=== PATIENT | male | born 1935 | race Caucasian/White ===

== ENCOUNTER 2016-10-14 12:08 | Emergency (ER) | payer MEDICARE ==
[~2016-10-14] VITALS: Ht 188 cm; Wt 97.5 kg
[~2016-10-14 12:08] MED LIST: ACET-2307 PO; AMLO10TA2 PO; AMLO10TA4 PO; ASPI-983 PO; CITA10TA12 PO; CITA20TA7 PO; CYCL5TAB PO; DIAZ5TAB PO; DIAZ5TAB3 PO; DICL100G18 TOP; DOCU-143 PO; FEN12TD TD; FENT1PAT57 TD; FENT1PAT8 TP; FINA5TAB6 PO; FOLI1TAB6 PO; FURO20TA4 PO; GABA-488 PO; HYDR2TAB6 PO; LORA10TA7 PO; METO-270 PO; MOVE FREE ULTR1 EAC1 PO; OXYB5TAB PO; OXYB5TAB9 PO; OXYC-202 PO; POLY17PO6 PO; RIVA20TA PO; SENN-20 PO; TAMS0.4C2 PO; TAMS0.4C98 PO; TELM40T PO; TRAM50TA2 PO; UBID1CAP53 PO
--- NOTE | 2016-10-14 13:08 | ED General ---
General Chief Complaint: Dizziness/Syncope Stated Complaint: DIZZY N/V Source of Information: Patient, Family Exam Limitations: No Limitations History of Present Illness Time Seen by Provider: 13:03 Initial Comments The patient is an 81-year-old white male known to me for nearly 40 years. He reports that he was at [employer] this morning helping out. A lady came in and brought 5 gallons of motor oil. He carried this to her vehicle then began to feel ill. This primarily was a faint sensation and lightheadedness accompanied by intense diaphoresis. His states that he was not supposed to carry any weights as he has had 2 previous back surgeries. It also was stated that his blood pressure tends to drop when he is up. Further he has been told by his corking machine operator in [place] that he may need a pacemaker. His blood sugar was tested on a glucometer and found to be 49. He is not diabetic and has not taken any hypoglycemics. He is feeling better at this time. Monitor shows his blood pressure to be satisfactory however his pulse is in the 40s. His QRS duration is 119 ms. Timing/Duration: 1-3 Hours Severity: Moderate Associated Systoms: Nausea/Vomiting Allergies and Home Medications Allergies Coded Allergies: Qhsivbq-Iqn-Fcn Reductase Inhibitor (Verified Allergy, Unknown, 07/05/15) hydrocodone (Verified Allergy, Unknown, 07/05/15) Home Medications Acetaminophen 650 Mg Tablet.er, 650 MG PO BID, (Reported) Amlodipine Besylate 10 Mg Tablet, 10 MG PO DAILY, (Reported) Aspirin 81 Mg Tablet.dr, 81 MG PO HS, (Reported) Cartilage/Collagen II/Hyaluron 1 Each Tablet, 1 TAB PO BID, (Reported) Citalopram Hydrobromide 20 Mg Tablet, 20 MG PO DAILY, (Reported) LAST FILLED 05/13/15 #30 Cyclobenzaprine HCl 5 Mg Tablet, 2.5 MG PO TID, #60 Ref 2 Prescribed by: JYOTI RAPP on 07/10/1514 Diazepam 5 Mg Tablet, 5 MG PO Q4H PRN for MUSCLE SPASMS, (Reported) Diclofenac Sodium 100 Gm Gel..gram., 0 GM TOP QID, #5 Ref 2 Prescribed by: JYOTI RAPP on 07/10/15 0914 Docusate Sodium 100 Mg Capsule, 200 MG PO DAILY, (Reported) TAKES 2 (100MG) CAPSULES Fentanyl 1 Each Patch.td72, 25 MCG TP EVERY 72 HOURS, (Reported) Fentanyl 12 Mcg Patch, 12 MCG TD Q72H, #10 Prescribed by: JYOTI RAPP on 07/10/15913 Finasteride 5 Mg Tablet, 5 MG PO HS, (Reported) Furosemide 20 Mg Tablet, 20 MG PO DAILY, (Reported) LAST FILLED 05/13/15 #30 Gabapentin 300 Mg Capsule, 300 MG PO TID, (Reported) Hydromorphone HCl 2 Mg Tablet, 4 MG PO Q4H PRN for PAIN, (Reported) TAKES 2 (2 MG) TABLETS Loratadine 10 Mg Tablet, 10 MG PO DAILY, (Reported) Metoprolol Succinate 25 Mg Tab.er.24h, 25 MG PO HS, (Reported) Multivitamin/Iron/Folic Acid 1 Each Tablet, 1 TAB PO DAILY, (Reported) Oxybutynin Chloride 5 Mg Tablet, 5 MG PO HS, (Reported) Oxycodone HCl/Acetaminophen 1 Each Tablet, 1 TAB PO Q6H PRN for PAIN, (Reported) Polyethylene Glycol 3350 17 Gm Powd.pack, 17 GM PO DAILY, (Reported) Rivaroxaban 20 Mg Tablet, 20 MG PO HS, #30 Ref 4 Prescribed by: JYOTI RAPP on 07/10/15913 Sennosides/Docusate Sodium 1 Each Tablet, 1 EA PO DAILY, #60 Ref 2 Prescribed by: JYOTI RAPP on 07/10/15913 Tamsulosin HCl 0.4 Mg Cap.er.24h, 0.4 MG PO DAILY, (Reported) Telmisartan 40 Mg Tab, 20 MG PO DAILY, (Reported) TAKES 1/2 (40MG) TABLETS Ubidecarenone/Vit E Acetate 1 Each Capsule, 1 CAP PO DAILY, (Reported) Constitutional: see HPI EENTM: no symptoms reported Respiratory: no symptoms reported Cardiovascular: syncope (near) Gastrointestinal: no symptoms reported Genitourinary: no symptoms reported Musculoskeletal: muscle weakness Skin: no symptoms reported Psychiatric/Neurological: No Symptoms Reported Hematologic/Lymphatic: No Symptoms Reported Immunological/Allergic: no symptoms reported Past Pbkdqsv-Llhmct-Qrvlrj Hx Patient Social History Former Smoker/When Quit: Mar 30, 1989 Immunizations Up To Date Date of Pneumonia Vaccine: Mar 08, 2012 Date of Influenza Vaccine: Apr 08, 2015 Seasonal Allergies Seasonal Allergies: No Surgeries HX Surgeries: Yes (CERVICAL AND LUMBAR SPINE SURGERY; BILATERAL KNEE AND RIGHT HIP REPLACEMENT) Surgeries: Joint Replacement, Neurological Respiratory Hx Respiratory Disorders: Yes Respiratory Disorders: Sleep Apnea Cardiovascular Hx Cardiac Disorders: Yes (GA) Cardiac Disorders: Coronary Artery Disease, Heart Attack, High Cholesterol, Hypertension Neurological Hx Neurological Disorders: No Reproductive System Hx Reproductive Disorders: No Genitourinary Hx Genitourinary Disorders: Yes Genitourinary Disorders: Benign Prostatic Hyperpl Gastrointestinal Hx Gastrointestinal Disorders: No Musculoskeletal Hx Musculoskeletal Disorders: Yes (LEFT ARM LYMPHEDEMA) Musculoskeletal Disorders: Degenerate Disk Disease, Arthritis, Chronic Back Pain Endocrine Hx Endocrine Disorders: No HEENT HX ENT Disorders: No Hearing Impairment: Hard of Hearing Cancer Hx Cancer: Yes (LEFT ARM LYMPHEDEMA) Cancer: Melanoma Psychosocial Hx Psychiatric Problems: Yes Behavioral Health Disorders: Depression Integumentary HX Skin/Integumentary Disorder: Yes (LOWER LEGS, MELANOMA) Blood Transfusions Hx Blood Disorders: No Adverse Reaction to a Blood Tr: No Family Medical History Significant Family History: Heart Disease, Hypertension Family Medial History: Anemia Cardiovascular disease Diabetes mellitus FH: breast cancer Hypertension Physical Exam Vital Signs Capillary Refill : General Appearance: No Apparent Distress, WD/WN Eyes: Bilateral Eye Normal Inspection HEENT: Normal ENT Inspection Neck: Normal Inspection Respiratory: Chest Non Tender, Lungs Clear, Normal Breath Sounds, No Accessory Muscle Use, No Respiratory Distress Cardiovascular: Other (bradycardic) Gastrointestinal: Normal Bowel Sounds, No Organomegaly, No Pulsatile Mass, Non Tender, Soft Neurologic/Psychiatric: Alert, Oriented x3, No Motor/Sensory Deficits, Normal Mood/Affect Skin: Normal Color, Warm/Dry Lymphatic: No Adenopathy Comments There is lymphedema of the left arm which is chronic and follows a left axillary dissection as part of a treatment for a 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 The lower extremities show bilateral symmetric edema and erythema consistent with venous stasis dermatitis Progress/Results/Core Measures Results/Orders Lab Results Laboratory Tests Test 10/14/16 12:25 Range/Units Glucometer 95 70-110 MG/DL My Orders Orders - NANCY MACKENZIE MD Ekg Tracing (10/14/16 12:32) Departure Impression Impression: Primary Impression: Near syncope Additional Impression: bradycardia Disposition: 01 HOME, SELF-CARE Condition: Improved Departure-Patient Inst. Referrals: NO,LOCAL PHYSICIAN (PCP/Family) Primary Care Physician Patient Instructions: Syncope (Fainting) (DC), Orthostatic Hypotension (DC) Add. Discharge Instructions: All discharge instructions reviewed with patient and/or family. Voiced understanding. Take in 500 mL of oral fluids this afternoon. Rest NANCY MACKENZIE MD October 14, 2016 13:08
[2016-10-14 13:19] LABS: BASOPHILS % (AUTO) 1 % (0-10); EOSINOPHILS # (AUTO) 0.2 10^3/uL (0.0-0.3); EOSINOPHILS % (AUTO) 3 % (0-10); LYMPHOCYTES % (AUTO) 30 % (12-44); MEAN CORPUSCULAR HEMOGLOBIN 32 PG (25-34); MEAN CORPUSCULAR HGB CONC 34 G/DL (32-36); MEAN CORPUSCULAR VOLUME 93 FL (80-99); MEAN PLATELET VOLUME 10.3 FL (7.4-10.4); MONOCYTES # (AUTO) 0.7 X 10^3 (0.0-1.0); MONOCYTES % (AUTO) 11 % (0-12); NEUTROPHILS # (AUTO) 3.7 X 10^3 (1.8-7.8); NEUTROPHILS % (AUTO) 56 % (42-75); PLATELET COUNT 233 10^3/uL (130-400); RED BLOOD COUNT 4.52 10^6/uL (4.35-5.85); RED CELL DISTRIBUTION WIDTH 13.1 % (10.0-14.5); WHITE BLOOD COUNT 6.7 10^3/uL (4.3-11.0)
[2016-10-14 13:32] LABS: ALANINE AMINOTRANSFERASE 16 U/L (0-55); ALBUMIN 3.9 G/DL (3.2-4.5); ANION GAP 8 MMOL/L (5-14); ASPARTATE AMINO TRANSFERASE 21 U/L (5-34); BILIRUBIN,TOTAL 0.4 MG/DL (0.1-1.0); BLOOD UREA NITROGEN 20 MG/DL (7-18); BUN/CREATININE RATIO 18; CALCIUM 10.3 MG/DL (8.5-10.1); CARBON DIOXIDE 25 MMOL/L (21-32); CHLORIDE 103 MMOL/L (98-107); CREATININE SERUM 1.14 MG/DL (0.60-1.30); GFR ESTIMATED > 60; GLUCOSE 100 MG/DL (70-105); SODIUM 136 MMOL/L (135-145); TOTAL PROTEIN 6.5 G/DL (6.4-8.2)
[2016-10-14 14:08] VITALS: BP 132/80
== END 2016-10-14 14:08 | disposition home or self-care (01) ==
LOC: EDUNIT# 12:08 → ER 12:10
DX: R55 Syncope and collapse (principal); R00.1 Bradycardia, unspecified; I10 Essential (primary) hypertension; E11.9 Type 2 diabetes mellitus without complications; I25.10 Atherosclerotic heart disease of native coronary artery without angina pectoris; I97.89 Other postprocedural complications and disorders of the circulatory system, not elsewhere classified; Z79.82 Long term (current) use of aspirin; Z79.899 Other long term (current) drug therapy; Z79.4 Long term (current) use of insulin; Z85.820 Personal history of malignant melanoma of skin
CPT/HCPCS: 36415; 80053; 82962; 85025; 93005

== ENCOUNTER 2017-10-16 19:06 | Emergency (ER) | payer MEDICARE ==
[~2017-10-16] VITALS: Ht 185.4 cm; Wt 115.7 kg
[~2017-10-16 19:06] MED LIST changes: -CITA20TA7 PO; +CITA20TA9 PO; -METO-270 PO; +METO-387 PO
--- NOTE | 2017-10-16 19:24 | ED General ---
General Chief Complaint: Dizziness/Syncope Stated Complaint: DIZZY Source of Information: Patient, Spouse History of Present Illness Date Seen by Provider: October 16, 2017 Time Seen by Provider: 19:11 Initial Comments PT ARRIVES VIA POV FROM HOME C/O SEVERE DIZZINESS AND NAUSEA/VOMITING HAS CHRONIC LIGHTHEADEDNESS OFF AND ON, BUT HAS BEEN WORSE THE LAST WEEK, AND WOKE UP DIZZY/LIGHTHEADED TODAY AND HAS BEEN LIGHTHEADED ALL DAY TODAY WHILE HE WAS OUTSIDE AROUND 1700, HAD WALKED TO THE BARN AND SUDDENLY THE DIZZINESS BECAME SEVERE AND "THE WHOLE WORLD'S SPINNING" AND HE COULD NOT STAND , AND HE BECAME NAUSEATED AND VOMITED WAS SWEATY TOOK NTG SL X 1, AN HOUR AGO, "JUST IN CASE" IT MIGHT BE HIS HEART, BUT NO CHEST PAIN OR SHORTNESS OF BREATH AT ANY TIME TOOK OTC MECLIZINE 25 MG 45 MINUTES AGO, AND HE VOMITED RIGHT AFTERWARDS HAS HAD SLIGHT HEADACHE VISION WAS BLURRY EARLIER, BUT NOT RIGHT NOW. DESCRIBES NYSTAGMUS AT HOME, NOT OCCURRING NOW NO CHANGES IN HEARING ( HAS BEEN TO ENT DR. RICHARDSON, IN THE PAST FOR THIS AND WAS TOLD IT WAS NOT FROM HIS EARS) HAS HAD IT THIS BAD BEFORE BUT LAST TIME IT WAS THIS BAD WAS ABOUT A YEAR AGO. PCP: MAGGIE GORE--HAS APPOINTMENT ON Monday10/18/17 BUSINESS PRACTICES SUPERVISOR: MAGGIE DENNY UROLOGIST: MAGGIE NASH HAD BEEN AT [facility] A COUPLE OF YEARS AGO WITH INTRACTABLE BACK PAIN AND STRONG PAIN MEDICATIONS WERE MAKING HIM UNMANAGEABLE AT HOME--DR. RAPP WAS HIS DR. IN PRISON. Allergies and Home Medications Allergies Coded Allergies: [id number]-Oba Reductase Inhibitor (Verified Allergy, Unknown, 07/05/15) hydrocodone (Verified Allergy, Unknown, 07/05/15) Home Medications Acetaminophen 650 Mg Tablet.er, 650 MG PO BID, (Reported) Amlodipine Besylate 10 Mg Tablet, 10 MG PO DAILY, (Reported) Aspirin 81 Mg Tablet.dr, 81 MG PO HS, (Reported) Cartilage/Collagen II/Hyaluron 1 Each Tablet, 1 TAB PO BID, (Reported) Citalopram Hydrobromide 20 Mg Tablet, 20 MG PO DAILY, (Reported) LAST FILLED 05/13/15 #30 Docusate Sodium 100 Mg Capsule, 200 MG PO DAILY, (Reported) TAKES 2 (100MG) CAPSULES Finasteride 5 Mg Tablet, 5 MG PO HS, (Reported) Gabapentin 300 Mg Capsule, 300 MG PO TID, (Reported) Loratadine 10 Mg Tablet, 10 MG PO DAILY, (Reported) Meclizine HCl 25 Mg Tablet, 25-50 MG PO Q4H Prescribed by: KISHA BLOUNT on 10/16/172058 Multivitamin/Iron/Folic Acid 1 Each Tablet, 1 TAB PO DAILY, (Reported) Ondansetron 4 Mg Tab.rapdis, 4 MG PO Q4H Prescribed by: KISHA BLOUNT on 10/16/172058 Scopolamine 1 Each Patch.td72, 1 EACH TD Q72 HOURS Prescribed by: KISHA BLOUNT on 10/16/172058 Ubidecarenone/Vit E Acetate 1 Each Capsule, 1 CAP PO DAILY, (Reported) Patient Home Medication List Home Medication List Reviewed: Yes Review of Systems Constitutional: see HPI, diaphoresis, dizziness EENTM: blurred vision Respiratory: no symptoms reported; No short of breath Cardiovascular: no symptoms reported; No chest pain, No palpitations, No syncope Gastrointestinal: No abdominal pain; nausea, vomiting Genitourinary: no symptoms reported Musculoskeletal: no symptoms reported (EXCEPT CHRONIC LEFT ARM LYMPHEDEMA AND CHRONIC NECK AND BACK PAIN--NO DIFFERENT THAN NORMAL), back pain, neck pain Skin: no symptoms reported Psychiatric/Neurological: See HPI, Headache; Denies Numbness, Denies Paresthesia, Denies Seizure, Denies Tingling, Denies Weakness Hematologic/Lymphatic: No Symptoms Reported Immunological/Allergic: no symptoms reported Past Tkcjdcj-Wbtxay-Nwiixy Hx Patient Social History Alcohol Use: Denies Use Recreational Drug Use: No Smoking Status: Never a Smoker Recent Foreign Travel: No Contact w/Someone Who Travel: No Immunizations Up To Date Date of Pneumonia Vaccine: Mar 08, 2012 Date of Influenza Vaccine: Apr 08, 2015 Seasonal Allergies Seasonal Allergies: No Past Medical History Surgeries: Yes (CERVICAL AND LUMBAR SPINE SURGERY; BILATERAL KNEE AND RIGHT HIP REPLACEMENTS; MELANOMA REMOVED FROM BACK WITH LYMPH NODE REMOVAL LEFT AXILLA IN 1979; BILATERAL CATARACTS; CARDIAC CATH--NO INTERVENTION; CERVICAL SPINE FUSION/HARDWARE; LOW BACK SURGERY X 2; BILATERAL INGUINAL HERNIA REPAIRS) Abdominal, Cardiac, Eye Surgery, Joint Replacement, Neurological, Orthopedic, Pacemaker Respiratory: Yes Sleep Apnea Currently Using BIPAP: Yes Cardiac: Yes (GA; DVT RIGHT LEG POST-OP BACK SURGERY) Chronic Edema/Swelling (LEGS, LEFT ARM), Coronary Artery Disease, Deep Vein Thrombosis, Heart Attack, High Cholesterol, Hypertension Neurological: Yes Vertigo Reproductive Disorders: No Genitourinary: Yes Benign Prostatic Hyperpl Gastrointestinal: No Musculoskeletal: Yes (LEFT ARM LYMPHEDEMA; CHRONIC NECK AND BACK PAIN) Degenerate Disk Disease, Arthritis, Chronic Back Pain Endocrine: No HEENT: Yes Cataract Hearing Impairment: Hard of Hearing Cancer: Yes (MELANOMA ON BACK--S/P SURGERY 1979) Melanoma Did You Recieve Any Treatments: Yes What Type of Treatment Did You: Surgical Intervention Psychosocial: Yes Depression Integumentary: Yes (LOWER LEGS, MELANOMA ON BACK) Blood Disorders: No Adverse Reaction/Blood Tranf: No Family Medical History Anemia Cardiovascular disease Diabetes mellitus FH: breast cancer Hypertension Heart Disease, Hypertension Physical Exam Vital Signs Vital Signs - First Documented 10/16/17 19:10 Temp 95.3 Pulse 70 Resp 25 B/P (MAP) 177/104 (128) Pulse Ox 91 O2 Delivery Room Air Capillary Refill : General Appearance: No Apparent Distress, WD/WN HEENT: PERRL/EOMI (NO NYSTAGMUS), TMs Normal, Normal ENT Inspection, Pharynx Normal Neck: Full Range of Motion, Normal Inspection, Supple, Tender Lateral, Tender Midline, Other (NECK PAIN IS CHRONIC AND NO DIFFERENT THAN NORMAL) Respiratory: Normal Breath Sounds, No Accessory Muscle Use, No Respiratory Distress Cardiovascular: Regular Rate, Rhythm, No JVD, No Murmur, Normal Peripheral Pulses, Other (SIGNIFICANT LYMPHEDEMA OF LEFT ARM) Gastrointestinal: Normal Bowel Sounds, No Organomegaly, No Pulsatile Mass, Non Tender, Soft Back: No CVA Tenderness Extremity: Normal Capillary Refill, Normal Range of Motion, Non Tender, No Calf Tenderness, Pedal Edema (TRACE BILATERALLY WITH CHRONIC VENOUS STASIS CHANGES BILATERALLY) Neurologic/Psychiatric: Alert, Oriented x3, No Motor/Sensory Deficits, Normal Mood/Affect, family protection specialist II-XII Norm as Tested, Other ( UNABLE TO STAND OR PERFORM CEREBELLAR TESTS ON ARRIVAL) Skin: Normal Color, Warm/Dry Progress/Results/Core Measures Suspected Sepsis SIRS Temperature: Pulse: Respiratory Rate: Laboratory Tests 10/16/17 19:30: White Blood Count 10.5 Blood Pressure / Mean: Laboratory Tests 10/16/17 19:30: Creatinine 1.21, INR Comment 1.0, Platelet Count 262, Total Bilirubin 0.5 Results/Orders Lab Results Laboratory Tests Test 10/16/17 19:21 10/16/17 19:30 10/16/17 20:31 Range/Units Glucometer 143 H 70-110 MG/DL White Blood Count 10.5 4.3-11.0 10^3/uL Red Blood Count 4.98 4.35-5.85 10^6/uL Hemoglobin 16.0 13.3-17.7 G/DL Hematocrit 46 40-54 % Mean Corpuscular Volume 92 80-99 FL Mean Corpuscular Hemoglobin 32 25-34 PG Mean Corpuscular Hemoglobin Concent 35 32-36 G/DL Red Cell Distribution Width 13.5 10.0-14.5 % Platelet Count 262 130-400 10^3/uL Mean Platelet Volume 9.5 7.4-10.4 FL Neutrophils (%) (Auto) 73 42-75 % Lymphocytes (%) (Auto) 18 12-44 % Monocytes (%) (Auto) 7 0-12 % Eosinophils (%) (Auto) 1 0-10 % Basophils (%) (Auto) 0 0-10 % Neutrophils # (Auto) 7.7 1.8-7.8 X 10^3 Lymphocytes # (Auto) 1.9 1.0-4.0 X 10^3 Monocytes # (Auto) 0.8 0.0-1.0 X 10^3 Eosinophils # (Auto) 0.1 0.0-0.3 10^3/uL Basophils # (Auto) 0.0 0.0-0.1 10^3/uL Prothrombin Time 12.8 12.2-14.7 SEC INR Comment 1.0 0.8-1.4 Activated Partial Thromboplast Time 25 24-35 SEC Sodium Level 139 135-145 MMOL/L Potassium Level 4.4 3.6-5.0 MMOL/L Chloride Level 101 98-107 MMOL/L Carbon Dioxide Level 23 21-32 MMOL/L Anion Gap 15 H 5-14 MMOL/L Blood Urea Nitrogen 18 7-18 MG/DL Creatinine 1.21 0.60-1.30 MG/DL Estimat Glomerular Filtration Rate 57 BUN/Creatinine Ratio 15 Glucose Level 149 H 70-105 MG/DL Calcium Level 10.7 H 8.5-10.1 MG/DL Magnesium Level 2.4 1.8-2.4 MG/DL Total Bilirubin 0.5 0.1-1.0 MG/DL Aspartate Amino Transf (AST/SGOT) 21 5-34 U/L Alanine Aminotransferase (ALT/SGPT) 20 0-55 U/L Alkaline Phosphatase 71 40-136 U/L Troponin I < 0.30 <0.30 NG/ML Total Protein 7.9 6.4-8.2 GM/DL Albumin 4.7 H 3.2-4.5 GM/DL TSH [place] Testing 3.98 0.35-4.94 UIU/ML Urine Color YELLOW Urine Clarity CLEAR Urine pH 6.5 5-9 Urine Specific [place] 1.020 1.016-1.022 Urine Protein 1+ H NEGATIVE Urine Glucose (UA) NEGATIVE NEGATIVE Urine Ketones NEGATIVE NEGATIVE Urine Nitrite NEGATIVE NEGATIVE Urine Bilirubin NEGATIVE NEGATIVE Urine Urobilinogen NORMAL NORMAL MG/DL Urine Leukocyte Esterase NEGATIVE NEGATIVE Urine RBC (Auto) 4+ H NEGATIVE Urine RBC >100 H /HPF Urine WBC RARE /HPF Urine Crystals NONE /LPF Urine Bacteria NEGATIVE /HPF Urine Casts NONE /LPF Urine Mucus SMALL H /LPF Urine Culture Indicated NO My Orders Orders - KISHA BLOUNT DO Saline Lock/Iv-Start (10/16/17 19:16) Ekg Tracing (10/16/17 19:16) Monitor-Rhythm Ecg Trace Only (10/16/17 19:16) Ct Head Wo-R/O Stroke (10/16/17 19:16) Cbc With Automated Diff (10/16/17 19:16) Comprehensive Metabolic Panel (10/16/17 19:16) Magnesium (10/16/17 19:16) Protime With Inr (10/16/17 19:16) Partial Thromboplastin Time (10/16/17 19:16) Thyroid Analyzer (10/16/17 19:16) Troponin I (10/16/17 19:16) Ua Culture If Indicated (10/16/17 19:16) Ondansetron Injection (Zofran Injectio (10/16/17 19:30) Scopolamine Patch (Transderm-Scop Patch) (10/16/17 19:30) Meclizine Tablet (Antivert Tablet) (10/16/17 19:30) Chest 1 View, Ap/Pa Only (10/16/17 19:35) Rx-Ondansetron Po (Rx-Zofran Po) (10/16/17 20:59) Medications Given in ED Current Medications Medications Dose Ordered Sig/Vish Route Start Time Stop Time Status Last Admin Dose Admin Ondansetron HCl 8 mg ONCE ONCE IVP 10/16/17 19:30 10/16/17 19:31 DC 10/16/17 19:36 8 MG Scopolamine 1.5 mg ONCE ONCE TD 10/16/17 19:30 10/16/17 19:31 DC 10/16/17 19:36 1.5 MG Vital Signs/I&O 10/16/17 19:10 Temp 95.3 Pulse 70 Resp 25 B/P (MAP) 177/104 (128) Pulse Ox 91 O2 Delivery Room Air Capillary Refill : Progress Note : Progress Note DIZZINESS AND NAUSEA IS GONE WITH ZOFRAN AND SCOPOLAMINE. PT DECLINES MECLIZINE , STATES HE DOES NOT NEED IT. PT FREELY TURNS HEAD FROM SIDE TO SIDE AND SITTING UPRIGHT WITH OUT DIFFICULTY PT ABLE TO AMBULATE QUICKLY ON HIS OWN AT DISMISSAL PT WANTS TO GO HOME ECG Initial ECG Impression Date: October 16, 2017 Initial ECG Impression Time: 19:27 Initial ECG Rate: 65 Initial ECG Rhythm: Normal Sinus (INCOMPLETE RBBB) Diagnostic Imaging Comments CXR--MILD CARDIOMEGALY, NO ACUTE PROCESS CT HEAD--NO ACUTE PROCESS PER RADIOLOGIST REPORTS @ 2016 Reviewed: Reviewed by Me Departure Impression Primary Impression: Vertigo Additional Impression: Microscopic hematuria Disposition: HOME, SELF-CARE Condition: Improved Departure-Patient Inst. Referrals: SOO FERREIRA MD (PCP/Family) Primary Care Physician Patient Instructions: Vertigo (a Type of Dizziness) (DC) Add. Discharge Instructions: SLOW POSITION CHANGES USE YOUR WALKER AT ALL TIMES CONTINUE YOUR REGULAR MEDICATIONS PRESCRIBED FOLLOW UP WITH DR. FERREIRA ON MONDAY SCHEDULED. All discharge instructions reviewed with patient and/or family. Voiced understanding. Scripts Meclizine HCl (Meclizine HCl) 25 Mg Tablet 25-50 MG PO Q4H for Dizziness, #30 TAB Prov: KISHA BLOUNT DO 10/16/17 Ondansetron (Zofran Odt) 4 Mg Tab.rapdis 4 MG PO Q4H for Nausea/Vomiting, #10 TAB Prov: KISHA BLOUNT DO 10/16/17 Scopolamine (Transderm-Scop) 1 Each Patch.td72 1 EACH TD Q72 HOURS for Dizziness, #3 PATCH Prov: KISHA BLOUNT DO 10/16/17 KISHA BLOUNT DO October 16, 2017 19:24
[2017-10-16] MEDS ORDERED: SCOPOLAMINE 1.5 MG (TRANSDERM-SCOP) PATCH TD ONE (19:30)
[2017-10-16] MEDS ORDERED: ONDANSETRON 4 MG/2 ML (SDV) Z0FRAN IVP ONE (19:30)
[2017-10-16] MEDS ORDERED: MECLIZINE 25 MG (ANTIVERT) TAB PO ONE (19:30)
[2017-10-16 19:39] LABS: BASOPHILS % (AUTO) 0 % (0-10); EOSINOPHILS # (AUTO) 0.1 10^3/uL (0.0-0.3); EOSINOPHILS % (AUTO) 1 % (0-10); HEMATOCRIT 46 % (40-54); LYMPHOCYTES # (AUTO) 1.9 X 10^3 (1.0-4.0); LYMPHOCYTES % (AUTO) 18 % (12-44); MEAN CORPUSCULAR HEMOGLOBIN 32 PG (25-34); MEAN CORPUSCULAR HGB CONC 35 G/DL (32-36); MEAN CORPUSCULAR VOLUME 92 FL (80-99); MEAN PLATELET VOLUME 9.5 FL (7.4-10.4); MONOCYTES # (AUTO) 0.8 X 10^3 (0.0-1.0); MONOCYTES % (AUTO) 7 % (0-12); NEUTROPHILS # (AUTO) 7.7 X 10^3 (1.8-7.8); NEUTROPHILS % (AUTO) 73 % (42-75); PLATELET COUNT 262 10^3/uL (130-400); RED BLOOD COUNT 4.98 10^6/uL (4.35-5.85); RED CELL DISTRIBUTION WIDTH 13.5 % (10.0-14.5); WHITE BLOOD COUNT 10.5 10^3/uL (4.3-11.0)
[2017-10-16] MEDS ORDERED: NF-TELM20T (19:43)
[2017-10-16 19:53] LABS: PROTHROMBIN TIME PATIENT 12.8 SEC (12.2-14.7)
[2017-10-16 20:02] LABS: ALANINE AMINOTRANSFERASE 20 U/L (0-55); ALBUMIN 4.7 GM/DL (3.2-4.5); ALKALINE PHOSPHATASE 71 U/L (40-136); BILIRUBIN,TOTAL 0.5 MG/DL (0.1-1.0); BUN/CREATININE RATIO 15; CALCIUM 10.7 MG/DL (8.5-10.1); CARBON DIOXIDE 23 MMOL/L (21-32); CHLORIDE 101 MMOL/L (98-107); CREATININE SERUM 1.21 MG/DL (0.60-1.30); GFR ESTIMATED 57; GLUCOSE 149 MG/DL (70-105); MAGNESIUM 2.4 MG/DL (1.8-2.4); POTASSIUM 4.4 MMOL/L (3.6-5.0); SODIUM 139 MMOL/L (135-145); TOTAL PROTEIN 7.9 GM/DL (6.4-8.2)
--- NOTE | 2017-10-16 20:06 | Diagnostic Imaging Report ---
INDICATION: Dizziness and syncope Upright chest shows mild cardiomegaly with normal vascularity. The lungs are clear. There is no effusion or pneumothorax. There is no acute bony abnormality. IMPRESSION: Mild cardiomegaly. Dictated by: Dictated on workstation # [id number]
--- NOTE | 2017-10-16 20:10 | Diagnostic Imaging Report ---
INDICATION: Dizziness, syncope FINDINGS: The ventricles are normal in size, shape and position. There is no acute parenchymal hemorrhage, edema or mass. There is no extra-axial mass or hemorrhage. IMPRESSION: No acute abnormality is seen. Dictated by: Dictated on workstation # [id number]
[2017-10-16 20:22] LABS: TSH (THYROID ANALYZER) 3.98 UIU/ML (0.35-4.94)
[2017-10-16 20:52] LABS: BILIRUBIN,URINE NEGATIVE (NEGATIVE); CLARITY,URINE CLEAR; COLOR,URINE YELLOW; GLUCOSE, URINE (UA) NEGATIVE (NEGATIVE); KETONES,URINE NEGATIVE (NEGATIVE); LEUKOCYTE ESTERASE ,URINE NEGATIVE (NEGATIVE); NITRITE,URINE NEGATIVE (NEGATIVE); PH,URINE 6.5 (5-9); PROTEIN,URINE 1+ (NEGATIVE); UROBILINOGEN,URINE NORMAL (NORMAL)
[2017-10-16] MEDS ORDERED: SCOP1PAT11 TD (20:59)
[2017-10-16] MEDS ORDERED: ONDA4TAB8 PO (20:59)
[2017-10-16] MEDS ORDERED: MECL-106 PO (20:59)
[2017-10-16] MEDS ORDERED: RX-ONDANSETRON 4 MG ODT (ZOFRAN) PPK #4 ONE (20:59)
[2017-10-16] MEDS ORDERED: RX-ONDANSETRON 4 MG ODT (ZOFRAN) PPK #4 PO STA (20:59)
[2017-10-16 21:08] LABS: BACTERIA,URINE NEGATIVE /HPF; RBC,URINE >100 /HPF; WBC,URINE RARE /HPF
[2017-10-16 21:12] VITALS: BP 138/89
== END 2017-10-16 21:12 | disposition home or self-care (01) ==
LOC: EDUNIT# 19:06 → ER 19:07
DX: R42 Dizziness and giddiness (principal); R31.29 Other microscopic hematuria; G47.30 Sleep apnea, unspecified; I25.2 Old myocardial infarction; I25.10 Atherosclerotic heart disease of native coronary artery without angina pectoris; E78.00 Pure hypercholesterolemia, unspecified; I10 Essential (primary) hypertension; F32.9 Major depressive disorder, single episode, unspecified; Z86.718 Personal history of other venous thrombosis and embolism; Z88.5 Allergy status to narcotic agent; Z88.8 Allergy status to other drugs, medicaments and biological substances; Z79.82 Long term (current) use of aspirin; Z82.49 Family history of ischemic heart disease and other diseases of the circulatory system; Z98.1 Arthrodesis status; Z96.653 Presence of artificial knee joint, bilateral; Z96.641 Presence of right artificial hip joint; Z85.820 Personal history of malignant melanoma of skin; Z87.19 Personal history of other diseases of the digestive system; Z95.0 Presence of cardiac pacemaker
CPT/HCPCS: 36415; 70450; 71045; 80053; 81000; 82962; 83735; 84443; 84484; 85025; 85610; 85730; 93005; 93041; 96374

== ENCOUNTER → 2017-11-20 | Outpatient (CLI) | payer MEDICARE ==
[~2017-11-20] MED LIST changes: +MECL-106 PO; +NF-TELM20T; +ONDA4TAB8 PO; +SCOP1PAT11 TD
--- NOTE | 2017-11-20 11:25 | Diagnostic Imaging Report ---
INDICATION: Right foot injury 3 views of the right foot show slight cortical irregularity on the dorsal aspect of the distal talus close to the talonavicular joint. This could be a nondisplaced avulsion fracture. IMPRESSION: Questionable nondisplaced avulsion fracture of the dorsal cortex of the distal talus. Dictated by: Dictated on workstation # [id number]
== END ==
LOC: RAD 10:56
PROVIDERS: ATTEND Nurse Practitioner Family
DX: S99.921A Unspecified injury of right foot, initial encounter (principal)
CPT/HCPCS: 73630

== ENCOUNTER 2020-02-11 17:27 | Inpatient (IN) | payer MEDICARE ==
[~2020-02-11] VITALS: Ht 182.9 cm; Wt 113.1 kg
[~2020-02-11 17:27] MED LIST changes: -ACET-2307 PO; +ACET650T8 PO; -AMLO10TA2 PO; +AMLO10TA7 PO; +ASPI-1238 PO; -ASPI-983 PO; -DIAZ5TAB3 PO; +DIAZ5TAB49 PO; -MECL-106 PO; +MECL-149 PO; -METO-387 PO; +MTP25TSR PO; +OXYB-52 PO; -OXYB5TAB PO; +OXYB5TAB13 PO; -OXYB5TAB9 PO; -OXYC-202 PO; +OXYC1TAB12 PO; -RIVA20TA PO; +RIVA20TA2 PO; -TAMS0.4C98 PO; +TMSL.4C PO; -TRAM50TA2 PO; +TRM50T PO
[2020-02-11] MEDS ORDERED: NS IV 1000 ML 1,000 ML IV SCH ×2 (17:54→19:33)
--- NOTE | 2020-02-11 18:22 | ED Respiratory ---
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 ALSO HAS HAD BURNING ON URINATION RECENTLY HAS HAD MULTIPLE SICK CONTACTS THAT TESTED + FOR COVID-19--WAS AT A [place] 01[place]20 AND MULTIPLE PEOPLE AT THAT EVENT TESTED + ADDITIONALLY, THE GROOM HAS BEEN WORKING AT HIS HOUSE IN THE LAST 2 WEEKS--NO MASKS WERE WORN PT TOOK TYLENOL JUST PRIOR TO ARRIVAL, OTHERWISE HAS NOT TAKEN ANYTHING ELSE FOR SYMPTOMS PT SAW HIS PCP, DR. FERREIRA, IN [place] LAST W[place] FOR ROUTINE EXAM, BUT DID NOT TELL HIM ABOUT THESE SYMPTOMS OR HIS KNOWN EXPOSURE TO COVID-19. PCP: DR. FERREIRA [place] Allergies and Home Medications Allergies Coded Allergies: Klufcar-Wrx-Tph Reductase Inhibitor (Verified Allergy, Unknown, 07/05/15) hydrocodone (Verified Allergy, Unknown, 07/05/15) Home Medications Acetaminophen 650 Mg Tablet.er, 650 MG PO BID, (Reported) Amlodipine Besylate 10 Mg Tablet, 10 MG PO DAILY, (Reported) Aspirin 81 Mg Tablet.dr, 81 MG PO HS, (Reported) Cartilage/Collagen II/Hyaluron 1 Each Tablet, 1 TAB PO BID, (Reported) Citalopram Hydrobromide 20 Mg Tablet, 20 MG PO DAILY, (Reported) LAST FILLED 05/13/15 #30 Docusate Sodium 100 Mg Capsule, 200 MG PO DAILY, (Reported) TAKES 2 (100MG) CAPSULES Finasteride 5 Mg Tablet, 5 MG PO HS, (Reported) Gabapentin 300 Mg Capsule, 300 MG PO TID, (Reported) Loratadine 10 Mg Tablet, 10 MG PO DAILY, (Reported) Meclizine HCl 25 Mg Tablet, 25-50 MG PO Q4H Prescribed by: KISHA BLOUNT on 10/16/172058 Multivitamin/Iron/Folic Acid 1 Each Tablet, 1 TAB PO DAILY, (Reported) Ondansetron 4 Mg Tab.rapdis, 4 MG PO Q4H Prescribed by: KISHA BLOUNT on 10/16/172058 Scopolamine 1 Each Patch.td72, 1 EACH TD Q72 HOURS Prescribed by: KISHA BLOUNT on 10/16/172058 Ubidecarenone/Vit E Acetate 1 Each Capsule, 1 CAP PO DAILY, (Reported) Patient Home Medication List Home Medication List Reviewed: Yes Review of Systems Review of Systems Constitutional: see HPI, chills, diaphoresis, fever, malaise, weakness EENTM: no symptoms reported Respiratory: see HPI, cough Cardiovascular: No chest pain; edema (CHRONIC LEFT ARM LYMPHEDEMA UNCHANGED) Gastrointestinal: see HPI; No abdominal pain, No constipation, No diarrhea; loss of appetite, nausea; No vomiting Genitourinary: see HPI, dysuria Musculoskeletal: see HPI (BODY ACHES) Skin: no symptoms reported Psychiatric/Neurological: No Symptoms Reported Hematologic/Lymphatic: No Symptoms Reported Immunological/Allergic: no symptoms reported Past Ilornjj-Nlkgzc-Ouzcdy Hx Past Med/Social Hx: Reviewed and Corrections made Patient Social History Alcohol Use: Denies Use Recreational Drug Use: No Smoking Status: Never a Smoker Recent Foreign Travel: No Contact w/Someone Who Travel: No Immunizations Up To Date Date of Pneumonia Vaccine: Mar 08, 2012 Date of Influenza Vaccine: Apr 08, 2015 Seasonal Allergies Seasonal Allergies: No Past Medical History Surgeries: Yes (SEE BELOW) Abdominal, Cardiac, Eye Surgery, Joint Replacement, Neurological, Orthopedic, Pacemaker Respiratory: Yes Sleep Apnea Currently Using BIPAP: Yes Cardiac: Yes (MS; DVT RIGHT LEG POST-OP BACK SURGERY;LYMPHEDEMA LEFT ARM) Chronic Edema/Swelling, Coronary Artery Disease, Deep Vein Thrombosis, Heart A ttack, High Cholesterol, Hypertension Neurological: Yes Vertigo Reproductive Disorders: No Genitourinary: Yes Benign Prostatic Hyperpl Gastrointestinal: Yes Abdominal Hernia Musculoskeletal: Yes (LEFT ARM LYMPHEDEMA; CHRONIC NECK AND BACK PAIN) Degenerate Disk Disease, Arthritis, Chronic Back Pain Endocrine: No HEENT: Yes Cataract Hearing Impairment: Hard of Hearing Cancer: Yes (MELANOMA ON BACK--S/P SURGERY 1979) Melanoma Did You Recieve Any Treatments: Yes What Type of Treatment Did You: Surgical Intervention Psychosocial: Yes Depression Integumentary: Yes ( MELANOMA ON BACK; VENOUS STASIS DERMATITIS/BILAT LOWER LEGS) Blood Disorders: Yes (DVT POST OP) Adverse Reaction/Blood Tranf: No Family Medical History Anemia Cardiovascular disease Diabetes mellitus FH: breast cancer Hypertension Heart Disease, Hypertension SOCIAL HISTORY: -NO ALCOHOL -NO DRUGS -NO TOBACCO/NO SMOKING PAST SURGICAL HISTORY: -CERVICAL SPINE SURGERY--FUSION WITH HARDWARE -LUMBAR SPINE SURGERY X 2 -BILATERAL KNEE REPLACEMENTS -RIGHT HIP REPLACEMENT -MELANOMA REMOVED FROM BACK WIHT LYMPH NODE REMOVAL FROM LEFT AXILL IN 1979 -BILATERAL CATARACT SURGERY -CARDIAC CATH--NO INTERVENTION -BILATERAL INGUINAL HERNIA REPAIRS Physical Exam Vital Signs - First Documented 02/11/20 02/11/20 17:55 18:00 Temp 37.5 Pulse 90 Resp 20 B/P (MAP) 147/80 (102) Pulse Ox 95 O2 Delivery Nasal Cannula O2 Flow Rate 2.00 Capillary Refill : Height: 6'1.00" Weight: 255lbs. 0.0oz. 115.629823sr; 33.22 BMI Method:Stated General Appearance: WD/WN, no apparent distress HEENT: PERRL/EOMI Neck: normal inspection Respiratory: no respiratory distress, no accessory muscle use, decreased breath sounds (RIGHT BASE), rales (RIGHT BASE) Cardiovascular: regular rate, rhythm, no murmur Gastrointestinal: non tender, soft Extremities: normal range of motion, non-tender, no pedal edema, no calf tenderness, normal capillary refill, other (LYMPHEDEMA LEFT ARM) Neurologic/Psychiatric: no motor/sensory deficits, alert, normal mood/affect, oriented x 3 Skin: normal color, warm/dry; No rash; other (CHRONIC VENOUS STASIS CHANGES BILATERAL LOWER LEGS. ) Focused Exam Lactate Level 02/11/20 18:15: Lactic Acid Level 1.01 Lactic Acid Level Laboratory Tests Test 02/11/20 18:15 Lactic Acid Level 1.01 MMOL/L (0.50-2.00) Progress/Results/Core Measures Suspected Sepsis SIRS Temperature: Pulse: Respiratory Rate: Laboratory Tests 02/11/20 18:15: White Blood Count 9.8 Blood Pressure / Mean: 02/11/20 18:15: Lactic Acid Level 1.01 Laboratory Tests 02/11/20 18:15: Creatinine 1.33H, INR Comment 1.1, Platelet Count 230, Total Bilirubin 0.4 Results/Orders Lab Results Laboratory Tests Test 02/11/20 18:15 02/11/20 18:20 02/11/20 18:30 Range/Units White Blood Count 9.8 4.3-11.0 10^3/uL Red Blood Count 4.69 4.30-5.52 10^6/uL Hemoglobin 14.8 13.3-17.7 g/dL Hematocrit 44 40-54 % Mean Corpuscular Volume 94 80-99 fL Mean Corpuscular Hemoglobin 32 25-34 pg Mean Corpuscular Hemoglobin Concent 34 32-36 g/dL Red Cell Distribution Width 13.4 10.0-14.5 % Platelet Count 230 130-400 10^3/uL Mean Platelet Volume 9.8 9.0-12.2 fL Immature Granulocyte % (Auto) 1 % Neutrophils (%) (Auto) 72 42-75 % Lymphocytes (%) (Auto) 13 12-44 % Monocytes (%) (Auto) 12 0-12 % Eosinophils (%) (Auto) 1 0-10 % Basophils (%) (Auto) 0 0-10 % Neutrophils # (Auto) 7.1 1.8-7.8 10^3/uL Lymphocytes # (Auto) 1.3 1.0-4.0 10^3/uL Monocytes # (Auto) 1.2 H 0.0-1.0 10^3/uL Eosinophils # (Auto) 0.1 0.0-0.3 10^3/uL Basophils # (Auto) 0.0 0.0-0.1 10^3/uL Immature Granulocyte # (Auto) 0.1 0.0-0.1 10^3/uL Erythrocyte Sedimentation Rate 21 0-30 MM/HR Prothrombin Time 14.7 12.2-14.7 SEC INR Comment 1.1 0.8-1.4 Activated Partial Thromboplast Time 37 H 24-35 SEC D-Dimer 0.90 H 0.00-0.49 UG/ML Sodium Level 133 L 135-145 MMOL/L Potassium Level 4.4 3.6-5.0 MMOL/L Chloride Level 99 98-107 MMOL/L Carbon Dioxide Level 23 21-32 MMOL/L Anion Gap 11 5-14 MMOL/L Blood Urea Nitrogen 22 H 7-18 MG/DL Creatinine 1.33 H 0.60-1.30 MG/DL Estimat Glomerular Filtration Rate 51 BUN/Creatinine Ratio 17 Glucose Level 110 H 70-105 MG/DL Lactic Acid Level 1.01 0.50-2.00 MMOL/L Calcium Level 10.1 8.5-10.1 MG/DL Corrected Calcium 9.9 8.5-10.1 MG/DL Magnesium Level 2.0 1.6-2.4 MG/DL Total Bilirubin 0.4 0.1-1.0 MG/DL Aspartate Amino Transf (AST/SGOT) 17 5-34 U/L Alanine Aminotransferase (ALT/SGPT) 13 0-55 U/L Alkaline Phosphatase 76 40-136 U/L Lactate Dehydrogenase 189 125-220 U/L Troponin I < 0.028 <0.028 NG/ML C-Reactive Protein High Sensitivity 9.34 H 0.00-0.50 MG/DL B-Type Natriuretic Peptide 12.4 <100.0 PG/ML Total Protein 7.4 6.4-8.2 GM/DL Albumin 4.2 3.2-4.5 GM/DL Procalcitonin 0.12 H <0.10 NG/ML Coronavirus 2019 ([facility]) Negative Negative Urine Color YELLOW Urine Clarity CLEAR Urine pH 5.5 5-9 Urine Specific [place] 1.020 1.016-1.022 Urine Protein NEGATIVE NEGATIVE Urine Glucose (UA) NEGATIVE NEGATIVE Urine Ketones NEGATIVE NEGATIVE Urine Nitrite NEGATIVE NEGATIVE Urine Bilirubin NEGATIVE NEGATIVE Urine Urobilinogen 0.2 < = 1.0 MG/DL Urine Leukocyte Esterase NEGATIVE NEGATIVE Urine RBC (Auto) 1+ H NEGATIVE Urine RBC RARE /HPF Urine WBC NONE /HPF Urine Squamous Epithelial Cells NONE /HPF Urine Crystals NONE /LPF Urine Bacteria NEGATIVE /HPF Urine Casts NONE /LPF Urine Mucus NEGATIVE /LPF Urine Culture Indicated NO Micro Results Microbiology 02/11/20 Influenza Types A,B Antigen (RUDY) - Final, Complete My Orders Orders - KISHA BLOUNT DO Ed Iv/Invasive Line Start (02/11/20 17:54) Ekg Tracing (02/11/20 17:54) O2 (02/11/20 17:54) Monitor-Rhythm Ecg Trace Only (02/11/20 17:54) BNP (02/11/20 17:54) Lactic Acid Analyzer (02/11/20 17:54) Magnesium (02/11/20 17:54) Procalcitonin (Pct) (02/11/20 17:54) Protime With Inr (02/11/20 17:54) Partial Thromboplastin Time (02/11/20 17:54) Ua Culture If Indicated (02/11/20 17:54) Blood Culture (02/11/20 17:54) Influenza A And B Antigens (02/11/20 17:54) Troponin I (02/11/20 17:54) Cbc With Automated Diff (02/11/20 17:54) Comprehensive Metabolic Panel (02/11/20 17:54) Fibrin Degradation Products (02/11/20 17:54) Hs C Reactive Protein (02/11/20 17:54) Erythrocyte Sedimentation Rate (02/11/20 17:54) LDH (02/11/20 17:54) Ekg Tracing (02/11/20 17:54) Chest 1 View, Ap/Pa Only (02/11/20 17:54) Coronavirus Sars-Cov-2 So 2018 (02/11/20 17:54) Covid 19 Inhouse Test (02/11/20 17:54) Ed Iv/Invasive Line Start (02/11/20 17:54) Ns Iv 1000 Ml (Sodium Chloride 0.9%) (02/11/20 17:54) Ondansetron Injection (Zofran Injectio (02/11/20 18:45) Ondansetron Injection (Zofran Injectio (02/11/20 18:45) Ondansetron Injection (Zofran Injectio (02/11/20 18:28) Ct Angio Chest W (02/11/20 19:33) Ed Iv/Invasive Line Start (02/11/20 19:33) Ns Iv 1000 Ml (Sodium Chloride 0.9%) (02/11/20 19:33) Iohexol Injection (Omnipaque 350 Mg/Ml 1 (02/11/20 19:45) Received Contrast (Hold Metformin- Contr (02/11/20 19:45) Ns (Ivpb) (Sodium Chloride 0.9% Ivpb Bag (02/11/20 19:45) Ceftriaxone For Iv Use (Rocephin For I (02/11/20 21:00) Azithromycin Injection (Zithromax Inject (02/11/20 21:00) Ns (Ivpb) (Sodium Chloride 0.9%) (02/11/20 21:00) Azithromycin Injection (Zithromax Inject (02/11/20 21:00) Dexamethasone Injection (Decadron Injec (02/11/20 21:15) Water (Sterile) For Injection (Sterile W (02/11/20 21:01) Ceftriaxone For Iv Use (Rocephin For I (02/11/20 21:01) Dexamethasone Injection (Decadron Inje (02/11/20 21:03) Hydralazine Injection (Apresoline Inject (02/11/20 21:15) Hydralazine Injection (Apresoline Inject (02/11/20 21:11) Ns Iv 1000 Ml (Sodium Chloride 0.9%) (02/11/20 21:39) Medications Given in ED Current Medications Medications Dose Ordered Sig/Vish Route Start Time Stop Time Status Last Admin Dose Admin Azithromycin 500 mg STK-MED ONCE .ROUTE 02/11/20 21:00 02/11/20 21:06 DC 02/11/20 21:22 500 MG Ceftriaxone Sodium 1000 mg/ Sterile Water 10 ml @ 200 mls/hr ONCE ONCE IV 02/11/20 21:00 02/11/20 21:21 DC 02/11/20 21:13 200 MLS/HR Dexamethasone Sodium Phosphate 6 mg ONCE ONCE IV 02/11/20 21:15 02/11/20 21:16 DC 02/11/20 21:12 6 MG Hydralazine HCl 10 mg ONCE ONCE IV 02/11/20 21:15 02/11/20 21:16 DC 02/11/20 21:19 10 MG Iohexol 100 ml ONCE ONCE IV 02/11/20 19:45 02/11/20 19:46 DC 02/11/20 20:41 83 ML Ondansetron HCl 4 mg ONCE ONCE IVP 02/11/20 18:45 02/11/20 18:46 DC 02/11/20 18:35 4 MG Ondansetron HCl 4 mg ONCE ONCE IVP 02/11/20 18:45 02/11/20 18:46 DC 02/11/20 18:38 4 MG Sodium Chloride 100 ml ONCE ONCE IV 02/11/20 19:45 02/11/20 19:46 DC 02/11/20 20:41 100 ML Sodium Chloride 250 ml @ ud STK-MED ONCE .ROUTE 02/11/20 21:00 02/11/20 21:06 DC 02/11/20 21:23 250 MLS/HR Vital Signs/I&O 9/22/20 9/22/20 17:55 18:00 Temp 37.5 Pulse 90 Resp 20 B/P (MAP) 147/80 (102) Pulse Ox 95 95 O2 Delivery Nasal Cannula Nasal Cannula O2 Flow Rate 2.00 02/12/20 00:00 Intake Total 2009 ml Balance 2009 ml Capillary Refill : Progress Note : Progress Note PT PLACED IN ISOLATION ROOM, PPE WORN AT ALL TIMES COVID-19 TESTING PERFORMED GIVEN IV FLUIDS NO DETERIORATION IN PT'S CONDITION DURING ER STAY ECG Initial ECG Impression Date: Feb 11, 2020 Initial ECG Impression Time: 18:13 Initial ECG Rate: 86 Initial ECG Rhythm: Normal Sinus Diagnostic Imaging Comments CXR--PER RADIOLOGIST REPORT AT 193 Correlation is made with prior chest from 10/16/2017. There are surgical clips in the left axilla. Heart size is stable. Lungs are clear. No infiltrate, effusion or pneumothorax is detected. There are postop changes in the lower cervical spine. IMPRESSION: No acute cardiopulmonary process is detected. CT CHEST ANGIOGRAM--PER RADIOLOGIST REPORT AT 2056 CT CHEST: 1. No identified central pulmonary embolus. Limitations for evaluation of segmental and subsegmental pulmonary emboli given degree of respiratory motion artifact. 2. Subtle areas of peripheral nodularity in the lungs which have somewhat of a tree-in-bud type appearance. This is most typical of a process spreading via endobronchial means which is most commonly an infectious bronchiolitis or aspiration. 3. Mildly prominent right and left hilar lymph nodes of uncertain exact etiology or significance. Reviewed: Reviewed by [facility] Departure Communication (Admissions) 2104--SPOKE WITH DR. PAREKH, HOSPITALIST, ACCEPTS PT FOR ADMIT. ORDERS NOTED Impression Primary Impression: Person under investigation for COVID-19 Additional Impressions: PULMONARY INFILTRATE NOTED ON CT Renal insufficiency Close exposure to COVID-19 virus Fever with exposure to COVID-19 virus Disposition: ADMITTED INPATIENT Condition: Stable Admissions Decision to Admit Reason: Admit from ER (General) Decision to Admit/Date: Feb 11, 2020 Time/Decision to Admit Time: 21:00 Departure-Patient Inst. Referrals: SOO FERREIRA MD (PCP/Family) Primary Care Physician KISHA BLOUNT DO Feb 11, 2020 18:22
[2020-02-11] MEDS ORDERED: ONDANSETRON 4 MG/2 ML (SDV) Z0FRAN ONE (18:28)
[2020-02-11 18:37] LABS: BASOPHILS % (AUTO) 0 % (0-10); EOSINOPHILS # (AUTO) 0.1 10^3/uL (0.0-0.3); EOSINOPHILS % (AUTO) 1 % (0-10); HEMATOCRIT 44 % (40-54); HEMOGLOBIN 14.8 g/dL (13.3-17.7); LYMPHOCYTES # (AUTO) 1.3 10^3/uL (1.0-4.0); LYMPHOCYTES % (AUTO) 13 % (12-44); MEAN CORPUSCULAR HEMOGLOBIN 32 pg (25-34); MEAN CORPUSCULAR HGB CONC 34 g/dL (32-36); MEAN CORPUSCULAR VOLUME 94 fL (80-99); MEAN PLATELET VOLUME 9.8 fL (9.0-12.2); MONOCYTES # (AUTO) 1.2 10^3/uL (0.0-1.0); MONOCYTES % (AUTO) 12 % (0-12); NEUTROPHILS # (AUTO) 7.1 10^3/uL (1.8-7.8); NEUTROPHILS % (AUTO) 72 % (42-75); PLATELET COUNT 230 10^3/uL (130-400); WHITE BLOOD COUNT 9.8 10^3/uL (4.3-11.0)
[2020-02-11 18:41] LABS: BILIRUBIN,URINE NEGATIVE (NEGATIVE); CLARITY,URINE CLEAR; COLOR,URINE YELLOW; GLUCOSE, URINE (UA) NEGATIVE (NEGATIVE); KETONES,URINE NEGATIVE (NEGATIVE); LEUKOCYTE ESTERASE ,URINE NEGATIVE (NEGATIVE); NITRITE,URINE NEGATIVE (NEGATIVE); PH,URINE 5.5 (5-9); PROTEIN,URINE NEGATIVE (NEGATIVE)
[2020-02-11] MEDS ORDERED: ONDANSETRON 4 MG/2 ML (SDV) Z0FRAN IVP ONE ×2 (18:45)
[2020-02-11 18:57] LABS: ALBUMIN 4.2 GM/DL (3.2-4.5)
[2020-02-11 18:58] LABS: CHLORIDE 99 MMOL/L (98-107); POTASSIUM 4.4 MMOL/L (3.6-5.0); SODIUM 133 MMOL/L (135-145)
[2020-02-11 18:59] LABS: CALCIUM 10.1 MG/DL (8.5-10.1)
[2020-02-11 19:00] LABS: GLUCOSE 110 MG/DL (70-105); TOTAL PROTEIN 7.4 GM/DL (6.4-8.2)
[2020-02-11 19:01] LABS: CARBON DIOXIDE 23 MMOL/L (21-32)
[2020-02-11 19:02] LABS: BILIRUBIN,TOTAL 0.4 MG/DL (0.1-1.0)
[2020-02-11 19:03] LABS: ALKALINE PHOSPHATASE 76 U/L (40-136)
[2020-02-11 19:04] LABS: CREATININE SERUM 1.33 MG/DL (0.60-1.30); GFR ESTIMATED 51
[2020-02-11 19:05] LABS: BUN/CREATININE RATIO 17
[2020-02-11 19:06] LABS: ALANINE AMINOTRANSFERASE 13 U/L (0-55)
[2020-02-11 19:07] LABS: FIBRIN DEGRADATION PRODUCTS 0.9 UG/ML (0.00-0.49); INR 1.1 (0.8-1.4); PROTHROMBIN TIME PATIENT 14.7 SEC (12.2-14.7)
[2020-02-11 19:11] LABS: BACTERIA,URINE NEGATIVE /HPF; RBC,URINE RARE /HPF
[2020-02-11 19:14] LABS: ERYTHROCYTE SEDIMENTATION RATE 21 MM/HR (0-30)
--- NOTE | 2020-02-11 19:22 | Diagnostic Imaging Report ---
INDICATION: Cough and shortness of air. Time of exam: 7:08 PM Correlation is made with prior chest from 10/16/2017. There are surgical clips in the left axilla. Heart size is stable. Lungs are clear. No infiltrate, effusion or pneumothorax is detected. There are postop changes in the lower cervical spine. IMPRESSION: No acute cardiopulmonary process is detected. Dictated by: Dictated on workstation # [id number]
[2020-02-11] MEDS ORDERED: IOHEXOL 350 MG/ML 100 ML (OMNIPAQUE 350) VIAL IV ONE (19:45)
[2020-02-11] MEDS ORDERED: NS 100 ML (IVPB) BAG IV ONE (19:45)
[2020-02-11] MEDS ORDERED: HOLD METFORMIN - RECEIVED CONTRAST 20 ML VIAL IV SCH (19:45)
--- NOTE | 2020-02-11 20:54 | Diagnostic Imaging Report ---
PROCEDURE: CT angiography of the chest with contrast. TECHNIQUE: Multiple contiguous axial images were obtained through the chest after uneventful bolus administration of intravenous contrast. 3D reconstructed CTA MIP acquisitions were also performed. Auto Exposure Controls were utilized during the CT exam to meet ALARA standards for radiation dose reduction. DATE: February 11, 2020. COMPARISON: Chest radiograph February 11, 2020. INDICATION: 84-year-old male, cough, shortness of breath, fever. FINDINGS: There is some respiratory motion artifact. There is a 4 mm calcified right upper lobe granuloma on axial image 42. There are areas if subtle nodularity such as in the left lower lobe on axial image 64 and adjacent sequential images as well as in the left upper lobe and right middle lobe. Some of these areas have almost a tree-in-bud type appearance and they are peripherally located. There are areas of mild atelectasis present. There is no additional identified focal airspace consolidation. There is no pneumothorax. There is no pneumothorax. The trachea is unremarkable in caliber. There is nondiagnostic assessment for subsegmental atelectasis and very limited evaluation for right-sided segmental pulmonary emboli given the degree of respiratory motion artifact. There is no identified more centrally located pulmonary embolus. The main pulmonary artery is normal in caliber. The heart is not enlarged. There is no pericardial effusion. There are atherosclerotic calcifications. There is a right hilar lymph node on axial image 71 measuring 12 mm in short axis. There is a mildly prominent left hilar lymph node. There is no identified abnormally enlarged axillary lymph node meeting CT size criteria for adenopathy. There is an incompletely imaged low-attenuation right renal lesion on axial image 142 compatible with a cyst in its imaged portions measuring up to at least 4.8 cm in size. There is a benign right renal cyst on axial 138. Additional evaluation of the imaged portions of the upper abdomen is unremarkable. There are multilevel degenerative changes of the spine. There is no identified acute bony abnormality. IMPRESSION: CT CHEST: 1. No identified central pulmonary embolus. Limitations for evaluation of segmental and subsegmental pulmonary emboli given degree of respiratory motion artifact. 2. Subtle areas of peripheral nodularity in the lungs which have somewhat of a tree-in-bud type appearance. This is most typical of a process spreading via endobronchial means which is most commonly an infectious bronchiolitis or aspiration. 3. Mildly prominent right and left hilar lymph nodes of uncertain exact etiology or significance. Dictated by: Dictated on workstation # [id number]
[2020-02-11] MEDS ORDERED: AZITHROMYCIN INJECTION 500 MG/5 ML VIAL ONE (21:00)
[2020-02-11] MEDS ORDERED: AZITHROMYCIN INJECTION 500 MG in NS (IVPB) 250 ML IV ONE (21:00)
[2020-02-11] MEDS ORDERED: NS (IVPB) 250 ML ONE (21:00)
[2020-02-11] MEDS ORDERED: cefTRIAXone FOR IV USE 1,000 MG in WATER (STERILE) FOR INJECTION 10 ML IV ONE (21:00)
[2020-02-11] MEDS ORDERED: WATER (STERILE) FOR INJECTION 10 ML ONE (21:01)
[2020-02-11] MEDS ORDERED: cefTRIAXone 1,000 MG IV (ROCEPHIN) VIAL ONE (21:01)
[2020-02-11] MEDS ORDERED: hydrALAZINE (APESOLINE) 20 MG/ML VIAL IV ONE (21:15)
[2020-02-11] MEDS: hydrALAZINE (APESOLINE) 20 MG/ML VIAL ONE ×2 (21:18→21:19)
[2020-02-11] MEDS ORDERED: NS IV 1000 ML 1,000 ML ONE (21:39)
--- NOTE | 2020-02-11 22:00 | NUR ---
Pt , Ale Padilla, called up updated on pt findings et adm. Ale Padilla voices no questions or concerns.
[2020-02-11 22:15] VITALS: BP 179/88
--- NOTE | 2020-02-11 22:15 | NUR ---
KALLI NUGENT admitted to room 512-1, with an admitting diagnosis of COVID PUI, HYPOXIA, PNEUMONIA , on 02/11/20 from ED via WHEELCHAIR, accompanied by HOSPITAL STAFF. KALLI NUGENT introduced to surroundings, call light, bed controls, phone, TV, temperature control, lights, meal times, smoking policy, visitor policy, side rail policy, bathrooms and showers. Patient Rights given to patient in the handbook.KALLI NUGENT verbalizes understanding that [facility] is not responsible for the loss or damage to any personal effects or valuables that are kept in the patients posession during their hospitalization.KALLI NUGENT verbalizes understanding of Interdisciplinary Patient Education. Patient and/or family were informed about the Rapid Response Team and its purpose.
[2020-02-11] MEDS ORDERED: ONDANSETRON 4 MG/2 ML (SDV) Z0FRAN IVP PRN (23:00)
[2020-02-11] MEDS ORDERED: ACETAMINOPHEN 500 MG TAB (TYLENOL) PO PRN (23:00)
[2020-02-11] MEDS: NS IV 1000 ML 1,000 ML IV SCH (23:40)
[2020-02-12] VITALS: BP 118/69
[2020-02-12 03:15] VITALS: BP 147/80
[2020-02-12 03:34] VITALS: BP 146/70
--- NOTE | 2020-02-12 03:34 | NUR ---
ALBUTEROL INHALTER 2PUFFS BID AND Q2 PRN. INITIATE 02 (2-4L) TO KEEP SAT ABOVE 94%. IS FOR ATELECTASIS. RT TO REASSESS IN 72 HOURS OR NEEDED. IS FOR ATELECTASIS BID Addendum: 02/12/20 at 0334 by SURYA PEREZ RT Amended: Links added.
[2020-02-12] MEDS ORDERED: RT-ALBUTEROL INHALER HFA (VENTOLIN HFA) 18 GM IH PRN (03:45)
[2020-02-12 04:00] LABS: BASOPHILS % (AUTO) 0 % (0-10); EOSINOPHILS % (AUTO) 0 % (0-10); HEMATOCRIT 40 % (40-54); HEMOGLOBIN 13.8 g/dL (13.3-17.7); LYMPHOCYTES # (AUTO) 0.9 10^3/uL (1.0-4.0); LYMPHOCYTES % (AUTO) 8 % (12-44); MEAN CORPUSCULAR HEMOGLOBIN 33 pg (25-34); MEAN CORPUSCULAR HGB CONC 35 g/dL (32-36); MEAN CORPUSCULAR VOLUME 93 fL (80-99); MEAN PLATELET VOLUME 10.3 fL (9.0-12.2); MONOCYTES # (AUTO) 0.2 10^3/uL (0.0-1.0); MONOCYTES % (AUTO) 2 % (0-12); NEUTROPHILS # (AUTO) 10.6 10^3/uL (1.8-7.8); NEUTROPHILS % (AUTO) 90 % (42-75); PLATELET COUNT 204 10^3/uL (130-400); WHITE BLOOD COUNT 11.7 10^3/uL (4.3-11.0)
[2020-02-12 04:27] LABS: ALANINE AMINOTRANSFERASE 12 U/L (0-55); ALBUMIN 3.6 GM/DL (3.2-4.5); ALKALINE PHOSPHATASE 56 U/L (40-136); BILIRUBIN,TOTAL 0.3 MG/DL (0.1-1.0); BUN/CREATININE RATIO 16; CALCIUM 9.2 MG/DL (8.5-10.1); CARBON DIOXIDE 20 MMOL/L (21-32); CHLORIDE 104 MMOL/L (98-107); CREATININE SERUM 1.13 MG/DL (0.60-1.30); GFR ESTIMATED > 60; GLUCOSE 146 MG/DL (70-105); POTASSIUM 5.8 MMOL/L (3.6-5.0); SODIUM 133 MMOL/L (135-145); TOTAL PROTEIN 7.1 GM/DL (6.4-8.2)
[2020-02-12] MEDS ORDERED: FLU QUAD HIGH DOSE 240 MCG/0.7 ML 2020-21 (FLUZONE) IM ONE (07:15)
[2020-02-12] MEDS: RT-ALBUTEROL INHALER HFA (VENTOLIN HFA) 18 GM IH SCH ×2 (07:20→20:30)
[2020-02-12 08:16] VITALS: BP 152/79
[2020-02-12] MEDS: NS IV 1000 ML 1,000 ML IV SCH ×3 (08:16→22:26)
--- NOTE | 2020-02-12 11:23 | History & Physical-Hospitalist ---
History of Present Illness HPI/Chief Complaint Pt is an 84yOCM with a PMH of CAD, DVT, HTN, HLD who presented to the ER due to fever and nonproductive cough with SOB. He states that he was at a wedding at the end of December and multiple people became positive for COVID19 from that along with continued contact with the groom over the last two weeks. It is unclear if the groom was positive or not. He reportedly had a fever of 101 as well at home. He was found to be hypoxic in the ER and required 2lpm to maintain oxygen saturation. He states that he feels much better today and would like to go home. Source: patient Exam Limitations: no limitations Date Seen 02/12/20 Time Seen by a Provider: 11:18 Attending Physician Donna Hernandez MD PCP Marin Cueto MD Referring Physician Date of Admission Feb 11, 2020 at 21:58 Home Medications & Allergies Home Medications Reviewed patient Home Medication Reconciliation performed by pharmacy medication reconciliations operator technician and/or nursing. Patients Allergies have been reviewed. Allergies Allergies Coded Allergies Efefovu-Lpl-Rgi Reductase Inhibitor (Verified Allergy, Unknown, 07/05/15) hydrocodone (Verified Allergy, Unknown, 07/05/15) Past Wsysflh-Umfifn-Bcvdeq Hx Past Med/Social Hx: Reviewed and Corrections made Patient Social History Alcohol Use: Denies Use Recreational Drug Use: No Smoking Status: Never a Smoker 2nd Hand Smoke Exposure: No Recent Foreign Travel: No Contact w/other who traveled: No Recent Infectious Disease Expo: No Immunizations Up To Date Date of Pneumonia Vaccine: Mar 08, 2012 Date of Influenza Vaccine: Apr 08, 2015 Seasonal Allergies Seasonal Allergies: No Past Medical History Surgeries: Abdominal, Cardiac, Eye Surgery, Joint Replacement, Neurological, Orthopedic, Pacemaker Currently Using BIPAP: Yes Cardiac: Chronic Edema/Swelling, Coronary Artery Disease, Deep Vein Thrombosis, Heart Attack, High Cholesterol, Hypertension Neurological: Vertigo Reproductive: No Genitourinary: Benign Prostatic Hyperpl Gastrointestinal: Abdominal Hernia Musculoskeletal: Degenerate Disk Disease, Arthritis, Chronic Back Pain HEENT: Cataract Hearing Impairment: Hard of Hearing Cancer: Melanoma Did You Recieve Any Treatments: Yes What Type of Treatment Did You: Surgical Intervention Psychosocial: Depression History of Blood Disorders: Yes (DVT POST OP) Adverse Reaction to Blood [place]: No Family History Reviewed Nursing Family Hx Anemia Cardiovascular disease Diabetes mellitus FH: breast cancer Hypertension Heart Disease, Hypertension SOCIAL HISTORY: -NO ALCOHOL -NO DRUGS -NO TOBACCO/NO SMOKING PAST SURGICAL HISTORY: -CERVICAL SPINE SURGERY--FUSION WITH HARDWARE -LUMBAR SPINE SURGERY X 2 -BILATERAL KNEE REPLACEMENTS -RIGHT HIP REPLACEMENT -MELANOMA REMOVED FROM BACK WIHT LYMPH NODE REMOVAL FROM LEFT AXILL IN 1979 -BILATERAL CATARACT SURGERY -CARDIAC CATH--NO INTERVENTION -BILATERAL INGUINAL HERNIA REPAIRS Review of Systems Constitutional: see HPI, fever, malaise, weakness EENTM: no symptoms reported Respiratory: cough; No phlegm; short of breath Cardiovascular: No chest pain; Hx of Intervention; No palpitations Gastrointestinal: No abdominal pain, No nausea, No vomiting Genitourinary: dysuria Musculoskeletal: no symptoms reported Skin: hx of skin cancer Psychiatric/Neurological: No Symptoms Reported Physical Exam Physical Exam Vital Signs Vital Signs - First Documented 02/11/20 02/11/20 02/12/20 17:55 18:00 03:15 Temp 37.5 Pulse 90 Resp 20 B/P (MAP) 147/80 (102) Pulse Ox 95 O2 Delivery Nasal Cannula O2 Flow Rate 2.00 FiO2 28 Capillary Refill : Less Than 3 Seconds Height, Weight, BMI Height: 6'1.00" Weight: 255lbs. 0.0oz. 115.208692xi; 33.36 BMI Method:Stated General Appearance: No Apparent Distress, Chronically ill HEENT: PERRL/EOMI, Moist Mucous Membranes Neck: Normal Inspection, Supple Respiratory: Lungs Clear, No Respiratory Distress Cardiovascular: Regular Rate, Rhythm, No Murmur Gastrointestinal: Normal Bowel Sounds, Non Tender, Soft Extremity: Normal Capillary Refill, No Calf Tenderness, No Pedal Edema Neurologic/Psychiatric: Alert, Oriented x3, Normal Mood/Affect Results Results/Procedures Labs Patient resulted labs reviewed. Imaging: Reviewed Imaging Report Imaging [facility], [place] NAME: KALLI NUGENT REC#: [id number] PT STATUS: REG ER : 1935 PHYSICIAN: KISHA BLOUNT DO ADMIT DATE: 02/11/20/ER Signed Date of Exam:02/11/20 CT ANGIO CHEST W PROCEDURE: CT angiography of the chest with contrast. TECHNIQUE: Multiple contiguous axial images were obtained through the chest after uneventful bolus administration of intravenous contrast. 3D reconstructed CTA MIP acquisitions were also performed. Auto Exposure Controls were utilized during the CT exam to meet ALARA standards for radiation dose reduction. DATE: February 11, 2020. COMPARISON: Chest radiograph February 11, 2020. INDICATION: 84-year-old male, cough, shortness of breath, fever. FINDINGS: There is some respiratory motion artifact. There is a 4 mm calcified right upper lobe granuloma on axial image 42. There are areas if subtle nodularity such as in the left lower lobe on axial image 64 and adjacent sequential images as well as in the left upper lobe and right middle lobe. Some of these areas have almost a tree-in-bud type appearance and they are peripherally located. There are areas of mild atelectasis present. There is no additional identified focal airspace consolidation. There is no pneumothorax. There is no pneumothorax. The trachea is unremarkable in caliber. There is nondiagnostic assessment for subsegmental atelectasis and very limited evaluation for right-sided segmental pulmonary emboli given the degree of respiratory motion artifact. There is no identified more centrally located pulmonary embolus. The main pulmonary artery is normal in caliber. The heart is not enlarged. There is no pericardial effusion. There are atherosclerotic calcifications. There is a right hilar lymph node on axial image 71 measuring 12 mm in short axis. There is a mildly prominent left hilar lymph node. There is no identified abnormally enlarged axillary lymph node meeting CT size criteria for adenopathy. There is an incompletely imaged low-attenuation right renal lesion on axial image 142 compatible with a cyst in its imaged portions measuring up to at least 4.8 cm in size. There is a benign right renal cyst on axial 138. Additional evaluation of the imaged portions of the upper abdomen is unremarkable. There are multilevel degenerative changes of the spine. There is no identified acute bony abnormality. IMPRESSION: CT CHEST: 1. No identified central pulmonary embolus. Limitations for evaluation of segmental and subsegmental pulmonary emboli given degree of respiratory motion artifact. 2. Subtle areas of peripheral nodularity in the lungs which have somewhat of a tree-in-bud type appearance. This is most typical of a process spreading via endobronchial means which is most commonly an infectious bronchiolitis or aspiration. 3. Mildly prominent right and left hilar lymph nodes of uncertain exact etiology or significance. Dictated by: Dictated on workstation # [id number] Dict: 02/11/202039 Trans: 02/11/202111 [facility] [id number] Interpreted by: DORIE ABDI MD Electronically signed by: DORIE ABDI MD 02/11/202111 Assessment/Plan Admission Diagnosis CAP Admission Status: Inpatient Order (span 2 midnights) Reason for Inpatient Admission: see below Assessment and Plan CAP Acute Respiratory Failure COVID PUI Continue on Rocephin and azithro Continue oxygen supplementation, wean as able MAT protocol COVID pending Hyperkalemia has received Albutoler since Recheck now HTN HLD CAD No acute needs Continue home meds DVt ppx: Lovenox Clinical Quality Measures DVT/VTE Risk/Contraindication: Risk Factor Score Per Nursin RFS Level Per Nursing on Admit: 4+=Very High VERITO MCCALLUM MD Feb 12, 2020 11:23
[2020-02-12] MEDS ORDERED: ENOXAPARIN 40 MG/0.4 ML (LOVENOX) SYR SQ SCH ×2 (11:45→20:00)
[2020-02-12 12:26] LABS: CHLORIDE 104 MMOL/L (98-107)
[2020-02-12 12:27] LABS: POTASSIUM 4.2 MMOL/L (3.6-5.0); SODIUM 134 MMOL/L (135-145)
[2020-02-12 12:28] LABS: CALCIUM 9.7 MG/DL (8.5-10.1); GLUCOSE 138 MG/DL (70-105)
[2020-02-12 12:30] LABS: CARBON DIOXIDE 20 MMOL/L (21-32)
[2020-02-12 12:32] LABS: CREATININE SERUM 1.05 MG/DL (0.60-1.30); GFR ESTIMATED > 60
[2020-02-12 12:33] LABS: BUN/CREATININE RATIO 18
--- NOTE | 2020-02-12 13:15 | NUR ---
AFTER CALLING REPORT TO SARAI HOOD, PATIENT TRANSFERRED VIA W/C TO 4TH FLOOR BY 4TH FLOOR STAFF. ALL PERSONAL BELONGINGS WITH PATIENT. THIS RN CALLED PATIENTS AND UPDATED ON ROOM CHANGE AND PROVIDERS REPORT.
--- NOTE | 2020-02-12 13:34 | Physical Therapy Evaluation ---
PT Evaluation-General Medical Diagnosis Admission Date Feb 11, 2020 at 21:58 Medical Diagnosis: SOB Onset Date: Feb 11, 2020 Therapy Diagnosis Therapy Diagnosis: impaired mobility, endurance Height/Weight Height (Feet): 6 Height (Inches): 1.00 Weight (Pounds): 255 Weight (Ounces): 0.0 Precautions Precautions/Isolations: Airborne Isolation, Standard Precautions Referral Physician: Elsie Reason for Referral: Evaluation/Treatment Medical History Pertinent Medical History: Arthritis, CAD, HTN, [place] Additional Medical History Past Medical History Surgeries: Abdominal, Cardiac, Eye Surgery, Joint Replacement, Neurological, Orthopedic, Pacemaker Currently Using BIPAP: Yes Cardiac: Chronic Edema/Swelling, Coronary Artery Disease, Deep Vein Thrombosis, Heart Attack, High Cholesterol, Hypertension Neurological: Vertigo Reproductive: No Genitourinary: Benign Prostatic Hyperpl Gastrointestinal: Abdominal Hernia Musculoskeletal: Degenerate Disk Disease, Arthritis, Chronic Back Pain HEENT: Cataract Hearing Impairment: Hard of Hearing Cancer: Melanoma Did You Recieve Any Treatments: Yes What Type of Treatment Did You: Surgical Intervention Psychosocial: Depression History of Blood Disorders: Yes (DVT POST OP) Reviewed History: Yes Prior Prior Level of Function SCALE: Activities may be completed with or without assistive devices. 9-Yvbrnepbla-nskflrw completes the activity by him/herself with no assistance from a helper. 5-Set-up or Clean-up Assistance-helper sets up or cleans up; patient completes activity. Leo assists only prior to or following the activity. 4-Supervision or Touching Assistance-helper provides verbal cues and/or touching/steadying and/or contact guard assistance as patient completes activity. Assistance may be provided throughout the activity or intermittently. 3-Partial/Moderate Assistance-helper does LESS THAN HALF the effort. Leo lifts, holds or supports trunk or limbs, but provides less than half the effort. 2-Substantial/Maximal Assistance-helper does MORE THAN HALF the effort. Leo lifts or holds trunk or limbs and provides more than half the effort. 7-Mlebhepwr-axjuip does ALL the effort. Patient does none of the effort to complete the activity. Or, the assistance of 2 or more helpers is required for the patient to complete the activity. If activity was not attempted, code reason: 7-Patient Refused. 9-Not Applicable-not attempted and the patient did not perform the activity before the current illness, exacerbation or injury. 10-Not Attempted due to Environmental Limitations-(lack of equipment, weather restraints, etc.). 88-Not Attempted due to Medical Conditions or Safety Concerns. Bed Mobility: 6 Transfers (B,C,W/C): 6 Gait: 6 Stairs: 6 Indoor Mobility (Ambulation): Independent Stairs: Independent PT Evaluation-Current Subjective Patient in bed pre tx, agrees to PT, has no pain at rest. Pt/Family Goals to be independent at home Objective Patient Orientation: Person, Place, Situation Attachments: Oxygen, IV ROM/Strength ROM Lower Extremities WNL Strength Lower Extremities 5/5 gross BLE Sensory Vision: Wears Glasses Hearing: Impaired Sensation Right Lower Extremit: Intact Sensation Left Lower Extremity: Intact Transfers Roll Left to Right (QC): 6 Sit to Lying (QC): 6 Lying to Sitting/Side of Bed(Q: 6 Sit to Stand (QC): 6 Chair/Uzs-nm-Aylts Xfer(QC): 4 Gait Does the Patient Walk?: Yes Mode of Locomotion: Walk Anticipated Mode of Locomotion: Walk Walk 10 feet (QC): 4 Walk 50 ft with 2 Turns(QC): 4 Walk 150 ft (QC): 4 Distance: 200' Gait Assistive Device: FWW Comments/Gait Description SBA, brisk and steady ambulation but impulsive, poor safety awareness. Patient insists on using walker adjusted to be way too tall for him. Patient ambulated the last 10' without the walker with SBA, no LOB Balance Sitting Static: Normal Sitting Dynamic: Normal Standing Static: Normal Standing Dynamic: Good Assessment/Needs Patient has impaired mobility, endurance. Patient is impulsive with movement, poor safety awareness. Patient in shower with nurse tech post tx. Rehab Potential: Fair PT Toll Mechanic Goals Toll Mechanic Goals PT Assisted Goals Time Frame: Feb 19, 2020 Roll Left & Right (QC): 6 Sit to Lying (QC): 6 Lying-Sitting on Side/Bed(QC): 6 Sit to Stand (QC): 6 Chair/Zko-xj-Bmlce Xfer(QC): 6 Walk 10 feet (QC): 6 Walk 50ft with 2 Turns (QC): 6 Walk 150 ft (QC): 6 1 Step (curb) (QC): 6 4 Steps (QC): 6 PT Plan Problem List Problem List: Activity Tolerance, Functional Strength, Safety, Balance, Gait, Transfer Treatment/Plan Treatment Plan: Continue Plan of Care Treatment Plan: Education, Functional Activity Lukas, Functional Strength, Gait, Safety, Therapeutic Exercise, Transfers Treatment Duration: Feb 19, 2020 Frequency: 6 times per week Estimated Hrs Per Day: .25 hour per day Patient and/or Family Agrees t: Yes Safety Risks/Education Patient Education: Gait Training, Transfer Techniques, Correct Positioning, Safety Issues Teaching Recipient: Patient Teaching Methods: Demonstration, Discussion Response to Teaching: Reinforcement Needed Discharge Recommendations Plan Patient will perform bed mobility and transfer training, balance and endurance training, functional strengthening, stair training, gait training, and education, to improve functional mobility and independence at home. Therapy Discharge Recommendati: Home & Family Time/GCodes Time In: 1300 Time Out: 1317 Total Billed Treatment Time: 17 Total Billed Treatment 1 visit CASSIA FOY PT Feb 12, 2020 13:34
[2020-02-12] MEDS ORDERED: ASCO500C17 PO (14:33)
[2020-02-12] MEDS ORDERED: FEXO-14 PO (14:33)
[2020-02-12] MEDS ORDERED: CHOL10007 PO (14:33)
[2020-02-12] MEDS ORDERED: GLUC-203 PO (14:33)
[2020-02-12] MEDS ORDERED: GING550C4 PO (14:33)
[2020-02-12] MEDS ORDERED: RIVA20TA PO (14:33)
[2020-02-12] MEDS ORDERED: TELM40TA6 PO (14:33)
--- NOTE | 2020-02-12 14:36 | NUR ---
SPOKE WITH THE PT (I CALLED HIS ROOM PHONE) WENT THRU THE EXT MED HISTORY AND CALLED HIS [facility] TO COMPLETE THE MED REC XARELTO 20MG WAS LAST FILLED 09-20-2019 #90 AND TELMISARTAN 40MG LAST FILLED 09-11-2019 #90 ARE BOTH PAST DUE FOR REFILLS AND THIS WAS DOCUMENTED ON THE MED REC OTC MEDS: TYLENOL 650MG MOVE FREE STOOL SOFTENER VIT C VIT D KIERAN ROOT LIANG- PT SAYS HE TAKES 2 TABS DAILY BUT COULD NOT REMEMBER THE STRENGTH THEREFORE I ENTERED 60MG ON THE MED REC
[2020-02-12 16:00] VITALS: BP 147/84
[2020-02-12] MEDS ORDERED: AZITHROMYCIN 250 MG TAB (ZITHROMAX) PO SCH (21:00)
[2020-02-12] MEDS ORDERED: cefTRIAXone 1,000 MG/SWFI 10 ML IV PUSH IV SCH ×2 (21:00)
[2020-02-12] MEDS ORDERED: WATER (STERILE) FOR INJECTION 10 ML ONE (21:30)
[2020-02-12] MEDS ORDERED: cefTRIAXone 1,000 MG IV (ROCEPHIN) VIAL ONE (21:30)
[2020-02-12 23:10] VITALS: BP 120/76
[2020-02-13 00:30] VITALS: BP 153/74
[2020-02-13 04:50] VITALS: BP 154/70
[2020-02-13] MEDS: RT-ALBUTEROL INHALER HFA (VENTOLIN HFA) 18 GM IH SCH (07:05)
[2020-02-13 08:00] VITALS: BP 130/66
[2020-02-13] MEDS ORDERED: dexAMETHasone 6 MG TAB (DECADRON) PO SCH (09:00)
[2020-02-13] MEDS: NS IV 1000 ML 1,000 ML IV SCH (09:52)
--- NOTE | 2020-02-13 10:07 | Physical Therapy Daily Note ---
PT Daily Note-Current Subjective Patient is up independent in room without difficulty. Agrees to PT. Mental Status Patient Orientation: Normal For Age Attachments: IV Transfers SCALE: Activities may be completed with or without assistive devices. 4-Xhpgrlhuts-hsjegam completes the activity by him/herself with no assistance from a helper. 5-Set-up or Clean-up Assistance-helper sets up or cleans up; patient completes activity. [place] assists only prior to or following the activity. 4-Supervision or Touching Assistance-helper provides verbal cues and/or touching/steadying and/or contact guard assistance as patient completes activity. Assistance may be provided throughout the activity or intermittently. 3-Partial/Moderate Assistance-helper does LESS THAN HALF the effort. [place] lifts, holds or supports trunk or limbs, but provides less than half the effort. 2-Substantial/Maximal Assistance-helper does MORE THAN HALF the effort. [place] lifts or holds trunk or limbs and provides more than half the effort. 8-Dzwkzpbyp-rrrkpz does ALL the effort. Patient does none of the effort to complete the activity. Or, the assistance of 2 or more helpers is required for the patient to complete the activity. If activity was not attempted, code reason: 7-Patient Refused. 9-Not Applicable-not attempted and the patient did not perform the activity before the current illness, exacerbation or injury. 10-Not Attempted due to Environmental Limitations-(lack of equipment, weather restraints, etc.). 88-Not Attempted due to Medical Conditions or Safety Concerns. Sit to Stand (QC): 6 Gait Training Does the Patient Walk?: Yes Distance: 800' Walk 10 feet (QC): 6 Walk 50 ft with 2 Turns(QC): 6 Walk 150 ft (QC): 6 Gait Assistive Device: FWW safe and functional with functional pace Assessment Patient instructed to ambulate PRN in hallway independently without FWW due to patient does not use prior. Nursing notified and patient verbalized understanding. PT will see patient x 1 more session in a.m. to ensure patient is ambulating safely without AD. PT Intermediate Goals Director Of Analytics Goals PT Director Of Analytics Goals Time Frame: Feb 19, 2020 Roll Left & Right (QC): 6 Sit to Lying (QC): 6 Lying-Sitting on Side/Bed(QC): 6 Sit to Stand (QC): 6 Chair/Myo-wl-Othcx Xfer(QC): 6 Walk 10 feet (QC): 6 Walk 50ft with 2 Turns (QC): 6 Walk 150 ft (QC): 6 1 Step (curb) (QC): 6 4 Steps (QC): 6 PT Plan Treatment/Plan Treatment Plan: Continue Plan of Care Treatment Plan: Education, Functional Activity Lukas, Functional Strength, Gait, Safety, Therapeutic Exercise, Transfers Treatment Duration: Feb 19, 2020 Frequency: 6 times per week Estimated Hrs Per Day: .25 hour per day Patient and/or Family Agrees t: Yes Time/GCodes Time In: 833 Time Out: 850 Total Billed Treatment Time: 17 Total Billed Treatment 1 visit FA 17 min BILLIE SIMMONS PT Feb 13, 2020 10:07
[2020-02-13] MEDS ORDERED: CEPH-507 PO (10:42)
[2020-02-13] MEDS ORDERED: AZIT250T12 PO (10:42)
--- NOTE | 2020-02-13 10:44 | Discharge Inst-Simple/Standard ---
Discharge Inst-Standard Patient Instructions/Follow Up Plan of Care/Instructions/FU: Please continue to take your medications as written. Please follow up with your PCP, Dr Cueto in 1 week to follow up this hospital stay. Activity as Tolerated: Yes Discharge Diet: No Restrictions Return to The Hospital For: Chest pain, shortness of breath, cough, fever, confusion, if you feel you are getting worse. Planned Outpatient Orders/Ref. Pneu Vac Indicated: Yes VERITO MCCALLUM MD Feb 13, 2020 10:44
--- NOTE | 2020-02-13 11:17 | NUR ---
Anointed and Communion provided by Fr Kaba.
--- NOTE | 2020-02-13 12:08 | Discharge Summary ---
Diagnosis/Chief Complaint Date of Admission Feb 11, 2020 at 21:58 Date of Discharge Discharge Date: Feb 13, 2020 Admission Diagnosis CAP Primary Care Marin Cueto MD Discharge Summary Discharge Physical Exam Allergies: Coded Allergies: Egxadkp-Nwx-Hcr Reductase Inhibitor (Verified Allergy, Unknown, 07/05/15) hydrocodone (Verified Allergy, Unknown, 07/05/15) Vitals & I&Os Vital Signs Date Time Temp Pulse Resp B/P (MAP) Pulse Ox O2 Delivery O2 Flow Rate FiO2 02/13/20 09:00 97 Room Air 02/13/20 08:00 35.6 64 20 130/66 (87) 02/12/20 23:10 2.00 02/12/20 03:15 28 General Appearance: No Apparent Distress, Chronically ill Respiratory: Lungs Clear, No Respiratory Distress Cardiovascular: Regular Rate, Rhythm, No Murmur Neurologic/Psychiatric: Alert, Oriented x3 Hospital Course Pt was admitted due to hypoxia and pneumonia. He was tested for COVID and was negative. He was treated with Rocephin and azithromycin and did well. He was titrated off oxygen and was up and ambulating with PT well. He had an uneventful hospital stay and was discharged home in stable condition to follow up with Dr. Cueto in a week. Labs (last 24 hrs) Microbiology 02/11/20 Influenza Types A,B Antigen (RUDY) - Final, Complete 02/11/20 Blood Culture - Preliminary, Resulted No growth Patient resulted labs reviewed. Discussion & Recommendations Discharge Planning: >30 minutes discharge planning Discharge Home Medications: Active Scripts Active Azithromycin 250 Mg Tablet 250 Mg PO DAILY Keflex (Cephalexin) 500 Mg Capsule 500 Mg PO BID Reported Pam Allergy (Fexofenadine HCl) 60 Mg Tablet 120 Mg PO DAILY TAKES 2 (60MG)TABS Telmisartan 40 Mg Tablet 40 Mg PO DAILY LAST FILLED 09-11-2019 #90 Meche Root 550 Mg Capsule 550 Mg PO HS Vitamin D3 (Cholecalciferol (Vitamin D3)) 25 Mcg Capsule 25 Mcg PO DAILY Vitamin C (Ascorbic Acid) 500 Mg Capsule 500 Mg PO DAILY Xarelto (Rivaroxaban) 20 Mg Tablet 20 Mg PO HS LAST FILLED 09-20-2019 #90 Move Free Joint Health Tablet (Glucosam/Chond/Hyalu/Cf Borate) 1 Each Tablet 1 Each PO BID Citalopram HBr (Citalopram Hydrobromide) 20 Mg Tablet 20 Mg PO HS Amlodipine Besylate 10 Mg Tablet 10 Mg PO HS Colace (Docusate Sodium) 100 Mg Capsule 200 Mg PO HS TAKES 2 (100MG) CAPSULES Arthritis Pain (Acetaminophen) 650 Mg Tablet.er 650 Mg PO BID Instructions to patient/family Please see electronic discharge instructions given to patient. Clinical Quality Measures DVT/VTE Risk/Contraindication: Risk Factor Score Per Nursin RFS Level Per Nursing on Admit: 4+=Very High Copy Copies To 1: VERITO Morales MD Feb 13, 2020 12:08
== END 2020-02-13 12:00 | disposition home or self-care (01) | DRG 193 ==
LOC: EDUNIT# 17:27 → ER 17:29 → CSD 21:58 → 4TH 02-12 13:13
PROVIDERS: ADMIT Internal Medicine; ATTEND Internal Medicine
DX: J18.9 Pneumonia, unspecified organism (principal); J96.01 Acute respiratory failure with hypoxia; Z20.828 Contact with and (suspected) exposure to other viral communicable diseases; E78.5 Hyperlipidemia, unspecified; E78.00 Pure hypercholesterolemia, unspecified; I10 Essential (primary) hypertension; I25.10 Atherosclerotic heart disease of native coronary artery without angina pectoris; I25.2 Old myocardial infarction; G47.30 Sleep apnea, unspecified; E87.5 Hyperkalemia; I89.0 Lymphedema, not elsewhere classified; N40.0 Benign prostatic hyperplasia without lower urinary tract symptoms; M19.91 Primary osteoarthritis, unspecified site; M54.9 Dorsalgia, unspecified; I87.2 Venous insufficiency (chronic) (peripheral); Z96.651 Presence of right artificial knee joint; Z96.652 Presence of left artificial knee joint; Z96.641 Presence of right artificial hip joint; Z95.0 Presence of cardiac pacemaker; Z98.1 Arthrodesis status; Z86.718 Personal history of other venous thrombosis and embolism; Z85.820 Personal history of malignant melanoma of skin
CPT/HCPCS: 36415; 71045; 71275; 80048; 80053; 81000; 83605; 83615; 83735; 83880; 84145; 84484; 85025; 85379; 85610; 85652; 85730; 86141; 87040; 87635; 87804; 93005; 93041; 94640; 94664; 94760

== ENCOUNTER 2020-09-02 12:00 | Inpatient (IN) | payer MEDICARE ==
[~2020-09-02] VITALS: Ht 182.9 cm; Wt 111.4 kg
[~2020-09-02 12:00] MED LIST changes: +ACETAMINOPHEN 325 MG TABLET PO PRN; +ALPRAZolam 0.25 MG (XANAX) TAB PO PRN; +AMLO-251 PO; -AMLO10TA7 PO; +ASCO500C17 PO; +AZIT250T12 PO; +BISACODYL 10 MG SUPP (DULCOLAX) PR PRN; +CALCIUM CARBONATE 500 MG (TUMS) TAB.CHEW PO PRN; +CEPH-507 PO; +CHOL10007 PO; +DOCUSATE SODIUM 100 MG (COLACE) CAP PO PRN; +FEXO-14 PO; +FEXO-46 PO; +FLEET ENEMA ADULT 1 EA BTL PR PRN; +GING550C4 PO; +GLUC-203 PO; +LOPERAMIDE 2 MG (IMODIUM) TABLET PO PRN; +MUPI22OI2 TOP; +OMEP20CA18 PO; +OXYC-473 PO; +RIVA20TA PO; +TELM40TA6 PO; +diphenhydrAMINE 25 MG TAB (BENADRYL) PO PRN; +guaiFENesin/CODEINE (ROBITUSSIN AC) 10ML UDC PO PRN
[2020-09-02 12:59] VITALS: BP 122/58
--- NOTE | 2020-09-02 13:16 | ST Cognitive Linguistic Eval ---
Speech Evaluation-General Medical Diagnosis Spinal stenosis Onset Date: Aug 31, 2020 Therapy Diagnosis Therapy Diagnosis: Cognitive-communication Precautions Precautions: Fall Precautions/Isolations: Fall Prevention, Standard Precautions Referral Referring Physician: Dr. Palma Medical History Pertinent Medical History: Arthritis, CAD, HTN, [place] Reviewed History: Yes Social History Current Living Status: Spouse Speech PLF-Current Status Prior Level of Function Prior level of function was an independent living situation with his . Subjective Pt was pleasant, though reportedly in a lot of pain. He was lying in his bed. Language Eval: Auditory Comprehends Simple Yes/No Ques: Functional Indent/Objects Multiple Smith: Functional Ident/Pics in Multiple Smith: Functional Follows 1-Step Commands: Functional Follows Complex Directions: Functional Follows General Conversations: Functional Language Eval: Verbal Language Completes Spontaneous Greeting: Functional Produces Auto, Serial Info: Functional Imitates Simple Words/Phrases: Functional Word Finding: Functional Requests Basic Needs: Functional States Basic Personal Info: Functional Expresses Complex Ideas: Functional Language Evaluation: Reading Comprehends Single Nouns: Functional Follows Simple Written Direct: Functional Comprehends Multiple Sentences: Functional Cognitive Patient Orientation Patient was oriented to location, day of the week, and year. Pt stated why he was in the hospital Objective Cognitive Domain Attention: WNL Memory: WNL Problem Solving: Functional Executive Functions: WNL Visuospatial Skills: WNL Composite Severity Rating: WNL Clock Drawing Severity Rating: WNL Objective Formal/Standardized Tests [facility] Mental Status Examination ([facility] [[email or web address]]) Results Oral Motor/Speech Production Within normal limits. Impression Patient is a pleasant 85 y/o man, admitted to ARU post back surgery. Pt agreed to cognitive assessment. Pt was administered the SLUMS and scored within normal limits for cognitive functioning. ST services are not indicated at this time. Speech Patient Assess Expression of Ideas/Wants: Expression (4) Understanding Verbal Content: Understands (4) Brief Interview-Mental Status: Yes Repetition of Three Words: Three (3) Temporal Orientation: Year: Correct (3) Temporal Orientation: Month: Accurate within 5 days(2) Temporal Orientation: Day: Correct (1) Recall : Wear to say "Sock": Yes, no cue required (2) Recall : Color: Yes, no cue required (2) Recall : Bed: Yes, no cue required (2) Memory/Recall Ability: Current season, That he or she is in a hsp/hsp unit Speech-Plan Patient/Family Goals Patient/Family Goals: Pt plans to live at home with his upon D/C. Treatment Plan Speech Therapy Treatment Plan: Discontinue ST Treatment Duration: Sep 02, 2020 Frequency: 1 time per week Estimated Hrs Per Day: .25 hour per day Rehab Potential: Fair Barriers to Learning: Current medical status. [facility] Pt/Family Agrees to Plan: Yes Safety Risks/Education Teaching Recipient: Patient, Significant Other Teaching Methods: Discussion Response to Teaching: Verbalize Understanding Education Topics Provided: Safety and communication Time Speech Therapy Time In: 14:15 Speech Therapy Time Out: 14:30 Total Billed Time: 15 Billed Treatment Time 1, SPSNDCOMP No JACLYN HUGGINS Sep 02, 2020 13:16
--- NOTE | 2020-09-02 13:33 | Physical Therapy Evaluation ---
PT Evaluation-General Medical Diagnosis Admission Date Sep 02, 2020 at 12:00 Medical Diagnosis: Spinal stenosis Onset Date: Aug 31, 2020 Therapy Diagnosis Therapy Diagnosis: debility Height/Weight Height (Feet): 6 Height (Inches): 1.00 Weight (Pounds): 255 Weight (Ounces): 0.0 Precautions Precautions/Isolations: Fall Prevention, Standard Precautions Referral Physician: [place] Reason for Referral: Evaluation/Treatment Medical History Pertinent Medical History: Arthritis, CAD, HTN, CT Additional Medical History L UE lymphedema Current History fusion [id number] Reviewed History: Yes Social History Home: Single Level Current Living Status: Spouse Entry Into Home: Stairs With Railing PT Steps Into Home: 2 Prior Prior Level of Function SCALE: Activities may be completed with or without assistive devices. 8-Csplvhhebf-ohlheck completes the activity by him/herself with no assistance from a helper. 5-Set-up or Clean-up Assistance-helper sets up or cleans up; patient completes activity. [place] assists only prior to or following the activity. 4-Supervision or Touching Assistance-helper provides verbal cues and/or touching/steadying and/or contact guard assistance as patient completes activity. Assistance may be provided throughout the activity or intermittently. 3-Partial/Moderate Assistance-helper does LESS THAN HALF the effort. [place] lif ts, holds or supports trunk or limbs, but provides less than half the effort. 2-Substantial/Maximal Assistance-helper does MORE THAN HALF the effort. [place] lifts or holds trunk or limbs and provides more than half the effort. 1-Ccyeygcmo-tokknc does ALL the effort. Patient does none of the effort to complete the activity. Or, the assistance of 2 or more helpers is required for the patient to complete the activity. If activity was not attempted, code reason: 7-Patient Refused. 9-Not Applicable-not attempted and the patient did not perform the activity before the current illness, exacerbation or injury. 10-Not Attempted due to Environmental Limitations-(lack of equipment, weather restraints, etc.). 88-Not Attempted due to Medical Conditions or Safety Concerns. Bed Mobility: 6 Transfers (B,C,W/C): 6 Gait: 6 Stairs: 6 Indoor Mobility (Ambulation): Independent Stairs: Independent Prior Devices Use: None PT Evaluation-Current Subjective Patient car transport to IR[facility]. Pre tx patient in car and transferred to w/c, reported 7/10 pain. Consented to PT/OT treatment. Pt/Family Goals Return to PLOF pre-op Objective Patient Orientation: Person, Place, Time, Normal For Age TLSO ROM/Strength ROM Lower Extremities WFL Strength Lower Extremities WFL Integumentary/Posture Integumentary see nursing report Bowel Incontinence: Yes Bladder Incontinence: No Posture mild kyphosis Sensory Vision: Wears Glasses Hearing: Functional Sensation Right Lower Extremit: Intact Sensation Left Lower Extremity: Intact Transfers Roll Left & Right (QC): 88 Sit to Lying (QC): 88 Lying to Sitting/Side of Bed(Q: 88 Sit to Stand (QC): 3 (min) Chair/Dhs-sz-[place] Xfer(QC): 3 (min) Toilet Transfer (QC): 3 (min) Car Transfer (QC): 3 (min) Could not assess bed mobility at this time secondary to high pain rating and patient preference to be upright in chair. Will assess at next session. Patient reports moderate, unrated L hip pain during sit <-> stand transfer. Gait Does the Patient Walk?: Yes Mode of Locomotion: Walk Anticipated Mode of Locomotion: Walk Walk 10 feet (QC): 4 Walk 50 ft with 2 Turns(QC): 4 Walk 150 ft (QC): 4 Walking 10ft/uneven surface-QC: 4 Distance: 600', 80' Gait Assistive Device: FWW Comments/Gait Description CGA with all ambulation, brisk ambulation, good step through and foot clearance Wheelchair Training Does the Pt Use a Wheelchair?: No Wheel 50 ft with 2 turns (QC): 9 Wheel 150 ft (QC): 9 Stairs 1 Step (curb) (QC): 88 4 Steps (QC): 88 12 Steps (QC): 88 Balance Sitting Static: Good Sitting Dynamic: Good Standing Static: Good Standing Dynamic: Good Picking up an Object (QC): 88 Treatment Co-treated with OT secondary to patient overall debility, fall risk, and decreased functional mobility and pain with activity, he also had low blood pressure at 122/58. PT worked on transfers, gait, and overall functional mobility improvement. OT focused on ADLs with ROM restrictions including feeding/grooming. Assessment/Needs Patient will benefit from interventions focused on regaining patient functional mobility for safety with at home independent activities. Rehab Potential: Fair PT Short Term Goals Short Term Goals Time Frame: Sep 09, 2020 Roll Left & Right: 5 Sit to lyin Lying to sitting on side of be: 5 Sit to stand: 4 Chair/pjl-aj-fqnlx transfer: 4 Toilet transfer: 4 Walk 10 feet: 5 Walk 50 feet with two turns: 5 Walk 150 feet: 5 PT Sales Account Executive Goals Sales Account Executive Goals PT Sales Account Executive Goals Time Frame: September 23, 2020 Roll Left & Right (QC): 6 Sit to Lying (QC): 6 Lying-Sitting on Side/Bed(QC): 6 Sit to Stand (QC): 6 Chair/Gdt-bd-Dvlde Xfer(QC): 6 Toilet Transfer (QC): 6 Car Transfer (QC): 6 Does the Patient Walk: Yes Walk 10 feet (QC): 6 Walk 50ft with 2 Turns (QC): 6 Walk 150 ft (QC): 6 Walking 10ft on Uneven Surface: 6 1 Step (curb) (QC): 6 4 Steps (QC): 6 12 Steps (QC): 4 Picking up an Object (QC): 88 Wheel 50 feet with 2 turns (QC: 88 Wheel 150 feet: 88 PT Plan Problem List Problem List: Activity Tolerance, Functional Strength, Safety, Balance, Gait, Transfer, Bed Mobility, ROM Treatment/Plan Treatment Plan: Continue Plan of Care Treatment Plan: Bed Mobility, Education, Functional Activity Lukas, Functional Strength, Group Therapy, Gait, Safety, Therapeutic Exercise, Transfers Treatment Duration: September 23, 2020 Frequency: At least 5 of 7 days/Wk (IRF) Estimated Hrs Per Day: 1.5 hours per day Patient and/or Family Agrees t: Yes Safety Risks/Education Patient Education: Gait Training, Transfer Techniques, Reviewed Precautions, Correct Positioning, Safety Issues Teaching Recipient: Patient Teaching Methods: Demonstration, Discussion Response to Teaching: Verbalize Understanding, Return Demonstration Discharge Recommendations Plan Patient will perform bed mobility and transfer training, balance and endurance training, functional strengthening, stair training, gait training, and education, to improve functional mobility and independence at home. Therapy Discharge Recommendati: Home & Family Time/GCodes Time In: 1210 Time Out: 1340 Total Billed Treatment Time: 90 Total Billed Treatment 1 visit: EVM: 10' FA 80' OT eval from [id number], PT eval from [id number], co-treat from [id number] KRTEK,CASSIA PT Sep 02, 2020 13:33
--- NOTE | 2020-09-02 13:40 | Occupational Therapy Eval ---
OT Evaluation-General/PLF Medical Diagnosis Admission Date Sep 02, 2020 at 12:00 Medical Diagnosis: Spinal stenosis Onset Date: Aug 31, 2020 Therapy Diagnosis Therapy Diagnosis: Weakness, Decreased ADL skills Height/Weight Height (Feet): 6 Height (Inches): 1.00 Weight (Pounds): 255 Weight (Ounces): 0.0 Precautions Precautions/Isolations: Fall Prevention, Standard Precautions Weight Bear Status Back precautions, TLSO on when up. Referral Physician: Dr. Palma Referral Reason: Activity Tolerance, Self Care, Evaluation/Treatment, Strengthening/ROM Medical History Pertinent Medical History: Arthritis, CAD, HTN, [place] Additional Medical History Bilateral knee replacements, right hip replacement, 5 back surgeries, heart attack, CVA Current History Pt. underwent extensive back surgery two days ago. Pt. had fused [id number]. Reviewed History: Yes Social History Home: Single Level Current Living Status: Spouse Entry Into Home: Stairs With Railing Steps Into Home: 3 ADL-Prior Level of Function SCALE: Activities may be completed with or without assistive devices. 5-Tqsyohnymt-czvlfjl completes the activity by him/herself with no assistance from a helper. 5-Set-up or Clean-up Assistance-helper sets up or cleans up; patient completes activity. [place] assists only prior to or following the activity. 4-Supervision or Touching Assistance-helper provides verbal cues and/or touching/steadying and/or contact guard assistance as patient completes activity. Assistance may be provided throughout the activity or intermittently. 3-Partial/Moderate Assistance-helper does LESS THAN HALF the effort. [place] lifts, holds or supports trunk or limbs, but provides less than half the effort. 2-Substantial/Maximal Assistance-helper does MORE THAN HALF the effort. [place] lifts or holds trunk or limbs and provides more than half the effort. 3-Qlmuvcnvn-lldnkc does ALL the effort. Patient does none of the effort to complete the activity. Or, the assistance of 2 or more helpers is required for the patient to complete the activity. If activity was not attempted, code reason: 7-Patient Refused. 9-Not Applicable-not attempted and the patient did not perform the activity before the current illness, exacerbation or injury. 10-Not Attempted due to Environmental Limitations-(lack of equipment, weather restraints, etc.). 88-Not Attempted due to Medical Conditions or Safety Concerns. ADL PLOF Comments Pt. was independent with daily skills prior to this surgery. Self Care: Independent Functional Cognition: Independent DME/Equipment: Bath Chair, Bedside Commode, Tub/Shower DME/Equipment Comments Pt. uses walker Drive Self: Yes OT Current Status Subjective Pt. reports 7/10 pain in right hip/back. Nursing notified. Waiting for new orders. Mental Status/Objective Patient Orientation: Person, Place, Time, Situation Pt. very [place]. Requires for language to be loud and slow. Current Glasses/Contacts: Yes Hearing Aids: Yes Hand Dominance: Right Upper Extremity ROM WFL Strength not tested due to back surgery. Pt. has lymphedema in left UE from [place] many years ago. He has full ROM in left UE. ADL-Treatment Eating (QC): 5 (Set up for meal.) Oral Hygiene (QC): 7 Shower/Bathe Self (QC): 7 Upper Body Dressing (QC): 2 (Max assist to doff jacket. Pt. reports that he is also having difficulty with his brace.) Lower Body Dressing (QC): 2 (Per clinical judgement, pt. requires max assist.) On/Off Footwear (QC): 2 (Pt. attempts to bring foot up to him in sitting to doff/don slipper socks.) Toileting Hygiene (QC): 88 (Pt. reports that he has been constipated. Pt. being given medicine to assist with this.) Other Treatments Pt. seen this date for co-treatment with PT/OT due to low endurance and pain. OT facilitated ADL skills, while PT focused on transfers and mobility. Pt. tolerated well with encouragement. Pt. unable to bend over, and is unable to bring feet up to him. OT brings in ADL equipment and educates pt. PT educates pt. regarding mobility and walker use. Pt. is able to stand from chair with min/mod assist. He is able to ambulate with walker with CGA. Please see PT note for distance. Pt. and spouse both educated regarding therapy goals, purpose of rehab. Pt. and spouse both verbalize understanding. All needs met in room. Education OT Patient Education: Correct positioning, Modified ADL techniques, Progress toward Goal/Update tx plan, Purpose of tx/functional activities, Reviewed precautions, Rehab process, Transfer techniques Teaching Recipient: Patient, Family Teaching Methods: Demonstration, Discussion Response to Teaching: Verbalize Understanding, Return Demonstration, Reinforcement Needed OT Short Term Goals Short Term Goals Time Frame: Sep 09, 2020 Eatin Oral hygiene: 4 Toileting hygiene: 3 Shower/bathe self: 4 Upper body dressin Lower body dressin Putting on/taking off footwear: 3 OT [facility] Goals [employer] Goals Time Frame: September 23, 2020 Eating (QC): 6 Oral Hygiene (QC): 6 Toileting Hygiene (QC): 6 Shower/Bathe Self (QC): 4 Upper Body Dressing (QC): 5 Lower Body Dressing (QC): 4 On/Off Footwear (QC): 4 Additional Goals: 1-Demonstrate ADL Tasks, 2-Verbalize Understanding, 3- ImproveStrength/Lukas 1=Demonstrate adherence to instructed precautions during ADL tasks. 2=Patient will verbalize/demonstrate understanding of assistive devices/modifications for ADL. 3=Patient will improve strength/tolerance for activity to enable patient to perform ADL's. OT Education/Plan Problem List/Assessment Assessment: Decreased Activ Tolerance, Dependent Transfers, Impaired I ADL's, Impaired Self-Care Skills Discharge Recommendations Plan/Recommendations: Continue POC Therapy Discharge Recommendati: Post Acute OT Equpiment Recommendations-D/C: Hip Kit Treatment Plan/Plan of Care Treatment,Training & Education: Yes Patient would benefit from OT for education, treatment and training to promote independence in ADL's, mobility, safety and/or upper extremity function for ADL' s. Plan of Care: ADL Retraining, Functional Mobility, Group Exercise/Act as Ind, UE Funct Exercise/Act Treatment Duration: September 23, 2020 Frequency: At least 5 of 7 days/Wk (IRF) Estimated Hrs Per Day: 1.5 hours per day Agreement: Yes Rehab Potential: Good Time/GCodes Start Time: 12:00 Stop Time: 13:40 Total Time Billed (hr/min): 90 Billed Treatment Time 6732-5941 1, EVM x 10minutes [id number] PT eval, no charge [id number] ADL x 20minutes, FA x [id number] with PT. Please see above note for designated roles. LILIAN TURNER OT Sep 02, 2020 13:40
--- NOTE | 2020-09-02 17:01 | PM&R Post Admission Assessment ---
PM&R HP Date of Visit: Sep 02, 2020 Time of Visit: 17:00 History of Present Illness CC: Debility from spine surgery HPI: This is an 86yoWM clinic Pt of Dr. Cueto, who presented to inpatient rehab after I evaluated him at [facility] after undergoing spine surgery by Dr. Goodman. Due to his advanced age and high-risk for complications along with acute urinary retention and mild post-op ileus it was decided that he would benefit from inpatient rehab, so he has arrived and is settling in and will work on getting patient more improved with ADLs and ambulation before discharge home with his . 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 Dyslipidemia E78.5 Presbyacusis H91.10 Vertigo R42 Pedal edema R60.0 Pre-op evaluation Z01.818 Essential hypertension I10 Labile hypertension R09.89 Chronic low back pain M54.5, G89.29 RAIMUNDO treated with BiPAP G47.33 ELLIS (dyspnea on exertion) R06.00 Bilateral carotid artery disease I77.9 Bradycardia R00.1 Chest pain R07.9 Congestive heart failure I50.9 Paroxysmal atrial fibrillation I48.0 Stable angina pectoris I20.8 Dysphagia R13.10 HX CARDIAC CATHETERIZATION 03/24/2016 HX CERVICAL FUSION 2001 HX EGD N/A 12/12/2019 ESOPHAGOGASTRODUODENOSCOPY WITH DILATION performed by Hilario Phillip MD (John) at [facility] HX EGD N/A 05/21/2020 ESOPHAGOGASTRODUODENOSCOPY WITH DILATION performed by Hilario Phillip MD (John) at [facility] HX HEART CATHETERIZATION 2004 HX HEART CATHETERIZATION 10/2018 HX HERNIA REPAIR 07/2010 HX HIP REPLACEMENT Right Feb 19 2015 Ortho 4 states "Dr. 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 HX TUMOR REMOVAL Left left back with lymph node rem'l ME BIOPSY OF STOMACH N/A 12/12/2019 GASTRIC BIOPSY performed by Hilario Phillip MD (John) at [facility] ME BIOPSY OF STOMACH N/A 05/21/2020 GASTRIC BIOPSY performed by Hilario Phillip MD (John) at [facility] ME ESOPHAGEAL MOTILITY STUDY W/INTERP&RPT N/Aw 12/12/2019 ESOPHAGEAL MOTILITY MANOMETRY STUDY performed by Hilario Phillip MD (John) at [facility] Diagnosis Code CAD (coronary artery disease) I25.10 Cancer C80.1 Arthritis M19.90 Old NH (myocardial infarction) I25.2 Lymphedema of arm--left arm chronically I89.0 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 He is hemodynamically stable and free of bedside evidence of CHF. Additionally, he has nothing to suggest any an rebecca and his blood pressure is well controlled. He has an old NH and no angina at this time. Given he is asymptomatic heart marks and no ischemia seen on his recent nuclear stress test, I will clear him for cervical spine surgery.he should hold his xarelto 3 days pre op then resume post op when okay with his surgeon. Continue present medications. See orders for plans and follow up. Addendum: Recall he does not tolerate statins and I will have my nurse see if he qualifies for repatha or praluent Past Wwqbnvt-Vejpkk-Fhhcgj Hx Past Med/Social Hx: Reviewed Nursing Past Med/Soc Hx, Reviewed and Corrections made Patient Social History Marrital Status: Employed/Student: retired Alcohol Use: Denies Use Smoking Status: Never a Smoker 2nd Hand Smoke Exposure: No Recent Foreign Travel: No Contact w/other who traveled: No Immunizations Up To Date Date of Pneumonia Vaccine: Mar 08, 2012 Date of Influenza Vaccine: Apr 08, 2015 Seasonal Allergies Seasonal Allergies: No Past Medical History Surgeries: Abdominal, Cardiac, Eye Surgery, Joint Replacement, Neurological, O rthopedic, Pacemaker Respiratory: Sleep Apnea Currently Using BIPAP: Yes Cardiac: Atrial Fibrillation, Chronic Edema/Swelling, Coronary Artery Disease, Deep Vein Thrombosis, Heart Attack, High Cholesterol, Hypertension Neurological: Vertigo Reproductive: No Genitourinary: Benign Prostatic Hyperpl Gastrointestinal: Abdominal Hernia Musculoskeletal: Degenerate Disk Disease, Arthritis, Chronic Back Pain HEENT: Cataract Hearing Impairment: Hard of Hearing Cancer: Melanoma Did You Recieve Any Treatments: Yes What Type of Treatment Did You: Surgical Intervention Psychosocial: Depression History of Blood Disorders: Yes (DVT POST OP) Adverse Reaction to Blood [place]: No Family History Anemia Cardiovascular disease Diabetes mellitus FH: breast cancer Hypertension Heart Disease, Hypertension SOCIAL HISTORY: -NO ALCOHOL -NO DRUGS -NO TOBACCO/NO SMOKING PAST SURGICAL HISTORY: -CERVICAL SPINE SURGERY--FUSION WITH HARDWARE -LUMBAR SPINE SURGERY X 2 -BILATERAL KNEE REPLACEMENTS -RIGHT HIP REPLACEMENT -MELANOMA REMOVED FROM BACK WIHT LYMPH NODE REMOVAL FROM LEFT AXILL IN 1979 -BILATERAL CATARACT SURGERY -CARDIAC CATH--NO INTERVENTION -BILATERAL INGUINAL HERNIA REPAIRS Prior Level of Function Bed Mobility: 6 Transfers: 6 Gait: 6 Stairs: 6 Indoor Mobility (Ambulation): Independent Stairs: Independent Prior Devices Use: None Self Care: Independent Functional Cognition: Independent Drive Self: Yes Current Level of Fuctioning Roll Left to Right: 88 Sit to Lyin Lying to Sitting/Side of Bed: 88 Sit to Stand: 3 (min) Chair/Mqb-am-Avbbm Xfer: 3 (min) Car Transfer: 3 (min) Does the Patient Walk: Yes Mode of Locomotion: Walk Anticipated Mode of Locomotion: Walk Walk 10 feet: 4 Walk 50 ft with 2 Turns: 4 Walk 150 ft: 4 Walking 10ft on uneven surface: 4 Gait Assistive Device: FWW Does the Pt Use a Wheelchair: No Wheel 50 ft with 2 turns: 9 Wheel 150 ft: 9 1 Step (curb): 88 4 Steps: 88 12 Steps: 88 Picking up an Object: 88 Eatin (Set up for meal.) Oral Hygiene: 7 Shower/Bathe Self: 7 Upper Body Dressin (Max assist to doff jacket. Pt. reports that he is also having difficulty with his brace.) Lower Body Dressin (Per clinical judgement, pt. requires max assist.) On/Off Footwear: 2 (Pt. attempts to bring foot up to him in sitting to doff/don slipper socks.) Toileting Hygiene: 88 (Pt. reports that he has been constipated. Pt. being given medicine to assist with this.) PM&R Allergy/Meds/Data Review Allergies Coded Allergies: Clvakhw-Mfc-Uxa Reductase Inhibitor (Verified Allergy, Unknown, 07/05/15) hydrocodone (Verified Allergy, Unknown, pt has received morphine & hydromorphone in the past, 09/02/20) Home Medications Scheduled Acetaminophen (Arthritis Pain), 650 MG PO BID, (Reported) Amlodipine Besylate (Amlodipine Besylate), 10 MG PO DAILY, (Reported) Ascorbic Acid (Vitamin C), 1,000 MG PO DAILY, (Reported) Cholecalciferol (Vitamin D3) (Vitamin D3), 25 MCG PO DAILY, (Reported) Citalopram Hydrobromide (Citalopram HBr), 20 MG PO HS, (Reported) Docusate Sodium (Colace), 100 MG PO BID, (Reported) Fexofenadine HCl (Fexofenadine HCl), 180 MG PO DAILY, (Reported) Meche Root (Meche Root), 550 MG PO BID, (Reported) Glucosam/Chond/Hyalu/Cf Borate (Move Free Joint Health Tablet), 1 EACH PO DAILY, (Reported) Mupirocin (Mupirocin), 1 APPLIC TOP TID, (Reported) Omeprazole (Omeprazole), 20 MG PO DAILY, (Reported) Telmisartan (Telmisartan), 20 MG PO DAILY, (Reported) Scheduled PRN Oxycodone HCl (Roxicodone), 5 MG PO Q4H PRN for PAIN-SEVERE (8-10), (Reported) Discontinued Medications Amlodipine Besylate (Amlodipine Besylate), 10 MG PO HS, (Reported) Discontinued Reason: Duplicate Order Azithromycin (Azithromycin), 250 MG PO DAILY Discontinued Reason: No Longer Taking Cephalexin (Keflex), 500 MG PO BID Discontinued Reason: No Longer Taking Fexofenadine HCl (Pam Allergy), 120 MG PO DAILY, (Reported) Discontinued Reason: Prescription changed Telmisartan (Telmisartan), 40 MG PO DAILY, (Reported) Discontinued Reason: Duplicate Order Current Medications Current Medications Reviewed Review of Systems Constitutional: see HPI, malaise, weakness EENTM: no symptoms reported Respiratory: no symptoms reported Cardiovascular: no symptoms reported Gastrointestinal: constipation Genitourinary: other (retention) Musculoskeletal: back pain, joint pain, muscle pain Skin: no symptoms reported Psychiatric/Neurological: Depressed All Other Systems Reviewed Negative Unless Noted: Yes Physical Exam Physical Exam Vital Signs Vital Signs - First Documented 09/02/20 12:59 Temp 36.9 Pulse 77 Resp 18 B/P (MAP) 122/58 (79) Pulse Ox 92 O2 Delivery Room Air Capillary Refill : Height, Weight, BMI Height: 6'1.00" Weight: 255lbs. 0.0oz. 115.471529ym; 33.36 BMI Method:Stated General Appearance: No Apparent Distress, WD/WN, Chronically ill Eyes: Bilateral Eye Normal Inspection, Bilateral Eye PERRL HEENT: PERRL/EOMI, Normal ENT Inspection, Pharynx Normal Neck: Full Range of Motion, Normal Inspection, Non Tender, Supple, Carotid Bruit Respiratory: Chest Non Tender, Lungs Clear, Normal Breath Sounds, No Accessory Muscle Use, No Respiratory Distress Cardiovascular: Regular Rate, Rhythm, No Edema, No Gallop, No JVD, No Murmur, Normal Peripheral Pulses Gastrointestinal: Normal Bowel Sounds, No Organomegaly, No Pulsatile Mass, Non Tender, Soft Back: Decreased Range of Motion, Muscle Spasm, Vertebral Tenderness Extremity: Normal Capillary Refill, Normal Inspection, Normal Range of Motion, Non Tender, No Calf Tenderness, No Pedal Edema Neurologic/Psychiatric: Alert, Oriented x3, frame expander II-XII Norm as Tested, Abnormal Gait, Depressed Affect, Motor Weakness (lower legs 4/5) Skin: Normal Color, Warm/Dry Lymphatic: No Adenopathy PM&R Medical Assessment & Plan REHAB/MEDICAL ASSESSMENT AND PLAN: REHAB IMPAIRMENT GROUP: Lumbar stenosis ETIOLOGIC DIAGNOSIS: Lumbar stenosis The comorbidities that impact the patients function and/or functional outcome by: advanced age, PAF, pre-syncope after eating, risk for falls, urinary retention REHAB PLAN: The patient is being admitted to our comprehensive inpatient rehabilitation facility and can tolerate the intensity of service consisting of at least: 180 minutes of therapy a day, 5 out of 7 days a week Rehab treatment will consist of: PT OT will focus on regaining ambulation and independence in ADL function and work on fall risk prevention The patient/family has a good understanding of our discharge process and will benefit from an interdisciplinary inpatient rehabilitation program. The patient has potential to make improvement and is in need of at least two of the following multidisciplinary therapies including but not limited to physical, occupational, speech, and prosthetics and orthotics. Additionally the patient will need services from respiratory, nutritional services, wound care, psychology, etc. (Customize this to each patient). Given the patients complex condition and risk of further medical complications, rehabilitation services cannot be safely or effectively provided at a lower level of care such as a halfway facility. BARRIERS TO DISCHARGE: advanced age ESTIMATED LOS: 7 days DISPOSITION: Home with RELEVANT CHANGES SINCE PREADMISSION SCREENING: I have compared the patients medical and functional status at the time of the preadmission screening and there are: no changes PROGNOSIS: Good REHABILITATION GOALS: 1. PT OT will focus on regaining ambulation and independence in ADL function and work on fall risk prevention All the above goals were reviewed with the patient and he/she is in agreement. By signing this document, I acknowledge that I have personally performed a full physical examination on this patient within 24 hours of admission to this inpatient rehabilitation facility and have determined the patient to be able to tolerate the above course of treatment at an intensive level for a reasonable period of time. I will be completing a detailed individualized Plan of Care for this patient by day #4 of the patients stay based upon the Preadmission Screen, the Post-Admission Evaluation, and the therapy evaluations. Admission Dx/Comorbidities: (1) S/P spinal surgery ICD Codes: Z98.890 - Other specified postprocedural states (2) Urinary retention ICD Codes: R33.9 - Retention of urine, unspecified (3) Constipation ICD Codes: K59.00 - Constipation, unspecified (4) PAF (paroxysmal atrial fibrillation) ICD Codes: I48.0 - Paroxysmal atrial fibrillation (5) CAD (coronary artery disease) ICD Codes: I25.10 - Atherosclerotic heart disease of [place] coronary artery without angina pectoris (6) RAIMUNDO treated with BiPAP ICD Codes: G47.33 - Obstructive sleep apnea (adult) (pediatric) (7) Lumbar stenosis ICD Codes: M48.061 - Spinal stenosis, lumbar region without neurogenic claudication (8) Intractable low back pain Status: Acute (9) Sciatic nerve pain Status: Acute (10) Chronic pain Status: Acute (11) Renal insufficiency Status: Acute ICD Codes: N28.9 - Disorder of kidney and ureter, unspecified; Z20.828 - Contact with and (suspected) exposure to other viral communicable diseases Assessment/Plan Assessment and Plan Assess & Plan/Chief Complaint Assessment: s/p spine surgery from lumbar stenosis PAF holding OAC CAD PVD Depression Acute urinary retention Post op constipation HTN CRI Plan: IRF protocol Urinary management Pain control PONCE KAUR DO Sep 02, 2020 17:01
[2020-09-02 19:34] VITALS: BP 123/57
[2020-09-02] MEDS: SENNA W/DOCUSATE (SENOKOT S) TABLET PO SCH (20:54)
[2020-09-02] MEDS: polyethylene glycoL POWDER 17 GM (MIRALAX) PACK PO SCH (20:54)
[2020-09-02] MEDS: MELATONIN 3 MG TABLET PO PRN (20:54)
[2020-09-02] MEDS: DOCUSATE SODIUM 100 MG (COLACE) CAP PO SCH ×2 (20:55→21:09)
[2020-09-02] MEDS: MUPIROCIN 2% OINT 22 GM (BACTROBAN) TUBE TOP SCH (21:00)
[2020-09-02] MEDS ORDERED: GINGER ROOT 550 MG PO SCH (21:00)
[2020-09-02] MEDS ORDERED: ACETAMINOPHEN 650 MG PO SCH (21:00)
[2020-09-02] MEDS: ONDANSETRON 4 MG (ZOFRAN) ORAL DISSOLVE TAB PO PRN (21:09)
[2020-09-03 03:58] LABS: BASOPHILS % (AUTO) 0 % (0-10); EOSINOPHILS % (AUTO) 0 % (0-10); HEMATOCRIT 29 % (40-54); HEMOGLOBIN 9.4 g/dL (13.3-17.7); LYMPHOCYTES # (AUTO) 1.4 10^3/uL (1.0-4.0); LYMPHOCYTES % (AUTO) 16 % (12-44); MEAN CORPUSCULAR HEMOGLOBIN 32 pg (25-34); MEAN CORPUSCULAR HGB CONC 33 g/dL (32-36); MEAN CORPUSCULAR VOLUME 99 fL (80-99); MEAN PLATELET VOLUME 9.9 fL (9.0-12.2); MONOCYTES # (AUTO) 1.6 10^3/uL (0.0-1.0); MONOCYTES % (AUTO) 18 % (0-12); NEUTROPHILS # (AUTO) 5.8 10^3/uL (1.8-7.8); NEUTROPHILS % (AUTO) 66 % (42-75); PLATELET COUNT 180 10^3/uL (130-400); WHITE BLOOD COUNT 8.8 10^3/uL (4.3-11.0)
[2020-09-03 04:18] LABS: ALANINE AMINOTRANSFERASE 8 U/L (0-55); ALBUMIN 3.1 GM/DL (3.2-4.5); ALKALINE PHOSPHATASE 49 U/L (40-136); BILIRUBIN,TOTAL 0.6 MG/DL (0.1-1.0); BUN/CREATININE RATIO 26; CALCIUM 8.9 MG/DL (8.5-10.1); CARBON DIOXIDE 20 MMOL/L (21-32); CHLORIDE 104 MMOL/L (98-107); CREATININE SERUM 1.08 MG/DL (0.60-1.30); GFR ESTIMATED > 60; GLUCOSE 120 MG/DL (70-105); POTASSIUM 4.9 MMOL/L (3.6-5.0); SODIUM 133 MMOL/L (135-145); TOTAL PROTEIN 5.2 GM/DL (6.4-8.2)
[2020-09-03 08:00] VITALS: BP 99/50
[2020-09-03] MEDS: SENNA W/DOCUSATE (SENOKOT S) TABLET PO SCH ×2 (08:52→21:34)
[2020-09-03] MEDS: ASCORBIC ACID (VIT C) 500 MG TABLET PO SCH (08:52)
[2020-09-03] MEDS: LORATADINE (CLARITIN) 10 MG TAB PO SCH (08:53)
[2020-09-03] MEDS: polyethylene glycoL POWDER 17 GM (MIRALAX) PACK PO SCH ×2 (08:53→21:35)
[2020-09-03] MEDS: VITAMIN D3 25 MCG (1,000 UNITS) TABLET PO SCH (08:53)
[2020-09-03] MEDS: DOCUSATE SODIUM 100 MG (COLACE) CAP PO SCH ×4 (08:53→21:35)
[2020-09-03] MEDS: PANTOPRAZOLE 20 MG TABLET (PROTONIX) PO SCH (08:53)
[2020-09-03] MEDS: MUPIROCIN 2% OINT 22 GM (BACTROBAN) TUBE TOP SCH ×3 (08:55→21:35)
[2020-09-03 09:00] VITALS: BP 107/56
[2020-09-03] MEDS ORDERED: NON-FORMULARY MEDICATION 1 EA EA (Glucosam/Chond/Hyalu/Cf Borate (Move Free Joint Health T PO SCH (09:00)
[2020-09-03 10:00] VITALS: BP 143/67
[2020-09-03] MEDS: amLODIPine 10 MG (NORVASC) TAB PO SCH (10:05)
[2020-09-03] MEDS: LOSARTAN 25 MG (COZAAR) TAB PO SCH (10:05)
--- NOTE | 2020-09-03 12:02 | Physical Therapy Daily Note ---
PT Daily Note-Current Subjective Patient reported 7/10 pain in back pre tx. Was seated upright in short chair. Patient reported his back felt like he was laying against "pins and needles." Patient reported he hadn't had a BM, and his hip was bothering him worse than yesterday. Patient was hesitant, but consented to take a walk with PT. Appearance Patient was supine post tx, with call button with , tray table nearby, and in the room. Mental Status Patient Orientation: Person, Place, Time, Normal For Age TLSO Transfers SCALE: Activities may be completed with or without assistive devices. 4-Rmxfoamclz-gzscnrq completes the activity by him/herself with no assistance from a helper. 5-Set-up or Clean-up Assistance-helper sets up or cleans up; patient completes activity. [place] assists only prior to or following the activity. 4-Supervision or Touching Assistance-helper provides verbal cues and/or touching/steadying and/or contact guard assistance as patient completes activity. Assistance may be provided throughout the activity or intermittently. 3-Partial/Moderate Assistance-helper does LESS THAN HALF the effort. [place] lift s, holds or supports trunk or limbs, but provides less than half the effort. 2-Substantial/Maximal Assistance-helper does MORE THAN HALF the effort. [place] lifts or holds trunk or limbs and provides more than half the effort. 9-Vzpwjxvwv-tjlhae does ALL the effort. Patient does none of the effort to complete the activity. Or, the assistance of 2 or more helpers is required for the patient to complete the activity. If activity was not attempted, code reason: 7-Patient Refused. 9-Not Applicable-not attempted and the patient did not perform the activity before the current illness, exacerbation or injury. 10-Not Attempted due to Environmental Limitations-(lack of equipment, weather restraints, etc.). 88-Not Attempted due to Medical Conditions or Safety Concerns. Sit to Lying (QC): 3 (Mod A with legs transferring to supine, patient stated he was having difficulty lifting legs on his own.) Sit to Stand (QC): 2 (Max A x2) Patient was not able to help with sit <-> stand transfer secondary to increase pain reports. He stated it would be easier if the chair were not so low to the ground. Patient reported pain was increased to 7.5/10 after standing. PT assisted with brace doffing prior to sit to lying transfer. Gait Training Does the Patient Walk?: Yes Distance: 160' Walk 10 feet (QC): 4 Walk 50 ft with 2 Turns(QC): 4 Walk 150 ft (QC): 4 Gait Assistive Device: FWW CGA x1. Before ambulation, patient BP was taken, measured at 116/58. Patient was slow and steady with pacing. At 80' patient reported he could not go any further and needed to go to the room. Patient ambulated last 80' slowly, stating he needed to lay in bed . Exercises Supine Ex: Ankle pumps, Glut sets, Heel Slides, Short Arc Quads (small blue bolster), Hip abd/add (Adduction: small ball) Supine Reps: 20 Treatments Gait training, transfers, bed mobility Assessment Current Status: Good Progress, Fair Progress pain-limiting performance, uncomfortable secondary to current condition/lack of BM PT Short Term Goals Short Term Goals Time Frame: Sep 09, 2020 Roll Left & Right: 5 Sit to lyin Lying to sitting on side of be: 5 Sit to stand: 4 Chair/fww-ub-cegap transfer: 4 Toilet transfer: 4 Walk 10 feet: 5 Walk 50 feet with two turns: 5 Walk 150 feet: 5 PT Chcf Goals Chcf Goals PT Quarry Supervisor Goals Time Frame: September 23, 2020 Roll Left & Right (QC): 6 Sit to Lying (QC): 6 Lying-Sitting on Side/Bed(QC): 6 Sit to Stand (QC): 6 Chair/Aqa-io-Izgdq Xfer(QC): 6 Toilet Transfer (QC): 6 Car Transfer (QC): 6 Does the Patient Walk: Yes Walk 10 feet (QC): 6 Walk 50ft with 2 Turns (QC): 6 Walk 150 ft (QC): 6 Walking 10ft on Uneven Surface: 6 1 Step (curb) (QC): 6 4 Steps (QC): 6 12 Steps (QC): 4 Picking up an Object (QC): 88 Wheel 50 feet with 2 turns (QC: 88 Wheel 150 feet: 88 PT Plan Problem List Problem List: Activity Tolerance, Functional Strength, Safety, Balance, Gait, Transfer, Bed Mobility, ROM Treatment/Plan Treatment Plan: Continue Plan of Care Treatment Plan: Bed Mobility, Education, Functional Activity Lukas, Functional Strength, Group Therapy, Gait, Safety, Therapeutic Exercise, Transfers Treatment Duration: September 23, 2020 Frequency: At least 5 of 7 days/Wk (IRF) Estimated Hrs Per Day: 1.5 hours per day Patient and/or Family Agrees t: Yes Safety Risks/Education Patient Education: Gait Training, Transfer Techniques, Reviewed Precautions, Correct Positioning, Reviewed Don/Doff Brace, Safety Issues Teaching Recipient: Patient Teaching Methods: Demonstration, Discussion Response to Teaching: Verbalize Understanding, Return Demonstration Time/GCodes Time In: 1100 Time Out: 1200 Total Billed Treatment Time: 60 Total Billed Treatment 1 visit: FA x2: 30' GT: 15' EX: 15' CASSIA MORROW PT Sep 03, 2020 12:02
--- NOTE | 2020-09-03 12:09 | PM&R Progress Note ---
Subjective HPI/CC On Admission Date Seen by Provider: Sep 03, 2020 Time Seen by Provider: 11:30 Subjective/Events-last exam 09/03/20: Pt doing pretty well Right hip pain is an issue Will obtain KUB abdominal X-ray to check for obstruction but likely just early ileus but he is passing a lot of gas Bladder scanning will be performed due to high risk for retention since he had retention over at [place] Xarelto will be restarted on Monday per spine surgery Gets dizzy after eating and vomited last night after dinner Hgb 9.4 Sodium level 133 Review of Systems General: Fatigue Musculoskeletal: back pain, leg pain Objective Exam Vital Signs Vital Signs Date Time Temp Pulse Resp B/P (MAP) Pulse Ox O2 Delivery O2 Flow Rate FiO2 09/03/20 20:30 Room Air 09/03/20 20:00 37.4 72 16 109/57 (74) 90 09/02/20 22:25 2.00 Capillary Refill : General Appearance: No Apparent Distress, WD/WN, Chronically ill HEENT: PERRL/EOMI, Normal ENT Inspection, Pharynx Normal Neck: Full Range of Motion, Normal Inspection, Non Tender, Supple, Carotid Bruit Respiratory: Chest Non Tender, Lungs Clear, Normal Breath Sounds, No Accessory Muscle Use, No Respiratory Distress Cardiovascular: Regular Rate, Rhythm, No Edema, No Gallop, No JVD, No Murmur, Normal Peripheral Pulses Gastrointestinal: Normal Bowel Sounds, No Organomegaly, No Pulsatile Mass, Non Tender, Soft Back: Decreased Range of Motion, Muscle Spasm, Vertebral Tenderness Extremity: Normal Capillary Refill, Normal Inspection, Normal Range of Motion, Non Tender, No Calf Tenderness, No Pedal Edema Neurologic/Psychiatric: Alert, Oriented x3, soil conservationist II-XII Norm as Tested, Abnormal Gait, Depressed Affect, Motor Weakness (lower legs 4/5) Skin: Normal Color, Warm/Dry Lymphatic: No Adenopathy Results/Procedures Lab Patient resulted labs reviewed. FIM Transfers Therapy Code Descriptions/Definitions Functional [place] Measure: 0=Not Assessed/NA 4=Minimal Assistance 1=Total Assistance 5=Supervision or Setup 2=Maximal Assistance 6=Modified [place] 3=Moderate Assistance 7=Complete IndependenceSCALE: Activities may be completed with or without assistive devices. 6-Tklrqupdcs-egrhqse completes the activity by him/herself with no assistance from a helper. 5-Set-up or Clean-up Assistance-helper sets up or cleans up; patient completes activity. [place] assists only prior to or following the activity. 4-Supervision or Touching Assistance-helper provides verbal cues and/or touching/steadying and/or contact guard assistance as patient completes activity. Assistance may be provided throughout the activity or intermittently. 3-Partial/Moderate Assistance-helper does LESS THAN HALF the effort. [place] lifts, holds or supports trunk or limbs, but provides less than half the effort. 2-Substantial/Maximal Assistance-helper does MORE THAN HALF the effort. [place] lifts or holds trunk or limbs and provides more than half the effort. 8-Mnbxuowdx-qipdsb does ALL the effort. Patient does none of the effort to complete the activity. Or, the assistance of 2 or more helpers is required for the patient to complete the activity. If activity was not attempted, code reason: 7-Patient Refused. 9-Not Applicable-not attempted and the patient did not perform the activity before the current illness, exacerbation or injury. 10-Not Attempted due to Environmental Limitations-(lack of equipment, weather restraints, etc.). 88-Not Attempted due to Medical Conditions or Safety Concerns. Roll Left to Right (QC): 88 Sit to Lying (QC): 3 (Mod A with legs transferring to supine, patient stated he was having difficulty lifting legs on his own.) Sit to Stand (QC): 2 (Max A x2) Chair/Sql-hh-Qkwgh Xfer(QC): 3 (min) Car Transfer (QC): 3 (min) Gait Training Does the Patient Walk?: Yes Distance: 160' Walk 10 feet (QC): 4 Walk 50 ft with 2 Turns(QC): 4 Walk 150 ft (QC): 4 Walking 10ft/uneven surface-QC: 4 Gait Assistive Device: FWW Wheelchair Training Does the Pt Use a Wheelchair?: No Wheel 50 ft with 2 turns (QC): 9 Wheel 150 ft (QC): 9 Stair Training 1 Step (curb) (QC): 88 4 Steps (QC): 88 12 Steps (QC): 88 Balance Picking up an Object (QC): 88 ADL-Treatment Eating (QC): 5 (Set up for meal.) Oral Hygiene (QC): 7 Shower/Bathe Self (QC): 7 Upper Body Dressing (QC): 2 (Max assist to doff jacket. Pt. reports that he is also having difficulty with his brace.) Lower Body Dressing (QC): 2 (Per clinical judgement, pt. requires max assist.) On/Off Footwear (QC): 2 (Pt. attempts to bring foot up to him in sitting to doff/don slipper socks.) Toileting Hygiene (QC): 88 (Pt. reports that he has been constipated. Pt. being given medicine to assist with this.) Assessment/Plan Assessment and Plan Assess & Plan/Chief Complaint Assessment: s/p spine surgery from lumbar stenosis PAF holding OAC CAD PVD Depression Acute urinary retention Post op constipation HTN CRI Plan: IRF protocol Urinary management Pain control 09/03/20: Pain control Left hip xray Monitor closely (1) S/P spinal surgery (2) Urinary retention (3) Constipation (4) PAF (paroxysmal atrial fibrillation) (5) CAD (coronary artery disease) (6) RAIMUNDO treated with BiPAP (7) Lumbar stenosis (8) Intractable low back pain Status: Acute (9) Sciatic nerve pain Status: Acute (10) Chronic pain Status: Acute (11) Renal insufficiency Status: Acute PONCE KAUR DO Sep 03, 2020 12:09
--- NOTE | 2020-09-03 12:09 | Individualized Plan of Care ---
Individualized Plan of Care Rehab Nursing IPOC Order Admission Date Sep 02, 2020 at 12:00 Current Orders Orders Admission Order(Inpt,Obs,Sdc) (09/02/20 11:08) Vital Signs: Per Unit Policy ( ,16,00 (09/02/20 11:08) Shane Louie (09/02/20 11:08) Sequential Compression Device .admit (09/02/20 11:08) Supervisor [employer]-Inpt Rehab Con (09/02/20 11:08) Rehab Nursing Orders-Ipoc (09/02/20 11:08) Physical Therapy Rehab Orders (09/02/20 11:08) Occupational Therapy Rehab Ord (09/02/20 11:08) Speech Therapy Rehab Orders (09/02/20 11:08) Cbc With Automated Diff (09/03/20 06:00) Comprehensive Metabolic Panel (09/03/20 06:00) Intake & Output ,, (09/02/20 11:08) Precautions (Aru) (09/02/20 11:08) Rehab-Intensity Of Therapy (09/02/20 11:08) Initiate Admission Nursing Pro .admission (09/02/20 11:08) Acetaminophen Tablet/Caplet (Tylenol T (09/02/20 11:15) Alprazolam Tablet (Xanax Tablet) (09/02/20 11:15) Calcium Carbonate Chew Tablet (Antacid C (09/02/20 11:15) Diphenhydramine Tablet (Benadryl Tablet) (09/02/20 11:15) Docusate Sodium Capsule (Colace Capsule) (09/02/20 21:00) Docusate Sodium Capsule (Colace Capsule) (09/02/20 11:15) Bisacodyl Suppository (Dulcolax Supposit (09/02/20 11:15) Lactulose Oral Solution (Enulose Oral So (09/02/20 11:15) Na Phos/Na Biphos Enema (Fleet Enema Emil (09/02/20 11:15) Guaifenesin/Codeine Syrup (Robitussin Ac (09/02/20 11:15) Loperamide Tablet (Imodium Tablet) (09/02/20 11:15) Melatonin Tablet (Melatonin Tablet) (09/02/20 11:15) Polyethylene Glycol Powder Pkt (Miralax (09/02/20 21:00) Ondansetron Oral Dissolve Tab (Zofran (09/02/20 11:15) Senna S Tablet (Senokot S Tablet) (09/02/20 21:00) Code/Resuscitation (09/02/20 11:08) Initiate Admission Nursing Pro .admission (09/02/20 11:08) Admission Arrival Bed Request (09/02/20 12:20) General/Regular (09/02/20 Lunch) Amlodipine Tablet (Norvasc Tablet) (09/03/20 09:00) Citalopram Tablet (Celexa Tablet) (09/02/20 21:00) Docusate Sodium Capsule (Colace Capsule) (09/02/20 21:00) Mupirocin Ointment (Bactroban Ointment (09/02/20 21:00) Oxycodone Immediate Rel Tablet (Oxyir Ta (09/02/20 13:45) (Nf) Acetaminophen (Arthritis Pain) (09/02/20 21:00) Ascorbic Acid Tablet (Vitamin C Tablet) (09/03/20 09:00) Cholecalciferol Capsule/Tablet (Vitamin (09/03/20 08:00) Loratadine Tablet (Claritin Tablet) (09/03/20 09:00) (Nf) Meche Root (09/02/20 21:00) (Nf) Glucosam/Chond/Hyalu/Cf Borate (Mov (09/03/20 09:00) Pantoprazole Tablet (Protonix Tablet) (09/03/20 09:00) Losartan Tablet (Cozaar Tablet) (09/03/20 09:00) Patient Visit (09/02/20 ) Speech Sound Lang Comp (09/02/20 ) Patient Visit (09/02/20 ) Pt Eval Moderate Complexity (09/02/20 ) Functional Activities, Ea 15 (09/02/20 ) Nursing Communication (Order) (09/02/20 19:46) Tramadol Tablet (Ultram Tablet) (09/03/20 11:15) Rivaroxaban Tablet (Xarelto Tablet) (09/05/20 17:00) Abdomen/Kub 1view (09/03/20 11:20) Hip, Right, 2 Views (09/03/20 11:34) Patient Visit (09/03/20 ) Functional Activities, Ea 15 (09/03/20 ) Gait Training, Ea 15 Min (09/03/20 ) Exercise Therap, Ea 15 Min (09/03/20 ) Rehab Nursing Orders: Ongoing Assess. of Cognitive Status, Ongoing Assess. of Function Status, Bladder Management, Bladder Scan, Bladder Training, Bowel Management, Bowel Training, Disease Management & Educaiton, DVT Prophylaxis, Fall Prevention, Fluid/Electrolyte/Nutrition Mgmt, Infection Prevention, Medication Management & Education, Management of Risks & Complications, Nutrition Management, Pain Management, Patient/Family Support, Safety Management Intensity of Therapy to be met Patient to be seen: Min.3h per day/5 of 7d PT IPOC Problem List: Activity Tolerance, Functional Strength, Safety, Balance, Gait, Transfer, Bed Mobility, ROM Treatment Plan: Continue Plan of Care Bed Mobility, Education, Functional Activity Lukas, Functional Strength, Group Therapy, Gait, Safety, Therapeutic Exercise, Transfers Treatment Duration: September 23, 2020 Frequency: At least 5 of 7 days/Wk (IRF) Estimated Hrs Per Day: 1.5 hours per day OT IPOC Problems: Decreased Activ Tolerance, Dependent Transfers, Impaired I ADL's, Impaired Self-Care Skills OT Treatment, Training and Edu: Yes Plan of Care: ADL Retraining, Functional Mobility, Group Exercise/Act as Ind, UE Funct Exercise/Act Treatment Duration: September 23, 2020 Frequency: At least 5 of 7 days/Wk (IRF) Estimated Hrs Per Day: 1.[address] IPOC Speech Therapy Treatment Plan: Discontinue ST Treatment Duration: Sep 02, 2020 Frequency: 1 time per week Estimated Hrs Per Day: .25 hour per day Supervisor [employer]/Case Mgmt Supervisor [employer]/Case Managemen: Discharge Planning Dietitian/Wind Turbine Technician Dietitian/Wind Turbine Technician to monitor nutritional status and make changes and/or recommendations as needed and work with speech pathology on dietary upgrades as the occur. Physician IPOC Medical Issues being managed closely and that require the 24 hour availability of a physician: Recent spinal surgery with right hip pain with anemia and syncope after eating for 6 years will require close monitoring for decompensation Medical Issues: Bowel/Bladder Function, DVT Prophylaxis, Falls Precautions, Fluid/Electrolyte/Nutrition Balance, Infection Protection, Pain Management Brief Synthesis of Preadmission Screen, Post-Admission Evaluation, and Therapy Evaluations: PT OT will focus on regaining function from recent spinal surgery along with the use of AD to return to independent living Medical Prognosis: Good Anticipated Length of Stay: 7 days PONCE KAUR DO Sep 03, 2020 12:09
--- NOTE | 2020-09-03 13:39 | Occupational Ther Daily Note ---
OT Current Status-Daily Note Subjective Pt. reports 8/10 back and right hip pain. Nursing to give medicine. Appearance Pt. asleep in room. Wakes up easily. Agrees to work with OT. Mental Status/Objective Patient Orientation: Person, Place ADL-Treatment Therapy Code Descriptions/Definitions Functional [place] Measure: 0=Not Assessed/NA 4=Minimal Assistance 1=Total Assistance 5=Supervision or Setup 2=Maximal Assistance 6=Modified [place] 3=Moderate Assistance 7=Complete IndependenceSCALE: Activities may be completed with or without assistive devices. 4-Agbrbhwhhu-brlzzxf completes the activity by him/herself with no assistance from a helper. 5-Set-up or Clean-up Assistance-helper sets up or cleans up; patient completes activity. [place] assists only prior to or following the activity. 4-Supervision or Touching Assistance-helper provides verbal cues and/or touching/steadying and/or contact guard assistance as patient completes activity. Assistance may be provided throughout the activity or intermittently. 3-Partial/Moderate Assistance-helper does LESS THAN HALF the effort. [place] lifts, holds or supports trunk or limbs, but provides less than half the effort. 2-Substantial/Maximal Assistance-helper does MORE THAN HALF the effort. [place] lifts or holds trunk or limbs and provides more than half the effort. 1-Vpogixaff-wferms does ALL the effort. Patient does none of the effort to complete the activity. Or, the assistance of 2 or more helpers is required for the patient to complete the activity. If activity was not attempted, code reason: 7-Patient Refused. 9-Not Applicable-not attempted and the patient did not perform the activity before the current illness, exacerbation or injury. 10-Not Attempted due to Environmental Limitations-(lack of equipment, weather restraints, etc.). 88-Not Attempted due to Medical Conditions or Safety Concerns. Eating (QC): 5 Oral Hygiene (QC): 7 Shower/Bathe Self (QC): 3 (Mod assist) Upper Body Dressing (QC): 3 (Min assist for shirt, max assist for brace.) Lower Body Dressing (QC): 2 On/Off Footwear: 2 Toileting Hygiene (QC): 2 Toilet Transfer (QC): 3 Other Treatment Pt. in bed. Agrees to work with OT. Pt. concerned that he has been constipated. Transfers supine-sit with min assist. Pt. has difficulty balancing on EOB. Wants to lean backward to ease pain in right hip. Pt. is able to wash arms and chest, and OT washes back and applies lotion. Pt. is able to don clean shirt with min assist, and OT dons brace with max assist needed. Pt. indicates that he might need to use the bathroom. Stands with mod assist and increased time needed. Pt. ambulates into bathroom and requires mod assist to safely transfer onto toilet. Pt. attempts to have bowel movement, with no success. Due to reported pain, OT dons underwear and pants, shoes and socks. Pt. stands with max assist and ambulates to chair in room. All needs are met. Nursing notified of pt's pain level. Education OT Patient Education: Correct positioning, Modified ADL techniques, Progress toward Goal/Update tx plan, Purpose of tx/functional activities, Reviewed precautions, Rehab process, Transfer techniques Teaching Recipient: Patient Teaching Methods: Demonstration, Discussion Response to Teaching: Verbalize Understanding, Return Demonstration OT Short Term Goals Short Term Goals Time Frame: Sep 09, 2020 Eatin Oral hygiene: 4 Toileting hygiene: 3 Shower/bathe self: 4 Upper body dressin Lower body dressin Putting on/taking off footwear: 3 OT Assisted Goals Guidance Director Goals Time Frame: September 23, 2020 Eating (QC): 6 Oral Hygiene (QC): 6 Toileting Hygiene (QC): 6 Shower/Bathe Self (QC): 4 Upper Body Dressing (QC): 5 Lower Body Dressing (QC): 4 On/Off Footwear (QC): 4 Additional Goals: 1-Demonstrate ADL Tasks, 2-Verbalize Understanding, 3- ImproveStrength/Lukas 1=Demonstrate adherence to instructed precautions during ADL tasks. 2=Patient will verbalize/demonstrate understanding of assistive devices/modifications for ADL. 3=Patient will improve strength/tolerance for activity to enable patient to perform ADL's. OT Education/Plan Problem List/Assessment Assessment: Decreased Activ Tolerance, Decreased UE Strength, Dependent Transfers, Impaired Bed Mobility, Impaired Funct Balance, Impaired I ADL's, Impaired Self-Care Skills Discharge Recommendations Plan/Recommendations: Continue POC Therapy Discharge Recommendati: Post Acute OT Equpiment Recommendations-D/C: Hip Kit Treatment Plan/Plan of Care Treatment,Training & Education: Yes Patient would benefit from OT for education, treatment and training to promote independence in ADL's, mobility, safety and/or upper extremity function for ADL's. Plan of Care: ADL Retraining, Functional Mobility, Group Exercise/Act as Ind, UE Funct Exercise/Act Treatment Duration: September 23, 2020 Frequency: At least 5 of 7 days/Wk (IRF) Estimated Hrs Per Day: 1.5 hours per day Agreement: Yes Rehab Potential: Fair Time/GCodes Start Time: 09:45 Stop Time: 11:00 Total Time Billed (hr/min): 75 Billed Treatment Time 1, ADL x 5 LILIAN TURNER OT Sep 03, 2020 13:39
--- NOTE | 2020-09-03 13:45 | Occupational Ther Daily Note ---
OT Current Status-Daily Note Subjective Pt. does not report pain level but states that he is having significant pain in right hip. Nursing notified and is going to give pt. pain medication. Mental Status/Objective Patient Orientation: Person, Place ADL-Treatment Therapy Code Descriptions/Definitions Functional [place] Measure: 0=Not Assessed/NA 4=Minimal Assistance 1=Total Assistance 5=Supervision or Setup 2=Maximal Assistance 6=Modified [place] 3=Moderate Assistance 7=Complete IndependenceSCALE: Activities may be completed with or without assistive devices. 7-Zgalqihumg-frovjkf completes the activity by him/herself with no assistance from a helper. 5-Set-up or Clean-up Assistance-helper sets up or cleans up; patient completes activity. [place] assists only prior to or following the activity. 4-Supervision or Touching Assistance-helper provides verbal cues and/or touching/steadying and/or contact guard assistance as patient completes activity. Assistance may be provided throughout the activity or intermittently. 3-Partial/Moderate Assistance-helper does LESS THAN HALF the effort. [place] lifts, holds or supports trunk or limbs, but provides less than half the effort. 2-Substantial/Maximal Assistance-helper does MORE THAN HALF the effort. [place] lifts or holds trunk or limbs and provides more than half the effort. 4-Pksxgdwnz-yxclmn does ALL the effort. Patient does none of the effort to complete the activity. Or, the assistance of 2 or more helpers is required for the patient to complete the activity. If activity was not attempted, code reason: 7-Patient Refused. 9-Not Applicable-not attempted and the patient did not perform the activity before the current illness, exacerbation or injury. 10-Not Attempted due to Environmental Limitations-(lack of equipment, weather restraints, etc.). 88-Not Attempted due to Medical Conditions or Safety Concerns. On/Off Footwear: 2 (With AE) Other Treatment Pt. in bed asleep. Wakes up easily and agrees to work with OT. Transfers supine-sit with min assist and increased time needed. Pt. has difficulty maintaining upright balance. He leans back to ease the pain in right hip. Pt. educated again on AE, and encouraged to practice. Pt. is able to doff socks using dressing stick, but requires max assist to don one sock from sock aide aft er sock is put on the aide. After this, pt. declines attempting the second sock. He states that he has to lay back down to ease pain in right hip. Pt. requires mod assist for supine-sit. Pt. encouraged to attempt rolling/positioning in bed on his own. Spouse at bedside and is encourage to allow pt. to attempt as well, as she is trying to assist him. Pt. is able to adjust and position self with increased time needed. All needs met. Education OT Patient Education: Correct positioning, Modified ADL techniques, Progress toward Goal/Update tx plan, Purpose of tx/functional activities, Reviewed pre cautions, Rehab process, Transfer techniques Teaching Recipient: Patient Teaching Methods: Demonstration, Discussion Response to Teaching: Verbalize Understanding, Return Demonstration OT Short Term Goals Short Term Goals Time Frame: Sep 09, 2020 Eatin Oral hygiene: 4 Toileting hygiene: 3 Shower/bathe self: 4 Upper body dressin Lower body dressin Putting on/taking off footwear: 3 OT Executive Chef Goals Halfway Goals Time Frame: September 23, 2020 Eating (QC): 6 Oral Hygiene (QC): 6 Toileting Hygiene (QC): 6 Shower/Bathe Self (QC): 4 Upper Body Dressing (QC): 5 Lower Body Dressing (QC): 4 On/Off Footwear (QC): 4 Additional Goals: 1-Demonstrate ADL Tasks, 2-Verbalize Understanding, 3- ImproveStrength/Lukas 1=Demonstrate adherence to instructed precautions during ADL tasks. 2=Patient will verbalize/demonstrate understanding of assistive devices/modifications for ADL. 3=Patient will improve strength/tolerance for activity to enable patient to perform ADL's. OT Education/Plan Problem List/Assessment Assessment: Decreased Activ Tolerance, Dependent Transfers, Impaired Bed Mobility, Impaired I ADL's, Impaired Self-Care Skills Discharge Recommendations Plan/Recommendations: Continue POC Treatment Plan/Plan of Care Treatment,Training & Education: Yes Patient would benefit from OT for education, treatment and training to promote independence in ADL's, mobility, safety and/or upper extremity function for ADL's. Plan of Care: ADL Retraining, Functional Mobility, Group Exercise/Act as Ind, UE Funct Exercise/Act Treatment Duration: September 23, 2020 Frequency: At least 5 of 7 days/Wk (IRF) Estimated Hrs Per Day: 1.5 hours per day Agreement: Yes Rehab Potential: Fair Time/GCodes Start Time: 13:00 Stop Time: 13:15 Total Time Billed (hr/min): 15 Billed Treatment Time 1, ADL LILIAN TURNER OT Sep 03, 2020 13:45
--- NOTE | 2020-09-03 14:12 | Diagnostic Imaging Report ---
INDICATION: Hip pain. 2 views were obtained. Comparison made with prior examination from 04/17/2015. FINDINGS: There are stable postoperative changes right hip arthroplasty. There is no fracture or dislocation. No loosening. Soft tissues are unremarkable. IMPRESSION: Stable right hip arthroplasty. Dictated by: Dictated on workstation # [id number]
--- NOTE | 2020-09-03 14:13 | Diagnostic Imaging Report ---
CLINICAL INDICATION: Possible ileus. Patient had surgery on Monday of this week. EXAM: KUB COMPARISON: None. FINDINGS: Partially visualized extensive thoracolumbar sacral posterior spinal fusion hardware. Midline skin brianne are noted. Partially visualized right total hip arthroplasty is seen. There are mild air-filled loops of intestine overlying the left abdominal region suspected to represent the colon measuring up to 4.6 cm. This may represent air distention of the colon. There is also air in the rectosigmoid region. There is no intra-abdominal free air. There is a drain overlying the right upper abdominal region. IMPRESSION: 1: Nonspecific bowel gas pattern with air distention of colon overlying the left abdomen and right abdominal region. There is no definite evidence of significant obstruction seen. Dictated by: Dictated on workstation # [id number]
--- NOTE | 2020-09-03 15:05 | Physical Therapy Daily Note ---
PT Daily Note-Current Subjective Patient reported unrated pain in back pre tx, but noted he was more comfortable laying down and would prefer to stay in bed and participate in bed mobility at this time. Patient agreed to attempt walking in the morning. Appearance Patient supine in bed, with call button within reach and tray table nearby. All needs met. Mental Status Patient Orientation: Person, Place, Time, Normal For Age Transfers SCALE: Activities may be completed with or without assistive devices. 6-Wkrhykbvci-nkoftdr completes the activity by him/herself with no assistance from a helper. 5-Set-up or Clean-up Assistance-helper sets up or cleans up; patient completes activity. [place] assists only prior to or following the activity. 4-Supervision or Touching Assistance-helper provides verbal cues and/or touching/steadying and/or contact guard assistance as patient completes activit y. Assistance may be provided throughout the activity or intermittently. 3-Partial/Moderate Assistance-helper does LESS THAN HALF the effort. [place] lifts, holds or supports trunk or limbs, but provides less than half the effort. 2-Substantial/Maximal Assistance-helper does MORE THAN HALF the effort. [place] lifts or holds trunk or limbs and provides more than half the effort. 6-Wcszqoaud-aodabd does ALL the effort. Patient does none of the effort to complete the activity. Or, the assistance of 2 or more helpers is required for the patient to complete the activity. If activity was not attempted, code reason: 7-Patient Refused. 9-Not Applicable-not attempted and the patient did not perform the activity before the current illness, exacerbation or injury. 10-Not Attempted due to Environmental Limitations-(lack of equipment, weather restraints, etc.). 88-Not Attempted due to Medical Conditions or Safety Concerns. Exercises Supine Ex: Ankle pumps, Quad Set, Glut sets, Heel Slides, Short Arc Quads (blue bolster), Hip abd/add (adduction: mini ball) Supine Reps: 20 Patient is very slow with repetitions, but is able to complete all required reps. Patient noted unrated R hip pain with heel slides, but was able to complete all reps. Treatments LE strengthening, ROM Assessment Current Status: Fair Progress Patient continues to limit activity secondary to pain PT Short Term Goals Short Term Goals Time Frame: Sep 09, 2020 Roll Left & Right: 5 Sit to lyin Lying to sitting on side of be: 5 Sit to stand: 4 Chair/fnu-aa-uzvdo transfer: 4 Toilet transfer: 4 Walk 10 feet: 5 Walk 50 feet with two turns: 5 Walk 150 feet: 5 PT Edge Polisher Goals Care Home Goals PT Edge Polisher Goals Time Frame: September 23, 2020 Roll Left & Right (QC): 6 Sit to Lying (QC): 6 Lying-Sitting on Side/Bed(QC): 6 Sit to Stand (QC): 6 Chair/Nxf-hs-Umxah Xfer(QC): 6 Toilet Transfer (QC): 6 Car Transfer (QC): 6 Does the Patient Walk: Yes Walk 10 feet (QC): 6 Walk 50ft with 2 Turns (QC): 6 Walk 150 ft (QC): 6 Walking 10ft on Uneven Surface: 6 1 Step (curb) (QC): 6 4 Steps (QC): 6 12 Steps (QC): 4 Picking up an Object (QC): 88 Wheel 50 feet with 2 turns (QC: 88 Wheel 150 feet: 88 PT Plan Problem List Problem List: Activity Tolerance, Functional Strength, Safety, Balance, Gait, Transfer, Bed Mobility, ROM Treatment/Plan Treatment Plan: Continue Plan of Care Treatment Plan: Bed Mobility, Education, Functional Activity Lukas, Functional Strength, Group Therapy, Gait, Safety, Therapeutic Exercise, Transfers Treatment Duration: September 23, 2020 Frequency: At least 5 of 7 days/Wk (IRF) Estimated Hrs Per Day: 1.5 hours per day Patient and/or Family Agrees t: Yes Safety Risks/Education Patient Education: Correct Positioning, Safety Issues Teaching Recipient: Patient Teaching Methods: Demonstration, Discussion Response to Teaching: Verbalize Understanding, Return Demonstration Time/GCodes Time In: 1425 Time Out: 1455 Total Billed Treatment Time: 30 Total Billed Treatment 1 visit: EX x2: 30' CASSIA MORROW PT Sep 03, 2020 15:05
[2020-09-03 20:00] VITALS: BP 109/57
[2020-09-03] MEDS: LACTULOSE SYRUP 10GM/15ML (ENULOSE) 30ML UDC PO PRN (21:35)
[2020-09-04 08:00] VITALS: BP 120/57
[2020-09-04] MEDS: DOCUSATE SODIUM 100 MG (COLACE) CAP PO SCH ×4 (08:32→20:06)
[2020-09-04] MEDS: ASCORBIC ACID (VIT C) 500 MG TABLET PO SCH (08:32)
[2020-09-04] MEDS: SENNA W/DOCUSATE (SENOKOT S) TABLET PO SCH ×2 (08:32→20:06)
[2020-09-04] MEDS: PANTOPRAZOLE 20 MG TABLET (PROTONIX) PO SCH (08:33)
[2020-09-04] MEDS: polyethylene glycoL POWDER 17 GM (MIRALAX) PACK PO SCH ×2 (08:33→20:06)
[2020-09-04] MEDS: LORATADINE (CLARITIN) 10 MG TAB PO SCH (08:33)
[2020-09-04] MEDS: VITAMIN D3 25 MCG (1,000 UNITS) TABLET PO SCH (08:33)
[2020-09-04] MEDS: LACTULOSE SYRUP 10GM/15ML (ENULOSE) 30ML UDC PO PRN (08:34)
[2020-09-04] MEDS: LOSARTAN 25 MG (COZAAR) TAB PO SCH (09:00)
[2020-09-04] MEDS: amLODIPine 10 MG (NORVASC) TAB PO SCH (09:00)
[2020-09-04] MEDS: MUPIROCIN 2% OINT 22 GM (BACTROBAN) TUBE TOP SCH ×3 (09:50→21:15)
--- NOTE | 2020-09-04 10:30 | Physical Therapy Daily Note ---
PT Daily Note-Current Subjective Patient supine in bed pre tx. Patient reports 8/10 pain in back and 9/10 pain in R hip, that is better when in bed. Patient consents to treatment. Appearance Patient sidelying in bed with OT in room post tx. Mental Status Patient Orientation: Person, Place, Time, Normal For Age Attachments: Drains TLSO Transfers SCALE: Activities may be completed with or without assistive devices. 6-Uippjlfmeg-skdwmmr completes the activity by him/herself with no assistance from a helper. 5-Set-up or Clean-up Assistance-helper sets up or cleans up; patient completes activity. [place] assists only prior to or following the activity. 4-Supervision or Touching Assistance-helper provides verbal cues and/or touching/steadying and/or contact guard assistance as patient completes activity. Assistance may be provided throughout the activity or intermittently. 3-Partial/Moderate Assistance-helper does LESS THAN HALF the effort. [place] lifts, holds or supports trunk or limbs, but provides less than half the effort. 2-Substantial/Maximal Assistance-helper does MORE THAN HALF the effort. [place] lifts or holds trunk or limbs and provides more than half the effort. 0-Oytvgzwnh-yodcgr does ALL the effort. Patient does none of the effort to complete the activity. Or, the assistance of 2 or more helpers is required for the patient to complete the activity. If activity was not attempted, code reason: 7-Patient Refused. 9-Not Applicable-not attempted and the patient did not perform the activity before the current illness, exacerbation or injury. 10-Not Attempted due to Environmental Limitations-(lack of equipment, weather restraints, etc.). 88-Not Attempted due to Medical Conditions or Safety Concerns. Roll Left & Right (QC): 5 Sit to Lying (QC): 2 Lying to Sitting/Side of Bed(Q: 2 Sit to Stand (QC): 2 Patient requires assistance with legs. Max assist with sit <-> stand secondary to pain reports in hips. Took blood pressure in supine and seated position. Supine measured 129/60, seated measured 129/71. Gait Training Does the Patient Walk?: Yes Distance: 600' Walk 10 feet (QC): 4 Walk 50 ft with 2 Turns(QC): 4 Walk 150 ft (QC): 4 Gait Assistive Device: FWW CGA with gait. Patient took 2 short standing rest breaks. Patient reported lightheadedness at end of gait cycle, so seated patient EOB. Patient assumed supine position at that point. Treatments Co-treated with OT secondary to patient level of assistance required, fall risk, and decreased functional mobility. OT worked on ADL's with grooming while PT focused on positioning and balance throughout self-bathing procedure. Assessment Current Status: Poor Progress Patient continues to self-limit mobility secondary to hip pain complaints. Patient says he cannot get up and down from seated position because it is too painful. This affects patients overall mobility and willingness to participate in treatment. PT Short Term Goals Short Term Goals Time Frame: Sep 09, 2020 Roll Left & Right: 5 Sit to lyin Lying to sitting on side of be: 5 Sit to stand: 4 Chair/tae-xm-amjpo transfer: 4 Toilet transfer: 4 Walk 10 feet: 5 Walk 50 feet with two turns: 5 Walk 150 feet: 5 PT Alf Goals Hotel Engineer Goals PT Alf Goals Time Frame: September 23, 2020 Roll Left & Right (QC): 6 Sit to Lying (QC): 6 Lying-Sitting on Side/Bed(QC): 6 Sit to Stand (QC): 6 Chair/Bhx-xa-Iyujj Xfer(QC): 6 Toilet Transfer (QC): 6 Car Transfer (QC): 6 Does the Patient Walk: Yes Walk 10 feet (QC): 6 Walk 50ft with 2 Turns (QC): 6 Walk 150 ft (QC): 6 Walking 10ft on Uneven Surface: 6 1 Step (curb) (QC): 6 4 Steps (QC): 6 12 Steps (QC): 4 Picking up an Object (QC): 88 Wheel 50 feet with 2 turns (QC: 88 Wheel 150 feet: 88 PT Plan Problem List Problem List: Activity Tolerance, Functional Strength, Safety, Balance, Gait, Transfer, Bed Mobility, ROM Treatment/Plan Treatment Plan: Continue Plan of Care Treatment Plan: Bed Mobility, Education, Functional Activity Lukas, Functional Strength, Group Therapy, Gait, Safety, Therapeutic Exercise, Transfers Treatment Duration: September 23, 2020 Frequency: At least 5 of 7 days/Wk (IRF) Estimated Hrs Per Day: 1.5 hours per day Patient and/or Family Agrees t: Yes Safety Risks/Education Patient Education: Gait Training, Transfer Techniques, Reviewed Precautions, Co rrect Positioning, Reviewed Don/Doff Brace, Safety Issues Teaching Recipient: Patient Teaching Methods: Demonstration, Discussion Response to Teaching: Verbalize Understanding, Return Demonstration, Reinforcement Needed Time/GCodes Time In: 0900 Time Out: 1000 Total Billed Treatment Time: 60 Total Billed Treatment 1 visit: FA x3: 40' GT: 20' CASISA MORROW PT Sep 04, 2020 10:30
--- NOTE | 2020-09-04 10:42 | Occupational Ther Daily Note ---
OT Current Status-Daily Note Subjective Pt seen in room, up in bed, agreeable to OT. Pain observed during movement, especially R hip, but not rated. Appearance Alert, cooperative Mental Status/Objective Patient Orientation: Person, Place, Time, Situation ADL-Treatment Co-treatment with PT for part of session, due to need for skilled therapists managing different care issues, including pain, with OT managing self care and UE function and PT managing bed mobility, transfers, mobility. Pt required assist of two people to stand during sponge bath with bed elevated but able to get up with one person when bed raised up more. Pt most concerned about R hip pain but tolerated standing during ADLs once up. Assist and extra time to move from supine to sit EOB, using log roll technique. Difficulty scooting in bed to get feet on the floor for balance. Able to wash face, arms, abdomen, benji, upper legs during sponge bath. Help with lower legs and bottom. Able to stand to urinate and place urinal himself, releasing walker as needed for UE use. Removed and reapplied t-shirt with SBA. Assist needed to don back brace but he was able to help adjust it and place it. Assist required to don slipper socks due to pain. Assist needed to get feet into pants and pull pants up to knees but he was able to help pull pants up over hips. Also able to manage briefs while using urinal, mod assist. After sit to stand, pt wanted to walk for functional mobility as needed for ADLs. He was very reluctant to go to gym because he would need to get up from treatment table or chair again. He was able to walk back to his room and sit EOB, once it was elevated. He needed help to get legs into bed . Back brace removed, with pt assisting. He moved again to sit EOB to brush teeth and was able to do this without help. He sat 15 minutes EOB to brush teeth with setup. Transitioned back to supine with help to get legs into bed. Extra time needed to position himself in bed. Pt completed 10 reps bilat three different exercise using red theraband (medium resistance), as needed to str engthen arms to help with transfers, bed mobility and ADLs. Pt left up in bed, 4 rails up, all needs met, present. Therapy Code Descriptions/Definitions Functional [place] Measure: 0=Not Assessed/NA 4=Minimal Assistance 1=Total Assistance 5=Supervision or Setup 2=Maximal Assistance 6=Modified [place] 3=Moderate Assistance 7=Complete IndependenceSCALE: Activities may be completed with or without assistive devices. 5-Vfovfyhonp-bnhbgto completes the activity by him/herself with no assistance from a helper. 5-Set-up or Clean-up Assistance-helper sets up or cleans up; patient completes activity. [place] assists only prior to or following the activity. 4-Supervision or Touching Assistance-helper provides verbal cues and/or touching/steadying and/or contact guard assistance as patient completes activity. Assistance may be provided throughout the activity or intermittently. 3-Partial/Moderate Assistance-helper does LESS THAN HALF the effort. [place] lifts, holds or supports trunk or limbs, but provides less than half the effort. 2-Substantial/Maximal Assistance-helper does MORE THAN HALF the effort. [place] lifts or holds trunk or limbs and provides more than half the effort. 6-Sfdsjnppw-foszgi does ALL the effort. Patient does none of the effort to complete the activity. Or, the assistance of 2 or more helpers is required for the patient to complete the activity. If activity was not attempted, code reason: 7-Patient Refused. 9-Not Applicable-not attempted and the patient did not perform the activity before the current illness, exacerbation or injury. 10-Not Attempted due to Environmental Limitations-(lack of equipment, weather restraints, etc.). 88-Not Attempted due to Medical Conditions or Safety Concerns. Oral Hygiene (QC): 5 Bathing Location: L Arm, R Arm, L Upper Leg, R Upper Leg, Chest, Abdomen, Perineal Area Shower/Bathe Self (QC): 3 (Sponge bath) Upper Body Dressing (QC): 4 (SBA) Lower Body Dressing (QC): 3 (mod assist) On/Off Footwear: 1 Education OT Patient Education: Modified ADL techniques, Progress toward Goal/Update tx plan, Purpose of tx/functional activities, Transfer techniques Teaching Recipient: Patient Teaching Methods: Discussion Response to Teaching: Verbalize Understanding, Return Demonstration OT Short Term Goals Short Term Goals Time Frame: Sep 09, 2020 Eatin Oral hygiene: 4 Toileting hygiene: 3 Shower/bathe self: 4 Upper body dressin Lower body dressin Putting on/taking off footwear: 3 OT Fdc Goals Fdc Goals Time Frame: September 23, 2020 Eating (QC): 6 Oral Hygiene (QC): 6 Toileting Hygiene (QC): 6 Shower/Bathe Self (QC): 4 Upper Body Dressing (QC): 5 Lower Body Dressing (QC): 4 On/Off Footwear (QC): 4 Additional Goals: 1-Demonstrate ADL Tasks, 2-Verbalize Understanding, 3- ImproveStrength/Lukas 1=Demonstrate adherence to instructed precautions during ADL tasks. 2=Patient will verbalize/demonstrate understanding of assistive devices/modifi cations for ADL. 3=Patient will improve strength/tolerance for activity to enable patient to perform ADL's. OT Education/Plan Discharge Recommendations Plan/Recommendations: Continue POC Treatment Plan/Plan of Care Patient would benefit from OT for education, treatment and training to promote independence in ADL's, mobility, safety and/or upper extremity function for ADL's. Plan of Care: ADL Retraining, Functional Mobility, Group Exercise/Act as Ind, UE Funct Exercise/Act Treatment Duration: September 23, 2020 Frequency: At least 5 of 7 days/Wk (IRF) Estimated Hrs Per Day: 1.5 hours per day Agreement: Yes Rehab Potential: Fair Time/GCodes Start Time: 09:00 Stop Time: 10:30 Total Time Billed (hr/min): 90 Billed Treatment Time visit, ADL 75, ex 15 JOANN CHAVEZ OT Sep 04, 2020 10:42
[2020-09-04] MEDS ORDERED: MAGNESIUM CITRATE 300 ML BTL PO ONE (10:45)
--- NOTE | 2020-09-04 10:45 | PM&R Progress Note ---
Subjective HPI/CC On Admission Date Seen by Provider: Sep 04, 2020 Time Seen by Provider: 10:50 Subjective/Events-last exam 09/04/20: Doing well Right hip pain an issue, xray revealed normal alignment of replacement hardware Drain became dislodged will reach out to [facility] about that Small BM only so gave Mag Citrate at bedside PVR only 60-100cc 09/03/20: Pt doing pretty well Right hip pain is an issue Will obtain KUB abdominal X-ray to check for obstruction but likely just early ileus but he is passing a lot of gas Bladder scanning will be performed due to high risk for retention since he had retention over at [place] Xarelto will be restarted on Monday per spine surgery Gets dizzy after eating and vomited last night after dinner Hgb 9.4 Sodium level 133 Review of Systems General: Fatigue, Malaise Gastrointestinal: Constipation Musculoskeletal: back pain, leg pain Objective Exam Vital Signs Vital Signs Date Time Temp Pulse Resp B/P (MAP) Pulse Ox O2 Delivery O2 Flow Rate FiO2 09/05/20 09:42 Room Air 09/05/20 08:00 36.8 72 16 143/65 (91) 93 09/02/20 22:25 2.00 Capillary Refill : General Appearance: No Apparent Distress, WD/WN, Chronically ill HEENT: PERRL/EOMI, Normal ENT Inspection, Pharynx Normal Neck: Full Range of Motion, Normal Inspection, Non Tender, Supple, Carotid Bruit Respiratory: Chest Non Tender, Lungs Clear, Normal Breath Sounds, No Accessory Muscle Use, No Respiratory Distress Cardiovascular: Regular Rate, Rhythm, No Edema, No Gallop, No JVD, No Murmur, Normal Peripheral Pulses Gastrointestinal: Normal Bowel Sounds, No Organomegaly, No Pulsatile Mass, Non Tender, Soft Back: Decreased Range of Motion, Muscle Spasm, Vertebral Tenderness Extremity: Normal Capillary Refill, Normal Inspection, Normal Range of Motion, Non Tender, No Calf Tenderness, No Pedal Edema Neurologic/Psychiatric: Alert, Oriented x3, planting supervisor II-XII Norm as Tested, Abnormal Gait, Depressed Affect, Motor Weakness (lower legs 4/5) Skin: Normal Color, Warm/Dry Lymphatic: No Adenopathy Results/Procedures Lab Patient resulted labs reviewed. FIM Transfers Therapy Code Descriptions/Definitions Functional [place] Measure: 0=Not Assessed/NA 4=Minimal Assistance 1=Total Assistance 5=Supervision or Setup 2=Maximal Assistance 6=Modified [place] 3=Moderate Assistance 7=Complete IndependenceSCALE: Activities may be completed with or without assistive devices. 8-Hadefjroka-rbchyig completes the activity by him/herself with no assistance from a helper. 5-Set-up or Clean-up Assistance-helper sets up or cleans up; patient completes activity. [place] assists only prior to or following the activity. 4-Supervision or Touching Assistance-helper provides verbal cues and/or touching/steadying and/or contact guard assistance as patient completes activity. Assistance may be provided throughout the activity or intermittently. 3-Partial/Moderate Assistance-helper does LESS THAN HALF the effort. [place] lifts, holds or supports trunk or limbs, but provides less than half the effort. 2-Substantial/Maximal Assistance-helper does MORE THAN HALF the effort. [place] lifts or holds trunk or limbs and provides more than half the effort. 3-Hjtpccoad-rxuost does ALL the effort. Patient does none of the effort to complete the activity. Or, the assistance of 2 or more helpers is required for the patient to complete the activity. If activity was not attempted, code reason: 7-Patient Refused. 9-Not Applicable-not attempted and the patient did not perform the activity before the current illness, exacerbation or injury. 10-Not Attempted due to Environmental Limitations-(lack of equipment, weather restraints, etc.). 88-Not Attempted due to Medical Conditions or Safety Concerns. Roll Left to Right (QC): 5 Sit to Lying (QC): 2 Sit to Stand (QC): 2 Chair/Jxi-xu-Omhxf Xfer(QC): 3 (min) Car Transfer (QC): 3 (min) Gait Training Does the Patient Walk?: Yes Distance: 600' Walk 10 feet (QC): 4 Walk 50 ft with 2 Turns(QC): 4 Walk 150 ft (QC): 4 Walking 10ft/uneven surface-QC: 4 Gait Assistive Device: FWW Wheelchair Training Does the Pt Use a Wheelchair?: No Wheel 50 ft with 2 turns (QC): 9 Wheel 150 ft (QC): 9 Stair Training 1 Step (curb) (QC): 88 4 Steps (QC): 88 12 Steps (QC): 88 Balance Picking up an Object (QC): 88 ADL-Treatment Eating (QC): 5 Oral Hygiene (QC): 7 Shower/Bathe Self (QC): 3 (Mod assist) Upper Body Dressing (QC): 3 (Min assist for shirt, max assist for brace.) Lower Body Dressing (QC): 2 On/Off Footwear (QC): 2 (With AE) Toileting Hygiene (QC): 2 Toilet Transfer (QC): 3 Assessment/Plan Assessment and Plan Assess & Plan/Chief Complaint Assessment: s/p spine surgery from lumbar stenosis PAF holding OAC CAD PVD Depression Acute urinary retention Post op constipation HTN CRI Plan: IRF protocol Urinary management Pain control 09/03/20: Pain control Left hip xray Monitor closely 09/04/20: Continued bowel issues Mag citrate Pain control Monitor drain or DC it? (1) S/P spinal surgery (2) Urinary retention (3) Constipation (4) PAF (paroxysmal atrial fibrillation) (5) CAD (coronary artery disease) (6) RAIMUNDO treated with BiPAP (7) Lumbar stenosis (8) Intractable low back pain Status: Acute (9) Sciatic nerve pain Status: Acute (10) Chronic pain Status: Acute (11) Renal insufficiency Status: Acute PONCE KAUR DO Sep 04, 2020 10:45
--- NOTE | 2020-09-04 11:47 | Occupational Ther Daily Note ---
OT Current Status-Daily Note Subjective Pt's call light on, OT answers with needs for BM. Pt expresses immense pain, doesn't rate. End of tx, nursing assesses pain. Mental Status/Objective Patient Orientation: Normal For Age Attachments: Drains, Other-See Comments (back brace.) ADL-Treatment Therapy Code Descriptions/Definitions Functional [place] Measure: 0=Not Assessed/NA 4=Minimal Assistance 1=Total Assistance 5=Supervision or Setup 2=Maximal Assistance 6=Modified [place] 3=Moderate Assistance 7=Complete IndependenceSCALE: Activities may be completed with or without assistive devices. 7-Ohbhkaxsma-qwfzixj completes the activity by him/herself with no assistance from a helper. 5-Set-up or Clean-up Assistance-helper sets up or cleans up; patient completes activity. [place] assists only prior to or following the activity. 4-Supervision or Touching Assistance-helper provides verbal cues and/or touching/steadying and/or contact guard assistance as patient completes activity. Assistance may be provided throughout the activity or intermittently. 3-Partial/Moderate Assistance-helper does LESS THAN HALF the effort. [place] lifts, holds or supports trunk or limbs, but provides less than half the effort. 2-Substantial/Maximal Assistance-helper does MORE THAN HALF the effort. [place] lifts or holds trunk or limbs and provides more than half the effort. 7-Ivvwtgixw-egncqg does ALL the effort. Patient does none of the effort to co mplete the activity. Or, the assistance of 2 or more helpers is required for the patient to complete the activity. If activity was not attempted, code reason: 7-Patient Refused. 9-Not Applicable-not attempted and the patient did not perform the activity before the current illness, exacerbation or injury. 10-Not Attempted due to Environmental Limitations-(lack of equipment, weather restraints, etc.). 88-Not Attempted due to Medical Conditions or Safety Concerns. Eating (QC): 6 Upper Body Dressing (QC): 3 Toileting Hygiene (QC): 1 Toilet Transfer (QC): 1 Other Treatment Pt completes bed mob with increased time, increased pain, good ability to keep spinal precautions. Back brace donned min A. Pt sit to stand from raised bed with CGA. Increased time for balance and initiation of steps. Pt ambulates to BSC placed on toilet. Pt completes toileting with increased time. Call light on, OT enters with in bathroom. Pt's states "skin is stuck," as pt states he attempted to stand and sat back down and skin "slid". Education for no stance without assist while at rehab until cleared to do so. Ax2 to reach stance due to pain and positioning on commode. CGA to EOB with walker. Pt sits with all needs met, call light in reach, food in reach and nursing present addressing pain. Education OT Patient Education: Correct positioning, Purpose of tx/functional activities, Reviewed precautions, Safety issues, Transfer techniques Teaching Recipient: Patient Teaching Methods: Demonstration, Discussion Response to Teaching: Verbalize Understanding, Return Demonstration, Reinforcement Needed OT Short Term Goals Short Term Goals Time Frame: Sep 09, 2020 Eatin Oral hygiene: 4 Toileting hygiene: 3 Shower/bathe self: 4 Upper body dressin Lower body dressin Putting on/taking off footwear: 3 OT Hand Inspector Goals Hand Inspector Goals Time Frame: September 23, 2020 Eating (QC): 6 Oral Hygiene (QC): 6 Toileting Hygiene (QC): 6 Shower/Bathe Self (QC): 4 Upper Body Dressing (QC): 5 Lower Body Dressing (QC): 4 On/Off Footwear (QC): 4 Additional Goals: 1-Demonstrate ADL Tasks, 2-Verbalize Understanding, 3- ImproveStrength/Lukas 1=Demonstrate adherence to instructed precautions during ADL tasks. 2=Patient will verbalize/demonstrate understanding of assistive devices/modifications for ADL. 3=Patient will improve strength/tolerance for activity to enable patient to perform ADL's. OT Education/Plan Problem List/Assessment Assessment: Decreased Activ Tolerance, Decreased Safety Aware, Decreased UE Strength, Dependent Transfers, Impaired Bed Mobility, Impaired Funct Balance, Impaired I ADL's, Impaired Self-Care Skills Discharge Recommendations Plan/Recommendations: Continue POC Equpiment Recommendations-D/C: Bedside Commode, Hip Kit Treatment Plan/Plan of Care Treatment,Training & Education: Yes Patient would benefit from OT for education, treatment and training to promote independence in ADL's, mobility, safety and/or upper extremity function for ADL's. Plan of Care: ADL Retraining, Functional Mobility, Group Exercise/Act as Ind, UE Funct Exercise/Act Treatment Duration: September 23, 2020 Frequency: At least 5 of 7 days/Wk (IRF) Estimated Hrs Per Day: 1.5 hours per day Agreement: Yes Rehab Potential: Fair Time/GCodes Start Time: 11:20 Stop Time: 11:40 Total Time Billed (hr/min): 20 Billed Treatment Time 1, ADL (20) DANIEL DALAL OTR Sep 04, 2020 11:47
--- NOTE | 2020-09-04 13:33 | Physical Therapy Daily Note ---
PT Daily Note-Current Subjective Patient reports mild pain pre tx, but is relatively comfortable in the supine position. Patient consents to bed exercises. Appearance Patient supine in bed post tx, with call button within reach, tray table nearby, and in room. Mental Status Patient Orientation: Person, Place, Time, Normal For Age Attachments: Drains Transfers SCALE: Activities may be completed with or without assistive devices. 4-Dfujfbcfut-athvtfm completes the activity by him/herself with no assistance from a helper. 5-Set-up or Clean-up Assistance-helper sets up or cleans up; patient completes activity. [place] assists only prior to or following the activity. 4-Supervision or Touching Assistance-helper provides verbal cues and/or touching/steadying and/or contact guard assistance as patient completes activity. Assistance may be provided throughout the activity or intermittently. 3-Partial/Moderate Assistance-helper does LESS THAN HALF the effort. [place] lifts, holds or supports trunk or limbs, but provides less than half the effort. 2-Substantial/Maximal Assistance-helper does MORE THAN HALF the effort. [place] lifts or holds trunk or limbs and provides more than half the effort. 6-Pacokliex-wyswyi does ALL the effort. Patient does none of the effort to complete the activity. Or, the assistance of 2 or more helpers is required for the patient to complete the activity. If activity was not attempted, code reason: 7-Patient Refused. 9-Not Applicable-not attempted and the patient did not perform the activity before the current illness, exacerbation or injury. 10-Not Attempted due to Environmental Limitations-(lack of equipment, weather restraints, etc.). 88-Not Attempted due to Medical Conditions or Safety Concerns. Exercises Supine Ex: Ankle pumps, Quad Set, Glut sets, Heel Slides, Straight leg raise (Patient was not able to lift R LE as high as L LE) Supine Reps: 20 Treatments LE strengthening, ROM Assessment Current Status: Fair Progress Patient did not limit repetitions with SLS by pain complaints. PT Short Term Goals Short Term Goals Time Frame: Sep 09, 2020 Roll Left & Right: 5 Sit to lyin Lying to sitting on side of be: 5 Sit to stand: 4 Chair/nzd-px-kcngk transfer: 4 Toilet transfer: 4 Walk 10 feet: 5 Walk 50 feet with two turns: 5 Walk 150 feet: 5 PT Group Home Goals Dental Assistant Medical Assistant Goals PT Group Home Goals Time Frame: September 23, 2020 Roll Left & Right (QC): 6 Sit to Lying (QC): 6 Lying-Sitting on Side/Bed(QC): 6 Sit to Stand (QC): 6 Chair/Vkb-yc-Vqiuo Xfer(QC): 6 Toilet Transfer (QC): 6 Car Transfer (QC): 6 Does the Patient Walk: Yes Walk 10 feet (QC): 6 Walk 50ft with 2 Turns (QC): 6 Walk 150 ft (QC): 6 Walking 10ft on Uneven Surface: 6 1 Step (curb) (QC): 6 4 Steps (QC): 6 12 Steps (QC): 4 Picking up an Object (QC): 88 Wheel 50 feet with 2 turns (QC: 88 Wheel 150 feet: 88 PT Plan Problem List Problem List: Activity Tolerance, Functional Strength, Safety, Balance, Gait, Transfer, Bed Mobility, ROM Treatment/Plan Treatment Plan: Continue Plan of Care Treatment Plan: Bed Mobility, Education, Functional Activity Lukas, Functional Strength, Group Therapy, Gait, Safety, Therapeutic Exercise, Transfers Treatment Duration: September 23, 2020 Frequency: At least 5 of 7 days/Wk (IRF) Estimated Hrs Per Day: 1.5 hours per day Patient and/or Family Agrees t: Yes Safety Risks/Education Patient Education: Correct Positioning Teaching Recipient: Patient Teaching Methods: Demonstration, Discussion Response to Teaching: Verbalize Understanding, Return Demonstration Time/GCodes Time In: 1255 Time Out: 1305 Total Billed Treatment Time: 10 Total Billed Treatment 1 visit: EX: CASSIA GRAMAJO PT Sep 04, 2020 13:33
[2020-09-04] MEDS ORDERED: PATIENT MAY USE OWN MED,SINGLE MED PO SCH (17:15)
[2020-09-04] MEDS: ACETAMINOPHEN 650 MG PO SCH (18:53)
[2020-09-04] MEDS: GINGER ROOT 550 MG PO SCH (18:53)
[2020-09-04] MEDS: MOVE FREE JOINT HEALTH PO SCH (18:55)
[2020-09-04 20:00] VITALS: BP 130/62
[2020-09-05 08:00] VITALS: BP 143/65
[2020-09-05] MEDS: amLODIPine 10 MG (NORVASC) TAB PO SCH (08:47)
[2020-09-05] MEDS: PANTOPRAZOLE 20 MG TABLET (PROTONIX) PO SCH (08:47)
[2020-09-05] MEDS: ASCORBIC ACID (VIT C) 500 MG TABLET PO SCH (08:47)
[2020-09-05] MEDS: VITAMIN D3 25 MCG (1,000 UNITS) TABLET PO SCH (08:47)
[2020-09-05] MEDS: LORATADINE (CLARITIN) 10 MG TAB PO SCH (08:47)
[2020-09-05] MEDS: LOSARTAN 25 MG (COZAAR) TAB PO SCH (08:47)
[2020-09-05] MEDS: ACETAMINOPHEN 650 MG PO SCH ×2 (08:48→17:22)
[2020-09-05] MEDS: MUPIROCIN 2% OINT 22 GM (BACTROBAN) TUBE TOP SCH ×3 (08:48→20:00)
[2020-09-05] MEDS: GINGER ROOT 550 MG PO SCH ×2 (08:49→17:23)
[2020-09-05] MEDS: MOVE FREE JOINT HEALTH PO SCH ×2 (08:49→17:23)
[2020-09-05] MEDS: SENNA W/DOCUSATE (SENOKOT S) TABLET PO SCH ×2 (08:53→19:42)
[2020-09-05] MEDS: DOCUSATE SODIUM 100 MG (COLACE) CAP PO SCH ×4 (08:53→19:42)
[2020-09-05] MEDS: polyethylene glycoL POWDER 17 GM (MIRALAX) PACK PO SCH ×2 (08:53→19:42)
[2020-09-05 11:30] VITALS: BP 145/74
--- NOTE | 2020-09-05 12:48 | PM&R Progress Note ---
Subjective HPI/CC On Admission Date Seen by Provider: Sep 05, 2020 Time Seen by Provider: 13:00 Subjective/Events-last exam 09/05/20: Complex issues Difficulty sleeping due to pain K-pad will be placed for right hip pain Updated patient and on the plan Slow progress Drain dislodged so Dr Benitez recommended supine for 48 hours but he has not had any headache. Repeats himself a lot, immediate recall is definitely poor Mag citrate caused complete evacuation of bowels and he was up 5 times with diarrhea [place] without aides on 09/04/20: Doing well Right hip pain an issue, xray revealed normal alignment of replacement hardware Drain became dislodged will reach out to Hemanth about that Small BM only so gave Mag Citrate at bedside PVR only 60-100cc 09/03/20: Pt doing pretty well Right hip pain is an issue Will obtain KUB abdominal X-ray to check for obstruction but likely just early ileus but he is passing a lot of gas Bladder scanning will be performed due to high risk for retention since he had retention over at [facility] Xarelto will be restarted on Monday per spine surgery Gets dizzy after eating and vomited last night after dinner Hgb 9.4 Sodium level 133 Review of Systems General: Fatigue, Malaise Musculoskeletal: back pain, leg pain Objective Exam Vital Signs Vital Signs Date Time Temp Pulse Resp B/P (MAP) Pulse Ox O2 Delivery O2 Flow Rate FiO2 09/05/20 20:20 Room Air 09/05/20 19:56 37.0 75 20 130/61 (84) 92 09/02/20 22:25 2.00 Capillary Refill : General Appearance: No Apparent Distress, WD/WN, Chronically ill HEENT: PERRL/EOMI, Normal ENT Inspection, Pharynx Normal Neck: Full Range of Motion, Normal Inspection, Non Tender, Supple, Carotid Bruit Respiratory: Chest Non Tender, Lungs Clear, Normal Breath Sounds, No Accessory Muscle Use, No Respiratory Distress Cardiovascular: Regular Rate, Rhythm, No Edema, No Gallop, No JVD, No Murmur, Normal Peripheral Pulses Gastrointestinal: Normal Bowel Sounds, No Organomegaly, No Pulsatile Mass, Non Tender, Soft Back: Decreased Range of Motion, Muscle Spasm, Vertebral Tenderness Extremity: Normal Capillary Refill, Normal Inspection, Normal Range of Motion, Non Tender, No Calf Tenderness, No Pedal Edema Neurologic/Psychiatric: Alert, Oriented x3, cleaning porter II-XII Norm as Tested, Abnormal Gait, Depressed Affect, Motor Weakness (lower legs 4/5) Skin: Normal Color, Warm/Dry Lymphatic: No Adenopathy Results/Procedures Lab Patient resulted labs reviewed. FIM Transfers Therapy Code Descriptions/Definitions Functional [place] Measure: 0=Not Assessed/NA 4=Minimal Assistance 1=Total Assistance 5=Supervision or Setup 2=Maximal Assistance 6=Modified [place] 3=Moderate Assistance 7=Complete IndependenceSCALE: Activities may be completed with or without assistive devices. 2-Tejemfiqqq-stjhztw completes the activity by him/herself with no assistance from a helper. 5-Set-up or Clean-up Assistance-helper sets up or cleans up; patient completes activity. [place] assists only prior to or following the activity. 4-Supervision or Touching Assistance-helper provides verbal cues and/or touching/steadying and/or contact guard assistance as patient completes activity. Assistance may be provided throughout the activity or intermittently. 3-Partial/Moderate Assistance-helper does LESS THAN HALF the effort. [place] lifts, holds or supports trunk or limbs, but provides less than half the effort. 2-Substantial/Maximal Assistance-helper does MORE THAN HALF the effort. [place] lifts or holds trunk or limbs and provides more than half the effort. 4-Yshkuojfr-ctmwgz does ALL the effort. Patient does none of the effort to complete the activity. Or, the assistance of 2 or more helpers is required for the patient to complete the activity. If activity was not attempted, code reason: 7-Patient Refused. 9-Not Applicable-not attempted and the patient did not perform the activity before the current illness, exacerbation or injury. 10-Not Attempted due to Environmental Limitations-(lack of equipment, weather restraints, etc.). 88-Not Attempted due to Medical Conditions or Safety Concerns. Roll Left to Right (QC): 5 Sit to Lying (QC): 2 Sit to Stand (QC): 2 Chair/Xuj-lo-Sbkzk Xfer(QC): 3 (min) Car Transfer (QC): 3 (min) Gait Training Does the Patient Walk?: Yes Distance: 600' Walk 10 feet (QC): 4 Walk 50 ft with 2 Turns(QC): 4 Walk 150 ft (QC): 4 Walking 10ft/uneven surface-QC: 4 Gait Assistive Device: FWW Wheelchair Training Does the Pt Use a Wheelchair?: No Wheel 50 ft with 2 turns (QC): 9 Wheel 150 ft (QC): 9 Stair Training 1 Step (curb) (QC): 88 4 Steps (QC): 88 12 Steps (QC): 88 Balance Picking up an Object (QC): 88 ADL-Treatment Eating (QC): 6 Oral Hygiene (QC): 5 Bathing Location: L Arm, R Arm, L Upper Leg, R Upper Leg, Chest, Abdomen, Perineal Area Shower/Bathe Self (QC): 3 (Sponge bath) Upper Body Dressing (QC): 4 (SBA) Lower Body Dressing (QC): 3 (mod assist) On/Off Footwear (QC): 1 Toileting Hygiene (QC): 1 Toilet Transfer (QC): 1 Assessment/Plan Assessment and Plan Assess & Plan/Chief Complaint Assessment: s/p spine surgery from lumbar stenosis PAF holding OAC CAD PVD Depression Acute urinary retention Post op constipation HTN CRI Plan: IRF protocol Urinary management Pain control 09/03/20: Pain control Left hip xray Monitor closely 09/04/20: Continued bowel issues Mag citrate Pain control Monitor drain or DC it? 09/05/20: Drain DC Supine for 48 hours Monitor closely Right hip pain is an issue (1) S/P spinal surgery (2) Urinary retention (3) Constipation (4) PAF (paroxysmal atrial fibrillation) (5) CAD (coronary artery disease) (6) RAIMUNDO treated with BiPAP (7) Lumbar stenosis (8) Intractable low back pain Status: Acute (9) Sciatic nerve pain Status: Acute (10) Chronic pain Status: Acute (11) Renal insufficiency Status: Acute PONCE KAUR DO Sep 05, 2020 12:48
[2020-09-05] MEDS: RIVAROXABAN 20 MG TABLET (XARELTO) PO SCH (17:22)
[2020-09-05 19:56] VITALS: BP 130/61
[2020-09-06 07:26] VITALS: BP 121/64
[2020-09-06] MEDS: DOCUSATE SODIUM 100 MG (COLACE) CAP PO SCH ×4 (08:52→20:27)
[2020-09-06] MEDS: polyethylene glycoL POWDER 17 GM (MIRALAX) PACK PO SCH ×2 (08:52→20:24)
[2020-09-06] MEDS: PANTOPRAZOLE 20 MG TABLET (PROTONIX) PO SCH (09:30)
[2020-09-06] MEDS: LOSARTAN 25 MG (COZAAR) TAB PO SCH (09:30)
[2020-09-06] MEDS: SENNA W/DOCUSATE (SENOKOT S) TABLET PO SCH ×2 (09:30→20:26)
[2020-09-06] MEDS: amLODIPine 10 MG (NORVASC) TAB PO SCH (09:30)
[2020-09-06] MEDS: MOVE FREE JOINT HEALTH PO SCH ×2 (09:31→17:12)
[2020-09-06] MEDS: MUPIROCIN 2% OINT 22 GM (BACTROBAN) TUBE TOP SCH ×3 (09:31→20:27)
[2020-09-06] MEDS: ACETAMINOPHEN 650 MG PO SCH ×2 (09:31→17:11)
[2020-09-06] MEDS: ASCORBIC ACID (VIT C) 500 MG TABLET PO SCH (09:31)
[2020-09-06] MEDS: VITAMIN D3 25 MCG (1,000 UNITS) TABLET PO SCH (09:31)
[2020-09-06] MEDS: GINGER ROOT 550 MG PO SCH ×2 (09:32→17:12)
[2020-09-06] MEDS: LORATADINE (CLARITIN) 10 MG TAB PO SCH (09:34)
--- NOTE | 2020-09-06 11:53 | PM&R Progress Note ---
Subjective HPI/CC On Admission Date Seen by Provider: Sep 06, 2020 Time Seen by Provider: 12:00 Subjective/Events-last exam 09/06/20: Multiple complaints at bedside Very somatic and negative outlook which is chronic Up to commode and will be able to resume normal posture out of bed at 1400 per spine surgery Doing well otherwise Drainage is improved Dysuria 09/05/20: Complex issues Difficulty sleeping due to pain K-pad will be placed for right hip pain Updated patient and on the plan Slow progress Drain dislodged so Dr Benitez recommended supine for 48 hours but he has not had any headache. Repeats himself a lot, immediate recall is definitely poor Mag citrate caused complete evacuation of bowels and he was up 5 times with diarrhea [place] without aides on 09/04/20: Doing well Right hip pain an issue, xray revealed normal alignment of replacement hardware Drain became dislodged will reach out to Hemanth about that Small BM only so gave Mag Citrate at bedside PVR only 60-100cc 09/03/20: Pt doing pretty well Right hip pain is an issue Will obtain KUB abdominal X-ray to check for obstruction but likely just early ileus but he is passing a lot of gas Bladder scanning will be performed due to high risk for retention since he had retention over at [place] Xarelto will be restarted on Monday per spine surgery Gets dizzy after eating and vomited last night after dinner Hgb 9.4 Sodium level 133 Review of Systems General: Fatigue Musculoskeletal: back pain, leg pain Objective Exam Vital Signs Vital Signs Date Time Temp Pulse Resp B/P (MAP) Pulse Ox O2 Delivery O2 Flow Rate FiO2 09/06/20 19:24 37.4 68 18 121/57 (78) 91 Room Air 09/02/20 22:25 2.00 Capillary Refill : General Appearance: No Apparent Distress, WD/WN, Chronically ill HEENT: PERRL/EOMI, Normal ENT Inspection, Pharynx Normal Neck: Full Range of Motion, Normal Inspection, Non Tender, Supple, Carotid B ruit Respiratory: Chest Non Tender, Lungs Clear, Normal Breath Sounds, No Accessory Muscle Use, No Respiratory Distress Cardiovascular: Regular Rate, Rhythm, No Edema, No Gallop, No JVD, No Murmur, Normal Peripheral Pulses Gastrointestinal: Normal Bowel Sounds, No Organomegaly, No Pulsatile Mass, Non Tender, Soft Back: Decreased Range of Motion, Muscle Spasm, Vertebral Tenderness Extremity: Normal Capillary Refill, Normal Inspection, Normal Range of Motion, Non Tender, No Calf Tenderness, No Pedal Edema Neurologic/Psychiatric: Alert, Oriented x3, taxi servicer II-XII Norm as Tested, Abnormal Gait, Depressed Affect, Motor Weakness (lower legs 4/5) Skin: Normal Color, Warm/Dry Lymphatic: No Adenopathy Results/Procedures Lab Patient resulted labs reviewed. FIM Transfers Therapy Code Descriptions/Definitions Functional [place] Measure: 0=Not Assessed/NA 4=Minimal Assistance 1=Total Assistance 5=Supervision or Setup 2=Maximal Assistance 6=Modified [place] 3=Moderate Assistance 7=Complete IndependenceSCALE: Activities may be completed with or without assistive devices. 1-Oerikpkojo-grmnfme completes the activity by him/herself with no assistance from a helper. 5-Set-up or Clean-up Assistance-helper sets up or cleans up; patient completes activity. [place] assists only prior to or following the activity. 4-Supervision or Touching Assistance-helper provides verbal cues and/or touching/steadying and/or contact guard assistance as patient completes activity. Assistance may be provided throughout the activity or intermittently. 3-Partial/Moderate Assistance-helper does LESS THAN HALF the effort. [place] lifts, holds or supports trunk or limbs, but provides less than half the effort. 2-Substantial/Maximal Assistance-helper does MORE THAN HALF the effort. [place] lifts or holds trunk or limbs and provides more than half the effort. 1-Ihrefraip-gblcsq does ALL the effort. Patient does none of the effort to complete the activity. Or, the assistance of 2 or more helpers is required for the patient to complete the activity. If activity was not attempted, code reason: 7-Patient Refused. 9-Not Applicable-not attempted and the patient did not perform the activity before the current illness, exacerbation or injury. 10-Not Attempted due to Environmental Limitations-(lack of equipment, weather restraints, etc.). 88-Not Attempted due to Medical Conditions or Safety Concerns. Roll Left to Right (QC): 5 Sit to Lying (QC): 2 Sit to Stand (QC): 2 Chair/Lso-tp-Ufagx Xfer(QC): 3 (min) Car Transfer (QC): 3 (min) Gait Training Does the Patient Walk?: Yes Distance: 600' Walk 10 feet (QC): 4 Walk 50 ft with 2 Turns(QC): 4 Walk 150 ft (QC): 4 Walking 10ft/uneven surface-QC: 4 Gait Assistive Device: FWW Wheelchair Training Does the Pt Use a Wheelchair?: No Wheel 50 ft with 2 turns (QC): 9 Wheel 150 ft (QC): 9 Stair Training 1 Step (curb) (QC): 88 4 Steps (QC): 88 12 Steps (QC): 88 Balance Picking up an Object (QC): 88 ADL-Treatment Eating (QC): 6 Oral Hygiene (QC): 5 Bathing Location: L Arm, R Arm, L Upper Leg, R Upper Leg, Chest, Abdomen, Perineal Area Shower/Bathe Self (QC): 3 (Sponge bath) Upper Body Dressing (QC): 4 (SBA) Lower Body Dressing (QC): 3 (mod assist) On/Off Footwear (QC): 1 Toileting Hygiene (QC): 1 Toilet Transfer (QC): 1 Assessment/Plan Assessment and Plan Assess & Plan/Chief Complaint Assessment: s/p spine surgery from lumbar stenosis PAF holding OAC CAD PVD Depression Acute urinary retention Post op constipation HTN CRI Plan: IRF protocol Urinary management Pain control 09/03/20: Pain control Left hip xray Monitor closely 09/04/20: Continued bowel issues Mag citrate Pain control Monitor drain or DC it? 09/05/20: Drain DC Supine for 48 hours Monitor closely Right hip pain is an issue 09/06/20: Check UA Upright today after 1400 Monitor closely (1) S/P spinal surgery (2) Urinary retention (3) Constipation (4) PAF (paroxysmal atrial fibrillation) (5) CAD (coronary artery disease) (6) RAIMUNDO treated with BiPAP (7) Lumbar stenosis (8) Intractable low back pain Status: Acute (9) Sciatic nerve pain Status: Acute (10) Chronic pain Status: Acute (11) Renal insufficiency Status: Acute PONCE KAUR DO Sep 06, 2020 11:53
[2020-09-06 13:55] LABS: BILIRUBIN,URINE NEGATIVE (NEGATIVE); CLARITY,URINE CLEAR; COLOR,URINE YELLOW; GLUCOSE, URINE (UA) NEGATIVE (NEGATIVE); KETONES,URINE NEGATIVE (NEGATIVE); LEUKOCYTE ESTERASE ,URINE NEGATIVE (NEGATIVE); NITRITE,URINE NEGATIVE (NEGATIVE); PROTEIN,URINE NEGATIVE (NEGATIVE)
[2020-09-06 14:04] LABS: BACTERIA,URINE NEGATIVE /HPF; RBC,URINE RARE /HPF; WBC,URINE 0-2 /HPF
[2020-09-06] MEDS: RIVAROXABAN 20 MG TABLET (XARELTO) PO SCH (17:11)
[2020-09-06 19:24] VITALS: BP 121/57
[2020-09-07 05:12] LABS: BASOPHILS # (AUTO) 0.1 10^3/uL (0.0-0.1); BASOPHILS % (AUTO) 1 % (0-10); EOSINOPHILS # (AUTO) 0.2 10^3/uL (0.0-0.3); EOSINOPHILS % (AUTO) 2 % (0-10); HEMATOCRIT 31 % (40-54); LYMPHOCYTES # (AUTO) 1.9 10^3/uL (1.0-4.0); LYMPHOCYTES % (AUTO) 21 % (12-44); MEAN CORPUSCULAR HEMOGLOBIN 32 pg (25-34); MEAN CORPUSCULAR HGB CONC 32 g/dL (32-36); MEAN CORPUSCULAR VOLUME 99 fL (80-99); MEAN PLATELET VOLUME 9.7 fL (9.0-12.2); MONOCYTES # (AUTO) 1.2 10^3/uL (0.0-1.0); MONOCYTES % (AUTO) 14 % (0-12); NEUTROPHILS % (AUTO) 56 % (42-75); PLATELET COUNT 242 10^3/uL (130-400)
[2020-09-07 05:16] LABS: ALBUMIN 3.1 GM/DL (3.2-4.5); CHLORIDE 99 MMOL/L (98-107); POTASSIUM 4.9 MMOL/L (3.6-5.0); SODIUM 133 MMOL/L (135-145)
[2020-09-07 05:18] LABS: CALCIUM 9.6 MG/DL (8.5-10.1)
[2020-09-07 05:19] LABS: GLUCOSE 98 MG/DL (70-105); TOTAL PROTEIN 5.6 GM/DL (6.4-8.2)
[2020-09-07 05:20] LABS: CARBON DIOXIDE 25 MMOL/L (21-32)
[2020-09-07 05:21] LABS: BILIRUBIN,TOTAL 0.4 MG/DL (0.1-1.0)
[2020-09-07 05:22] LABS: ALKALINE PHOSPHATASE 61 U/L (40-136); CREATININE SERUM 0.94 MG/DL (0.60-1.30); GFR ESTIMATED > 60
[2020-09-07 05:23] LABS: BUN/CREATININE RATIO 15
[2020-09-07 05:25] LABS: ALANINE AMINOTRANSFERASE 13 U/L (0-55)
[2020-09-07 08:00] VITALS: BP 116/58
[2020-09-07] MEDS: ACETAMINOPHEN 650 MG PO SCH ×2 (08:14→17:31)
[2020-09-07] MEDS: SENNA W/DOCUSATE (SENOKOT S) TABLET PO SCH ×2 (08:15→21:03)
[2020-09-07] MEDS: amLODIPine 10 MG (NORVASC) TAB PO SCH (08:15)
[2020-09-07] MEDS: PANTOPRAZOLE 20 MG TABLET (PROTONIX) PO SCH (08:15)
[2020-09-07] MEDS: VITAMIN D3 25 MCG (1,000 UNITS) TABLET PO SCH (08:15)
[2020-09-07] MEDS: LORATADINE (CLARITIN) 10 MG TAB PO SCH (08:15)
[2020-09-07] MEDS: DOCUSATE SODIUM 100 MG (COLACE) CAP PO SCH ×4 (08:15→21:09)
[2020-09-07] MEDS: LOSARTAN 25 MG (COZAAR) TAB PO SCH (08:15)
[2020-09-07] MEDS: ASCORBIC ACID (VIT C) 500 MG TABLET PO SCH (08:15)
[2020-09-07] MEDS: MOVE FREE JOINT HEALTH PO SCH ×2 (08:15→17:31)
[2020-09-07] MEDS: GINGER ROOT 550 MG PO SCH ×2 (08:16→17:31)
--- NOTE | 2020-09-07 08:33 | PM&R Progress Note ---
Subjective HPI/CC On Admission Date Seen by Provider: Sep 07, 2020 Time Seen by Provider: 08:45 Subjective/Events-last exam 09/07/20: Pt up walking around but he thinks he is not doing well Son around in the rehab unit Sodium level 133 Bowels moved yesterday Walked well but will try to help him have a positive outlook Hgb of 10 UA normal 09/06/20: Multiple complaints at bedside Very somatic and negative outlook which is chronic Up to commode and will be able to resume normal posture out of bed at 1400 per spine surgery Doing well otherwise Drainage is improved Dysuria 09/05/20: Complex issues Difficulty sleeping due to pain K-pad will be placed for right hip pain Updated patient and on the plan Slow progress Drain dislodged so Dr Benitez recommended supine for 48 hours but he has not had any headache. Repeats himself a lot, immediate recall is definitely poor Mag citrate caused complete evacuation of bowels and he was up 5 times with diarrhea [place] without aides on 09/04/20: Doing well Right hip pain an issue, xray revealed normal alignment of replacement hardware Drain became dislodged will reach out to Hemanth about that Small BM only so gave Mag Citrate at bedside PVR only 60-100cc 09/03/20: Pt doing pretty well Right hip pain is an issue Will obtain KUB abdominal X-ray to check for obstruction but likely just early ileus but he is passing a lot of gas Bladder scanning will be performed due to high risk for retention since he had retention over at [place] Xarelto will be restarted on Monday per spine surgery Gets dizzy after eating and vomited last night after dinner Hgb 9.4 Sodium level 133 Review of Systems General: Fatigue Musculoskeletal: back pain, leg pain Objective Exam Vital Signs Vital Signs Date Time Temp Pulse Resp B/P (MAP) Pulse Ox O2 Delivery O2 Flow Rate FiO2 09/08/20 00:30 36.5 09/07/20 20:27 64 18 101/54 (70) 92 Room Air 09/02/20 22:25 2.00 Capillary Refill : General Appearance: No Apparent Distress, WD/WN, Chronically ill HEENT: PERRL/EOMI, Normal ENT Inspection, Pharynx Normal Neck: Full Range of Motion, Normal Inspection, Non Tender, Supple, Carotid Bruit Respiratory: Chest Non Tender, Lungs Clear, Normal Breath Sounds, No Accessory Muscle Use, No Respiratory Distress Cardiovascular: Regular Rate, Rhythm, No Edema, No Gallop, No JVD, No Murmur, Normal Peripheral Pulses Gastrointestinal: Normal Bowel Sounds, No Organomegaly, No Pulsatile Mass, Non Tender, Soft Back: Decreased Range of Motion, Muscle Spasm, Vertebral Tenderness Extremity: Normal Capillary Refill, Normal Inspection, Normal Range of Motion, Non Tender, No Calf Tenderness, No Pedal Edema Neurologic/Psychiatric: Alert, Oriented x3, planning supervisor II-XII Norm as Tested, Abnormal Gait, Depressed Affect, Motor Weakness (lower legs 4/5) Skin: Normal Color, Warm/Dry Lymphatic: No Adenopathy Results/Procedures Lab Patient resulted labs reviewed. FIM Transfers Therapy Code Descriptions/Definitions Functional [place] Measure: 0=Not Assessed/NA 4=Minimal Assistance 1=Total Assistance 5=Supervision or Setup 2=Maximal Assistance 6=Modified [place] 3=Moderate Assistance 7=Complete IndependenceSCALE: Activities may be completed with or without assistive devices. 6-Ksujmtbyhe-fccbtpt completes the activity by him/herself with no assistance from a helper. 5-Set-up or Clean-up Assistance-helper sets up or cleans up; patient completes activity. [place] assists only prior to or following the activity. 4-Supervision or Touching Assistance-helper provides verbal cues and/or touching/steadying and/or contact guard assistance as patient completes activity. Assistance may be provided throughout the activity or intermittently. 3-Partial/Moderate Assistance-helper does LESS THAN HALF the effort. [place] lifts, holds or supports trunk or limbs, but provides less than half the effort. 2-Substantial/Maximal Assistance-helper does MORE THAN HALF the effort. [place] lifts or holds trunk or limbs and provides more than half the effort. 2-Ghyebqblf-jpmjso does ALL the effort. Patient does none of the effort to complete the activity. Or, the assistance of 2 or more helpers is required for the patient to complete the activity. If activity was not attempted, code reason: 7-Patient Refused. 9-Not Applicable-not attempted and the patient did not perform the activity before the current illness, exacerbation or injury. 10-Not Attempted due to Environmental Limitations-(lack of equipment, weather restraints, etc.). 88-Not Attempted due to Medical Conditions or Safety Concerns. Roll Left to Right (QC): 5 Sit to Lying (QC): 2 Sit to Stand (QC): 2 Chair/Ioq-lt-Igkzr Xfer(QC): 3 (min) Car Transfer (QC): 3 (min) Gait Training Does the Patient Walk?: Yes Distance: 600' Walk 10 feet (QC): 4 Walk 50 ft with 2 Turns(QC): 4 Walk 150 ft (QC): 4 Walking 10ft/uneven surface-QC: 4 Gait Assistive Device: FWW Wheelchair Training Does the Pt Use a Wheelchair?: No Wheel 50 ft with 2 turns (QC): 9 Wheel 150 ft (QC): 9 Stair Training 1 Step (curb) (QC): 88 4 Steps (QC): 88 12 Steps (QC): 88 Balance Picking up an Object (QC): 88 ADL-Treatment Eating (QC): 6 Oral Hygiene (QC): 5 Bathing Location: L Arm, R Arm, L Upper Leg, R Upper Leg, Chest, Abdomen, Perineal Area Shower/Bathe Self (QC): 3 (Sponge bath) Upper Body Dressing (QC): 4 (SBA) Lower Body Dressing (QC): 3 (mod assist) On/Off Footwear (QC): 1 Toileting Hygiene (QC): 1 Toilet Transfer (QC): 1 Assessment/Plan Assessment and Plan Assess & Plan/Chief Complaint Assessment: s/p spine surgery from lumbar stenosis PAF holding OAC CAD PVD Depression Acute urinary retention Post op constipation HTN CRI Plan: IRF protocol Urinary management Pain control 09/03/20: Pain control Left hip xray Monitor closely 09/04/20: Continued bowel issues Mag citrate Pain control Monitor drain or DC it? 09/05/20: Drain DC Supine for 48 hours Monitor closely Right hip pain is an issue 09/06/20: Check UA Upright today after 1400 Monitor closely 09/07/20: Monitor BP and pain Doing well (1) S/P spinal surgery (2) Urinary retention (3) Constipation (4) PAF (paroxysmal atrial fibrillation) (5) CAD (coronary artery disease) (6) RAIMUNDO treated with BiPAP (7) Lumbar stenosis (8) Intractable low back pain Status: Acute (9) Sciatic nerve pain Status: Acute (10) Chronic pain Status: Acute (11) Renal insufficiency Status: Acute PONCE KAUR DO Sep 07, 2020 08:33
--- NOTE | 2020-09-07 09:14 | Physical Therapy Daily Note ---
PT Daily Note-Current Subjective Patient L sidelying and reports unrated pain in R hip pre tx. Patient consents to therapy, stating he would like to get cleaned up. Appearance Patient upright in recliner, with tray in front and call button within reach. Son in room. Mental Status Patient Orientation: Person, Place, Time, Normal For Age TLSO Transfers SCALE: Activities may be completed with or without assistive devices. 0-Azwwyanbvg-fynfmwf completes the activity by him/herself with no assistance from a helper. 5-Set-up or Clean-up Assistance-helper sets up or cleans up; patient completes activity. [place] assists only prior to or following the activity. 4-Supervision or Touching Assistance-helper provides verbal cues and/or touching/steadying and/or contact guard assistance as patient completes activity. Assistance may be provided throughout the activity or intermittently. 3-Partial/Moderate Assistance-helper does LESS THAN HALF the effort. [place] lifts, holds or supports trunk or limbs, but provides less than half the effort. 2-Substantial/Maximal Assistance-helper does MORE THAN HALF the effort. [place] lifts or holds trunk or limbs and provides more than half the effort. 0-Cifawqncz-rnghee does ALL the effort. Patient does none of the effort to complete the activity. Or, the assistance of 2 or more helpers is required for the patient to complete the activity. If activity was not attempted, code reason: 7-Patient Refused. 9-Not Applicable-not attempted and the patient did not perform the activity before the current illness, exacerbation or injury. 10-Not Attempted due to Environmental Limitations-(lack of equipment, weather restraints, etc.). 88-Not Attempted due to Medical Conditions or Safety Concerns. Roll Left & Right (QC): 6 Lying to Sitting/Side of Bed(Q: 3 (mod) Sit to Stand (QC): 3 (min to CGA) Sit <-> stand transfer patient prefers having bed elevated to a high degree secondary to R hip pain. BP taken in sitting, measured 110/59. Gait Training Does the Patient Walk?: Yes Distance: 400', 200' Walk 10 feet (QC): 4 Walk 50 ft with 2 Turns(QC): 4 Walk 150 ft (QC): 4 Gait Assistive Device: FWW CGA with ambulation, no reports of dizziness with ambulation during todays session. Treatments Co-treated with OT secondary to patient fall risk, decreased functional mobility, and decreased balance with ADLs. PT focused on transfers and gait training, OT focused on ADLs including self care and grooming, and brace don/doffing. PT assisted with balance and weight shifting with ADL activities. Assessment Current Status: Fair Progress Patient demonstrated less pain-restricted bed mobility during today's session. Patient reports his hip hurts with every step, but patient was able to maintain smooth ambulation at fair pace without presence of antalgic gait. Patient demonstrated 2 instances of slight mis-stepping, but was able to regain balance quickly. PT Short Term Goals Short Term Goals Time Frame: Sep 09, 2020 Roll Left & Right: 5 Sit to lyin Lying to sitting on side of be: 5 Sit to stand: 4 Chair/fva-kx-bykoq transfer: 4 Toilet transfer: 4 Walk 10 feet: 5 Walk 50 feet with two turns: 5 Walk 150 feet: 5 PT Retirement Goals Activity Therapy Teacher Goals PT Activity Therapy Teacher Goals Time Frame: September 23, 2020 Roll Left & Right (QC): 6 Sit to Lying (QC): 6 Lying-Sitting on Side/Bed(QC): 6 Sit to Stand (QC): 6 Chair/Wfw-nc-Ztjuk Xfer(QC): 6 Toilet Transfer (QC): 6 Car Transfer (QC): 6 Does the Patient Walk: Yes Walk 10 feet (QC): 6 Walk 50ft with 2 Turns (QC): 6 Walk 150 ft (QC): 6 Walking 10ft on Uneven Surface: 6 1 Step (curb) (QC): 6 4 Steps (QC): 6 12 Steps (QC): 4 Picking up an Object (QC): 88 Wheel 50 feet with 2 turns (QC: 88 Wheel 150 feet: 88 PT Plan Problem List Problem List: Activity Tolerance, Functional Strength, Safety, Balance, Gait, Transfer, Bed Mobility, ROM Treatment/Plan Treatment Plan: Continue Plan of Care Treatment Plan: Bed Mobility, Education, Functional Activity Lukas, Functional Strength, Group Therapy, Gait, Safety, Therapeutic Exercise, Transfers Treatment Duration: September 23, 2020 Frequency: At least 5 of 7 days/Wk (IRF) Estimated Hrs Per Day: 1.5 hours per day Patient and/or Family Agrees t: Yes Safety Risks/Education Patient Education: Gait Training, Transfer Techniques, Correct Positioning, Reviewed Don/Doff Brace, Safety Issues Teaching Recipient: Patient Teaching Methods: Demonstration, Discussion Response to Teaching: Verbalize Understanding, Return Demonstration, Reinforcement Needed Time/GCodes Time In: 814 Time Out: 914 Total Billed Treatment Time: 60 Total Billed Treatment 1 visit: GT: 15' FA x3: 45' CASSIA MORROW PT Sep 07, 2020 09:14
[2020-09-07] MEDS: polyethylene glycoL POWDER 17 GM (MIRALAX) PACK PO SCH ×2 (09:55→21:09)
[2020-09-07] MEDS: MUPIROCIN 2% OINT 22 GM (BACTROBAN) TUBE TOP SCH ×3 (09:55→21:05)
--- NOTE | 2020-09-07 11:51 | Physical Therapy Daily Note ---
PT Daily Note-Current Subjective Patient reports unrated hip pain pre tx, was sitting up in recliner chair and noted he had been sitting for well over an hour. Patient consents to treatment. Appearance Patient toileting post tx. in room, instructed to call nursing when finished with toileting. Mental Status Patient Orientation: Person, Place, Time, Normal For Age Transfers SCALE: Activities may be completed with or without assistive devices. 0-Fxnevohaom-gqicqdn completes the activity by him/herself with no assistance from a helper. 5-Set-up or Clean-up Assistance-helper sets up or cleans up; patient completes activity. [place] assists only prior to or following the activity. 4-Supervision or Touching Assistance-helper provides verbal cues and/or touchi ng/steadying and/or contact guard assistance as patient completes activity. Assistance may be provided throughout the activity or intermittently. 3-Partial/Moderate Assistance-helper does LESS THAN HALF the effort. [place] lifts, holds or supports trunk or limbs, but provides less than half the effort. 2-Substantial/Maximal Assistance-helper does MORE THAN HALF the effort. [place] lifts or holds trunk or limbs and provides more than half the effort. 1-Dokgrbxez-pbvsnt does ALL the effort. Patient does none of the effort to complete the activity. Or, the assistance of 2 or more helpers is required for the patient to complete the activity. If activity was not attempted, code reason: 7-Patient Refused. 9-Not Applicable-not attempted and the patient did not perform the activity before the current illness, exacerbation or injury. 10-Not Attempted due to Environmental Limitations-(lack of equipment, weather restraints, etc.). 88-Not Attempted due to Medical Conditions or Safety Concerns. Sit to Stand (QC): 4 CGA Gait Training Does the Patient Walk?: Yes Distance: 800' Walk 10 feet (QC): 4 Walk 50 ft with 2 Turns(QC): 4 Walk 150 ft (QC): 4 Gait Assistive Device: FWW CGA. Patient did not utilize a rest break with ambulation. Last 50' patient demonstrated a mild limp with R weight-bearing. Exercises Seated Therapy Exercises: Ankle pumps, Long arc quads, Hip flexion, Glut set Seated Reps: 20 Treatments gait training, transfer training, LE strengthening Assessment Current Status: Fair Progress Patient requires less assistance with sit <-> stand transfer, smooth ambulation with good pacing PT Short Term Goals Short Term Goals Time Frame: Sep 09, 2020 Roll Left & Right: 5 Sit to lyin Lying to sitting on side of be: 5 Sit to stand: 4 Chair/kyq-gq-pnene transfer: 4 Toilet transfer: 4 Walk 10 feet: 5 Walk 50 feet with two turns: 5 Walk 150 feet: 5 PT Half-Way Goals Half-Way Goals PT Half-Way Goals Time Frame: September 23, 2020 Roll Left & Right (QC): 6 Sit to Lying (QC): 6 Lying-Sitting on Side/Bed(QC): 6 Sit to Stand (QC): 6 Chair/Lbb-ed-Bmfej Xfer(QC): 6 Toilet Transfer (QC): 6 Car Transfer (QC): 6 Does the Patient Walk: Yes Walk 10 feet (QC): 6 Walk 50ft with 2 Turns (QC): 6 Walk 150 ft (QC): 6 Walking 10ft on Uneven Surface: 6 1 Step (curb) (QC): 6 4 Steps (QC): 6 12 Steps (QC): 4 Picking up an Object (QC): 88 Wheel 50 feet with 2 turns (QC: 88 Wheel 150 feet: 88 PT Plan Problem List Problem List: Activity Tolerance, Functional Strength, Safety, Balance, Gait, Transfer, Bed Mobility, ROM Treatment/Plan Treatment Plan: Continue Plan of Care Treatment Plan: Bed Mobility, Education, Functional Activity Lukas, Functional Strength, Group Therapy, Gait, Safety, Therapeutic Exercise, Transfers Treatment Duration: September 23, 2020 Frequency: At least 5 of 7 days/Wk (IRF) Estimated Hrs Per Day: 1.5 hours per day Patient and/or Family Agrees t: Yes Safety Risks/Education Patient Education: Gait Training, Transfer Techniques, Correct Positioning, Safety Issues Teaching Recipient: Patient Teaching Methods: Demonstration, Discussion Response to Teaching: Verbalize Understanding, Return Demonstration, Reinforcement Needed Time/GCodes Time In: 1120 Time Out: 1150 Total Billed Treatment Time: 30 Total Billed Treatment 1 visit: GT: 15' EX: 15' CASSIA MORROW PT Sep 07, 2020 11:51
--- NOTE | 2020-09-07 11:55 | Occupational Ther Daily Note ---
OT Current Status-Daily Note Subjective Pt. reports 7/10 pain in right hip. Nursing gives pt. pain medication. Appearance Pt. in bed. Agrees to work with therapy. Mental Status/Objective Patient Orientation: Person, Place ADL-Treatment Therapy Code Descriptions/Definitions Functional [place] Measure: 0=Not Assessed/NA 4=Minimal Assistance 1=Total Assistance 5=Supervision or Setup 2=Maximal Assistance 6=Modified [place] 3=Moderate Assistance 7=Complete IndependenceSCALE: Activities may be completed with or without assistive devices. 1-Qahlzcxmst-wdzxgmc completes the activity by him/herself with no assistance from a helper. 5-Set-up or Clean-up Assistance-helper sets up or cleans up; patient completes activity. [place] assists only prior to or following the activity. 4-Supervision or Touching Assistance-helper provides verbal cues and/or touching/steadying and/or contact guard assistance as patient completes activity. Assistance may be provided throughout the activity or intermittently. 3-Partial/Moderate Assistance-helper does LESS THAN HALF the effort. [place] lifts, holds or supports trunk or limbs, but provides less than half the effort. 2-Substantial/Maximal Assistance-helper does MORE THAN HALF the effort. [place] lifts or holds trunk or limbs and provides more than half the effort. 9-Kerefjnru-ljyfba does ALL the effort. Patient does none of the effort to complete the activity. Or, the assistance of 2 or more helpers is required for the patient to complete the activity. If activity was not attempted, code reason: 7-Patient Refused. 9-Not Applicable-not attempted and the patient did not perform the activity before the current illness, exacerbation or injury. 10-Not Attempted due to Environmental Limitations-(lack of equipment, weather restraints, etc.). 88-Not Attempted due to Medical Conditions or Safety Concerns. Shower/Bathe Self (QC): 3 (Mod assist overall. Pt. requires assistance to wash rear benji area thoroughly in stance. Pt. also requires assistance to wash bilateral feet.) Upper Body Dressing (QC): 3 (Pt. able to don t-shirt, but unable to don TLSO.) Lower Body Dressing (QC): 2 On/Off Footwear: 2 Other Treatment OT/PT co-treated this date due to pt's report of significant pain and poor endurance. Pt. requires constant encouragement throughout treatment, as he is having pain in hip and back. PT focuses on transfers, mobility, and ambulation, while OT assesses ADL skills. Pt. transferred supine-sit with min assist. Sits on EOB and completes sponge bath/dressing task. Pt. will often shut eyes and reports that he can't do a part of the task. OT cleansed rear benji area in stance. Pt. insists on lying back down to rest. Transferred sit-supine with min assist. OT washes feet/bilateral LE at bed level. OT dons shoes and socks, and assists with LE clothing. Pt. reports pain is too high to attempt ADL equipment. Pt. transfers again supine-sit with min assist, and ambulates throughout halls, with min assist and wheelchair follow. Several rest breaks noted. Please see PT note for distance. Pt. utilized a walker for mobility. Pt. back in room in reclining chair at end of session. Encouraged to sit up in chair for continued lung support and endurance. All needs met. Education OT Patient Education: Correct positioning, Modified ADL techniques, Progress toward Goal/Update tx plan, Purpose of tx/functional activities, Reviewed precautions, Rehab process, Transfer techniques Teaching Recipient: Patient Teaching Methods: Demonstration, Discussion Response to Teaching: Verbalize Understanding, Return Demonstration OT Short Term Goals Short Term Goals Time Frame: Sep 09, 2020 Eatin Oral hygiene: 4 Toileting hygiene: 3 Shower/bathe self: 4 Upper body dressin Lower body dressin Putting on/taking off footwear: 3 OT Prison Goals Prison Goals Time Frame: September 23, 2020 Eating (QC): 6 Oral Hygiene (QC): 6 Toileting Hygiene (QC): 6 Shower/Bathe Self (QC): 4 Upper Body Dressing (QC): 5 Lower Body Dressing (QC): 4 On/Off Footwear (QC): 4 Additional Goals: 1-Demonstrate ADL Tasks, 2-Verbalize Understanding, 3- ImproveStrength/Lukas 1=Demonstrate adherence to instructed precautions during ADL tasks. 2=Patient will verbalize/demonstrate understanding of assistive de vices/modifications for ADL. 3=Patient will improve strength/tolerance for activity to enable patient to perform ADL's. OT Education/Plan Problem List/Assessment Assessment: Decreased Activ Tolerance, Dependent Transfers, Impaired Bed Mobility, Impaired I ADL's, Impaired Self-Care Skills Discharge Recommendations Plan/Recommendations: Continue POC Therapy Discharge Recommendati: Post Acute OT Equpiment Recommendations-D/C: Hip Kit Treatment Plan/Plan of Care Treatment,Training & Education: Yes Patient would benefit from OT for education, treatment and training to promote independence in ADL's, mobility, safety and/or upper extremity function for ADL's. Plan of Care: ADL Retraining, Functional Mobility, Group Exercise/Act as Ind, UE Funct Exercise/Act Treatment Duration: September 23, 2020 Frequency: At least 5 of 7 days/Wk (IRF) Estimated Hrs Per Day: 1.5 hours per day Agreement: Yes Rehab Potential: Fair Time/GCodes Start Time: 08:20 Stop Time: 09:15 Total Time Billed (hr/min): 55 Billed Treatment Time 1, ADL x 45minutes, FA x 10minutes Co-treatment with PT. Please see above note for designated roles. LILIAN TURNER OT Sep 07, 2020 11:55
--- NOTE | 2020-09-07 14:17 | Occupational Ther Daily Note ---
OT Current Status-Daily Note Subjective No pain reported. Mental Status/Objective Patient Orientation: Person, Place, Time, Situation ADL-Treatment Therapy Code Descriptions/Definitions Functional [place] Measure: 0=Not Assessed/NA 4=Minimal Assistance 1=Total Assistance 5=Supervision or Setup 2=Maximal Assistance 6=Modified [place] 3=Moderate Assistance 7=Complete IndependenceSCALE: Activities may be completed with or without assistive devices. 3-Zvsyptfgxw-ecjaodo completes the activity by him/herself with no assistance from a helper. 5-Set-up or Clean-up Assistance-helper sets up or cleans up; patient completes activity. [place] assists only prior to or following the activity. 4-Supervision or Touching Assistance-helper provides verbal cues and/or touching/steadying and/or contact guard assistance as patient completes activity. Assistance may be provided throughout the activity or intermittently. 3-Partial/Moderate Assistance-helper does LESS THAN HALF the effort. [place] lifts, holds or supports trunk or limbs, but provides less than half the effort. 2-Substantial/Maximal Assistance-helper does MORE THAN HALF the effort. [place] lifts or holds trunk or limbs and provides more than half the effort. 3-Wxbcgiceo-qxfixq does ALL the effort. Patient does none of the effort to complete the activity. Or, the assistance of 2 or more helpers is required for the patient to complete the activity. If activity was not attempted, code reason: 7-Patient Refused. 9-Not Applicable-not attempted and the patient did not perform the activity before the current illness, exacerbation or injury. 10-Not Attempted due to Environmental Limitations-(lack of equipment, weather restraints, etc.). 88-Not Attempted due to Medical Conditions or Safety Concerns. Toileting Hygiene (QC): 3 Toilet Transfer (QC): 3 Other Treatment Pt. up on toilet when OT entered room. Pt. had small BM. Pt. does attempt to cleanse self with cleansing wipes. Requires mod assist to stand from toilet. OT cleansed rear benji area more thoroughly. Pt. would benefit from toilet tongs. OT will bring these in. Pt. is able to pull up pants in stance. Ambulates to sink with walker and completes washes hands with CGA. Pt. requests to lay back in bed. Ambulates slowly with walker to bed. Transfers sit-supine with SBA. All needs met. Education OT Patient Education: Correct positioning, Modified ADL techniques, Progress toward Goal/Update tx plan, Purpose of tx/functional activities, Reviewed precautions, Rehab process, Transfer techniques Teaching Recipient: Patient, Family Teaching Methods: Demonstration, Discussion Response to Teaching: Verbalize Understanding, Return Demonstration OT Short Term Goals Short Term Goals Time Frame: Sep 09, 2020 Eatin Oral hygiene: 4 Toileting hygiene: 3 Shower/bathe self: 4 Upper body dressin Lower body dressin Putting on/taking off footwear: 3 OT Jail Goals Sort Worker Goals Time Frame: September 23, 2020 Eating (QC): 6 Oral Hygiene (QC): 6 Toileting Hygiene (QC): 6 Shower/Bathe Self (QC): 4 Upper Body Dressing (QC): 5 Lower Body Dressing (QC): 4 On/Off Footwear (QC): 4 Additional Goals: 1-Demonstrate ADL Tasks, 2-Verbalize Understanding, 3- ImproveStrength/Lukas 1=Demonstrate adherence to instructed precautions during ADL tasks. 2=Patient will verbalize/demonstrate understanding of assistive devices/modifications for ADL. 3=Patient will improve strength/tolerance for activity to enable patient to perform ADL's. OT Education/Plan Problem List/Assessment Assessment: Decreased Activ Tolerance, Dependent Transfers, Impaired I ADL's, Impaired Self-Care Skills Discharge Recommendations Plan/Recommendations: Continue POC Therapy Discharge Recommendati: Post Acute OT Equpiment Recommendations-D/C: Hip Kit Treatment Plan/Plan of Care Treatment,Training & Education: Yes Patient would benefit from OT for education, treatment and training to promote independence in ADL's, mobility, safety and/or upper extremity function for ADL's. Plan of Care: ADL Retraining, Functional Mobility, Group Exercise/Act as Ind, UE Funct Exercise/Act Treatment Duration: September 23, 2020 Frequency: At least 5 of 7 days/Wk (IRF) Estimated Hrs Per Day: 1.5 hours per day Agreement: Yes Rehab Potential: Fair Time/GCodes Start Time: 11:55 Stop Time: 12:15 Total Time Billed (hr/min): 20 Billed Treatment Time 1, ADL LILIAN TURNER OT Sep 07, 2020 14:17
--- NOTE | 2020-09-07 14:23 | Occupational Ther Daily Note ---
OT Current Status-Daily Note Subjective Pt. reports pain in back and right hip but does not give pain number. Requests pain medication. OT requested this from nursing. Appearance Pt. supine in bed with HOB elevated. Mental Status/Objective Patient Orientation: Person, Place, Time, Situation ADL-Treatment Therapy Code Descriptions/Definitions Functional [place] Measure: 0=Not Assessed/NA 4=Minimal Assistance 1=Total Assistance 5=Supervision or Setup 2=Maximal Assistance 6=Modified [place] 3=Moderate Assistance 7=Complete IndependenceSCALE: Activities may be completed with or without assistive devices. 3-Bpqnxoyklx-zlhabtw completes the activity by him/herself with no assistance from a helper. 5-Set-up or Clean-up Assistance-helper sets up or cleans up; patient completes activity. [place] assists only prior to or following the activity. 4-Supervision or Touching Assistance-helper provides verbal cues and/or touching/steadying and/or contact guard assistance as patient completes activity. Assistance may be provided throughout the activity or intermittently. 3-Partial/Moderate Assistance-helper does LESS THAN HALF the effort. [place] lifts, holds or supports trunk or limbs, but provides less than half the effort. 2-Substantial/Maximal Assistance-helper does MORE THAN HALF the effort. [place] lifts or holds trunk or limbs and provides more than half the effort. 6-Drpnvrxcb-tvzvvp does ALL the effort. Patient does none of the effort to complete the activity. Or, the assistance of 2 or more helpers is required for the patient to complete the activity. If activity was not attempted, code reason: 7-Patient Refused. 9-Not Applicable-not attempted and the patient did not perform the activity before the current illness, exacerbation or injury. 10-Not Attempted due to Environmental Limitations-(lack of equipment, weather restraints, etc.). 88-Not Attempted due to Medical Conditions or Safety Concerns. Toilet Transfer (QC): 3 (Min assist) Other Treatment Pt. in bed. Declines getting up to side to complete UE exercises. Agrees to do them from bed level. Pt. completes 20 bilateral hand squeezes with red therapy sponge. Immediately states that he has to use the bathroom, and that he can't wait. OT encourages use of TLSO, but pt refuses, as he needs to use toilet immediately. Pt. transfers supine-sit with SBA. OT dons shoes and gait belt. Pt. ambulates to toilet with CGA. Transfers to toilet with min assist. Pt. would like to sit for awhile. Notified nurse aide that pt. up on toilet and will pull light. Spouse in room. Education OT Patient Education: Correct positioning, Exercise program, Modified ADL techniques, Progress toward Goal/Update tx plan, Purpose of tx/functional activities, Reviewed precautions, Rehab process, Transfer techniques Teaching Recipient: Patient Teaching Methods: Demonstration, Discussion Response to Teaching: Verbalize Understanding, Return Demonstration OT Short Term Goals Short Term Goals Time Frame: Sep 09, 2020 Eatin Oral hygiene: 4 Toileting hygiene: 3 Shower/bathe self: 4 Upper body dressin Lower body dressin Putting on/taking off footwear: 3 OT Tank House Operator Goals Tank House Operator Goals Time Frame: September 23, 2020 Eating (QC): 6 Oral Hygiene (QC): 6 Toileting Hygiene (QC): 6 Shower/Bathe Self (QC): 4 Upper Body Dressing (QC): 5 Lower Body Dressing (QC): 4 On/Off Footwear (QC): 4 Additional Goals: 1-Demonstrate ADL Tasks, 2-Verbalize Understanding, 3- ImproveStrength/Lukas 1=Demonstrate adherence to instructed precautions during ADL tasks. 2=Patient will verbalize/demonstrate understanding of assistive devices/modifications for ADL. 3=Patient will improve strength/tolerance for activity to enable patient to perform ADL's. OT Education/Plan Problem List/Assessment Assessment: Decreased Activ Tolerance, Dependent Transfers, Impaired I ADL's, Impaired Self-Care Skills Discharge Recommendations Plan/Recommendations: Continue POC Therapy Discharge Recommendati: Post Acute OT Treatment Plan/Plan of Care Treatment,Training & Education: Yes Patient would benefit from OT for education, treatment and training to promote independence in ADL's, mobility, safety and/or upper extremity function for ADL's. Plan of Care: ADL Retraining, Functional Mobility, Group Exercise/Act as Ind, UE Funct Exercise/Act Treatment Duration: September 23, 2020 Frequency: At least 5 of 7 days/Wk (IRF) Estimated Hrs Per Day: 1.5 hours per day Agreement: Yes Rehab Potential: Fair Time/GCodes Start Time: 13:30 Stop Time: 13:45 Total Time Billed (hr/min): 15 Billed Treatment Time 1, ADL LILIAN TURNER OT Sep 07, 2020 14:23
[2020-09-07] MEDS: RIVAROXABAN 20 MG TABLET (XARELTO) PO SCH (17:30)
[2020-09-07 20:27] VITALS: BP 101/54
[2020-09-07] MEDS: ONDANSETRON 4 MG (ZOFRAN) ORAL DISSOLVE TAB PO PRN (20:31)
[2020-09-07] MEDS: MELATONIN 3 MG TABLET PO PRN (21:04)
[2020-09-08 08:00] VITALS: BP 103/58
--- NOTE | 2020-09-08 08:54 | PM&R Progress Note ---
Subjective HPI/CC On Admission Date Seen by Provider: Sep 08, 2020 Time Seen by Provider: 09:00 Subjective/Events-last exam 09/08/20: Pt walking really well but upset with therapy and dietary and everyone who has treated him Pt very negative about outlook Left hip pain is reported but he walks without any problems at all Overall doing much better 09/07/20: Pt up walking around but he thinks he is not doing well Son around in the rehab unit Sodium level 133 Bowels moved yesterday Walked well but will try to help him have a positive outlook Hgb of 10 UA normal 09/06/20: Multiple complaints at bedside Very somatic and negative outlook which is chronic Up to commode and will be able to resume normal posture out of bed at 1400 per spine surgery Doing well otherwise Drainage is improved Dysuria 09/05/20: Complex issues Difficulty sleeping due to pain K-pad will be placed for right hip pain Updated patient and on the plan Slow progress Drain dislodged so Dr Benitez recommended supine for 48 hours but he has not had any headache. Repeats himself a lot, immediate recall is definitely poor Mag citrate caused complete evacuation of bowels and he was up 5 times with diar xenia TALBERT without aides on 09/04/20: Doing well Right hip pain an issue, xray revealed normal alignment of replacement hardware Drain became dislodged will reach out to Hemanth about that Small BM only so gave Mag Citrate at bedside PVR only 60-100cc 09/03/20: Pt doing pretty well Right hip pain is an issue Will obtain KUB abdominal X-ray to check for obstruction but likely just early ileus but he is passing a lot of gas Bladder scanning will be performed due to high risk for retention since he had retention over at [place] Xarelto will be restarted on Monday per spine surgery Gets dizzy after eating and vomited last night after dinner Hgb 9.4 Sodium level 133 Review of Systems General: Fatigue, Malaise Musculoskeletal: back pain, leg pain Objective Exam Vital Signs Vital Signs Date Time Temp Pulse Resp B/P (MAP) Pulse Ox O2 Delivery O2 Flow Rate FiO2 09/08/20 21:00 Room Air 09/08/20 20:46 83 163/77 (105) 09/08/20 19:45 37.0 16 93 Capillary Refill : General Appearance: No Apparent Distress, WD/WN, Chronically ill HEENT: PERRL/EOMI, Normal ENT Inspection, Pharynx Normal Neck: Full Range of Motion, Normal Inspection, Non Tender, Supple, Carotid Bruit Respiratory: Chest Non Tender, Lungs Clear, Normal Breath Sounds, No Accessory Muscle Use, No Respiratory Distress Cardiovascular: Regular Rate, Rhythm, No Edema, No Gallop, No JVD, No Murmur, Normal Peripheral Pulses Gastrointestinal: Normal Bowel Sounds, No Organomegaly, No Pulsatile Mass, Non Tender, Soft Back: Decreased Range of Motion, Muscle Spasm, Vertebral Tenderness Extremity: Normal Capillary Refill, Normal Inspection, Normal Range of Motion, Non Tender, No Calf Tenderness, No Pedal Edema Neurologic/Psychiatric: Alert, Oriented x3, condenser tube tender II-XII Norm as Tested, Abnormal Gait, Depressed Affect, Motor Weakness (lower legs 4/5) Skin: Normal Color, Warm/Dry Lymphatic: No Adenopathy Results/Procedures Lab Patient resulted labs reviewed. FIM Transfers Therapy Code Descriptions/Definitions Functional [place] Measure: 0=Not Assessed/NA 4=Minimal Assistance 1=Total Assistance 5=Supervision or Setup 2=Maximal Assistance 6=Modified [place] 3=Moderate Assistance 7=Complete IndependenceSCALE: Activities may be completed with or without assistive devices. 5-Yrdmzufhyh-uhasbdt completes the activity by him/herself with no assistance from a helper. 5-Set-up or Clean-up Assistance-helper sets up or cleans up; patient completes activity. Brea assists only prior to or following the activity. 4-Supervision or Touching Assistance-helper provides verbal cues and/or touching/steadying and/or contact guard assistance as patient completes activity. Assistance may be provided throughout the activity or intermittently. 3-Partial/Moderate Assistance-helper does LESS THAN HALF the effort. Brea lifts, holds or supports trunk or limbs, but provides less than half the effort. 2-Substantial/Maximal Assistance-helper does MORE THAN HALF the effort. Brea lifts or holds trunk or limbs and provides more than half the effort. 8-Azpisnifq-hujjsg does ALL the effort. Patient does none of the effort to complete the activity. Or, the assistance of 2 or more helpers is required for the patient to complete the activity. If activity was not attempted, code reason: 7-Patient Refused. 9-Not Applicable-not attempted and the patient did not perform the activity before the current illness, exacerbation or injury. 10-Not Attempted due to Environmental Limitations-(lack of equipment, weather restraints, etc.). 88-Not Attempted due to Medical Conditions or Safety Concerns. Roll Left to Right (QC): 6 Sit to Lying (QC): 2 Sit to Stand (QC): 4 Chair/Rrc-ch-Ppnvk Xfer(QC): 3 (min) Car Transfer (QC): 3 (min) Gait Training Does the Patient Walk?: Yes Distance: 800' Walk 10 feet (QC): 4 Walk 50 ft with 2 Turns(QC): 4 Walk 150 ft (QC): 4 Walking 10ft/uneven surface-QC: 4 Gait Assistive Device: FWW Wheelchair Training Does the Pt Use a Wheelchair?: No Wheel 50 ft with 2 turns (QC): 9 Wheel 150 ft (QC): 9 Stair Training 1 Step (curb) (QC): 88 4 Steps (QC): 88 12 Steps (QC): 88 Balance Picking up an Object (QC): 88 ADL-Treatment Eating (QC): 6 Oral Hygiene (QC): 5 Bathing Location: L Arm, R Arm, L Upper Leg, R Upper Leg, Chest, Abdomen, Perineal Area Shower/Bathe Self (QC): 3 (Mod assist overall. Pt. requires assistance to wash rear benji area thoroughly in stance. Pt. also requires assistance to wash bilateral feet.) Upper Body Dressing (QC): 3 (Pt. able to don t-shirt, but unable to don TLSO.) Lower Body Dressing (QC): 2 On/Off Footwear (QC): 2 Toileting Hygiene (QC): 3 Toilet Transfer (QC): 3 (Min assist) Assessment/Plan Assessment and Plan Assess & Plan/Chief Complaint Assessment: s/p spine surgery from lumbar stenosis PAF holding OAC CAD PVD Depression Acute urinary retention Post op constipation HTN CRI Plan: IRF protocol Urinary management Pain control 09/03/20: Pain control Left hip xray Monitor closely 09/04/20: Continued bowel issues Mag citrate Pain control Monitor drain or DC it? 09/05/20: Drain DC Supine for 48 hours Monitor closely Right hip pain is an issue 09/06/20: Check UA Upright today after 1400 Monitor closely 4/19/21: Monitor BP and pain Doing well 09/08/20: Supportive care Help him see his progress in a positive way (1) S/P spinal surgery (2) Urinary retention (3) Constipation (4) PAF (paroxysmal atrial fibrillation) (5) CAD (coronary artery disease) (6) RAIMUNDO treated with BiPAP (7) Lumbar stenosis (8) Intractable low back pain Status: Acute (9) Sciatic nerve pain Status: Acute (10) Chronic pain Status: Acute (11) Renal insufficiency Status: Acute PONCE KAUR DO Sep 08, 2020 08:54
[2020-09-08] MEDS: ACETAMINOPHEN 650 MG PO SCH ×2 (10:01→17:57)
[2020-09-08] MEDS: MOVE FREE JOINT HEALTH PO SCH ×2 (10:02→17:58)
[2020-09-08] MEDS: ASCORBIC ACID (VIT C) 500 MG TABLET PO SCH (10:02)
[2020-09-08] MEDS: GINGER ROOT 550 MG PO SCH ×2 (10:02→17:57)
[2020-09-08] MEDS: SENNA W/DOCUSATE (SENOKOT S) TABLET PO SCH ×2 (10:03→21:00)
[2020-09-08] MEDS: DOCUSATE SODIUM 100 MG (COLACE) CAP PO SCH ×4 (10:03→21:04)
[2020-09-08] MEDS: PANTOPRAZOLE 20 MG TABLET (PROTONIX) PO SCH (10:03)
[2020-09-08] MEDS: LORATADINE (CLARITIN) 10 MG TAB PO SCH (10:03)
[2020-09-08] MEDS: VITAMIN D3 25 MCG (1,000 UNITS) TABLET PO SCH (10:03)
[2020-09-08] MEDS: MUPIROCIN 2% OINT 22 GM (BACTROBAN) TUBE TOP SCH ×2 (10:06→14:41)
[2020-09-08] MEDS: LOSARTAN 25 MG (COZAAR) TAB PO SCH (10:19)
[2020-09-08] MEDS: polyethylene glycoL POWDER 17 GM (MIRALAX) PACK PO SCH ×2 (10:19→21:00)
[2020-09-08] MEDS: amLODIPine 10 MG (NORVASC) TAB PO SCH (10:20)
--- NOTE | 2020-09-08 10:45 | Physical Therapy Daily Note ---
PT Daily Note-Current Subjective Patient reports increased pain in his back, and radiating pain from his R hip pre tx. Patient was upright in therapy gym with OT. Patient appeared frustrated and disappointed with his overall progress, so PT and OT spent some time allowing him to voice his frustrations and prepare for exercise. Patient reported he feels his hip pain is getting worse, and he is still battling episodes of lightheadedness. BP taken seated and measured to be 133/60. Appearance Patient upright in chair, call button within reach, all needs met and in room post tx. Mental Status Patient Orientation: Person, Place, Time, Normal For Age TLSO Transfers SCALE: Activities may be completed with or without assistive devices. 9-Nlomfiswem-byyfgor completes the activity by him/herself with no assistance from a helper. 5-Set-up or Clean-up Assistance-helper sets up or cleans up; patient completes activity. [place] assists only prior to or following the activity. 4-Supervision or Touching Assistance-helper provides verbal cues and/or touching/steadying and/or contact guard assistance as patient completes activity. Assistance may be provided throughout the activity or intermittently. 3-Partial/Moderate Assistance-helper does LESS THAN HALF the effort. [place] lifts, holds or supports trunk or limbs, but provides less than half the effort. 2-Substantial/Maximal Assistance-helper does MORE THAN HALF the effort. [place] lifts or holds trunk or limbs and provides more than half the effort. 5-Ittptxlyq-swhapm does ALL the effort. Patient does none of the effort to complete the activity. Or, the assistance of 2 or more helpers is required for the patient to complete the activity. If activity was not attempted, code reason: 7-Patient Refused. 9-Not Applicable-not attempted and the patient did not perform the activity before the current illness, exacerbation or injury. 10-Not Attempted due to Environmental Limitations-(lack of equipment, weather restraints, etc.). 88-Not Attempted due to Medical Conditions or Safety Concerns. Sit to Stand (QC): 4 CGA, patient continues to demonstrate very slow, painful ascent with sit <-> stand Gait Training Does the Patient Walk?: Yes Distance: 400', 100' Walk 10 feet (QC): 4 Walk 50 ft with 2 Turns(QC): 4 Walk 150 ft (QC): 4 Gait Assistive Device: FWW CGA. Patient is steady with balance, slight limp noted with weight bearing through R LE. Treatments Co-treated with OT secondary to decreased functional mobility, fall risk, and lack of endurance. Patient performed 5min x2 of balloon batting activity, once on stable ground and once on airex pad. PT focused on balance while OT focused on UE reaching outside of RADHA with activity. Patient stated "I can't go any longer" both rounds, and required multiple several minute rest breaks. Assessment Current Status: Fair Progress Patient was able to complete multiple sit <-> stands at a lower elevation than previously capable. Patient continues to be negative about recovery process, is willing to participate, but is quick to complain. PT educated patient on importance of movement, and that hip pain could be an after effect from recent surgery that will likely not improve without continued participation in movement. PT Short Term Goals Short Term Goals Time Frame: Sep 09, 2020 Roll Left & Right: 5 Sit to lyin Lying to sitting on side of be: 5 Sit to stand: 4 Chair/stp-by-jikxu transfer: 4 Toilet transfer: 4 Walk 10 feet: 5 Walk 50 feet with two turns: 5 Walk 150 feet: 5 PT Graduate Intern Goals Graduate Intern Goals PT [facility] Goals Time Frame: September 23, 2020 Roll Left & Right (QC): 6 Sit to Lying (QC): 6 Lying-Sitting on Side/Bed(QC): 6 Sit to Stand (QC): 6 Chair/Rik-gt-Tcoru Xfer(QC): 6 Toilet Transfer (QC): 6 Car Transfer (QC): 6 Does the Patient Walk: Yes Walk 10 feet (QC): 6 Walk 50ft with 2 Turns (QC): 6 Walk 150 ft (QC): 6 Walking 10ft on Uneven Surface: 6 1 Step (curb) (QC): 6 4 Steps (QC): 6 12 Steps (QC): 4 Picking up an Object (QC): 88 Wheel 50 feet with 2 turns (QC: 88 Wheel 150 feet: 88 PT Plan Problem List Problem List: Activity Tolerance, Functional Strength, Safety, Balance, Gait, Transfer, Bed Mobility, ROM Treatment/Plan Treatment Plan: Continue Plan of Care Treatment Plan: Bed Mobility, Education, Functional Activity Lukas, Functional Strength, Group Therapy, Gait, Safety, Therapeutic Exercise, Transfers Treatment Duration: September 23, 2020 Frequency: At least 5 of 7 days/Wk (IRF) Estimated Hrs Per Day: 1.5 hours per day Patient and/or Family Agrees t: Yes Safety Risks/Education Patient Education: Gait Training, Transfer Techniques, Correct Positioning, Safety Issues Teaching Recipient: Patient Teaching Methods: Demonstration, Discussion Response to Teaching: Verbalize Understanding, Return Demonstration, Reinforcement Needed Time/GCodes Time In: 0900 Time Out: 1000 Total Billed Treatment Time: 60 Total Billed Treatment 1 visit: EX x2: 30' GT: 15' FA: 15' Co-treated with OT from [id number] CASSIA MORROW PT Sep 08, 2020 10:45
--- NOTE | 2020-09-08 13:30 | Physical Therapy Daily Note ---
PT Daily Note-Current Subjective Patient is agreeable to therapy, did not self-report pain during today's session, was sitting upright in recliner pre tx. Appearance Patient supine in bed post tx, with call button within reach and tray table nearby. in room. Mental Status Patient Orientation: Person, Place, Time, Normal For Age Transfers SCALE: Activities may be completed with or without assistive devices. 6-Dieqwlaoxt-abjnmus completes the activity by him/herself with no assistance from a helper. 5-Set-up or Clean-up Assistance-helper sets up or cleans up; patient completes activity. [place] assists only prior to or following the activity. 4-Supervision or Touching Assistance-helper provides verbal cues and/or touching/steadying and/or contact guard assistance as patient completes activity. Assistance may be provided throughout the activity or intermittently. 3-Partial/Moderate Assistance-helper does LESS THAN HALF the effort. [place] lifts, holds or supports trunk or limbs, but provides less than half the effort. 2-Substantial/Maximal Assistance-helper does MORE THAN HALF the effort. [place] lifts or holds trunk or limbs and provides more than half the effort. 3-Mekenwpef-daoirq does ALL the effort. Patient does none of the effort to complete the activity. Or, the assistance of 2 or more helpers is required for the patient to complete the activity. If activity was not attempted, code reason: 7-Patient Refused. 9-Not Applicable-not attempted and the patient did not perform the activity before the current illness, exacerbation or injury. 10-Not Attempted due to Environmental Limitations-(lack of equipment, weather restraints, etc.). 88-Not Attempted due to Medical Conditions or Safety Concerns. Sit to Stand (QC): 4 CGA, slow ascent with sit <-> stand Gait Training Does the Patient Walk?: Yes Distance: 1500' Walk 10 feet (QC): 4 Walk 150 ft (QC): 4 Gait Assistive Device: FWW CGA, patient demonstrates mod lateral trunk sway with gait. Patient was able to maintain good speed with ambulation cycle. Treatments LE strengthening, endurance, gait Assessment Current Status: Good Progress Patient ambulated longest distance without rest break thus far. Patient did not complain of pain with ambulation. PT Short Term Goals Short Term Goals Time Frame: Sep 09, 2020 Roll Left & Right: 5 Sit to lyin Lying to sitting on side of be: 5 Sit to stand: 4 Chair/dan-ng-giszl transfer: 4 Toilet transfer: 4 Walk 10 feet: 5 Walk 50 feet with two turns: 5 Walk 150 feet: 5 PT Half-Way Goals Leaf Fat Scraper Goals PT Half-Way Goals Time Frame: September 23, 2020 Roll Left & Right (QC): 6 Sit to Lying (QC): 6 Lying-Sitting on Side/Bed(QC): 6 Sit to Stand (QC): 6 Chair/Tzx-vv-Rnrlu Xfer(QC): 6 Toilet Transfer (QC): 6 Car Transfer (QC): 6 Does the Patient Walk: Yes Walk 10 feet (QC): 6 Walk 50ft with 2 Turns (QC): 6 Walk 150 ft (QC): 6 Walking 10ft on Uneven Surface: 6 1 Step (curb) (QC): 6 4 Steps (QC): 6 12 Steps (QC): 4 Picking up an Object (QC): 88 Wheel 50 feet with 2 turns (QC: 88 Wheel 150 feet: 88 PT Plan Problem List Problem List: Activity Tolerance, Functional Strength, Safety, Balance, Gait, Transfer, Bed Mobility, ROM Treatment/Plan Treatment Plan: Continue Plan of Care Treatment Plan: Bed Mobility, Education, Functional Activity Lukas, Functional Strength, Group Therapy, Gait, Safety, Therapeutic Exercise, Transfers Treatment Duration: September 23, 2020 Frequency: At least 5 of 7 days/Wk (IRF) Estimated Hrs Per Day: 1.5 hours per day Patient and/or Family Agrees t: Yes Safety Risks/Education Patient Education: Gait Training, Transfer Techniques, Correct Positioning, Safety Issues Teaching Recipient: Patient Teaching Methods: Demonstration, Discussion Response to Teaching: Verbalize Understanding, Return Demonstration Time/GCodes Time In: 1300 Time Out: 1330 Total Billed Treatment Time: 30 Total Billed Treatment 1 visit: GT x2: 30' CASSIA MORROW PT Sep 08, 2020 13:29
--- NOTE | 2020-09-08 13:40 | Occupational Ther Daily Note ---
OT Current Status-Daily Note Subjective Pt. reports pain in right hip. Does not report pain level, but has already had pain medication. Pt. reports "more" pain than yesterday. However, his affect does not suggest increased pain. Mental Status/Objective Patient Orientation: Person, Place ADL-Treatment Therapy Code Descriptions/Definitions Functional [place] Measure: 0=Not Assessed/NA 4=Minimal Assistance 1=Total Assistance 5=Supervision or Setup 2=Maximal Assistance 6=Modified [place] 3=Moderate Assistance 7=Complete IndependenceSCALE: Activities may be completed with or without assistive devices. 7-Tbkavpjplt-zciczuu completes the activity by him/herself with no assistance from a helper. 5-Set-up or Clean-up Assistance-helper sets up or cleans up; patient completes activity. [place] assists only prior to or following the activity. 4-Supervision or Touching Assistance-helper provides verbal cues and/or touching/steadying and/or contact guard assistance as patient completes activity. Assistance may be provided throughout the activity or intermittently. 3-Partial/Moderate Assistance-helper does LESS THAN HALF the effort. [place] lifts, holds or supports trunk or limbs, but provides less than half the effort. 2-Substantial/Maximal Assistance-helper does MORE THAN HALF the effort. [place] lifts or holds trunk or limbs and provides more than half the effort. 8-Oahdtqwkk-rgvxti does ALL the effort. Patient does none of the effort to complete the activity. Or, the assistance of 2 or more helpers is required for the patient to complete the activity. If activity was not attempted, code reason: 7-Patient Refused. 9-Not Applicable-not attempted and the patient did not perform the activity before the current illness, exacerbation or injury. 10-Not Attempted due to Environmental Limitations-(lack of equipment, weather restraints, etc.). 88-Not Attempted due to Medical Conditions or Safety Concerns. Shower/Bathe Self (QC): 7 Upper Body Dressing (QC): 7 Lower Body Dressing (QC): 7 On/Off Footwear: 7 Other Treatment Pt. up in chair, already dressed and with brace on when therapy enters room. N wiliing has assisted him. Pt. declines bathing or changing clothing. States that his clothes are clean from this morning. Completed partial co-treatment with PT due to need of skilled assistance x 2 for poor endurance, increased pain, and overall need for encouragement. OT begins treatment alone, and in that time talks with pt. about prior hospitalizations, and any possible equi pment needed. Pt. has all needed equipment at this time, except for hip kit. OT introduces toilet tongs for use when pt. needs bathroom next. Pt. verbalizes understanding. OT also brings in LH sponge, and pt. is educated on this as well. Pt. agrees to work with therapy. Pt. practices donning slipper shoes with use of LH shoe horn. Requires min assist for this overall. Stands from chair and agrees to ambulate to therapy gym. PT assesses at this time and assists pt. with guiding walker correctly, and encouraging proper ambulation techniques. Pt. requires many rest breaks throughout. Stands several times in therapy gym with PT for balance, and without walker, while OT bats balloon back and forth for UE ROM, strength, and endurance training. Pt. does well approximately 4 minutes, but requests to sit. After ample rest, stands several more times to complete same task. Finally stands on uneven surface to bat at balloon, and this is difficult for pt.'s balance. He requests to sit, as he is unable to balance on surface. Pt. practiced stairs with CGA and little difficulty. Ambulates with walker at slow pace with cues to keep walker close, and with close wheelchair follow. Please see PT note for distance ambulated. Pt. requires re-direction at times due to talking about his past medical history, but staying on same topic without wavering. Pt. up with PT at end of session. Education OT Patient Education: Correct positioning, Exercise program, Modified ADL techniques, Progress toward Goal/Update tx plan, Purpose of tx/functional activities, Reviewed precautions, Rehab process, Transfer techniques Teaching Recipient: Patient Teaching Methods: Demonstration, Discussion Response to Teaching: Verbalize Understanding, Return Demonstration OT Short Term Goals Short Term Goals Time Frame: Sep 09, 2020 Eatin Oral hygiene: 4 Toileting hygiene: 3 Shower/bathe self: 4 Upper body dressin Lower body dressin Putting on/taking off footwear: 3 OT Longterm Goals Duct Cleaner Goals Time Frame: September 23, 2020 Eating (QC): 6 Oral Hygiene (QC): 6 Toileting Hygiene (QC): 6 Shower/Bathe Self (QC): 4 Upper Body Dressing (QC): 5 Lower Body Dressing (QC): 4 On/Off Footwear (QC): 4 Additional Goals: 1-Demonstrate ADL Tasks, 2-Verbalize Understanding, 3-ImproveStrength/Lukas 1=Demonstrate adherence to instructed precautions during ADL tasks. 2=Patient will verbalize/demonstrate understanding of assistive devices/modifications for ADL. 3=Patient will improve strength/tolerance for activity to enable patient to perform ADL's. OT Education/Plan Problem List/Assessment Assessment: Decreased Activ Tolerance, Dependent Transfers, Impaired Funct Balance, Impaired I ADL's, Impaired Self-Care Skills Discharge Recommendations Plan/Recommendations: Continue POC Therapy Discharge Recommendati: Home & Family, Post Acute OT Equpiment Recommendations-D/C: Hip Kit Treatment Plan/Plan of Care Treatment,Training & Education: Yes Patient would benefit from OT for education, treatment and training to promote independence in ADL's, mobility, safety and/or upper extremity function for ADL's. Plan of Care: ADL Retraining, Functional Mobility, Group Exercise/Act as Ind, UE Funct Exercise/Act Treatment Duration: September 23, 2020 Frequency: At least 5 of 7 days/Wk (IRF) Estimated Hrs Per Day: 1.5 hours per day Agreement: Yes Rehab Potential: Fair Time/GCodes Start Time: 08:25 Stop Time: 09:55 Total Time Billed (hr/min): 90 Billed Treatment Time 1091-0986 1, ADL x 35minutes [id number] FA x 55minutes- Co-treatment with PT. Please see above note for de signated roles. LILIAN TURNER OT Sep 08, 2020 13:40
[2020-09-08] MEDS ORDERED: RIVA20TA PO (15:56)
[2020-09-08] MEDS ORDERED: UBID100C17 PO (15:56)
[2020-09-08] MEDS: RIVAROXABAN 20 MG TABLET (XARELTO) PO SCH (17:56)
[2020-09-08 19:45] VITALS: BP 118/59
[2020-09-08 20:46] VITALS: BP 163/77
--- NOTE | 2020-09-09 06:06 | PM&R Progress Note ---
Subjective HPI/CC On Admission Date Seen by Provider: Sep 09, 2020 Time Seen by Provider: 09:00 Subjective/Events-last exam 09/09/20: Pt much improved now, just starting yesterday Really walking around well now Bowels moving okay but he wants to still stay on Laxatives Discharge is planned for 09/1409/08/20: Pt walking really well but upset with therapy and dietary and everyone who has treated him Pt very negative about outlook Left hip pain is reported but he walks without any problems at all Overall doing much better 09/07/20: Pt up walking around but he thinks he is not doing well Son around in the rehab unit Sodium level 133 Bowels moved yesterday Walked well but will try to help him have a positive outlook Hgb of 10 UA normal 09/06/20: Multiple complaints at bedside Very somatic and negative outlook which is chronic Up to commode and will be able to resume normal posture out of bed at 1400 per spine surgery Doing well otherwise Drainage is improved Dysuria 09/05/20: Complex issues Difficulty sleeping due to pain K-pad will be placed for right hip pain Updated patient and on the plan Slow progress Drain dislodged so Dr Benitez recommended supine for 48 hours but he has not had any headache. Repeats himself a lot, immediate recall is definitely poor Mag citrate caused complete evacuation of bowels and he was up 5 times with diarrhea [place] without aides on 09/04/20: Doing well Right hip pain an issue, xray revealed normal alignment of replacement hardware Drain became dislodged will reach out to Hemanth about that Small BM only so gave Mag Citrate at bedside PVR only 60-100cc 09/03/20: Pt doing pretty well Right hip pain is an issue Will obtain KUB abdominal X-ray to check for obstruction but likely just early ileus but he is passing a lot of gas Bladder scanning will be performed due to high risk for retention since he had retention over at [place] [facility] Xarelto will be restarted on Monday per spine surgery Gets dizzy after eating and vomited last night after dinner Hgb 9.4 Sodium level 133 Review of Systems Gastrointestinal: Constipation Musculoskeletal: back pain, leg pain Objective Exam Vital Signs Vital Signs Date Time Temp Pulse Resp B/P (MAP) Pulse Ox O2 Delivery O2 Flow Rate FiO2 09/09/20 21:00 Room Air 09/09/20 20:00 37.0 71 20 110/56 (74) 93 Capillary Refill : General Appearance: No Apparent Distress, WD/WN, Chronically ill HEENT: PERRL/EOMI, Normal ENT Inspection, Pharynx Normal Neck: Full Range of Motion, Normal Inspection, Non Tender, Supple, Carotid Bruit Respiratory: Chest Non Tender, Lungs Clear, Normal Breath Sounds, No Accessory Muscle Use, No Respiratory Distress Cardiovascular: Regular Rate, Rhythm, No Edema, No Gallop, No JVD, No Murmur, Normal Peripheral Pulses Gastrointestinal: Normal Bowel Sounds, No Organomegaly, No Pulsatile Mass, Non Tender, Soft Back: Decreased Range of Motion, Muscle Spasm, Vertebral Tenderness Extremity: Normal Capillary Refill, Normal Inspection, Normal Range of Motion, Non Tender, No Calf Tenderness, No Pedal Edema Neurologic/Psychiatric: Alert, Oriented x3, instructor pilot II-XII Norm as Tested, Abnormal Gait, Depressed Affect, Motor Weakness (lower legs 4/5) Skin: Normal Color, Warm/Dry Lymphatic: No Adenopathy Results/Procedures Lab Patient resulted labs reviewed. FIM Transfers Therapy Code Descriptions/Definitions Functional [place] Measure: 0=Not Assessed/NA 4=Minimal Assistance 1=Total Assistance 5=Supervision or Setup 2=Maximal Assistance 6=Modified Russell 3=Moderate Assistance 7=Complete IndependenceSCALE: Activities may be completed with or without assistive devices. 7-Cqafbyjeon-nzzbaco completes the activity by him/herself with no assistance from a helper. 5-Set-up or Clean-up Assistance-helper sets up or cleans up; patient completes activity. Supply assists only prior to or following the activity. 4-Supervision or Touching Assistance-helper provides verbal cues and/or touching/steadying and/or contact guard assistance as patient completes activity. Assistance may be provided throughout the activity or intermittently. 3-Partial/Moderate Assistance-helper does LESS THAN HALF the effort. Supply lifts, holds or supports trunk or limbs, but provides less than half the effort. 2-Substantial/Maximal Assistance-helper does MORE THAN HALF the effort. Supply lifts or holds trunk or limbs and provides more than half the effort. 4-Ppudxsayj-solddv does ALL the effort. Patient does none of the effort to complete the activity. Or, the assistance of 2 or more helpers is required for the patient to complete the activity. If activity was not attempted, code reason: 7-Patient Refused. 9-Not Applicable-not attempted and the patient did not perform the activity before the current illness, exacerbation or injury. 10-Not Attempted due to Environmental Limitations-(lack of equipment, weather restraints, etc.). 88-Not Attempted due to Medical Conditions or Safety Concerns. Roll Left to Right (QC): 6 Sit to Lying (QC): 2 Sit to Stand (QC): 4 Chair/Skt-tb-Tbwfe Xfer(QC): 3 (min) Car Transfer (QC): 3 (min) Gait Training Does the Patient Walk?: Yes Distance: 1500' Walk 10 feet (QC): 4 Walk 50 ft with 2 Turns(QC): 4 Walk 150 ft (QC): 4 Walking 10ft/uneven surface-QC: 4 Gait Assistive Device: FWW Wheelchair Training Does the Pt Use a Wheelchair?: No Wheel 50 ft with 2 turns (QC): 9 Wheel 150 ft (QC): 9 Stair Training 1 Step (curb) (QC): 88 4 Steps (QC): 88 12 Steps (QC): 88 Balance Picking up an Object (QC): 88 ADL-Treatment Eating (QC): 6 Oral Hygiene (QC): 5 Bathing Location: L Arm, R Arm, L Upper Leg, R Upper Leg, Chest, Abdomen, Perineal Area Shower/Bathe Self (QC): 7 Upper Body Dressing (QC): 7 Lower Body Dressing (QC): 7 On/Off Footwear (QC): 7 Toileting Hygiene (QC): 3 Toilet Transfer (QC): 3 (Min assist) Assessment/Plan Assessment and Plan Assess & Plan/Chief Complaint Assessment: s/p spine surgery from lumbar stenosis PAF holding OAC CAD PVD Depression Acute urinary retention Post op constipation HTN CRI Plan: IRF protocol Urinary management Pain control 09/03/20: Pain control Left hip xray Monitor closely 09/04/20: Continued bowel issues Mag citrate Pain control Monitor drain or DC it? 09/05/20: Drain DC Supine for 48 hours Monitor closely Right hip pain is an issue 09/06/20: Check UA Upright today after 1400 Monitor closely 09/07/20: Monitor BP and pain Doing well 09/08/20: Supportive care Help him see his progress in a positive way 09/09/20: Major progress and improvement Monitor closely (1) S/P spinal surgery (2) Urinary retention (3) Constipation (4) PAF (paroxysmal atrial fibrillation) (5) CAD (coronary artery disease) (6) RAIMUNDO treated with BiPAP (7) Lumbar stenosis (8) Intractable low back pain Status: Acute (9) Sciatic nerve pain Status: Acute (10) Chronic pain Status: Acute (11) Renal insufficiency Status: Acute PONCE KAUR DO Sep 09, 2020 06:06
[2020-09-09 08:00] VITALS: BP 131/64
[2020-09-09] MEDS: MOVE FREE JOINT HEALTH PO SCH ×2 (08:54→17:57)
[2020-09-09] MEDS: ACETAMINOPHEN 650 MG PO SCH ×2 (08:54→17:56)
[2020-09-09] MEDS: GINGER ROOT 550 MG PO SCH ×2 (08:55→17:57)
[2020-09-09] MEDS: VITAMIN D3 25 MCG (1,000 UNITS) TABLET PO SCH (08:55)
[2020-09-09] MEDS: amLODIPine 10 MG (NORVASC) TAB PO SCH (08:57)
[2020-09-09] MEDS: SENNA W/DOCUSATE (SENOKOT S) TABLET PO SCH ×2 (08:57→21:00)
[2020-09-09] MEDS: LORATADINE (CLARITIN) 10 MG TAB PO SCH (08:57)
[2020-09-09] MEDS: DOCUSATE SODIUM 100 MG (COLACE) CAP PO SCH ×4 (08:57→21:00)
[2020-09-09] MEDS: PANTOPRAZOLE 20 MG TABLET (PROTONIX) PO SCH (08:57)
[2020-09-09] MEDS: ASCORBIC ACID (VIT C) 500 MG TABLET PO SCH (08:57)
[2020-09-09] MEDS: LOSARTAN 25 MG (COZAAR) TAB PO SCH (08:57)
[2020-09-09] MEDS: polyethylene glycoL POWDER 17 GM (MIRALAX) PACK PO SCH ×2 (10:00→21:00)
--- NOTE | 2020-09-09 10:06 | Physical Therapy Daily Note ---
PT Daily Note-Current Subjective Pt. c/o he isnt having good BMs, had med during this Rx session and cleaned and managed pants indep, c/o pain in right hip at 8 . Pt. wants to go home very soon "today" Pain Numeric Pain Scale: 8 Location: Right Location Body Site: Hip Pain Description: Pressure Mental Status Patient Orientation: Normal For Age Attachments: Other-See Comments (back brace) Transfers SCALE: Activities may be completed with or without assistive devices. 0-Bjzrtjuajh-cwfdixp completes the activity by him/herself with no assistance from a helper. 5-Set-up or Clean-up Assistance-helper sets up or cleans up; patient completes activity. [place] assists only prior to or following the activity. 4-Supervision or Touching Assistance-helper provides verbal cues and/or touching/steadying and/or contact guard assistance as patient completes activity. Assistance may be provided throughout the activity or intermittently. 3-Partial/Moderate Assistance-helper does LESS THAN HALF the effort. [place] lifts, holds or supports trunk or limbs, but provides less than half the effort. 2-Substantial/Maximal Assistance-helper does MORE THAN HALF the effort. [place] lifts or holds trunk or limbs and provides more than half the effort. 6-Aeqfessbv-hbumrz does ALL the effort. Patient does none of the effort to complete the activity. Or, the assistance of 2 or more helpers is required for the patient to complete the activity. If activity was not attempted, code reason: 7-Patient Refused. 9-Not Applicable-not attempted and the patient did not perform the activity before the current illness, exacerbation or injury. 10-Not Attempted due to Environmental Limitations-(lack of equipment, weather restraints, etc.). 88-Not Attempted due to Medical Conditions or Safety Concerns. Roll Left & Right (QC): 6 Sit to Lying (QC): 6 Lying to Sitting/Side of Bed(Q: 6 Sit to Stand (QC): 6 Chair/Mhy-kg-Faajx Xfer(QC): 6 Toilet Transfer (QC): 6 Car Transfer (QC): 6 all TRFs mod I Gait Training Does the Patient Walk?: Yes Walk 10 feet (QC): 6 Walk 50 ft with 2 Turns(QC): 6 Walk 150 ft (QC): 6 Walking 10ft/uneven surface-QC: 6 Gait Persons Needed: 0 Gait Assistive Device: FWW knees slightly bent during gait, no LOB, good velocity, good control of FWW which is his from home Wheelchair Training Does the Pt Use a Wheelchair?: No Stair Training Stair Training: Handrails/: 1 handrail #of Steps: 4 1 Step (curb) (QC): 5 4 Steps (QC): 5 12 Steps (QC): 88 Stairs: Pattern: Step to some instruction needed for sequence , will practice again this PM, no LOB Balance Picking up an Object (QC): 88 Exercises Supine Ex: Ankle pumps, Rolling, Heel Slides, Short Arc Quads, Hip abd/add Supine Reps: 20 Seated Therapy Exercises: Sit to stand Seated Reps: 10 Treatments QCd, toilet TRF, ext bath bench TRF all with instruction and cuing only, donns doffs brace indep Assessment meets goals, wants badly to DC PT Short Term Goals Short Term Goals Time Frame: Sep 09, 2020 Roll Left & Right: 5 Sit to lyin Lying to sitting on side of be: 5 Sit to stand: 4 Chair/bsq-cv-ypjka transfer: 4 Toilet transfer: 4 Walk 10 feet: 5 Walk 50 feet with two turns: 5 Walk 150 feet: 5 PT Construction Consultant Goals Construction Consultant Goals PT Construction Consultant Goals Time Frame: September 23, 2020 Roll Left & Right (QC): 6 Sit to Lying (QC): 6 Lying-Sitting on Side/Bed(QC): 6 Sit to Stand (QC): 6 Chair/Fzw-qp-Xnuys Xfer(QC): 6 Toilet Transfer (QC): 6 Car Transfer (QC): 6 Does the Patient Walk: Yes Walk 10 feet (QC): 6 Walk 50ft with 2 Turns (QC): 6 Walk 150 ft (QC): 6 Walking 10ft on Uneven Surface: 6 1 Step (curb) (QC): 6 4 Steps (QC): 6 12 Steps (QC): 4 Picking up an Object (QC): 88 Wheel 50 feet with 2 turns (QC: 88 Wheel 150 feet: 88 PT Plan Treatment/Plan Treatment Plan: Continue Plan of Care Treatment Plan: Bed Mobility, Education, Functional Activity Lukas, Functional Strength, Group Therapy, Gait, Safety, Therapeutic Exercise, Transfers Treatment Duration: September 23, 2020 Frequency: At least 5 of 7 days/Wk (IRF) Estimated Hrs Per Day: 1.5 hours per day Patient and/or Family Agrees t: Yes Safety Risks/Education Patient Education: Gait Training, Transfer Techniques, Steps, Reviewed Precautions (log roll technique), Correct Positioning, Reviewed Don/Doff Brace, Safety Issues Teaching Recipient: Patient Teaching Methods: Demonstration, Discussion Response to Teaching: Verbalize Understanding, Return Demonstration, Reinforcement Needed Time/GCodes Time In: 900 Time Out: 1000 Total Billed Treatment Time: 60 Total Billed Treatment 1,FA40,GT20 DI CA CREATIVE PRODUCER Sep 09, 2020 10:06
--- NOTE | 2020-09-09 10:59 | Occupational Ther Daily Note ---
OT Current Status-Daily Note Subjective Pt. reports pain in right hip but does not report pain level. Pt. has had pain medication. Appearance Pt. up on side of bed finishing breakfast when OT entered room. Mental Status/Objective Patient Orientation: Person, Place, Time, Situation ADL-Treatment Therapy Code Descriptions/Definitions Functional [place] Measure: 0=Not Assessed/NA 4=Minimal Assistance 1=Total Assistance 5=Supervision or Setup 2=Maximal Assistance 6=Modified [place] 3=Moderate Assistance 7=Complete IndependenceSCALE: Activities may be completed with or without assistive devices. 3-Bfpebgoqjl-bmygvcx completes the activity by him/herself with no assistance from a helper. 5-Set-up or Clean-up Assistance-helper sets up or cleans up; patient completes activity. [place] assists only prior to or following the activity. 4-Supervision or Touching Assistance-helper provides verbal cues and/or touching/steadying and/or contact guard assistance as patient completes activity. Assistance may be provided throughout the activity or intermittently. 3-Partial/Moderate Assistance-helper does LESS THAN HALF the effort. [place] lifts, holds or supports trunk or limbs, but provides less than half the effort. 2-Substantial/Maximal Assistance-helper does MORE THAN HALF the effort. [place] lifts or holds trunk or limbs and provides more than half the effort. 8-Ndffyuaxj-fimzpw does ALL the effort. Patient does none of the effort to complete the activity. Or, the assistance of 2 or more helpers is required for the patient to complete the activity. If activity was not attempted, code reason: 7-Patient Refused. 9-Not Applicable-not attempted and the patient did not perform the activity before the current illness, exacerbation or injury. 10-Not Attempted due to Environmental Limitations-(lack of equipment, weather restraints, etc.). 88-Not Attempted due to Medical Conditions or Safety Concerns. Eating (QC): 6 Oral Hygiene (QC): 4 (SBA to stand at sink and brush teeth. Pt. educated in golfers lift technique to bend slightly.) Shower/Bathe Self (QC): 3 (Min assist to wash rear benji area thoroughly in stance. Pt. issued LH sponge to wash LE.) Upper Body Dressing (QC): 3 (SBA to don shirt. Min assist to don TLSO brace.) Lower Body Dressing (QC): 3 (Min assist with AE to don brief, shorts, socks, and slip on shoes.) On/Off Footwear: 3 (SBA to don socks with sock aide, min assist to don slip on shoes with shoe horn.) Toileting Hygiene (QC): 3 (Mod assist overall to doff pants over hips, out from under brace. Assist to cleanse rear benji area.) Toilet Transfer (QC): 4 (CGA to transfer) Other Treatment OT/PT completed brief co-treatment for toileting task due to low endurance at end of ADL session with OT. PT ambulates with pt. and facilitates proper and safe transfer to toilet with CGA, while OT facilitates ADL skill of toileting. Pt. has been issued toileting tongs, but has not wanted to use them yet. Will send tongs home with pt. PT with pt. at end of treatment. Education OT Patient Education: Correct positioning, Modified ADL techniques, Progress toward Goal/Update tx plan, Purpose of tx/functional activities, Reviewed precautions, Rehab process, Transfer techniques Teaching Recipient: Patient Teaching Methods: Demonstration, Discussion Response to Teaching: Verbalize Understanding, Return Demonstration OT Short Term Goals Short Term Goals Time Frame: Sep 09, 2020 Eatin Oral hygiene: 4 Toileting hygiene: 3 Shower/bathe self: 4 Upper body dressin Lower body dressin Putting on/taking off footwear: 3 OT Facilities Management Executive Goals [facility] Goals Time Frame: September 23, 2020 Eating (QC): 6 Oral Hygiene (QC): 6 Toileting Hygiene (QC): 6 Shower/Bathe Self (QC): 4 Upper Body Dressing (QC): 5 Lower Body Dressing (QC): 4 On/Off Footwear (QC): 4 Additional Goals: 1-Demonstrate ADL Tasks, 2-Verbalize Understanding, 3- ImproveStrength/Lukas 1=Demonstrate adherence to instructed precautions during ADL tasks. 2=Patient will verbalize/demonstrate understanding of assistive devices/modifications for ADL. 3=Patient will improve strength/tolerance for activity to enable patient to perform ADL's. OT Education/Plan Problem List/Assessment Assessment: Decreased Activ Tolerance, Impaired I ADL's, Impaired Self-Care Skills Discharge Recommendations Plan/Recommendations: Continue POC Therapy Discharge Recommendati: Home & Family, Post Acute OT Equpiment Recommendations-D/C: Hip Kit Treatment Plan/Plan of Care Treatment,Training & Education: Yes Patient would benefit from OT for education, treatment and training to promote independence in ADL's, mobility, safety and/or upper extremity function for ADL's. Plan of Care: ADL Retraining, Functional Mobility, Group Exercise/Act as Ind, UE Funct Exercise/Act Treatment Duration: September 23, 2020 Frequency: At least 5 of 7 days/Wk (IRF) Estimated Hrs Per Day: 1.5 hours per day Agreement: Yes Rehab Potential: Fair Time/GCodes Start Time: 08:15 Stop Time: 09:15 Total Time Billed (hr/min): 60 Billed Treatment Time 4067-5322 1, ADL x 45minutes [id number] ADL x 15minutes- Co-treatment with PT. Please see above note for designated roles. LILIAN TURNER OT Sep 09, 2020 10:59
--- NOTE | 2020-09-09 14:47 | Occupational Ther Daily Note ---
OT Current Status-Daily Note Subjective No pain reported. Mental Status/Objective Patient Orientation: Person, Place ADL-Treatment Therapy Code Descriptions/Definitions Functional [place] Measure: 0=Not Assessed/NA 4=Minimal Assistance 1=Total Assistance 5=Supervision or Setup 2=Maximal Assistance 6=Modified [place] 3=Moderate Assistance 7=Complete IndependenceSCALE: Activities may be completed with or without assistive devices. 2-Kkyfugktxk-djrhlzw completes the activity by him/herself with no assistance from a helper. 5-Set-up or Clean-up Assistance-helper sets up or cleans up; patient completes activity. [place] assists only prior to or following the activity. 4-Supervision or Touching Assistance-helper provides verbal cues and/or touching/steadying and/or contact guard assistance as patient completes activity. Assistance may be provided throughout the activity or intermittently. 3-Partial/Moderate Assistance-helper does LESS THAN HALF the effort. [place] lifts, holds or supports trunk or limbs, but provides less than half the effort. 2-Substantial/Maximal Assistance-helper does MORE THAN HALF the effort. [place] lifts or holds trunk or limbs and provides more than half the effort. 3-Dgjqdhudp-fyadep does ALL the effort. Patient does none of the effort to complete the activity. Or, the assistance of 2 or more helpers is required for the patient to complete the activity. If activity was not attempted, code reason: 7-Patient Refused. 9-Not Applicable-not attempted and the patient did not perform the activity before the current illness, exacerbation or injury. 10-Not Attempted due to Environmental Limitations-(lack of equipment, weather restraints, etc.). 88-Not Attempted due to Medical Conditions or Safety Concerns. On/Off Footwear: 3 (Min assist to don slipper shoe with long shoe horn.) Other Treatment Pt. agrees to work with OT. Pt. requests to ambulate. Pt. ambulates with walker and SBA. Ambulates approximately 500 feet with walker. OT asks if pt. would like rest break. He would not. Pt. up in chair at end of session. Notified PT of pt's distance and request to ambulate. All needs met. Education OT Patient Education: Correct positioning, Modified ADL techniques, Progress toward Goal/Update tx plan, Purpose of tx/functional activities, Reviewed precautions, Rehab process, Transfer techniques Teaching Recipient: Patient Teaching Methods: Demonstration, Discussion Response to Teaching: Verbalize Understanding, Return Demonstration OT Short Term Goals Short Term Goals Time Frame: Sep 09, 2020 Eatin Oral hygiene: 4 Toileting hygiene: 3 Shower/bathe self: 4 Upper body dressin Lower body dressin Putting on/taking off footwear: 3 OT Jail Goals Jail Goals Time Frame: September 23, 2020 Eating (QC): 6 Oral Hygiene (QC): 6 Toileting Hygiene (QC): 6 Shower/Bathe Self (QC): 4 Upper Body Dressing (QC): 5 Lower Body Dressing (QC): 4 On/Off Footwear (QC): 4 Additional Goals: 1-Demonstrate ADL Tasks, 2-Verbalize Understanding, 3- ImproveStrength/Lukas 1=Demonstrate adherence to instructed precautions during ADL tasks. 2=Patient will verbalize/demonstrate understanding of assistive devices/modifications for ADL. 3=Patient will improve strength/tolerance for activity to enable patient to perform ADL's. OT Education/Plan Problem List/Assessment Assessment: Decreased Activ Tolerance Discharge Recommendations Plan/Recommendations: Continue POC Treatment Plan/Plan of Care Treatment,Training & Education: Yes Patient would benefit from OT for education, treatment and training to promote independence in ADL's, mobility, safety and/or upper extremity function for ADL's. Plan of Care: ADL Retraining, Functional Mobility, Group Exercise/Act as Ind, UE Funct Exercise/Act Treatment Duration: September 23, 2020 Frequency: At least 5 of 7 days/Wk (IRF) Estimated Hrs Per Day: 1.5 hours per day Agreement: Yes Rehab Potential: Good Time/GCodes Start Time: 13:30 Stop Time: 14:00 Total Time Billed (hr/min): 30 Billed Treatment Time 1, FA x 2 LILIAN TURNER OT Sep 09, 2020 14:47
--- NOTE | 2020-09-09 15:20 | Physical Therapy Daily Note ---
PT Daily Note-Current Subjective Pt. is disappointed that he wont be DCing until Mon. agrees to Rx Pain Numeric Pain Scale: 4 Location: Right Location Body Site: Hip Pain Description: Ache Mental Status Patient Orientation: Normal For Age Attachments: Other-See Comments (mask) pt. is hard of hearing Transfers SCALE: Activities may be completed with or without assistive devices. 0-Jumhmdtyxz-pufxyyk completes the activity by him/herself with no assistance from a helper. 5-Set-up or Clean-up Assistance-helper sets up or cleans up; patient completes activity. [place] assists only prior to or following the activity. 4-Supervision or Touching Assistance-helper provides verbal cues and/or touching/steadying and/or contact guard assistance as patient completes activity. Assistance may be provided throughout the activity or intermittently. 3-Partial/Moderate Assistance-helper does LESS THAN HALF the effort. [place] lifts, holds or supports trunk or limbs, but provides less than half the effort. 2-Substantial/Maximal Assistance-helper does MORE THAN HALF the effort. [place] lifts or holds trunk or limbs and provides more than half the effort. 1-Cgtyuaxrl-ghaiwz does ALL the effort. Patient does none of the effort to complete the activity. Or, the assistance of 2 or more helpers is required for the patient to complete the activity. If activity was not attempted, code reason: 7-Patient Refused. 9-Not Applicable-not attempted and the patient did not perform the activity before the current illness, exacerbation or injury. 10-Not Attempted due to Environmental Limitations-(lack of equipment, weather restraints, etc.). 88-Not Attempted due to Medical Conditions or Safety Concerns. Sit to Stand (QC): 5 Chair/Pud-mn-Jpyio Xfer(QC): 5 Toilet Transfer (QC): 5 Gait Training Does the Patient Walk?: Yes Gait Assistive Device: FWW 170 ft x 2 50 x1 FWW SBA , decreased step length at times no LOB Exercises NuStep Minutes: 10 NuStep Workload: 4 Assessment Current Status: Good Progress PT Short Term Goals Short Term Goals Time Frame: Sep 09, 2020 Roll Left & Right: 5 Sit to lyin Lying to sitting on side of be: 5 Sit to stand: 4 Chair/rey-pt-jeqey transfer: 4 Toilet transfer: 4 Walk 10 feet: 5 Walk 50 feet with two turns: 5 Walk 150 feet: 5 PT Nursing Home Goals Garden Machinery Mechanic Goals PT Garden Machinery Mechanic Goals Time Frame: September 23, 2020 Roll Left & Right (QC): 6 Sit to Lying (QC): 6 Lying-Sitting on Side/Bed(QC): 6 Sit to Stand (QC): 6 Chair/Azi-wu-Axrmg Xfer(QC): 6 Toilet Transfer (QC): 6 Car Transfer (QC): 6 Does the Patient Walk: Yes Walk 10 feet (QC): 6 Walk 50ft with 2 Turns (QC): 6 Walk 150 ft (QC): 6 Walking 10ft on Uneven Surface: 6 1 Step (curb) (QC): 6 4 Steps (QC): 6 12 Steps (QC): 4 Picking up an Object (QC): 88 Wheel 50 feet with 2 turns (QC: 88 Wheel 150 feet: 88 PT Plan Treatment/Plan Treatment Plan: Continue Plan of Care Treatment Plan: Bed Mobility, Education, Functional Activity Lukas, Functional Strength, Group Therapy, Gait, Safety, Therapeutic Exercise, Transfers Treatment Duration: September 23, 2020 Frequency: At least 5 of 7 days/Wk (IRF) Estimated Hrs Per Day: 1.5 hours per day Patient and/or Family Agrees t: Yes Safety Risks/Education Patient Education: Gait Training, Transfer Techniques Teaching Recipient: Patient Time/GCodes Time In: 1445 Time Out: 1515 Total Billed Treatment Time: 30 Total Billed Treatment 1,GT15,EX15 DI CA SUGARCANE PLANTER Sep 09, 2020 15:20
[2020-09-09] MEDS: RIVAROXABAN 20 MG TABLET (XARELTO) PO SCH (17:56)
[2020-09-09 20:00] VITALS: BP 110/56
[2020-09-10 07:51] VITALS: BP 105/53
[2020-09-10] MEDS: ACETAMINOPHEN 650 MG PO SCH ×2 (07:56→17:11)
[2020-09-10] MEDS: MOVE FREE JOINT HEALTH PO SCH ×2 (07:57→17:11)
[2020-09-10] MEDS: GINGER ROOT 550 MG PO SCH ×2 (07:57→17:11)
[2020-09-10] MEDS: VITAMIN D3 25 MCG (1,000 UNITS) TABLET PO SCH (07:57)
[2020-09-10] MEDS: DOCUSATE SODIUM 100 MG (COLACE) CAP PO SCH ×4 (07:57→19:24)
[2020-09-10] MEDS: LORATADINE (CLARITIN) 10 MG TAB PO SCH (07:58)
[2020-09-10] MEDS: ASCORBIC ACID (VIT C) 500 MG TABLET PO SCH (07:58)
[2020-09-10] MEDS: PANTOPRAZOLE 20 MG TABLET (PROTONIX) PO SCH (07:58)
[2020-09-10] MEDS: polyethylene glycoL POWDER 17 GM (MIRALAX) PACK PO SCH ×2 (07:58→19:23)
[2020-09-10] MEDS: SENNA W/DOCUSATE (SENOKOT S) TABLET PO SCH ×2 (07:58→19:23)
[2020-09-10] MEDS: amLODIPine 10 MG (NORVASC) TAB PO SCH (07:59)
[2020-09-10] MEDS: LOSARTAN 25 MG (COZAAR) TAB PO SCH (07:59)
--- NOTE | 2020-09-10 09:17 | Occupational Ther Daily Note ---
OT Current Status-Daily Note Subjective No pain reported. Pt. states that he slept well last night. Mental Status/Objective Patient Orientation: Person, Place, Time, Situation ADL-Treatment Therapy Code Descriptions/Definitions Functional [place] Measure: 0=Not Assessed/NA 4=Minimal Assistance 1=Total Assistance 5=Supervision or Setup 2=Maximal Assistance 6=Modified [place] 3=Moderate Assistance 7=Complete IndependenceSCALE: Activities may be completed with or without assistive devices. 4-Xvempndpql-gpiflob completes the activity by him/herself with no assistance from a helper. 5-Set-up or Clean-up Assistance-helper sets up or cleans up; patient completes activity. [place] assists only prior to or following the activity. 4-Supervision or Touching Assistance-helper provides verbal cues and/or touching/steadying and/or contact guard assistance as patient completes activity. Assistance may be provided throughout the activity or intermittently. 3-Partial/Moderate Assistance-helper does LESS THAN HALF the effort. [place] lifts, holds or supports trunk or limbs, but provides less than half the effort. 2-Substantial/Maximal Assistance-helper does MORE THAN HALF the effort. [place] lifts or holds trunk or limbs and provides more than half the effort. 4-Cjhjwzjur-tysdjl does ALL the effort. Patient does none of the effort to complete the activity. Or, the assistance of 2 or more helpers is required for the patient to complete the activity. If activity was not attempted, code reason: 7-Patient Refused. 9-Not Applicable-not attempted and the patient did not perform the activity before the current illness, exacerbation or injury. 10-Not Attempted due to Environmental Limitations-(lack of equipment, weather restraints, etc.). 88-Not Attempted due to Medical Conditions or Safety Concerns. Eating (QC): 6 Shower/Bathe Self (QC): 4 (SBA seated at sink to complete sponge bath. Pt. is able to stand and wash all parts. Able to wash feet in sitting by bringing them up to him.) Upper Body Dressing (QC): 5 Lower Body Dressing (QC): 4 On/Off Footwear: 4 (Pt. is able to doff socks and shoes with AE, but is able to don them up by bringing them up to him.) Toileting Hygiene (QC): 4 Toilet Transfer (QC): 4 Other Treatment Pt. did well this date. Completed dynamic standing ADLs with SBA. Pt. able to bring feet up to him to don slipper socks and to wash feet. PT came in at end of OT treatment to assist with co-treatment for high level dynamic balance with skilled assistance x 2. PT assessed mobility at walker while OT finished final dressing tasks/brace donning. Pt. ambulating with PT at end of session. Education OT Patient Education: Correct positioning, Modified ADL techniques, Progress toward Goal/Update tx plan, Purpose of tx/functional activities, Reviewed precautions, Rehab process, Transfer techniques Teaching Recipient: Patient Teaching Methods: Demonstration, Discussion Response to Teaching: Verbalize Understanding, Return Demonstration OT Short Term Goals Short Term Goals Time Frame: Sep 09, 2020 Eatin Oral hygiene: 4 Toileting hygiene: 3 Shower/bathe self: 4 Upper body dressin Lower body dressin Putting on/taking off footwear: 3 OT Fpc Goals Fpc Goals Time Frame: September 23, 2020 Eating (QC): 6 Oral Hygiene (QC): 6 Toileting Hygiene (QC): 6 Shower/Bathe Self (QC): 4 Upper Body Dressing (QC): 5 Lower Body Dressing (QC): 4 On/Off Footwear (QC): 4 Additional Goals: 1-Demonstrate ADL Tasks, 2-Verbalize Understanding, 3- ImproveStrength/Lukas 1=Demonstrate adherence to instructed precautions during ADL tasks. 2=Patient will verbalize/demonstrate understanding of assistive devices/modifications for ADL. 3=Patient will improve strength/tolerance for activity to enable patient to perform ADL's. OT Education/Plan Problem List/Assessment Assessment: Decreased Activ Tolerance Discharge Recommendations Plan/Recommendations: Continue POC Therapy Discharge Recommendati: Home & Family Treatment Plan/Plan of Care Treatment,Training & Education: Yes Patient would benefit from OT for education, treatment and training to promote independence in ADL's, mobility, safety and/or upper extremity function for ADL's. Plan of Care: ADL Retraining, Functional Mobility, Group Exercise/Act as Ind, UE Funct Exercise/Act Treatment Duration: September 23, 2020 Frequency: At least 5 of 7 days/Wk (IRF) Estimated Hrs Per Day: 1.5 hours per day Agreement: Yes Rehab Potential: Good Time/GCodes Start Time: 08:15 Stop Time: 09:15 Total Time Billed (hr/min): 60 Billed Treatment Time [id number] 1, ADL x 45minutes [id number] ADL x 15minutes- Co-treatment with PT. Please see above note for designated roles. LILIAN TURNER OT Sep 10, 2020 09:17
--- NOTE | 2020-09-10 09:19 | Physical Therapy Daily Note ---
PT Daily Note-Current Subjective Patient upright with OT pre tx, reports 1-3/10 pain in back and 5/10 pain in R hip. Patient consented to treatment. Appearance Patient seated upright in chair post tx, with call button and tray within reach and in room. All needs met. Mental Status Patient Orientation: Person, Place, Time, Normal For Age Transfers SCALE: Activities may be completed with or without assistive devices. 7-Zbiefjmloo-uizneoe completes the activity by him/herself with no assistance from a helper. 5-Set-up or Clean-up Assistance-helper sets up or cleans up; patient completes activity. [place] assists only prior to or following the activity. 4-Supervision or Touching Assistance-helper provides verbal cues and/or touching/steadying and/or contact guard assistance as patient completes activity. Assistance may be provided throughout the activity or intermittently. 3-Partial/Moderate Assistance-helper does LESS THAN HALF the effort. [place] lifts, holds or supports trunk or limbs, but provides less than half the effort. 2-Substantial/Maximal Assistance-helper does MORE THAN HALF the effort. [place] lifts or holds trunk or limbs and provides more than half the effort. 3-Hjuleckpe-yuwcyt does ALL the effort. Patient does none of the effort to compl ete the activity. Or, the assistance of 2 or more helpers is required for the patient to complete the activity. If activity was not attempted, code reason: 7-Patient Refused. 9-Not Applicable-not attempted and the patient did not perform the activity before the current illness, exacerbation or injury. 10-Not Attempted due to Environmental Limitations-(lack of equipment, weather restraints, etc.). 88-Not Attempted due to Medical Conditions or Safety Concerns. Sit to Stand (QC): 5 Gait Training Does the Patient Walk?: Yes Distance: 100', 600' Walk 10 feet (QC): 6 Walk 50 ft with 2 Turns(QC): 6 Walk 150 ft (QC): 6 Gait Assistive Device: FWW Patient demonstrated smoother gait pattern, with less limping and more stability in trunk. Patient began to show mild fatigue with a wider RADHA and more trunk sway at end of final ambulation cycle, specifically the last 100'. Exercises Standing: Floor clock (10 reps), Heel/toe raises, Mini squats (10 reps) Standing Reps: 15 NuStep Minutes: 16 NuStep Workload: 3 Treatments Session focused on LE strengthening, endurance with gait and therapeutic exercise, and improved independent functional mobility. Co-treated with OT for 15 minutes secondary to patient overall impairments, OT focused on ADL's and PT focused on transfers and instruction with brace don/doffing. Assessment Current Status: Good Progress Patient demonstrates better gait and exercise tolerance, lower pain ratings today, and improved functional independence with ADL's and mobility PT Short Term Goals Short Term Goals Time Frame: Sep 09, 2020 Roll Left & Right: 5 Sit to lyin Lying to sitting on side of be: 5 Sit to stand: 4 Chair/veu-lt-dsxxr transfer: 4 Toilet transfer: 4 Walk 10 feet: 5 Walk 50 feet with two turns: 5 Walk 150 feet: 5 PT [employer] Food Service Supervisor Goals Nursing Home Goals PT [employer] Food Service Supervisor Goals Time Frame: September 23, 2020 Roll Left & Right (QC): 6 Sit to Lying (QC): 6 Lying-Sitting on Side/Bed(QC): 6 Sit to Stand (QC): 6 Chair/Dsa-zq-Egnyl Xfer(QC): 6 Toilet Transfer (QC): 6 Car Transfer (QC): 6 Does the Patient Walk: Yes Walk 10 feet (QC): 6 Walk 50ft with 2 Turns (QC): 6 Walk 150 ft (QC): 6 Walking 10ft on Uneven Surface: 6 1 Step (curb) (QC): 6 4 Steps (QC): 6 12 Steps (QC): 4 Picking up an Object (QC): 88 Wheel 50 feet with 2 turns (QC: 88 Wheel 150 feet: 88 PT Plan Problem List Problem List: Activity Tolerance, Functional Strength, Safety, Balance, Gait, Transfer, Bed Mobility, ROM Treatment/Plan Treatment Plan: Continue Plan of Care Treatment Plan: Bed Mobility, Education, Functional Activity Lukas, Functional Strength, Group Therapy, Gait, Safety, Therapeutic Exercise, Transfers Treatment Duration: September 23, 2020 Frequency: At least 5 of 7 days/Wk (IRF) Estimated Hrs Per Day: 1.5 hours per day Patient and/or Family Agrees t: Yes Safety Risks/Education Patient Education: Gait Training, Transfer Techniques, Correct Positioning, Safety Issues Teaching Recipient: Patient Teaching Methods: Demonstration, Discussion Response to Teaching: Verbalize Understanding, Return Demonstration Time/GCodes Time In: 0900 Time Out: 1000 Total Billed Treatment Time: 60 Total Billed Treatment 1 visit: EX x2: 30' GT: 15' FA: 15' Co-treated with OT , PT treated CASSIA MORROW PT Sep 10, 2020 09:19
--- NOTE | 2020-09-10 10:43 | PM&R Progress Note ---
Subjective HPI/CC On Admission Date Seen by Provider: Sep 10, 2020 Time Seen by Provider: 12:45 Subjective/Events-last exam 09/10/20: Pt doing pretty well Much improved status DC planned for Monday okay and pt okay with that plan Dramatic improvement just Im the last two days Bowels are still moving with laxatives 09/09/20: Pt much improved now, just starting yesterday Really walking around well now Bowels moving okay but he wants to still stay on Laxatives Discharge is planned for 09/1409/08/20: Pt walking really well but upset with therapy and dietary and everyone who has treated him Pt very negative about outlook Left hip pain is reported but he walks without any problems at all Overall doing much better 09/07/20: Pt up walking around but he thinks he is not doing well Son around in the rehab unit Sodium level 133 Bowels moved yesterday Walked well but will try to help him have a positive outlook Hgb of 10 UA normal 09/06/20: Multiple complaints at bedside Very somatic and negative outlook which is chronic Up to commode and will be able to resume normal posture out of bed at 1400 per spine surgery Doing well otherwise Drainage is improved Dysuria 09/05/20: Complex issues Difficulty sleeping due to pain K-pad will be placed for right hip pain Updated patient and on the plan Slow progress Drain dislodged so Dr Benitez recommended supine for 48 hours but he has not had any headache. Repeats himself a lot, immediate recall is definitely poor Mag citrate caused complete evacuation of bowels and he was up 5 times with diarrhea [place] without aides on 09/04/20: Doing well Right hip pain an issue, xray revealed normal alignment of replacement hardware Drain became dislodged will reach out to Hemanth about that Small BM only so gave Mag Citrate at bedside PVR only 60-100cc 09/03/20: Pt doing pretty well Right hip pain is an issue Will obtain KUB abdominal X-ray to check for obstruction but likely just early ileus but he is passing a lot of gas Bladder scanning will be performed due to high risk for retention since he had retention over at [place] Xarelto will be restarted on Monday per spine surgery Gets dizzy after eating and vomited last night after dinner Hgb 9.4 Sodium level 133 Review of Systems General: Fatigue, Malaise Musculoskeletal: back pain, leg pain Neurological: Weakness Objective Exam Vital Signs Vital Signs Date Time Temp Pulse Resp B/P (MAP) Pulse Ox O2 Delivery O2 Flow Rate FiO2 09/10/20 20:25 Room Air 09/10/20 19:27 36.7 59 18 123/66 (85) 95 Capillary Refill : General Appearance: No Apparent Distress, WD/WN, Chronically ill HEENT: PERRL/EOMI, Normal ENT Inspection, Pharynx Normal Neck: Full Range of Motion, Normal Inspection, Non Tender, Supple, Carotid Bruit Respiratory: Chest Non Tender, Lungs Clear, Normal Breath Sounds, No Accessory Muscle Use, No Respiratory Distress Cardiovascular: Regular Rate, Rhythm, No Edema, No Gallop, No JVD, No Murmur, Normal Peripheral Pulses Gastrointestinal: Normal Bowel Sounds, No Organomegaly, No Pulsatile Mass, Non Tender, Soft Back: Decreased Range of Motion, Muscle Spasm, Vertebral Tenderness Extremity: Normal Capillary Refill, Normal Inspection, Normal Range of Motion, Non Tender, No Calf Tenderness, No Pedal Edema Neurologic/Psychiatric: Alert, Oriented x3, television servicer II-XII Norm as Tested, Abnormal Gait, Depressed Affect, Motor Weakness (lower legs 4/5) Skin: Normal Color, Warm/Dry Lymphatic: No Adenopathy Results/Procedures Lab Patient resulted labs reviewed. [facility]IM Transfers Therapy Code Descriptions/Definitions Functional [place] Measure: 0=Not Assessed/NA 4=Minimal Assistance 1=Total Assistance 5=Supervision or Setup 2=Maximal Assistance 6=Modified [place] 3=Moderate Assistance 7=Complete IndependenceSCALE: Activities may be completed with or without assistive devices. 3-Kkwtswvllb-mmkgkvs completes the activity by him/herself with no assistance from a helper. 5-Set-up or Clean-up Assistance-helper sets up or cleans up; patient completes activity. [place] assists only prior to or following the activity. 4-Supervision or Touching Assistance-helper provides verbal cues and/or touching/steadying and/or contact guard assistance as patient completes activity. Assistance may be provided throughout the activity or intermittently. 3-Partial/Moderate Assistance-helper does LESS THAN HALF the effort. [place] lifts, holds or supports trunk or limbs, but provides less than half the effort. 2-Substantial/Maximal Assistance-helper does MORE THAN HALF the effort. [place] lifts or holds trunk or limbs and provides more than half the effort. 8-Okgzkqipo-pogyoh does ALL the effort. Patient does none of the effort to complete the activity. Or, the assistance of 2 or more helpers is required for the patient to complete the activity. If activity was not attempted, code reason: 7-Patient Refused. 9-Not Applicable-not attempted and the patient did not perform the activity before the current illness, exacerbation or injury. 10-Not Attempted due to Environmental Limitations-(lack of equipment, weather restraints, etc.). 88-Not Attempted due to Medical Conditions or Safety Concerns. Roll Left to Right (QC): 6 Sit to Lying (QC): 6 Sit to Stand (QC): 5 Chair/Llg-gq-[place] Xfer(QC): 5 Car Transfer (QC): 6 Gait Training Does the Patient Walk?: Yes Distance: 100', 600' Walk 10 feet (QC): 6 Walk 50 ft with 2 Turns(QC): 6 Walk 150 ft (QC): 6 Walking 10ft/uneven surface-QC: 6 Gait Persons Needed: 0 Gait Assistive Device: FWW Wheelchair Training Does the Pt Use a Wheelchair?: No Wheel 50 ft with 2 turns (QC): 9 Wheel 150 ft (QC): 9 Stair Training Stair Training: Handrails/: 1 handrail #of Steps: 4 1 Step (curb) (QC): 5 4 Steps (QC): 5 12 Steps (QC): 88 Stairs: Pattern: Step to Balance Picking up an Object (QC): 88 ADL-Treatment Eating (QC): 6 Oral Hygiene (QC): 4 (SBA to stand at sink and brush teeth. Pt. educated in golfers lift technique to bend slightly.) Bathing Location: L Arm, R Arm, L Upper Leg, R Upper Leg, Chest, Abdomen, Perineal Area Shower/Bathe Self (QC): 4 (SBA seated at sink to complete sponge bath. Pt. is able to stand and wash all parts. Able to wash feet in sitting by bringing them up to him.) Upper Body Dressing (QC): 5 Lower Body Dressing (QC): 4 On/Off Footwear (QC): 4 (Pt. is able to doff socks and shoes with AE, but is able to don them up by bringing them up to him.) Toileting Hygiene (QC): 4 Toilet Transfer (QC): 4 Assessment/Plan Assessment and Plan Assess & Plan/Chief Complaint Assessment: s/p spine surgery from lumbar stenosis PAF holding OAC CAD PVD Depression Acute urinary retention Post op constipation HTN CRI Plan: IRF protocol Urinary management Pain control 09/03/20: Pain control Left hip xray Monitor closely 09/04/20: Continued bowel issues Mag citrate Pain control Monitor drain or DC it? 09/05/20: Drain DC Supine for 48 hours Monitor closely Right hip pain is an issue 09/06/20: Check UA Upright today after 1400 Monitor closely 09/07/20: Monitor BP and pain Doing well 09/08/20: Supportive care Help him see his progress in a positive way 09/09/20: Major progress and improvement Monitor closely 09/10/20: Improved status Continue PT OT DC Monday (1) S/P spinal surgery (2) Urinary retention (3) Constipation (4) PAF (paroxysmal atrial fibrillation) (5) CAD (coronary artery disease) (6) RAIMUNDO treated with BiPAP (7) Lumbar stenosis (8) Intractable low back pain Status: Acute (9) Sciatic nerve pain Status: Acute (10) Chronic pain Status: Acute (11) Renal insufficiency Status: Acute PONCE KAUR DO Sep 10, 2020 10:43
--- NOTE | 2020-09-10 11:59 | Physical Therapy Daily Note ---
PT Daily Note-Current Subjective Patient was supine pre tx, reported 1/10 current pain, and consented to treatment. Appearance Patient left supine in bed, post tx, with call button within reach and tray table nearby, in room. Mental Status Patient Orientation: Person, Place, Time, Normal For Age Transfers SCALE: Activities may be completed with or without assistive devices. 2-Szxjvhccig-bysyovp completes the activity by him/herself with no assistance from a helper. 5-Set-up or Clean-up Assistance-helper sets up or cleans up; patient completes activity. [place] assists only prior to or following the activity. 4-Supervision or Touching Assistance-helper provides verbal cues and/or touching/steadying and/or contact guard assistance as patient completes act ivity. Assistance may be provided throughout the activity or intermittently. 3-Partial/Moderate Assistance-helper does LESS THAN HALF the effort. [place] lifts, holds or supports trunk or limbs, but provides less than half the effort. 2-Substantial/Maximal Assistance-helper does MORE THAN HALF the effort. [place] lifts or holds trunk or limbs and provides more than half the effort. 1-Jqfnousma-onwrgz does ALL the effort. Patient does none of the effort to complete the activity. Or, the assistance of 2 or more helpers is required for the patient to complete the activity. If activity was not attempted, code reason: 7-Patient Refused. 9-Not Applicable-not attempted and the patient did not perform the activity before the current illness, exacerbation or injury. 10-Not Attempted due to Environmental Limitations-(lack of equipment, weather restraints, etc.). 88-Not Attempted due to Medical Conditions or Safety Concerns. Roll Left & Right (QC): 6 Sit to Lying (QC): 6 Lying to Sitting/Side of Bed(Q: 6 Sit to Stand (QC): 6 Patient maintains good balance with all transfers. Gait Training Does the Patient Walk?: Yes Distance: 1000' Walk 10 feet (QC): 6 Walk 50 ft with 2 Turns(QC): 6 Walk 150 ft (QC): 6 Gait Assistive Device: FWW Patient reported 5/10 pain in hip while walking, but noted his back pain was not too bad. Occasionally patient takes big steps to accommodate for hip pain, but maintains balance throughout. Patient denied lightheadedness during this session. Exercises Supine Ex: Ankle pumps, Quad Set, Heel Slides, Short Arc Quads (blue bolster ) Supine Reps: 20 Treatments gait training, transfers, LE strengthening Assessment Current Status: Good Progress Good endurance with gait, continued reports of hip pain affecting mobility, smoother and less antalgic sit <-> stand transfers demonstrated PT Short Term Goals Short Term Goals Time Frame: Sep 09, 2020 Roll Left & Right: 5 Sit to lyin Lying to sitting on side of be: 5 Sit to stand: 4 Chair/xco-qb-ktlig transfer: 4 Toilet transfer: 4 Walk 10 feet: 5 Walk 50 feet with two turns: 5 Walk 150 feet: 5 PT Rotary Dump Operator Goals Rotary Dump Operator Goals PT Rotary Dump Operator Goals Time Frame: September 23, 2020 Roll Left & Right (QC): 6 Sit to Lying (QC): 6 Lying-Sitting on Side/Bed(QC): 6 Sit to Stand (QC): 6 Chair/Zfl-ha-Bcakd Xfer(QC): 6 Toilet Transfer (QC): 6 Car Transfer (QC): 6 Does the Patient Walk: Yes Walk 10 feet (QC): 6 Walk 50ft with 2 Turns (QC): 6 Walk 150 ft (QC): 6 Walking 10ft on Uneven Surface: 6 1 Step (curb) (QC): 6 4 Steps (QC): 6 12 Steps (QC): 4 Picking up an Object (QC): 88 Wheel 50 feet with 2 turns (QC: 88 Wheel 150 feet: 88 PT Plan Problem List Problem List: Activity Tolerance, Functional Strength, Safety, Balance, Gait, Transfer, Bed Mobility, ROM Treatment/Plan Treatment Plan: Continue Plan of Care Treatment Plan: Bed Mobility, Education, Functional Activity Lukas, Functional Strength, Group Therapy, Gait, Safety, Therapeutic Exercise, Transfers Treatment Duration: September 23, 2020 Frequency: At least 5 of 7 days/Wk (IRF) Estimated Hrs Per Day: 1.5 hours per day Patient and/or Family Agrees t: Yes Safety Risks/Education Patient Education: Gait Training, Transfer Techniques, Correct Positioning, Safety Issues Teaching Recipient: Patient Teaching Methods: Demonstration, Discussion Response to Teaching: Verbalize Understanding, Return Demonstration Time/GCodes Time In: 1130 Time Out: 1200 Total Billed Treatment Time: 30 Total Billed Treatment 1 visit: EX: 15' GT: 15' CASSIA MORROW PT Sep 10, 2020 11:59
--- NOTE | 2020-09-10 14:56 | Occupational Ther Daily Note ---
OT Current Status-Daily Note Subjective 7/10 pain reported in right hip. Nursing notified and gave pt. pain meds. Mental Status/Objective Patient Orientation: Person, Place, Time, Situation ADL-Treatment Therapy Code Descriptions/Definitions Functional [place] Measure: 0=Not Assessed/NA 4=Minimal Assistance 1=Total Assistance 5=Supervision or Setup 2=Maximal Assistance 6=Modified [place] 3=Moderate Assistance 7=Complete IndependenceSCALE: Activities may be completed with or without assistive devices. 3-Nqdmokbtss-fejcezl completes the activity by him/herself with no assistance from a helper. 5-Set-up or Clean-up Assistance-helper sets up or cleans up; patient completes activity. [place] assists only prior to or following the activity. 4-Supervision or Touching Assistance-helper provides verbal cues and/or touching/steadying and/or contact guard assistance as patient completes activity. Assistance may be provided throughout the activity or intermittently. 3-Partial/Moderate Assistance-helper does LESS THAN HALF the effort. [place] lifts, holds or supports trunk or limbs, but provides less than half the effort. 2-Substantial/Maximal Assistance-helper does MORE THAN HALF the effort. [place] l ifts or holds trunk or limbs and provides more than half the effort. 1-Tzawtfrzs-guulgc does ALL the effort. Patient does none of the effort to complete the activity. Or, the assistance of 2 or more helpers is required for the patient to complete the activity. If activity was not attempted, code reason: 7-Patient Refused. 9-Not Applicable-not attempted and the patient did not perform the activity before the current illness, exacerbation or injury. 10-Not Attempted due to Environmental Limitations-(lack of equipment, weather restraints, etc.). 88-Not Attempted due to Medical Conditions or Safety Concerns. Other Treatment Pt. agrees to treatment. Stands from chair with walker, with Mod I. Pt. ambulates with SBA to therapy gym and walker. Completes arm bike x 10 minutes at min resistance for overall endurance and strengthening. Pt. takes rest break before ambulating back to room. Pt. transfers to side of bed, and practices doffing brace, which he is able to do. Nursing in room and is to change dressing. Nursing in with pt. at end of OT session. Education OT Patient Education: Correct positioning, Exercise program, Modified ADL techniques, Progress toward Goal/Update tx plan, Purpose of tx/functional activities, Reviewed precautions, Rehab process, Transfer techniques Teaching Recipient: Patient Teaching Methods: Demonstration, Discussion Response to Teaching: Verbalize Understanding, Return Demonstration OT Short Term Goals Short Term Goals Time Frame: Sep 09, 2020 Eatin Oral hygiene: 4 Toileting hygiene: 3 Shower/bathe self: 4 Upper body dressin Lower body dressin Putting on/taking off footwear: 3 OT Assisted Goals Insurance Agents Supervisor Goals Time Frame: September 23, 2020 Eating (QC): 6 Oral Hygiene (QC): 6 Toileting Hygiene (QC): 6 Shower/Bathe Self (QC): 4 Upper Body Dressing (QC): 5 Lower Body Dressing (QC): 4 On/Off Footwear (QC): 4 Additional Goals: 1-Demonstrate ADL Tasks, 2-Verbalize Understanding, 3- ImproveStrength/Lukas 1=Demonstrate adherence to instructed precautions during ADL tasks. 2=Patient will verbalize/demonstrate understanding of assistive devices/modifications for ADL. 3=Patient will improve strength/tolerance for activity to enable patient to perform ADL's. OT Education/Plan Problem List/Assessment Assessment: Decreased Activ Tolerance Discharge Recommendations Plan/Recommendations: Continue POC Treatment Plan/Plan of Care Treatment,Training & Education: Yes Patient would benefit from OT for education, treatment and training to promote independence in ADL's, mobility, safety and/or upper extremity function for ADL's. Plan of Care: ADL Retraining, Functional Mobility, Group Exercise/Act as Ind, UE Funct Exercise/Act Treatment Duration: September 23, 2020 Frequency: At least 5 of 7 days/Wk (IRF) Estimated Hrs Per Day: 1.5 hours per day Agreement: Yes Rehab Potential: Good Time/GCodes Start Time: 13:30 Stop Time: 14:00 Total Time Billed (hr/min): 30 Billed Treatment Time 1, Ex x 15minutes, FA x 15minutes LILIAN TURNER OT Sep 10, 2020 14:56
[2020-09-10] MEDS: RIVAROXABAN 20 MG TABLET (XARELTO) PO SCH (17:10)
[2020-09-10 19:27] VITALS: BP 123/66
[2020-09-11] MEDS: LOSARTAN 25 MG (COZAAR) TAB PO SCH (07:46)
[2020-09-11] MEDS: amLODIPine 10 MG (NORVASC) TAB PO SCH (07:46)
[2020-09-11 08:00] VITALS: BP 128/58
[2020-09-11] MEDS: DOCUSATE SODIUM 100 MG (COLACE) CAP PO SCH ×4 (08:06→20:43)
[2020-09-11] MEDS: VITAMIN D3 25 MCG (1,000 UNITS) TABLET PO SCH (08:07)
[2020-09-11] MEDS: LORATADINE (CLARITIN) 10 MG TAB PO SCH (08:07)
[2020-09-11] MEDS: PANTOPRAZOLE 20 MG TABLET (PROTONIX) PO SCH (08:07)
[2020-09-11] MEDS: SENNA W/DOCUSATE (SENOKOT S) TABLET PO SCH ×2 (08:07→20:44)
[2020-09-11] MEDS: ONDANSETRON 4 MG (ZOFRAN) ORAL DISSOLVE TAB PO PRN (08:07)
[2020-09-11] MEDS: ASCORBIC ACID (VIT C) 500 MG TABLET PO SCH (08:07)
[2020-09-11] MEDS: ACETAMINOPHEN 650 MG PO SCH ×2 (08:08→17:20)
[2020-09-11] MEDS: MOVE FREE JOINT HEALTH PO SCH ×2 (08:08→17:20)
[2020-09-11] MEDS: GINGER ROOT 550 MG PO SCH ×2 (08:08→17:21)
--- NOTE | 2020-09-11 09:31 | Occupational Ther Daily Note ---
OT Current Status-Daily Note Subjective (75) Pt AxO. In bed, nursing present. States 3/10 pain in R hip. Pain in back due to skin tear. Nursing addresses. Agrees to sponge bath. OT/ PT co-treat from [id number] with OT addressing back precautions/ UE abilities as PT addresses transfers/ gait/ LE abilities. OT individual tx [id number]: Pt AxO, upright in recliner. Denies toileting, desires to complete UE ex in chair. Mental Status/Objective Patient Orientation: Person, Place, Situation, Normal For Age ADL-Treatment Therapy Code Descriptions/Definitions Functional [place] Measure: 0=Not Assessed/NA 4=Minimal Assistance 1=Total Assistance 5=Supervision or Setup 2=Maximal Assistance 6=Modified [place] 3=Moderate Assistance 7=Complete IndependenceSCALE: Activities may be completed with or without assistive devices. 4-Ehxzqglane-tygdifl completes the activity by him/herself with no assistance from a helper. 5-Set-up or Clean-up Assistance-helper sets up or cleans up; patient completes activity. [place] assists only prior to or following the activity. 4-Supervision or Touching Assistance-helper provides verbal cues and/or touching/steadying and/or contact guard assistance as patient completes activity. Assistance may be provided throughout the activity or intermittently. 3-Partial/Moderate Assistance-helper does LESS THAN HALF the effort. [place] lifts, holds or supports trunk or limbs, but provides less than half the effort. 2-Substantial/Maximal Assistance-helper does MORE THAN HALF the effort. [place] lifts or holds trunk or limbs and provides more than half the effort. 3-Jeqahvrex-tobzyz does ALL the effort. Patient does none of the effort to complete the activity. Or, the assistance of 2 or more helpers is required for the patient to complete the activity. If activity was not attempted, code reason: 7-Patient Refused. 9-Not Applicable-not attempted and the patient did not perform the activity before the current illness, exacerbation or injury. 10-Not Attempted due to Environmental Limitations-(lack of equipment, weather restraints, etc.). 88-Not Attempted due to Medical Conditions or Safety Concerns. Eating (QC): 6 Oral Hygiene (QC): 6 Bathing Location: L Arm, R Arm, L Upper Leg, R Upper Leg, Chest, Abdomen, Buttocks, Perineal Area Shower/Bathe Self (QC): 4 (SBA in stance, s/u in sit for sponge bath.) Upper Body Dressing (QC): 5 (s/u, completes TLSO in stance with IND.) Lower Body Dressing (QC): 5 (s/u with loose pants, able ot don without AE and adhere to precautions.) On/Off Footwear: 6 (IND shoes with shoe horn) Toileting Hygiene (QC): 4 (SBA, cues for back precautions. ) Toilet Transfer (QC): 4 (SBA, use of walke.r) Other Treatment Pt supine to sit with SBA. Sits EOB while nursing addresses back bandage. OT preps sponge bath. Pt sit to stand with SBA and ambulates to sink, sitting on commode placed in front of sink. Pt completes bathing/ dressing on commode/ in stance as outlined with increased time. Pt expresses an increase from 3/10 pain to 5/10 pain in hip. Pt sits EOB for rest break, ambulates with SBA-CGA to therapy gym from room without rest. Pt sits EOM, then stands at walker level, completing reaching/ dynamic balance task with CGA. Pt able to utilize child psychologist to crop picker medium to small items from floor and transfers them to L hand without support from walker BUE. OT/ PT co-treat from [id number] with OT addressing back precautions/ UE abilities as PT addresses transfers/ gait/ LE abilities. Pt completes standing reach/ reaction with balloon batting with PT at side/ CGA. Pt able to complete 2 rounds with upgrade to complete without support of walker (though placed in front of pt for safety). Good reaction, good adherence to back precautions and fair standing balance. Pt left with PT end of session. Pt completes 4 ex in sit with 10 reps bilaterally: back flies, shoulder flexion, bicep flexion, tricep extension. Pt expresses pain in R shoulder post back flies, educated to not complete this ex. Edu to complete 3 ex 2x daily. Cues for proper movement and cues for reps. Pt remains in chair end of session, all needs met, call light in reach. Education OT Patient Education: Correct positioning, Exercise program, Home exercise program, Progress toward Goal/Update tx plan, Purpose of tx/functional activities, Reviewed precautions, Safety issues, Transfer techniques Teaching Recipient: Patient Teaching Methods: Demonstration, Discussion Response to Teaching: Verbalize Understanding, Return Demonstration OT Short Term Goals Short Term Goals Time Frame: Sep 09, 2020 Eatin Oral hygiene: 4 Toileting hygiene: 3 Shower/bathe self: 4 Upper body dressin Lower body dressin Putting on/taking off footwear: 3 OT Carbide Operator Goals Carbide Operator Goals Time Frame: September 23, 2020 Eating (QC): 6 Oral Hygiene (QC): 6 Toileting Hygiene (QC): 6 Shower/Bathe Self (QC): 4 Upper Body Dressing (QC): 5 Lower Body Dressing (QC): 4 On/Off Footwear (QC): 4 Additional Goals: 1-Demonstrate ADL Tasks, 2-Verbalize Understanding, 3- ImproveStrength/Lukas 1=Demonstrate adherence to instructed precautions during ADL tasks. 2=Patient will verbalize/demonstrate understanding of assistive devices/modifications for ADL. 3=Patient will improve strength/tolerance for activity to enable patient to perform ADL's. OT Education/Plan Problem List/Assessment Assessment: Decreased Activ Tolerance, Impaired Funct Balance, Impaired I ADL's, Impaired Self-Care Skills, Restricted Funct UE ROM Discharge Recommendations Plan/Recommendations: Continue POC Therapy Discharge Recommendati: Home & Family Equpiment Recommendations-D/C: Hip Kit Treatment Plan/Plan of Care Treatment,Training & Education: Yes Patient would benefit from OT for education, treatment and training to promote independence in ADL's, mobility, safety and/or upper extremity function for ADL's. Plan of Care: ADL Retraining, Functional Mobility, Group Exercise/Act as Ind, UE Funct Exercise/Act Treatment Duration: September 23, 2020 Frequency: At least 5 of 7 days/Wk (IRF) Estimated Hrs Per Day: 1.5 hours per day Agreement: Yes Rehab Potential: Good Time/GCodes Start Time: 08:15 (1330) Stop Time: 09:30 (1345) Total Time Billed (hr/min): 90 Billed Treatment Time OT/ PT co-treat from [id number] with OT addressing back precautions/ UE abilities as PT addresses transfers/ gait/ LE abilities. [id number]: 1, ADL 3, EX 2 = 75 [id number]: 1, EX (15) Total: 90 DANIEL DALAL OTR Sep 11, 2020 09:31
--- NOTE | 2020-09-11 09:41 | Physical Therapy Daily Note ---
PT Daily Note-Current Subjective Patient seated on mat pre tx, with OT, complained of 5/10 pain in his hip and mild pain in back. Patient consented to therapy. Appearance Patient supine in bed post tx, with call button within reach and tray table nearby. All needs met. Mental Status Patient Orientation: Person, Place, Time, Normal For Age Transfers SCALE: Activities may be completed with or without assistive devices. 1-Mdowsafaiw-twxfixb completes the activity by him/herself with no assistance from a helper. 5-Set-up or Clean-up Assistance-helper sets up or cleans up; patient completes activity. [place] assists only prior to or following the activity. 4-Supervision or Touching Assistance-helper provides verbal cues and/or touching/steadying and/or contact guard assistance as patient completes activity. Assistance may be provided throughout the activity or intermittently. 3-Partial/Moderate Assistance-helper does LESS THAN HALF the effort. [place] lifts, holds or supports trunk or limbs, but provides less than half the effort. 2-Substantial/Maximal Assistance-helper does MORE THAN HALF the effort. [place] lifts or holds trunk or limbs and provides more than half the effort. 0-Jocjwxoio-kxgwtv does ALL the effort. Patient does none of the effort to complete the activity. Or, the assistance of 2 or more helpers is required for the patient to complete the activity. If activity was not attempted, code reason: 7-Patient Refused. 9-Not Applicable-not attempted and the patient did not perform the activity be fore the current illness, exacerbation or injury. 10-Not Attempted due to Environmental Limitations-(lack of equipment, weather restraints, etc.). 88-Not Attempted due to Medical Conditions or Safety Concerns. Roll Left & Right (QC): 6 Sit to Lying (QC): 6 Sit to Stand (QC): 6 Gait Training Does the Patient Walk?: Yes Distance: 120'x2 Walk 10 feet (QC): 6 Walk 50 ft with 2 Turns(QC): 6 Gait Assistive Device: FWW Patient is steady with all gait, maintains consistent stride length, good balance demonstrated. Exercises NuStep Minutes: 10 NuStep Workload: 4 Treatments Co-treated with OT secondary to patient overall improvement with mobility to challenge dynamic balance with UE reaching outside of RADHA. Utilized balloon batting activity, OT instructed in patient UE movement and PT cued for balance and twisting precuations. Patient was able to complete activity for 5 min x2. Patient complained of lightheadedness toward end of both activities, required extensive rest breaks before patient was ready to restart. BP was measured to be 119/59 seated. Patient walked to the [facility] for some aerobic exercise while safe from falls secondary to lightheadedness. Assessment Current Status: Fair Progress Patient was limited with activity secondary to reports of lightheadedness. Patient was willing to continue treatment despite complaints, plan to continue to improve upright endurance with functional mobility for safe return home. PT Short Term Goals Short Term Goals Time Frame: Sep 09, 2020 Roll Left & Right: 5 Sit to lyin Lying to sitting on side of be: 5 Sit to stand: 4 Chair/yqc-pv-dbyaj transfer: 4 Toilet transfer: 4 Walk 10 feet: 5 Walk 50 feet with two turns: 5 Walk 150 feet: 5 PT Motor Equipment Commanding Officer Goals Motor Equipment Commanding Officer Goals PT Care Home Goals Time Frame: September 23, 2020 Roll Left & Right (QC): 6 Sit to Lying (QC): 6 Lying-Sitting on Side/Bed(QC): 6 Sit to Stand (QC): 6 Chair/Bic-ii-Sfpuo Xfer(QC): 6 Toilet Transfer (QC): 6 Car Transfer (QC): 6 Does the Patient Walk: Yes Walk 10 feet (QC): 6 Walk 50ft with 2 Turns (QC): 6 Walk 150 ft (QC): 6 Walking 10ft on Uneven Surface: 6 1 Step (curb) (QC): 6 4 Steps (QC): 6 12 Steps (QC): 4 Picking up an Object (QC): 88 Wheel 50 feet with 2 turns (QC: 88 Wheel 150 feet: 88 PT Plan Problem List Problem List: Activity Tolerance, Functional Strength, Safety, Balance, Gait, Transfer, Bed Mobility, ROM Treatment/Plan Treatment Plan: Continue Plan of Care Treatment Plan: Bed Mobility, Education, Functional Activity Lukas, Functional Strength, Group Therapy, Gait, Safety, Therapeutic Exercise, Transfers Treatment Duration: September 23, 2020 Frequency: At least 5 of 7 days/Wk (IRF) Estimated Hrs Per Day: 1.5 hours per day Patient and/or Family Agrees t: Yes Safety Risks/Education Patient Education: Gait Training, Transfer Techniques, Reviewed Precautions, Correct Positioning, Safety Issues Teaching Recipient: Patient Teaching Methods: Demonstration, Discussion Response to Teaching: Verbalize Understanding, Return Demonstration Time/GCodes Time In: 0900 Time Out: 1000 Total Billed Treatment Time: 60 Total Billed Treatment 1 visit: EX x3: 45' FA: 15' co-treat with OT from [id number] CASSIA MORROW PT Sep 11, 2020 09:41
--- NOTE | 2020-09-11 10:33 | PM&R Progress Note ---
Subjective HPI/CC On Admission Date Seen by Provider: Sep 11, 2020 Time Seen by Provider: 12:00 Subjective/Events-last exam 09/11/20: Patient doing very well Pleased with everything Incision looks good but skin around it is irritated so will confer with wound care BM++ 09/10/20: Pt doing pretty well Much improved status DC planned for Monday okay and pt okay with that plan Dramatic improvement just Im the last two days Bowels are still moving with laxatives 09/09/20: Pt much improved now, just starting yesterday Really walking around well now Bowels moving okay but he wants to still stay on Laxatives Discharge is planned for 09/1409/08/20: Pt walking really well but upset with therapy and dietary and everyone who has treated him Pt very negative about outlook Left hip pain is reported but he walks without any problems at all Overall doing much better 09/07/20: Pt up walking around but he thinks he is not doing well Son around in the rehab unit Sodium level 133 Bowels moved yesterday Walked well but will try to help him have a positive outlook Hgb of 10 UA normal 09/06/20: Multiple complaints at bedside Very somatic and negative outlook which is chronic Up to commode and will be able to resume normal posture out of bed at 1400 per spine surgery Doing well otherwise Drainage is improved Dysuria 09/05/20: Complex issues Difficulty sleeping due to pain K-pad will be placed for right hip pain Updated patient and on the plan Slow progress Drain dislodged so Dr Benitez recommended supine for 48 hours but he has not had any headache. Repeats himself a lot, immediate recall is definitely poor Mag citrate caused complete evacuation of bowels and he was up 5 times with diarrhea [place] without aides on 09/04/20: Doing well Right hip pain an issue, xray revealed normal alignment of replacement hardware Drain became dislodged will reach out to Hemanth about that Small BM only so gave Mag Citrate at bedside PVR only 60-100cc 09/03/20: Pt doing pretty well Right hip pain is an issue Will obtain KUB abdominal X-ray to check for obstruction but likely just early ileus but he is passing a lot of gas Bladder scanning will be performed due to high risk for retention since he had retention over at [facility] will be restarted on Monday per spine surgery Gets dizzy after eating and vomited last night after dinner Hgb 9.4 Sodium level 133 Review of Systems General: Fatigue Musculoskeletal: back pain Objective Exam Vital Signs Vital Signs Date Time Temp Pulse Resp B/P (MAP) Pulse Ox O2 Delivery O2 Flow Rate FiO2 09/11/20 20:40 Room Air 09/11/20 19:23 36.5 63 16 125/59 (81) 92 Capillary Refill : General Appearance: No Apparent Distress, WD/WN, Chronically ill HEENT: PERRL/EOMI, Normal ENT Inspection, Pharynx Normal Neck: Full Range of Motion, Normal Inspection, Non Tender, Supple, Carotid Bruit Respiratory: Chest Non Tender, Lungs Clear, Normal Breath Sounds, No Accessory Muscle Use, No Respiratory Distress Cardiovascular: Regular Rate, Rhythm, No Edema, No Gallop, No JVD, No Murmur, Normal Peripheral Pulses Gastrointestinal: Normal Bowel Sounds, No Organomegaly, No Pulsatile Mass, Non Tender, Soft Back: Decreased Range of Motion, Muscle Spasm, Vertebral Tenderness Extremity: Normal Capillary Refill, Normal Inspection, Normal Range of Motion, Non Tender, No Calf Tenderness, No Pedal Edema Neurologic/Psychiatric: Alert, 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 FIM Transfers Therapy Code Descriptions/Definitions Functional [place] Measure: 0=Not Assessed/NA 4=Minimal Assistance 1=Total Assistance 5=Supervision or Setup 2=Maximal Assistance 6=Modified [place] 3=Moderate Assistance 7=Complete IndependenceSCALE: Activities may be completed with or without assistive devices. 9-Xexpihjvnl-saggilh completes the activity by him/herself with no assistance from a helper. 5-Set-up or Clean-up Assistance-helper sets up or cleans up; patient completes activity. [place] assists only prior to or following the activity. 4-Supervision or Touching Assistance-helper provides verbal cues and/or touching/steadying and/or contact guard assistance as patient completes activity. Assistance may be provided throughout the activity or intermittently. 3-Partial/Moderate Assistance-helper does LESS THAN HALF the effort. [place] lifts, holds or supports trunk or limbs, but provides less than half the effort. 2-Substantial/Maximal Assistance-helper does MORE THAN HALF the effort. [place] lifts or holds trunk or limbs and provides more than half the effort. 6-Hvszgwusk-fslslx does ALL the effort. Patient does none of the effort to complete the activity. Or, the assistance of 2 or more helpers is required for the patient to complete the activity. If activity was not attempted, code reason: 7-Patient Refused. 9-Not Applicable-not attempted and the patient did not perform the activity before the current illness, exacerbation or injury. 10-Not Attempted due to Environmental Limitations-(lack of equipment, weather restraints, etc.). 88-Not Attempted due to Medical Conditions or Safety Concerns. Roll Left to Right (QC): 6 Sit to Lying (QC): 6 Sit to Stand (QC): 6 Chair/Pnd-ww-Tvylw Xfer(QC): 5 Car Transfer (QC): 6 Gait Training Does the Patient Walk?: Yes Distance: 120'x2 Walk 10 feet (QC): 6 Walk 50 ft with 2 Turns(QC): 6 Walk 150 ft (QC): 6 Walking 10ft/uneven surface-QC: 6 Gait Persons Needed: 0 Gait Assistive Device: FWW Wheelchair Training Does the Pt Use a Wheelchair?: No Wheel 50 ft with 2 turns (QC): 9 Wheel 150 ft (QC): 9 Stair Training Stair Training: Handrails/: 1 handrail #of Steps: 4 1 Step (curb) (QC): 5 4 Steps (QC): 5 12 Steps (QC): 88 Stairs: Pattern: Step to Balance Picking up an Object (QC): 88 ADL-Treatment Eating (QC): 6 Oral Hygiene (QC): 6 Bathing Location: L Arm, R Arm, L Upper Leg, R Upper Leg, Chest, Abdomen, Buttocks, Perineal Area Shower/Bathe Self (QC): 4 (SBA in stance, s/u in sit for sponge bath.) Upper Body Dressing (QC): 5 (s/u, completes TLSO in stance with IND.) Lower Body Dressing (QC): 5 (s/u with loose pants, able ot don without AE and adhere to precautions.) On/Off Footwear (QC): 6 (IND shoes with shoe horn) Toileting Hygiene (QC): 4 (SBA, cues for back precautions. ) Toilet Transfer (QC): 4 (SBA, use of walke.r) Assessment/Plan Assessment and Plan Assess & Plan/Chief Complaint Assessment: s/p spine surgery from lumbar stenosis PAF holding OAC CAD PVD Depression Acute urinary retention Post op constipation HTN CRI Plan: IRF protocol Urinary management Pain control 09/03/20: Pain control Left hip xray Monitor closely 09/04/20: Continued bowel issues Mag citrate Pain control Monitor drain or DC it? 09/05/20: Drain DC Supine for 48 hours Monitor closely Right hip pain is an issue 09/06/20: Check UA Upright today after 1400 Monitor closely 09/07/20: Monitor BP and pain Doing well 09/08/20: Supportive care Help him see his progress in a positive way 09/09/20: Major progress and improvement Monitor closely 09/10/20: Improved status Continue PT OT DC Monday09/11/20: DC Monday No med changes (1) S/P spinal surgery (2) Urinary retention (3) Constipation (4) PAF (paroxysmal atrial fibrillation) (5) CAD (coronary artery disease) (6) RAIMUNDO treated with BiPAP (7) Lumbar stenosis (8) Intractable low back pain Status: Acute (9) Sciatic nerve pain Status: Acute (10) Chronic pain Status: Acute (11) Renal insufficiency Status: Acute PONCE KAUR DO Sep 11, 2020 10:33
[2020-09-11] MEDS: polyethylene glycoL POWDER 17 GM (MIRALAX) PACK PO SCH ×2 (10:45→20:44)
--- NOTE | 2020-09-11 13:34 | Physical Therapy Daily Note ---
PT Daily Note-Current Subjective Patient seated upright pre tx, reports mild, unrated pain in R hip. Consents to therapy. Appearance Patient seated upright in chair post tx, with call button within reach and tray table nearby. Mental Status Patient Orientation: Person, Place, Time, Normal For Age TLSO Transfers SCALE: Activities may be completed with or without assistive devices. 5-Vhtxafbqhf-snbiqhh completes the activity by him/herself with no assistance from a helper. 5-Set-up or Clean-up Assistance-helper sets up or cleans up; patient completes activity. [place] assists only prior to or following the activity. 4-Supervision or Touching Assistance-helper provides verbal cues and/or touching/steadying and/or contact guard assistance as patient completes ac tivity. Assistance may be provided throughout the activity or intermittently. 3-Partial/Moderate Assistance-helper does LESS THAN HALF the effort. [place] lifts, holds or supports trunk or limbs, but provides less than half the effort. 2-Substantial/Maximal Assistance-helper does MORE THAN HALF the effort. [place] lifts or holds trunk or limbs and provides more than half the effort. 4-[place]-zymnyl does ALL the effort. Patient does none of the effort to complete the activity. Or, the assistance of 2 or more helpers is required for the patient to complete the activity. If activity was not attempted, code reason: 7-Patient Refused. 9-Not Applicable-not attempted and the patient did not perform the activity before the current illness, exacerbation or injury. 10-Not Attempted due to Environmental Limitations-(lack of equipment, weather restraints, etc.). 88-Not Attempted due to Medical Conditions or Safety Concerns. Sit to Stand (QC): 6 Chair/Ewz-ov-Rqsvg Xfer(QC): 6 Toilet Transfer (QC): 6 Patient was able to don/doff pants, complete sit <-> stand, and maintain balance at sink independently Gait Training Does the Patient Walk?: Yes Distance: 1000' Walk 10 feet (QC): 6 Walk 50 ft with 2 Turns(QC): 6 Walk 150 ft (QC): 6 Gait Assistive Device: FWW Patient required one rest break during ambulation, after 1st 600' due to slight increased SOB Treatments gait training, transfer, endurance Assessment Good control with all transfers, maintains consistent gait cycle with ambulation PT Short Term Goals Short Term Goals Time Frame: Sep 09, 2020 Roll Left & Right: 5 Sit to lyin Lying to sitting on side of be: 5 Sit to stand: 4 Chair/xqk-hy-oxdeu transfer: 4 Toilet transfer: 4 Walk 10 feet: 5 Walk 50 feet with two turns: 5 Walk 150 feet: 5 PT Fdc Goals Health Services Rn Goals PT Health Services Rn Goals Time Frame: September 23, 2020 Roll Left & Right (QC): 6 Sit to Lying (QC): 6 Lying-Sitting on Side/Bed(QC): 6 Sit to Stand (QC): 6 Chair/Ouu-uq-Pglmz Xfer(QC): 6 Toilet Transfer (QC): 6 Car Transfer (QC): 6 Does the Patient Walk: Yes Walk 10 feet (QC): 6 Walk 50ft with 2 Turns (QC): 6 Walk 150 ft (QC): 6 Walking 10ft on Uneven Surface: 6 1 Step (curb) (QC): 6 4 Steps (QC): 6 12 Steps (QC): 4 Picking up an Object (QC): 88 Wheel 50 feet with 2 turns (QC: 88 Wheel 150 feet: 88 PT Plan Problem List Problem List: Activity Tolerance, Functional Strength, Safety, Balance, Gait, Transfer, Bed Mobility, ROM Treatment/Plan Treatment Plan: Continue Plan of Care Treatment Plan: Bed Mobility, Education, Functional Activity Lukas, Functional Strength, Group Therapy, Gait, Safety, Therapeutic Exercise, Transfers Treatment Duration: September 23, 2020 Frequency: At least 5 of 7 days/Wk (IRF) Estimated Hrs Per Day: 1.5 hours per day Patient and/or Family Agrees t: Yes Safety Risks/Education Patient Education: Gait Training, Transfer Techniques, Correct Positioning, Safety Issues Teaching Recipient: Patient Teaching Methods: Demonstration, Discussion Response to Teaching: Verbalize Understanding, Return Demonstration Time/GCodes Time In: 1300 Time Out: 1330 Total Billed Treatment Time: 30 Total Billed Treatment 1 visit: FA: 15' GT: 15' CASSIA MORROW PT Sep 11, 2020 13:34
[2020-09-11] MEDS: RIVAROXABAN 20 MG TABLET (XARELTO) PO SCH (17:20)
[2020-09-11 19:23] VITALS: BP 125/59
[2020-09-12 07:30] VITALS: BP 127/65
--- NOTE | 2020-09-12 08:39 | Physical Therapy Daily Note ---
PT Daily Note-Current Subjective Pt. states he really just want to sleep but is willing to walk and exercise. Pt. c/o pain in right hip as he walks and discomfort from areas on his back where tape possibly burned him but does not rate this. Pt. states "They'd probably let me out of here is I didnt complain of this pain." Pain Comment: see subjective Mental Status Patient Orientation: Normal For Age Attachments: Other-See Comments (back brace and mask) Transfers SCALE: Activities may be completed with or without assistive devices. 2-Hpepmgncvl-aqkuiiq completes the activity by him/herself with no assistance from a helper. 5-Set-up or Clean-up Assistance-helper sets up or cleans up; patient completes activity. [place] assists only prior to or following the activity. 4-Supervision or Touching Assistance-helper provides verbal cues and/or touching/steadying and/or contact guard assistance as patient completes activity. Assistance may be provided throughout the activity or intermittently. 3-Partial/Moderate Assistance-helper does LESS THAN HALF the effort. [place] lifts, holds or supports trunk or limbs, but provides less than half the effort. 2-Substantial/Maximal Assistance-helper does MORE THAN HALF the effort. [place] lifts or holds trunk or limbs and provides more than half the effort. 7-Kjtumjtpv-erukxc does ALL the effort. Patient does none of the effort to complete the activity. Or, the assistance of 2 or more helpers is required for the patient to complete the activity. If activity was not attempted, code reason: 7-Patient Refused. 9-Not Applicable-not attempted and the patient did not perform the activity before the current illness, exacerbation or injury. 10-Not Attempted due to Environmental Limitations-(lack of equipment, weather restraints, etc.). 88-Not Attempted due to Medical Conditions or Safety Concerns. all sit to stand SBA , sit to sup SBA Gait Training Does the Patient Walk?: Yes Gait Assistive Device: FWW 170x2 SBA no LOB, good alignment, safe use of device, safe habits Exercises Seated Therapy Exercises: Ankle pumps, Sit to stand, Long arc quads, Hip flexion Seated Reps: 8 NuStep Minutes: 10 NuStep Workload: 4 Treatments requested in bed after Rx, pozo and phone at hand Assessment Current Status: Good Progress PT Short Term Goals Short Term Goals Time Frame: Sep 09, 2020 Roll Left & Right: 5 Sit to lyin Lying to sitting on side of be: 5 Sit to stand: 4 Chair/wdg-wk-pwzhn transfer: 4 Toilet transfer: 4 Walk 10 feet: 5 Walk 50 feet with two turns: 5 Walk 150 feet: 5 PT Group Home Goals Cyber Security Engineer Goals PT Cyber Security Engineer Goals Time Frame: September 23, 2020 Roll Left & Right (QC): 6 Sit to Lying (QC): 6 Lying-Sitting on Side/Bed(QC): 6 Sit to Stand (QC): 6 Chair/Ktb-zl-Sbjwr Xfer(QC): 6 Toilet Transfer (QC): 6 Car Transfer (QC): 6 Does the Patient Walk: Yes Walk 10 feet (QC): 6 Walk 50ft with 2 Turns (QC): 6 Walk 150 ft (QC): 6 Walking 10ft on Uneven Surface: 6 1 Step (curb) (QC): 6 4 Steps (QC): 6 12 Steps (QC): 4 Picking up an Object (QC): 88 Wheel 50 feet with 2 turns (QC: 88 Wheel 150 feet: 88 PT Plan Treatment/Plan Treatment Plan: Continue Plan of Care Treatment Plan: Bed Mobility, Education, Functional Activity Lukas, Functional Strength, Group Therapy, Gait, Safety, Therapeutic Exercise, Transfers Treatment Duration: September 23, 2020 Frequency: At least 5 of 7 days/Wk (IRF) Estimated Hrs Per Day: 1.5 hours per day Patient and/or Family Agrees t: Yes Safety Risks/Education Patient Education: Gait Training, Transfer Techniques, Correct Positioning, Reviewed Don/Doff Brace, Safety Issues Teaching Recipient: Patient Teaching Methods: Demonstration, Discussion Response to Teaching: Verbalize Understanding, Return Demonstration, Reinforcement Needed Time/GCodes Time In: 805 Time Out: 835 Total Billed Treatment Time: 30 Total Billed Treatment 1,GT20, ex10 DI CA 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
[2020-09-12] MEDS: ACETAMINOPHEN 650 MG PO SCH ×2 (08:51→17:47)
[2020-09-12] MEDS: MOVE FREE JOINT HEALTH PO SCH ×2 (08:52→17:47)
[2020-09-12] MEDS: GINGER ROOT 550 MG PO SCH ×2 (08:52→17:47)
[2020-09-12] MEDS: ASCORBIC ACID (VIT C) 500 MG TABLET PO SCH (08:52)
[2020-09-12] MEDS: LORATADINE (CLARITIN) 10 MG TAB PO SCH (08:53)
[2020-09-12] MEDS: polyethylene glycoL POWDER 17 GM (MIRALAX) PACK PO SCH ×2 (08:53→20:12)
[2020-09-12] MEDS: PANTOPRAZOLE 20 MG TABLET (PROTONIX) PO SCH (08:53)
[2020-09-12] MEDS: VITAMIN D3 25 MCG (1,000 UNITS) TABLET PO SCH (08:53)
[2020-09-12] MEDS: amLODIPine 10 MG (NORVASC) TAB PO SCH (08:55)
[2020-09-12] MEDS: LOSARTAN 25 MG (COZAAR) TAB PO SCH (08:55)
[2020-09-12] MEDS: DOCUSATE SODIUM 100 MG (COLACE) CAP PO SCH ×4 (08:55→20:12)
[2020-09-12] MEDS: SENNA W/DOCUSATE (SENOKOT S) TABLET PO SCH ×2 (08:55→20:12)
--- NOTE | 2020-09-12 12:53 | PM&R Progress Note ---
Subjective HPI/CC On Admission Date Seen by Provider: Sep 12, 2020 Time Seen by Provider: 12:45 Subjective/Events-last exam 09/12/20: Much improved Pain doing well No falls BM+ 09/11/20: Patient doing very well Pleased with everything Incision looks good but skin around it is irritated so will confer with wound care BM++ 09/10/20: Pt doing pretty well Much improved status DC planned for Monday okay and pt okay with that plan Dramatic improvement just Im the last two days Bowels are still moving with laxatives 09/09/20: Pt much improved now, just starting yesterday Really walking around well now Bowels moving okay but he wants to still stay on Laxatives Discharge is planned for 09/1409/08/20: Pt walking really well but upset with therapy and dietary and everyone who has treated him Pt very negative about outlook Left hip pain is reported but he walks without any problems at all Overall doing much better 09/07/20: Pt up walking around but he thinks he is not doing well Son around in the rehab unit Sodium level 133 Bowels moved yesterday Walked well but will try to help him have a positive outlook Hgb of 10 UA normal 09/06/20: Multiple complaints at bedside Very somatic and negative outlook which is chronic Up to commode and will be able to resume normal posture out of bed at 1400 per spine surgery Doing well otherwise Drainage is improved Dysuria 09/05/20: Complex issues Difficulty sleeping due to pain K-pad will be placed for right hip pain Updated patient and on the plan Slow progress Drain dislodged so Dr Benitez recommended supine for 48 hours but he has not had any headache. Repeats himself a lot, immediate recall is definitely poor Mag citrate caused complete evacuation of bowels and he was up 5 times with diarrhea [place] without aides on 09/04/20: Doing well Right hip pain an issue, xray revealed normal alignment of replacement hardware Drain became dislodged will reach out to Hemanth about that Small BM only so gave Mag Citrate at bedside PVR only 60-100cc 09/03/20: Pt doing pretty well Right hip pain is an issue Will obtain KUB abdominal X-ray to check for obstruction but likely just early ileus but he is passing a lot of gas Bladder scanning will be performed due to high risk for retention since he had retention over at [facility] will be restarted on Monday per spine surgery Gets dizzy after eating and vomited last night after dinner Hgb 9.4 Sodium level 133 Review of Systems General: Fatigue Musculoskeletal: back pain Objective Exam Vital Signs Vital Signs Date Time Temp Pulse Resp B/P (MAP) Pulse Ox O2 Delivery O2 Flow Rate FiO2 09/12/20 20:12 Room Air 09/12/20 19:40 36.5 63 16 118/55 (76) 92 Capillary Refill : General Appearance: No Apparent Distress, WD/WN, Chronically ill HEENT: PERRL/EOMI, Normal ENT Inspection, Pharynx Normal Neck: Full Range of Motion, Normal Inspection, Non Tender, Supple, Carotid Bruit Respiratory: Chest Non Tender, Lungs Clear, Normal Breath Sounds, No Accessory Muscle Use, No Respiratory Distress Cardiovascular: Regular Rate, Rhythm, No Edema, No Gallop, No JVD, No Murmur, Normal Peripheral Pulses Gastrointestinal: Normal Bowel Sounds, No Organomegaly, No Pulsatile Mass, Non Tender, Soft Back: Decreased Range of Motion, Muscle Spasm, Vertebral Tenderness Extremity: Normal Capillary Refill, Normal Inspection, Normal Range of Motion, Non Tender, No Calf Tenderness, No Pedal Edema Neurologic/Psychiatric: Alert, 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 FIM Transfers Therapy Code Descriptions/Definitions Functional [place] Measure: 0=Not Assessed/NA 4=Minimal Assistance 1=Total Assistance 5=Supervision or Setup 2=Maximal Assistance 6=Modified [place] 3=Moderate Assistance 7=Complete IndependenceSCALE: Activities may be completed with or without assistive devices. 4-Kbwezfciom-wevzauz completes the activity by him/herself with no assistance from a helper. 5-Set-up or Clean-up Assistance-helper sets up or cleans up; patient completes activity. [place] assists only prior to or following the activity. 4-Supervision or Touching Assistance-helper provides verbal cues and/or touching/steadying and/or contact guard assistance as patient completes ac tivity. Assistance may be provided throughout the activity or intermittently. 3-Partial/Moderate Assistance-helper does LESS THAN HALF the effort. [place] lifts, holds or supports trunk or limbs, but provides less than half the effort. 2-Substantial/Maximal Assistance-helper does MORE THAN HALF the effort. [place] lifts or holds trunk or limbs and provides more than half the effort. 4-Elbcrdilg-nwoclw does ALL the effort. Patient does none of the effort to complete the activity. Or, the assistance of 2 or more helpers is required for the patient to complete the activity. If activity was not attempted, code reason: 7-Patient Refused. 9-Not Applicable-not attempted and the patient did not perform the activity before the current illness, exacerbation or injury. 10-Not Attempted due to Environmental Limitations-(lack of equipment, weather restraints, etc.). 88-Not Attempted due to Medical Conditions or Safety Concerns. Roll Left to Right (QC): 6 Sit to Lying (QC): 6 Sit to Stand (QC): 6 Chair/Ggt-fp-Wzoyd Xfer(QC): 6 Car Transfer (QC): 6 Gait Training Does the Patient Walk?: Yes Distance: 1000' Walk 10 feet (QC): 6 Walk 50 ft with 2 Turns(QC): 6 Walk 150 ft (QC): 6 Walking 10ft/uneven surface-QC: 6 Gait Persons Needed: 0 Gait Assistive Device: FWW Wheelchair Training Does the Pt Use a Wheelchair?: No Wheel 50 ft with 2 turns (QC): 9 Wheel 150 ft (QC): 9 Stair Training Stair Training: Handrails/: 1 handrail #of Steps: 4 1 Step (curb) (QC): 5 4 Steps (QC): 5 12 Steps (QC): 88 Stairs: Pattern: Step to Balance Picking up an Object (QC): 88 ADL-Treatment Eating (QC): 6 Oral Hygiene (QC): 6 Bathing Location: L Arm, R Arm, L Upper Leg, R Upper Leg, Chest, Abdomen, Buttocks, Perineal Area Shower/Bathe Self (QC): 4 (SBA in stance, s/u in sit for sponge bath.) Upper Body Dressing (QC): 5 (s/u, completes TLSO in stance with IND.) Lower Body Dressing (QC): 5 (s/u with loose pants, able ot don without AE and adhere to precautions.) On/Off Footwear (QC): 6 (IND shoes with shoe horn) Toileting Hygiene (QC): 4 (SBA, cues for back precautions. ) Toilet Transfer (QC): 4 (SBA, use of walke.r) Assessment/Plan Assessment and Plan Assess & Plan/Chief Complaint Assessment: s/p spine surgery from lumbar stenosis PAF holding OAC CAD PVD Depression Acute urinary retention Post op constipation HTN CRI Plan: IRF protocol Urinary management Pain control 09/03/20: Pain control Left hip xray Monitor closely 09/04/20: Continued bowel issues Mag citrate Pain control Monitor drain or DC it? 09/05/20: Drain DC Supine for 48 hours Monitor closely Right hip pain is an issue 09/06/20: Check UA Upright today after 1400 Monitor closely 09/07/20: Monitor BP and pain Doing well 09/08/20: Supportive care Help him see his progress in a positive way 09/09/20: Major progress and improvement Monitor closely 09/10/20: Improved status Continue PT OT DC Monday09/11/20: DC Monday No med changes 09/12/20: Pain meds DC Monday (1) S/P spinal surgery (2) Urinary retention (3) Constipation (4) PAF (paroxysmal atrial fibrillation) (5) CAD (coronary artery disease) (6) RAIMUNDO treated with BiPAP (7) Lumbar stenosis (8) Intractable low back pain Status: Acute (9) Sciatic nerve pain Status: Acute (10) Chronic pain Status: Acute (11) Renal insufficiency Status: Acute PONCE KAUR DO Sep 12, 2020 12:53
[2020-09-12] MEDS: RIVAROXABAN 20 MG TABLET (XARELTO) PO SCH (17:46)
[2020-09-12 19:40] VITALS: BP 118/55
--- NOTE | 2020-09-13 06:27 | PM&R Progress Note ---
Subjective HPI/CC On Admission Date Seen by Provider: Sep 13, 2020 Time Seen by Provider: 12:00 Subjective/Events-last exam 09/13/20: Ready for DC tomorrow Very pleased with his progress PT OT thinks he is doing well 09/12/20: Much improved Pain doing well No falls BM+ 09/11/20: Patient doing very well Pleased with everything Incision looks good but skin around it is irritated so will confer with wound care BM++ 09/10/20: Pt doing pretty well Much improved status DC planned for Monday okay and pt okay with that plan Dramatic improvement just Im the last two days Bowels are still moving with laxatives 09/09/20: Pt much improved now, just starting yesterday Really walking around well now Bowels moving okay but he wants to still stay on Laxatives Discharge is planned for 09/1409/08/20: Pt walking really well but upset with therapy and dietary and everyone who has treated him Pt very negative about outlook Left hip pain is reported but he walks without any problems at all Overall doing much better 09/07/20: Pt up walking around but he thinks he is not doing well Son around in the rehab unit Sodium level 133 Bowels moved yesterday Walked well but will try to help him have a positive outlook Hgb of 10 UA normal 09/06/20: Multiple complaints at bedside Very somatic and negative outlook which is chronic Up to commode and will be able to resume normal posture out of bed at 1400 per spine surgery Doing well otherwise Drainage is improved Dysuria 09/05/20: Complex issues Difficulty sleeping due to pain K-pad will be placed for right hip pain Updated patient and on the plan Slow progress Drain dislodged so Dr Benitez recommended supine for 48 hours but he has not had any headache. Repeats himself a lot, immediate recall is definitely poor Mag citrate caused complete evacuation of bowels and he was up 5 times with diarrhea [place] without aides on 09/04/20: Doing well Right hip pain an issue, xray revealed normal alignment of replacement hardware Drain became dislodged will reach out to Hemanth about that Small BM only so gave Mag Citrate at bedside PVR only 60-100cc 09/03/20: Pt doing pretty well Right hip pain is an issue Will obtain KUB abdominal X-ray to check for obstruction but likely just early ileus but he is passing a lot of gas Bladder scanning will be performed due to high risk for retention since he had retention over at [place] Xarelto will be restarted on Monday per spine surgery Gets dizzy after eating and vomited last night after dinner Hgb 9.4 Sodium level 133 Review of Systems General: Fatigue, Malaise Musculoskeletal: back pain Neurological: Weakness Objective Exam Vital Signs Vital Signs Date Time Temp Pulse Resp B/P (MAP) Pulse Ox O2 Delivery O2 Flow Rate FiO2 09/13/20 09:00 Room Air 09/13/20 07:10 36.2 65 18 159/74 (102) 94 Capillary Refill : General Appearance: No Apparent Distress, WD/WN, Chronically ill HEENT: PERRL/EOMI, Normal ENT Inspection, Pharynx Normal Neck: Full Range of Motion, Normal Inspection, Non Tender, Supple, Carotid Bruit Respiratory: Chest Non Tender, Lungs Clear, Normal Breath Sounds, No Accessory Muscle Use, No Respiratory Distress Cardiovascular: Regular Rate, Rhythm, No Edema, No Gallop, No JVD, No Murmur, Normal Peripheral Pulses Gastrointestinal: Normal Bowel Sounds, No Organomegaly, No Pulsatile Mass, Non Tender, Soft Back: Decreased Range of Motion, Muscle Spasm, Vertebral Tenderness Extremity: Normal Capillary Refill, Normal Inspection, Normal Range of Motion, Non Tender, No Calf Tenderness, No Pedal Edema Neurologic/Psychiatric: Alert, Oriented x3, agents' records clerk II-XII Norm as Tested, Abnormal Gait, Depressed Affect, Motor Weakness (lower legs 4/5) Skin: Normal Color, Warm/Dry Lymphatic: No Adenopathy Results/Procedures Lab Patient resulted labs reviewed. FIM Transfers Therapy Code Descriptions/Definitions Functional [place] Measure: 0=Not Assessed/NA 4=Minimal Assistance 1=Total Assistance 5=Supervision or Setup 2=Maximal Assistance 6=Modified [place] 3=Moderate Assistance 7=Complete IndependenceSCALE: Activities may be completed with or without assistive devices. 9-Xbjmigswhh-qndnkwz completes the activity by him/herself with no assistance from a helper. 5-Set-up or Clean-up Assistance-helper sets up or cleans up; patient completes activity. [place] assists only prior to or following the activity. 4-Supervision or Touching Assistance-helper provides verbal cues and/or touching/steadying and/or contact guard assistance as patient completes activity. Assistance may be provided throughout the activity or intermittently. 3-Partial/Moderate Assistance-helper does LESS THAN HALF the effort. [place] lifts, holds or supports trunk or limbs, but provides less than half the effort. 2-Substantial/Maximal Assistance-helper does MORE THAN HALF the effort. [place] lifts or holds trunk or limbs and provides more than half the effort. 1-Tmndhkilj-oixvha does ALL the effort. Patient does none of the effort to complete the activity. Or, the assistance of 2 or more helpers is required for the patient to complete the activity. If activity was not attempted, code reason: 7-Patient Refused. 9-Not Applicable-not attempted and the patient did not perform the activity before the current illness, exacerbation or injury. 10-Not Attempted due to Environmental Limitations-(lack of equipment, weather restraints, etc.). 88-Not Attempted due to Medical Conditions or Safety Concerns. Roll Left to Right (QC): 6 Sit to Lying (QC): 6 Sit to Stand (QC): 6 Chair/Liz-ql-Mrosi Xfer(QC): 6 Car Transfer (QC): 6 Gait Training Does the Patient Walk?: Yes Distance: 1000' Walk 10 feet (QC): 6 Walk 50 ft with 2 Turns(QC): 6 Walk 150 ft (QC): 6 Walking 10ft/uneven surface-QC: 6 Gait Persons Needed: 0 Gait Assistive Device: FWW Wheelchair Training Does the Pt Use a Wheelchair?: No Wheel 50 ft with 2 turns (QC): 9 Wheel 150 ft (QC): 9 Stair Training Stair Training: Handrails/: 1 handrail #of Steps: 4 1 Step (curb) (QC): 5 4 Steps (QC): 5 12 Steps (QC): 88 Stairs: Pattern: Step to Balance Picking up an Object (QC): 88 ADL-Treatment Eating (QC): 6 Oral Hygiene (QC): 6 Bathing Location: L Arm, R Arm, L Upper Leg, R Upper Leg, Chest, Abdomen, Buttocks, Perineal Area Shower/Bathe Self (QC): 4 (SBA in stance, s/u in sit for sponge bath.) Upper Body Dressing (QC): 5 (s/u, completes TLSO in stance with IND.) Lower Body Dressing (QC): 5 (s/u with loose pants, able ot don without AE and adhere to precautions.) On/Off Footwear (QC): 6 (IND shoes with shoe horn) Toileting Hygiene (QC): 4 (SBA, cues for back precautions. ) Toilet Transfer (QC): 4 (SBA, use of walke.r) Assessment/Plan Assessment and Plan Assess & Plan/Chief Complaint Assessment: s/p spine surgery from lumbar stenosis PAF holding OAC CAD PVD Depression Acute urinary retention Post op constipation HTN CRI Plan: IRF protocol Urinary management Pain control 09/03/20: Pain control Left hip xray Monitor closely 09/04/20: Continued bowel issues Mag citrate Pain control Monitor drain or DC it? 09/05/20: Drain DC Supine for 48 hours Monitor closely Right hip pain is an issue 09/06/20: Check UA Upright today after 1400 Monitor closely 09/07/20: Monitor BP and pain Doing well 09/08/20: Supportive care Help him see his progress in a positive way 09/09/20: Major progress and improvement Monitor closely 09/10/20: Improved status Continue PT OT DC Monday09/11/20: DC Monday No med changes 09/12/20: Pain meds DC Monday09/13/20: Improved status Pain controlled (1) S/P spinal surgery (2) Urinary retention (3) Constipation (4) PAF (paroxysmal atrial fibrillation) (5) CAD (coronary artery disease) (6) RAIMUNDO treated with BiPAP (7) Lumbar stenosis (8) Intractable low back pain Status: Acute (9) Sciatic nerve pain Status: Acute (10) Chronic pain Status: Acute (11) Renal insufficiency Status: Acute PONCE KAUR DO Sep 13, 2020 06:26
[2020-09-13 07:10] VITALS: BP_SYST 149; BP_SYST 159; BP_DIAS 74
[2020-09-13] MEDS: ACETAMINOPHEN 650 MG PO SCH ×2 (08:55→17:55)
[2020-09-13] MEDS: GINGER ROOT 550 MG PO SCH ×2 (08:55→17:55)
[2020-09-13] MEDS: MOVE FREE JOINT HEALTH PO SCH ×2 (08:56→17:55)
[2020-09-13] MEDS: VITAMIN D3 25 MCG (1,000 UNITS) TABLET PO SCH (08:56)
[2020-09-13] MEDS: PANTOPRAZOLE 20 MG TABLET (PROTONIX) PO SCH (09:40)
[2020-09-13] MEDS: polyethylene glycoL POWDER 17 GM (MIRALAX) PACK PO SCH ×2 (09:40→20:56)
[2020-09-13] MEDS: SENNA W/DOCUSATE (SENOKOT S) TABLET PO SCH ×2 (09:40→20:57)
[2020-09-13] MEDS: LOSARTAN 25 MG (COZAAR) TAB PO SCH (09:41)
[2020-09-13] MEDS: amLODIPine 10 MG (NORVASC) TAB PO SCH (09:41)
[2020-09-13] MEDS: ASCORBIC ACID (VIT C) 500 MG TABLET PO SCH (09:41)
[2020-09-13] MEDS: LORATADINE (CLARITIN) 10 MG TAB PO SCH (09:41)
[2020-09-13] MEDS: DOCUSATE SODIUM 100 MG (COLACE) CAP PO SCH ×4 (09:44→20:56)
[2020-09-13] MEDS: RIVAROXABAN 20 MG TABLET (XARELTO) PO SCH (17:54)
[2020-09-13 20:58] VITALS: BP 144/69
[2020-09-14 05:28] LABS: BASOPHILS % (AUTO) 0 % (0-10); EOSINOPHILS # (AUTO) 0.2 10^3/uL (0.0-0.3); EOSINOPHILS % (AUTO) 2 % (0-10); HEMATOCRIT 30 % (40-54); HEMOGLOBIN 9.7 g/dL (13.3-17.7); LYMPHOCYTES # (AUTO) 2.1 10^3/uL (1.0-4.0); LYMPHOCYTES % (AUTO) 23 % (12-44); MEAN CORPUSCULAR HEMOGLOBIN 32 pg (25-34); MEAN CORPUSCULAR HGB CONC 32 g/dL (32-36); MEAN CORPUSCULAR VOLUME 98 fL (80-99); MEAN PLATELET VOLUME 8.9 fL (9.0-12.2); MONOCYTES # (AUTO) 0.8 10^3/uL (0.0-1.0); MONOCYTES % (AUTO) 9 % (0-12); NEUTROPHILS # (AUTO) 5.6 10^3/uL (1.8-7.8); NEUTROPHILS % (AUTO) 62 % (42-75); PLATELET COUNT 342 10^3/uL (130-400)
[2020-09-14 05:53] LABS: ALANINE AMINOTRANSFERASE 13 U/L (0-55); ALBUMIN 3.2 GM/DL (3.2-4.5); ALKALINE PHOSPHATASE 82 U/L (40-136); BILIRUBIN,TOTAL 0.2 MG/DL (0.1-1.0); BUN/CREATININE RATIO 16; CARBON DIOXIDE 26 MMOL/L (21-32); CHLORIDE 103 MMOL/L (98-107); CREATININE SERUM 1.04 MG/DL (0.60-1.30); GFR ESTIMATED > 60; GLUCOSE 90 MG/DL (70-105); POTASSIUM 4.5 MMOL/L (3.6-5.0); SODIUM 136 MMOL/L (135-145); TOTAL PROTEIN 5.7 GM/DL (6.4-8.2)
[2020-09-14] MEDS ORDERED: POLY17PO54 PO (06:00)
[2020-09-14] MEDS ORDERED: SENN1TAB76 PO (06:00)
[2020-09-14] MEDS ORDERED: OXC5T PO (06:00)
[2020-09-14] MEDS ORDERED: TRM50T PO (06:00)
--- NOTE | 2020-09-14 06:02 | D/C HH Face to Face Order ---
D/C Face to Face Orders Reconcile Patient Problems Problems Reviewed?: Yes Instructions for Patient Via [facility], Patient Instructions/FollowUp: PCP 1 week Physician to follow Patient: Esvin Discharge Diet for Home: No Restrictions Patient Problems: spine surgery Patient Data-Allergies,Ht & Wt Patient Allergies: Coded Allergies: Kyhfhof-Orr-Ifn Reductase Inhibitor (Verified Allergy, Unknown, 07/05/15) hydrocodone (Verified Allergy, Unknown, pt has received morphine & hydromorphone in the past, 09/02/20) Height (Feet): 6 Height (Inches): 1.00 Weight (Pounds): 255 Weight (Ounces): 0.0 Home Health Need/Face to Face Date of Face to Face: Sep 14, 2020 Clinical Findings: Generalized weakness and fatigue, Instability, Muscle weakness, Unsteady gait I have seen Pt sibn-ps-hjol: Yes Discharged To: Home Diagnosis/Conditions: spine surgery Patient is Homebound due to: Jose fall risk due to instabilty, Muscle weakness, Pain w/ambulation Homebound Status Due to the above stated illness, injury or surgical procedure (medical condition or diagnosis) and associated clinical findings, the patient is homebound because of his/her inability to leave home except with aid of a supportive device and/or person AND leaving the home requires a considerable and taxing effort or is medically contraindicated. Pt req the following assistanc: Walker Home Health Nursing Orders Home Health Services Order: Nursing Services, Plant Ecologist-Evaluate & Treat, Physical Therapy-Evaluate & Treat Certify Stmt I certify that this patient is under my care and that I, a nurse practitioner or a physician; a hospital administrative assistant working with me, had a face to face encounter that - meets the physician face to face encounter requirements with this patient as dated. PONCE KAUR DO Sep 14, 2020 06:02
--- NOTE | 2020-09-14 06:03 | Discharge Summary ---
Diagnosis/Chief Complaint Date of Admission Sep 02, 2020 at 12:00 Date of Discharge Discharge Date: Sep 14, 2020 Discharge Diagnosis Assessment: s/p spine surgery from lumbar stenosis PAF holding OAC CAD PVD Depression Acute urinary retention Post op constipation HTN CRI Plan: IRF protocol Urinary management Pain control 09/03/20: Pain control Left hip xray Monitor closely 09/04/20: Continued bowel issues Mag citrate Pain control Monitor drain or DC it? 09/05/20: Drain DC Supine for 48 hours Monitor closely Right hip pain is an issue 09/06/20: Check UA Upright today after 1400 Monitor closely 09/07/20: Monitor BP and pain Doing well 09/08/20: Supportive care Help him see his progress in a positive way 09/09/20: Major progress and improvement Monitor closely 09/10/20: Improved status Continue PT OT DC Monday09/11/20: DC Monday No med changes 09/12/20: Pain meds DC Monday09/13/20: Improved status Pain controlled (1) S/P spinal surgery (2) Urinary retention (3) Constipation (4) PAF (paroxysmal atrial fibrillation) (5) CAD (coronary artery disease) (6) RAIMUNDO treated with BiPAP (7) Lumbar stenosis (8) Intractable low back pain Status: Acute (9) Sciatic nerve pain Status: Acute (10) Chronic pain Status: Acute (11) Renal insufficiency Status: Acute Discharge Summary Discharge Physical Examination Allergies: Coded Allergies: Endotlb-Paw-Pru Reductase Inhibitor (Verified Allergy, Unknown, 07/05/15) hydrocodone (Verified Allergy, Unknown, pt has received morphine & hydromorphone in the past, 09/02/20) Vitals & I&Os Vital Signs Date Time Temp Pulse Resp B/P (MAP) Pulse Ox O2 Delivery O2 Flow Rate FiO2 09/14/20 10:15 36.8 75 20 121/60 94 Room Air General Appearance: Alert, Oriented X3, Cooperative Respiratory: Clear to Auscultation Cardiovascular: Regular Rate Neuro: Normal Gait, Normal Speech, Strength at 5/5 X4 Ext Psych/Mental Status: Mental Status NL Hospital Course Was the Problem List Reviewed?: Yes Hospital Course: Pt had an uneventful hospital course for 13 days after he was sent here from [facility] for spinal surgery with slow recovery. Pain was an issue and he was able to gain enough pain control to participate in therapy and bowels returned back to normal along with laxatives and labs remained stable. Overall he did very well, he was ready for DC and was very consistent with his ability to perform his ADLs and ambulation to his wifes satisfaction who is also disabled. He was discharged in improved condition. Labs (last 24 hrs) Laboratory Tests 09/03/20 03:39: White Blood Count 8.8, Red Blood Count 2.90L, Hemoglobin 9.4L, Hematocrit 29L, Mean Corpuscular Volume 99, Mean Corpuscular Hemoglobin 32, Mean Corpuscular Hemoglobin Concent 33, Red Cell Distribution Width 14.0, Platelet Count 180, Mean Platelet Volume 9.9, Immature Granulocyte % (Auto) 1, Neutrophils (%) (Auto) 66, Lymphocytes (%) (Auto) 16, Monocytes (%) (Auto) 18H, Eosinophils (%) (Auto) 0, Basophils (%) (Auto) 0, Neutrophils # (Auto) 5.8, Lymphocytes # (Auto) 1.4, Monocytes # (Auto) 1.6H, Eosinophils # (Auto) 0.0, Basophils # (Auto) 0.0, Immature Granulocyte # (Auto) 0.0, Sodium Level 133L, Potassium Level 4.9, Chloride Level 104, Carbon Dioxide Level 20L, Anion Gap 9, Blood Urea Nitrogen 28H, Creatinine 1.08, Estimat Glomerular Filtration Rate > 60, BUN/Creatinine Ratio 26, Glucose Level 120H, Calcium Level 8.9, Corrected Calcium 9.6, Total Bilirubin 0.6, Aspartate Amino Transf (AST/SGOT) 16, Alanine Aminotransferase (ALT/SGPT) 8, Alkaline Phosphatase 49, Total Protein 5.2L, Albumin 3.1L 09/06/20 13:19: Urine Color YELLOW, Urine Clarity CLEAR, Urine pH 7.0, Urine Specific [place] 1.010L, Urine Protein NEGATIVE, Urine Glucose (UA) NEGATIVE, Urine Ketones NEGATIVE, Urine Nitrite NEGATIVE, Urine Bilirubin NEGATIVE, Urine Urobilinogen 0.2, Urine Leukocyte Esterase NEGATIVE, Urine RBC (Auto) NEGATIVE, Urine RBC RARE, Urine WBC 0-2, Urine Crystals NONE, Urine Bacteria NEGATIVE, Urine Casts NONE, Urine Mucus NEGATIVE, Urine Culture Indicated NO 09/07/20 04:47: White Blood Count 9.0, Red Blood Count 3.15L, Hemoglobin 10.0L, Hematocrit 31L, Mean Corpuscular Volume 99, Mean Corpuscular Hemoglobin 32, Mean Corpuscular Hemoglobin Concent 32, Red Cell Distribution Width 13.5, Platelet Count 242, Mean Platelet Volume 9.7, Immature Granulocyte % (Auto) 6, Neutrophils (%) (Auto) 56, Lymphocytes (%) (Auto) 21, Monocytes (%) (Auto) 14H, Eosinophils (%) (Auto) 2, Basophils (%) (Auto) 1, Neutrophils # (Auto) 5.0, Lymphocytes # (Auto) 1.9, Monocytes # (Auto) 1.2H, Eosinophils # (Auto) 0.2, Basophils # (Auto) 0.1, Immature Granulocyte # (Auto) 0.5H, Sodium Level 133L, Potassium Level 4.9, Chloride Level 99, Carbon Dioxide Level 25, Anion Gap 9, Blood Urea Nitrogen 14, Creatinine 0.94, Estimat Glomerular Filtration Rate > 60, BUN/Creatinine Ratio 15, Glucose Level 98, Calcium Level 9.6, Corrected Calcium 10.3H, Total Bilirubin 0.4, Aspartate Amino Transf (AST/SGOT) 18, Alanine Aminotransferase (ALT/SGPT) 13, Alkaline Phosphatase 61, Total Protein 5.6L, Albumin 3.1L 09/14/20 05:10: White Blood Count 9.0, Red Blood Count 3.07L, Hemoglobin 9.7L, Hematocrit 30L, Mean Corpuscular Volume 98, Mean Corpuscular Hemoglobin 32, Mean Corpuscular Hemoglobin Concent 32, Red Cell Distribution Width 13.7, Platelet Count 342, Mean Platelet Volume 8.9L, Immature Granulocyte % (Auto) 3, Neutrophils (%) (Auto) 62, Lymphocytes (%) (Auto) 23, Monocytes (%) (Auto) 9, Eosinophils (%) (Auto) 2, Basophils (%) (Auto) 0, Neutrophils # (Auto) 5.6, Lymphocytes # (Auto) 2.1, Monocytes # (Auto) 0.8, Eosinophils # (Auto) 0.2, Basophils # (Auto) 0.0, Immature Granulocyte # (Auto) 0.3H, Sodium Level 136, Potassium Level 4.5, Chloride Level 103, Carbon Dioxide Level 26, Anion Gap 7, Blood Urea Nitrogen 17, Creatinine 1.04, Estimat Glomerular Filtration Rate > 60, BUN/Creatinine Ratio 16, Glucose Level 90, Calcium Level 10.0, Corrected Calcium 10.6H, Total Bilirubin 0.2, Aspartate Amino Transf (AST/SGOT) 18, Alanine Aminotransferase (ALT/SGPT) 13, Alkaline Phosphatase 82, Total Protein 5.7L, Albumin 3.2 Pending Labs Laboratory Tests 09/03/20 03:39: White Blood Count 8.8, Red Blood Count 2.90, Hemoglobin 9.4, Hematocrit 29, Mean Corpuscular Volume 99, Mean Corpuscular Hemoglobin 32, Mean Corpuscular Hemoglobin Concent 33, Red Cell Distribution Width 14.0, Platelet Count 180, Mean Platelet Volume 9.9, Immature Granulocyte % (Auto) 1, Neutrophils (%) (Auto) 66, Lymphocytes (%) (Auto) 16, Monocytes (%) (Auto) 18, Eosinophils (%) (Auto) 0, Basophils (%) (Auto) 0, Neutrophils # (Auto) 5.8, Lymphocytes # (Auto) 1.4, Monocytes # (Auto) 1.6, Eosinophils # (Auto) 0.0, Basophils # (Auto) 0.0, Immature Granulocyte # (Auto) 0.0, Sodium Level 133, Potassium Level 4.9, Chloride Level 104, Carbon Dioxide Level 20, Anion Gap 9, Blood Urea Nitrogen 28, Creatinine 1.08, Estimat Glomerular Filtration Rate > 60, BUN/Creatinine Ratio 26, Glucose Level 120, Calcium Level 8.9, Corrected Calcium 9.6, Total Bilirubin 0.6, Aspartate Amino Transf (AST/SGOT) 16, Alanine Aminotransferase (ALT/SGPT) 8, Alkaline Phosphatase 49, Total Protein 5.2, Albumin 3.1 09/06/20 13:19: Urine Color YELLOW, Urine Clarity CLEAR, Urine pH 7.0, Urine Specific [place] 1.010, Urine Protein NEGATIVE, Urine Glucose (UA) NEGATIVE, Urine Ketones NEGATIVE, Urine Nitrite NEGATIVE, Urine Bilirubin NEGATIVE, Urine Urobilinogen 0.2, Urine Leukocyte Esterase NEGATIVE, Urine RBC (Auto) NEGATIVE, Urine RBC RARE, Urine WBC 0-2, Urine Crystals NONE, Urine Bacteria NEGATIVE, Urine Casts NONE, Urine Mucus NEGATIVE, Urine Culture Indicated NO 09/07/20 04:47: White Blood Count 9.0, Red Blood Count 3.15, Hemoglobin 10.0, Hematocrit 31, Mean Corpuscular Volume 99, Mean Corpuscular Hemoglobin 32, Mean Corpuscular Hemoglobin Concent 32, Red Cell Distribution Width 13.5, Platelet Count 242, Mean Platelet Volume 9.7, Immature Granulocyte % (Auto) 6, Neutrophils (%) (Auto) 56, Lymphocytes (%) (Auto) 21, Monocytes (%) (Auto) 14, Eosinophils (%) (Auto) 2, Basophils (%) (Auto) 1, Neutrophils # (Auto) 5.0, Lymphocytes # (Auto) 1.9, Monocytes # (Auto) 1.2, Eosinophils # (Auto) 0.2, Basophils # (Auto) 0.1, Immature Granulocyte # (Auto) 0.5, Sodium Level 133, Potassium Level 4.9, Chloride Level 99, Carbon Dioxide Level 25, Anion Gap 9, Blood Urea Nitrogen 14, Creatinine 0.94, Estimat Glomerular Filtration Rate > 60, BUN/Creatinine Ratio 15, Glucose Level 98, Calcium Level 9.6, Corrected Calcium 10.3, Total Bilirubin 0.4, Aspartate Amino Transf (AST/SGOT) 18, Alanine Aminotransferase (ALT/SGPT) 13, Alkaline Phosphatase 61, Total Protein 5.6, Albumin 3.1 09/14/20 05:10: White Blood Count 9.0, Red Blood Count 3.07, Hemoglobin 9.7, Hematocrit 30, Mean Corpuscular Volume 98, Mean Corpuscular Hemoglobin 32, Mean Corpuscular Hemoglobin Concent 32, Red Cell Distribution Width 13.7, Platelet Count 342, Mean Platelet Volume 8.9, Immature Granulocyte % (Auto) 3, Neutrophils (%) (Auto) 62, Lymphocytes (%) (Auto) 23, Monocytes (%) (Auto) 9, Eosinophils (%) (Auto) 2, Basophils (%) (Auto) 0, Neutrophils # (Auto) 5.6, Lymphocytes # (Auto) 2.1, Monocytes # (Auto) 0.8, Eosinophils # (Auto) 0.2, Basophils # (Auto) 0.0, Immature Granulocyte # (Auto) 0.3, Sodium Level 136, Potassium Level 4.5, Chloride Level 103, Carbon Dioxide Level 26, Anion Gap 7, Blood Urea Nitrogen 17 , Creatinine 1.04, Estimat Glomerular Filtration Rate > 60, BUN/Creatinine Ratio 16, Glucose Level 90, Calcium Level 10.0, Corrected Calcium 10.6, Total Bilirubin 0.2, Aspartate Amino Transf (AST/SGOT) 18, Alanine Aminotransferase (ALT/SGPT) 13, Alkaline Phosphatase 82, Total Protein 5.7, Albumin 3.2 Discharge Home Medications: Active Scripts Active Polyethylene Glycol 3350 17 Gm Powd.pack 17 Gm PO BID Stool Softener-Laxative Tablet (Sennosides/Docusate Sodium) 1 Each Tablet 1 Ea PO BID Tramadol HCl 50 Mg Tablet 50 Mg PO Q6HR PRN Oxyir Tablet (Oxycodone HCl) 5 Mg Tab 5 Mg PO Q4H PRN Reported Coq-10 (Ubidecarenone) 100 Mg Capsule 100 Mg PO DAILY Xarelto (Rivaroxaban) 20 Mg Tablet 20 Mg PO 1800 Omeprazole 20 Mg Capsule.dr 20 Mg PO DAILY Telmisartan 40 Mg Tablet 20 Mg PO DAILY TAKE OF A 40MG TAB Amlodipine Besylate 10 Mg Tablet 10 Mg PO HS Fexofenadine HCl 180 Mg Tablet 180 Mg PO DAILY Meche Root 550 Mg Capsule 550 Mg PO BID Vitamin D3 (Cholecalciferol (Vitamin D3)) 25 Mcg Capsule 25 Mcg PO DAILY Vitamin C (Ascorbic Acid) 500 Mg Capsule 1,000 Mg PO DAILY Move Free Joint Health Tablet (Glucosam/Chond/Hyalu/Cf Borate) 1 Each Tablet 2 Each PO BID Citalopram HBr (Citalopram Hydrobromide) 20 Mg Tablet 20 Mg PO HS Colace (Docusate Sodium) 100 Mg Capsule 200 Mg PO BID Arthritis Pain (Acetaminophen) 650 Mg Tablet.er 650 Mg PO BID Instructions to patient/family Please see electronic discharge instructions given to patient. Diagnosis/Problems Diagnosis/Problems (1) S/P spinal surgery (2) Urinary retention (3) Constipation (4) PAF (paroxysmal atrial fibrillation) (5) CAD (coronary artery disease) (6) RAIMUNDO treated with BiPAP (7) Lumbar stenosis (8) Intractable low back pain Status: Acute (9) Sciatic nerve pain Status: Acute (10) Chronic pain Status: Acute (11) Renal insufficiency Status: Acute PONCE KAUR DO Sep 14, 2020 06:03
--- NOTE | 2020-09-14 08:24 | Physical Therapy Daily Note ---
PT Daily Note-Current Subjective Patient upright in chair pre tx, consents to therapy. Patient reports 3/10 pain in hip and 2/10 pain in back. Patient states he is ready to go home. Appearance Patient upright in chair, with call button and tray table within reach. Mental Status Patient Orientation: Person, Place, Time, Normal For Age TLSO Transfers SCALE: Activities may be completed with or without assistive devices. 6-Yymtwpwggx-uppsuxf completes the activity by him/herself with no assistance from a helper. 5-Set-up or Clean-up Assistance-helper sets up or cleans up; patient completes activity. [place] assists only prior to or following the activity. 4-Supervision or Touching Assistance-helper provides verbal cues and/or touching/steadying and/or contact guard assistance as patient completes activity. Assistance may be provided throughout the activity or intermittently. 3-Partial/Moderate Assistance-helper does LESS THAN HALF the effort. [place] lifts, holds or supports trunk or limbs, but provides less than half the effort. 2-Substantial/Maximal Assistance-helper does MORE THAN HALF the effort. [place] lifts or holds trunk or limbs and provides more than half the effort. 5-Dtkbbeleu-bctqqw does ALL the effort. Patient does none of the effort to complete the activity. Or, the assistance of 2 or more helpers is required for the patient to complete the activity. If activity was not attempted, code reason: 7-Patient Refused. 9-Not Applicable-not attempted and the patient did not perform the activity be fore the current illness, exacerbation or injury. 10-Not Attempted due to Environmental Limitations-(lack of equipment, weather restraints, etc.). 88-Not Attempted due to Medical Conditions or Safety Concerns. Roll Left & Right (QC): 6 Sit to Lying (QC): 6 Lying to Sitting/Side of Bed(Q: 6 Sit to Stand (QC): 6 Chair/Lqr-kb-Mnzkm Xfer(QC): 6 Toilet Transfer (QC): 6 Car Transfer (QC): 6 Patient demonstrates stability with all transfers and bed mobility. Gait Training Does the Patient Walk?: Yes Distance: 1000' Walk 10 feet (QC): 6 Walk 50 ft with 2 Turns(QC): 6 Walk 150 ft (QC): 6 Walking 10ft/uneven surface-QC: 6 Gait Assistive Device: FWW Patient demonstrates steady gait with fair pace, good posturing, and reciprocal gait pattern. Wheelchair Training Does the Pt Use a Wheelchair?: No Wheel 50 ft with 2 turns (QC): 9 Wheel 150 ft (QC): 9 Stair Training Stair Training: Handrails/: 2 handrails #of Steps: 12 1 Step (curb) (QC): 6 4 Steps (QC): 6 12 Steps (QC): 6 Stairs: Pattern: Reciprocal Patient clears steps easily, no francisco LOB noted. Uses both handrails. Balance Picking up an Object (QC): 88 Treatments Mobility assessment Assessment Current Status: Good Progress Patient demonstrates independence with mobility, and demonstrates adequate endurance and strength with performance of functional activities PT Short Term Goals Short Term Goals Time Frame: Sep 09, 2020 Roll Left & Right: 5 Sit to lyin Lying to sitting on side of be: 5 Sit to stand: 4 Chair/dpo-sk-jxave transfer: 4 Toilet transfer: 4 Walk 10 feet: 5 Walk 50 feet with two turns: 5 Walk 150 feet: 5 PT Halfway Goals Halfway Goals PT Block Greaser Goals Time Frame: September 23, 2020 Roll Left & Right (QC): 6 Sit to Lying (QC): 6 Lying-Sitting on Side/Bed(QC): 6 Sit to Stand (QC): 6 Chair/Hvy-nh-Kjzfv Xfer(QC): 6 Toilet Transfer (QC): 6 Car Transfer (QC): 6 Does the Patient Walk: Yes Walk 10 feet (QC): 6 Walk 50ft with 2 Turns (QC): 6 Walk 150 ft (QC): 6 Walking 10ft on Uneven Surface: 6 1 Step (curb) (QC): 6 4 Steps (QC): 6 12 Steps (QC): 4 Picking up an Object (QC): 88 Wheel 50 feet with 2 turns (QC: 88 Wheel 150 feet: 88 PT Plan Problem List Problem List: Activity Tolerance, Functional Strength, Safety, Balance, Gait, Transfer, Bed Mobility, ROM Treatment/Plan Treatment Plan: Continue Plan of Care Treatment Plan: Bed Mobility, Education, Functional Activity Lukas, Functional Strength, Group Therapy, Gait, Safety, Therapeutic Exercise, Transfers Treatment Duration: September 23, 2020 Frequency: At least 5 of 7 days/Wk (IRF) Estimated Hrs Per Day: 1.5 hours per day Patient and/or Family Agrees t: Yes Safety Risks/Education Patient Education: Gait Training, Transfer Techniques, Steps, Correct Positioning, Safety Issues Teaching Recipient: Patient Teaching Methods: Demonstration, Discussion Response to Teaching: Verbalize Understanding, Return Demonstration Time/GCodes Time In: 0800 Time Out: 819 Total Billed Treatment Time: 20 Total Billed Treatment 1 visit: FA: CASSIA PRESCOTT PT Sep 14, 2020 08:24
[2020-09-14] MEDS: polyethylene glycoL POWDER 17 GM (MIRALAX) PACK PO SCH (08:40)
[2020-09-14] MEDS: PANTOPRAZOLE 20 MG TABLET (PROTONIX) PO SCH (08:40)
[2020-09-14] MEDS: SENNA W/DOCUSATE (SENOKOT S) TABLET PO SCH (08:41)
[2020-09-14] MEDS: amLODIPine 10 MG (NORVASC) TAB PO SCH (08:42)
[2020-09-14] MEDS: LOSARTAN 25 MG (COZAAR) TAB PO SCH (08:42)
[2020-09-14] MEDS: ASCORBIC ACID (VIT C) 500 MG TABLET PO SCH (08:43)
[2020-09-14] MEDS: GINGER ROOT 550 MG PO SCH (08:44)
[2020-09-14] MEDS: ACETAMINOPHEN 650 MG PO SCH (08:44)
[2020-09-14] MEDS: MOVE FREE JOINT HEALTH PO SCH (08:44)
[2020-09-14] MEDS: VITAMIN D3 25 MCG (1,000 UNITS) TABLET PO SCH (08:45)
[2020-09-14] MEDS: LORATADINE (CLARITIN) 10 MG TAB PO SCH (08:45)
[2020-09-14 08:47] VITALS: BP 153/78
[2020-09-14] MEDS: DOCUSATE SODIUM 100 MG (COLACE) CAP PO SCH ×2 (09:24→09:29)
[2020-09-14 09:53] VITALS: BP 121/60
[2020-09-14 10:15] VITALS: BP 121/60
--- NOTE | 2020-09-14 13:49 | Occupational Ther Daily Note ---
OT Current Status-Daily Note Subjective No pain reported. Mental Status/Objective Patient Orientation: Person, Place, Time, Situation ADL-Treatment Therapy Code Descriptions/Definitions Functional [place] Measure: 0=Not Assessed/NA 4=Minimal Assistance 1=Total Assistance 5=Supervision or Setup 2=Maximal Assistance 6=Modified [place] 3=Moderate Assistance 7=Complete IndependenceSCALE: Activities may be completed with or without assistive devices. 3-Pmowhetxmv-zpgvyjf completes the activity by him/herself with no assistance from a helper. 5-Set-up or Clean-up Assistance-helper sets up or cleans up; patient completes activity. [place] assists only prior to or following the activity. 4-Supervision or Touching Assistance-helper provides verbal cues and/or touching/steadying and/or contact guard assistance as patient completes activity. Assistance may be provided throughout the activity or intermittently. 3-Partial/Moderate Assistance-helper does LESS THAN HALF the effort. [place] lifts, holds or supports trunk or limbs, but provides less than half the effort. 2-Substantial/Maximal Assistance-helper does MORE THAN HALF the effort. [place] lifts or holds trunk or limbs and provides more than half the effort. 4-Heaoqsmrr-tbxgqp does ALL the effort. Patient does none of the effort to complete the activity. Or, the assistance of 2 or more helpers is required for the patient to complete the activity. If activity was not attempted, code reason: 7-Patient Refused. 9-Not Applicable-not attempted and the patient did not perform the activity before the current illness, exacerbation or injury. 10-Not Attempted due to Environmental Limitations-(lack of equipment, weather restraints, etc.). 88-Not Attempted due to Medical Conditions or Safety Concerns. Eating (QC): 6 Oral Hygiene (QC): 6 Shower/Bathe Self (QC): 5 (Set up to sponge bathe at sink.) Upper Body Dressing (QC): 5 (Set up to don shirt and brace.) Lower Body Dressing (QC): 4 On/Off Footwear: 3 (Min assist to don shoes due to foot swelling.) Toileting Hygiene (QC): 6 Toilet Transfer (QC): 6 Education OT Patient Education: Correct positioning, Modified ADL techniques, Progress toward Goal/Update tx plan, Purpose of tx/functional activities, Reviewed precautions, Rehab process, Transfer techniques Teaching Recipient: Patient Teaching Methods: Demonstration, Discussion Response to Teaching: Verbalize Understanding, Return Demonstration OT Short Term Goals Short Term Goals Time Frame: Sep 09, 2020 Eatin Oral hygiene: 4 Toileting hygiene: 3 Shower/bathe self: 4 Upper body dressin Lower body dressin Putting on/taking off footwear: 3 OT Alf Goals Key Filer Goals Time Frame: September 23, 2020 Eating (QC): 6 Oral Hygiene (QC): 6 Toileting Hygiene (QC): 6 Shower/Bathe Self (QC): 4 Upper Body Dressing (QC): 5 Lower Body Dressing (QC): 4 On/Off Footwear (QC): 4 Additional Goals: 1-Demonstrate ADL Tasks, 2-Verbalize Understanding, 3-ImproveStrength/Lukas 1=Demonstrate adherence to instructed precautions during ADL tasks. 2=Patient will verbalize/demonstrate understanding of assistive devices/modifications for ADL. 3=Patient will improve strength/tolerance for activity to enable patient to perform ADL's. OT Education/Plan Problem List/Assessment Assessment: Decreased Activ Tolerance Discharge Recommendations Plan/Recommendations: Continue POC Therapy Discharge Recommendati: Home & Family, Post Acute OT Equpiment Recommendations-D/C: Hip Kit Treatment Plan/Plan of Care Treatment,Training & Education: Yes Patient would benefit from OT for education, treatment and training to promote independence in ADL's, mobility, safety and/or upper extremity function for ADL's. Plan of Care: ADL Retraining, Functional Mobility, Group Exercise/Act as Ind, UE Funct Exercise/Act Treatment Duration: September 23, 2020 Frequency: At least 5 of 7 days/Wk (IRF) Estimated Hrs Per Day: 1.5 hours per day Agreement: Yes Rehab Potential: Good Time/GCodes Start Time: 08:35 Stop Time: 09:30 Total Time Billed (hr/min): 55 Billed Treatment Time 1, ADL x 4 LILIAN TURNER OT Sep 14, 2020 13:49
--- NOTE | 2020-09-14 13:51 | Therapy Team Discharge Summary ---
Therapy Discharge Summary Discharge Recommendations Date of Discharge Sep 14, 2020 at 11:07 Therapy D/C Recommendations: Home w/ Family Support, Occupational Therapy Home Care Occupational Therapy Pt. has been seen by Occupational therapy to work on increased overall strength and independence. Pt. has met most goals. Continues to require assistance with donning shoes at this time due to foot swelling. P'ts pain has subsided considerably since arrival, and he is ambulating with walker with Mod I. Pt. discharging home with spouse. Recommend home health care for OT as needed. Pt. might benefit from hip kit as well. Decreased Activ Tolerance PT Custodial Goals [employer] Manager Goals PT [employer] Manager Goals Time Frame: September 23, 2020 Roll Left to Right (QC): 6 Sit to Lying (QC): 6 Lying-Sitting on Side/Bed(QC): 6 Sit to Stand (QC): 6 Chair/Cur-zo-Yjdyv Xfer(QC): 6 Car Transfer (QC): 6 Does the Patient Walk: Yes Walk 10 feet (QC): 6 Walk 10ft-Uneven Surface(QC): 6 Walk 50ft with 2 Turns (QC): 6 Walk 150 ft (QC): 6 Wheel 50 feet with 2 turns (QC: 88 1 Step (curb) (QC): 6 4 Steps (QC): 6 12 Steps (QC): 4 Picking up an Object (QC): 88 OT Custodial Goals [employer] Manager Goals Time Frame: September 23, 2020 Eating (QC): 6 (met) Oral Hygiene (QC): 6 (met) Shower/Bathe Self (QC): 4 (met) Upper Body Dressing (QC): 5 (met) Lower Body Dressing (QC): 4 (met) On/Off Footwear (QC): 4 (not met) Toileting Hygiene (QC): 6 (met) Toilet/Commode Transfer (QC): 6 (met) Additional Goals: 1-Demonstrate ADL Tasks, 2-Verbalize Understanding, 3- ImproveStrength/Lukas 1=Demonstrate adherence to instructed precautions during ADL tasks. 2=Patient will verbalize/demonstrate understanding of assistive devices/modifications for ADL. 3=Patient will improve strength/tolerance for activity to enable patient to perform ADL's. LILIAN TURNER OT Sep 14, 2020 13:51
--- NOTE | 2020-09-14 15:05 | Therapy Team Discharge Summary ---
Therapy Discharge Summary Discharge Recommendations Date of Discharge Sep 14, 2020 at 11:07 Therapy D/C Recommendations: Home w/ Family Support, Occupational Therapy Home Care Physical Therapy Patient presented to [facility] with dx of spinal stenosis. Patient was Min A with all functional transfers including sit to stand, car transfers, and bed to chair transfers, and was CGA with gait (600' using a rolling walker) and walking across uneven surfaces. Patient was able to meet all long-term goals with complete independence with all bed mobility, transfers, gait (1000' with rolling walker), and stairs including taking 12 steps independently (using 2 handrails). Patient to be d/c from [facility] and therefore d/c from PT services. Occupational Therapy Decreased Activ Tolerance PT Product Steward Goals Product Steward Goals PT Correction Goals Time Frame: September 23, 2020 Roll Left to Right (QC): 6 Sit to Lying (QC): 6 Lying-Sitting on Side/Bed(QC): 6 Sit to Stand (QC): 6 Chair/Bdu-ek-Hcztd Xfer(QC): 6 Car Transfer (QC): 6 Does the Patient Walk: Yes Walk 10 feet (QC): 6 Walk 10ft-Uneven Surface(QC): 6 Walk 50ft with 2 Turns (QC): 6 Walk 150 ft (QC): 6 Wheel 50 feet with 2 turns (QC: 88 1 Step (curb) (QC): 6 4 Steps (QC): 6 12 Steps (QC): 4 Picking up an Object (QC): 88 OT Correction Goals Correction Goals Time Frame: September 23, 2020 Eating (QC): 6 (met) Oral Hygiene (QC): 6 (met) Shower/Bathe Self (QC): 4 (met) Upper Body Dressing (QC): 5 (met) Lower Body Dressing (QC): 4 (met) On/Off Footwear (QC): 4 (not met) Toileting Hygiene (QC): 6 (met) Toilet/Commode Transfer (QC): 6 (met) Additional Goals: 1-Demonstrate ADL Tasks, 2-Verbalize Understanding, 3- ImproveStrength/Lukas 1=Demonstrate adherence to instructed precautions during ADL tasks. 2=Patient will verbalize/demonstrate understanding of assistive devices/modifications for ADL. 3=Patient will improve strength/tolerance for activity to enable patient to perform ADL's. CASSIA MORROW PT Sep 14, 2020 15:05
== END 2020-09-14 11:07 | disposition home health service (06) | DRG 561 ==
PROVIDERS: ADMIT Internal Medicine; ATTEND Internal Medicine
DX: Z47.89 Encounter for other orthopedic aftercare (principal); Z98.1 Arthrodesis status; I25.10 Atherosclerotic heart disease of native coronary artery without angina pectoris; I48.0 Paroxysmal atrial fibrillation; I12.9 Hypertensive chronic kidney disease with stage 1 through stage 4 chronic kidney disease, or unspecified chronic kidney disease; N18.9 Chronic kidney disease, unspecified; N40.1 Benign prostatic hyperplasia with lower urinary tract symptoms; R33.8 Other retention of urine; G47.33 Obstructive sleep apnea (adult) (pediatric); E78.00 Pure hypercholesterolemia, unspecified; K59.09 Other constipation; M19.91 Primary osteoarthritis, unspecified site; F32.9 Major depressive disorder, single episode, unspecified; I73.9 Peripheral vascular disease, unspecified; H91.90 Unspecified hearing loss, unspecified ear; Z95.0 Presence of cardiac pacemaker; I25.2 Old myocardial infarction; Z86.718 Personal history of other venous thrombosis and embolism; Z96.653 Presence of artificial knee joint, bilateral; Z96.641 Presence of right artificial hip joint; Z88.6 Allergy status to analgesic agent; Z88.8 Allergy status to other drugs, medicaments and biological substances; Z82.49 Family history of ischemic heart disease and other diseases of the circulatory system
CPT/HCPCS: 36415; 73502; 74018; 80053; 81000; 85025

== ENCOUNTER 2021-03-26 17:01 | Inpatient (IN) | payer MEDICARE ==
[~2021-03-26] VITALS: Ht 182 cm; Wt 117.9 kg
[~2021-03-26 17:01] MED LIST changes: -ACETAMINOPHEN 325 MG TABLET PO PRN; -ALPRAZolam 0.25 MG (XANAX) TAB PO PRN; -BISACODYL 10 MG SUPP (DULCOLAX) PR PRN; -CALCIUM CARBONATE 500 MG (TUMS) TAB.CHEW PO PRN; -DOCUSATE SODIUM 100 MG (COLACE) CAP PO PRN; -FLEET ENEMA ADULT 1 EA BTL PR PRN; -LOPERAMIDE 2 MG (IMODIUM) TABLET PO PRN; +OXC5T PO; +POLY17PO54 PO; +SCOP1PAT10 TD; -SCOP1PAT11 TD; +SENN1TAB76 PO; +UBID100C17 PO; -diphenhydrAMINE 25 MG TAB (BENADRYL) PO PRN; -guaiFENesin/CODEINE (ROBITUSSIN AC) 10ML UDC PO PRN
[2021-03-26] MEDS ORDERED: ONDANSETRON 4 MG/2 ML (SDV) Z0FRAN IVP ONE (18:15)
--- NOTE | 2021-03-26 18:16 | ED GI ---
General Chief Complaint: Abdominal/GI Problems Stated Complaint: POSS BOWEL BLOCKAGE Nursing Triage Note: PT AMBULATORY TO ER WITH SPOUSE. PT REPORTS LAST BOWEL MOVEMENT WAS ON MONDAY, 03/21. PT REPORTS HE HAD A CIRCUMSION AND BIOPSY PERFORMED AT [facility] IN [place] ON 03/23. REPORTS HAS BEEN TAKING OXYCODONE FOR PAIN. PT REPORTS HAS BEEN TAKING STOOL SOFTENERS, MILK OF MAG, AND A FLEETS THIS AFTERNOON. Source of Information: Patient, Spouse Exam Limitations: Other (PT IS HARD OF HEARING) History of Present Illness Date Seen by Provider: Mar 26, 2021 Time Seen by Provider: 18:00 Initial Comments PT ARRIVES VIA POV--SENT HERE FROM [facility] C/O NO BM SINCE 03/21/21 C/O ABDOMINAL PAIN AND BLOATING C/O NAUSEA AND VOMITED X 1 THIS AFTERNOON PT IS PASSING GAS PT TOOK 60 ML OF MILK OF MAGNESIA YESTERDAY AND THE DAY BEFORE, 2 STOOL SOFTENERS TWICE A DAY YESTERDAY AND THE DAY BEFORE, TRIED DULCOLAX SUPPOSITORY AND FLEET'S ENEMA THIS AFTERNOON WITHOUT RESULTS PT HAS CONTINUED TO EAT AND DRINK NO CHANGE IN URINATION--PT HAS CHRONIC INCONTINENCE NO FEVER PT HAS NOT HAD HISTORY OF SIMILAR LAST COLONOSCOPY WAS MANY YEARS AGO. PT HAD CIRCUMCISION AND BIOPSY OF PENILE LESION AT [facility] ON Monday03/23/21 AND HAS BEEN TAKING OXYCODONE PT HAS NOT SOUGHT CARE UNTIL TODAY PCP: DR. FERREIRA, [place] [employer] SQUAD AGENT [facility] Allergies and Home Medications Allergies Coded Allergies: Pdvunll-BGO-BoN Reductase Inhibitor (Verified Allergy, Unknown, 07/05/15) hydrocodone (Verified Allergy, Unknown, pt has received morphine & hydromorphone in the past, 09/02/20) Patient Home Medication List Home Medication List Reviewed: Yes Acetaminophen (Arthritis Pain) 650 Mg Tablet.er, 650 MG PO BID, (Reported) Entered as Reported by: ADELSO MARTEL on 04/13/15 1448 Amlodipine Besylate (Amlodipine Besylate) 10 Mg Tablet, 10 MG PO HS, (Reported) Entered as Reported by: TRACY NGO on 09/02/20 1047 Ascorbic Acid (Vitamin C) 500 Mg Capsule, 1,000 MG PO DAILY, (Reported) Entered as Reported by: TRACY NGO on 02/12/20 1433 Cholecalciferol (Vitamin D3) (Vitamin D3) 25 Mcg Capsule, 25 MCG PO DAILY, (Reported) Entered as Reported by: TRACY NGO on 02/12/20 1433 Citalopram Hydrobromide (Citalopram HBr) 20 Mg Tablet, 20 MG PO HS, (Reported) Entered as Reported by: SEPIDEH AGUILAR on 07/06/15 1533 Docusate Sodium (Colace) 100 Mg Capsule, 200 MG PO BID, (Reported) Entered as Reported by: ADELSO MARTEL on 04/13/15 1448 Fexofenadine HCl (Fexofenadine HCl) 180 Mg Tablet, 180 MG PO DAILY, (Reported) Entered as Reported by: TRACY NGO on 09/02/20 1047 Meche Root (Meche Root) 550 Mg Capsule, 550 MG PO BID, (Reported) Entered as Reported by: TRACY NGO on 02/12/20 1433 Glucosam/Chond/Hyalu/Cf Borate (Move Free Joint Health Tablet) 1 Each Tablet, 2 EACH PO BID, (Reported) Entered as Reported by: TRACY NGO on 02/12/20 1433 Omeprazole (Omeprazole) 20 Mg Capsule.dr, 20 MG PO DAILY, (Reported) Entered as Reported by: TRACY NGO on 09/02/20 1047 Oxycodone Hcl (Oxyir Tablet) 5 Mg Tab, 5 MG PO Q4H PRN for PAIN-SEVERE (8-10) Prescribed by: PONCE KAUR on 09/14/20 06 Polyethylene Glycol 3350 (Polyethylene Glycol 3350) 17 Gm Powd.pack, 17 GM PO BID Prescribed by: PONCE KAUR on 09/14/20 0600 Rivaroxaban (Xarelto) 20 Mg Tablet, 20 MG PO 1800, (Reported) Entered as Reported by: TRACY NGO on 09/08/20 1556 Sennosides/Docusate Sodium (Stool Softener-Laxative Tablet) 1 Each Tablet, 1 EA PO BID Prescribed by: PONCE KAUR on 09/14/20 0600 Telmisartan (Telmisartan) 40 Mg Tablet, 20 MG PO DAILY, (Reported) Entered as Reported by: TRACY NGO on 09/02/20 1047 Tramadol HCl (Tramadol HCl) 50 Mg Tablet, 50 MG PO Q6HR PRN for PAIN-MODERATE (5-7) Prescribed by: PONCE KAUR on 09/14/20 0601 Ubidecarenone (Coq-10) 100 Mg Capsule, 100 MG PO DAILY, (Reported) Entered as Reported by: TRACY NGO on 09/08/20 1556 Review of Systems Review of Systems Constitutional: no symptoms reported Respiratory: No Symptoms Reported Cardiovascular: No Symptoms Reported Gastrointestinal: See HPI, Abdomen Distended, Abdominal Pain, Diarrhea, Nausea, Vomiting Genitourinary: See HPI Musculoskeletal: no symptoms reported Psychiatric/Neurological: No Symptoms Reported Endocrine: No Symptoms Reported Hematologic/Lymphatic: No Symptoms Reported Past Xkjaaoq-Vlgmga-Saewum Hx Patient Social History Tobacco Use?: No Use of E-Cig and/or Vaping dev: No Substance use?: No Alcohol Use?: No Pt feels they are or have been: No Immunizations Up To Date First/Initial COVID19 Vaccinat: JULY 2020 Second COVID19 Vaccination Jeremiah: AUGUST 2020 COVID19 Vaccine Systems Mgr: VIDYA Seasonal Allergies Seasonal Allergies: No Past Medical History Surgery/Hospitalization HX: CIRCUMCISION AND BIOPSY PERFORMED ON 03/23 AT [facility] Surgeries: Yes (SEE BELOW) Abdominal, Cardiac, Eye Surgery, Joint Replacement, Neurological, Orthopedic, Pacemaker Respiratory: Yes Sleep Apnea Currently Using BIPAP: Yes Cardiac: Yes (NC; DVT RIGHT LEG POST-OP BACK SURGERY;LYMPHEDEMA LEFT ARM) Atrial Fibrillation, Chronic Edema/Swelling, Coronary Artery Disease, Deep Vein Thrombosis, Heart Attack, High Cholesterol, Hypertension Neurological: Yes Vertigo Reproductive Disorders: No Genitourinary: Yes Benign Prostatic Hyperpl Gastrointestinal: Yes Abdominal Hernia, Diverticulosis Musculoskeletal: Yes (LEFT ARM LYMPHEDEMA; CHRONIC NECK AND BACK PAIN) Degenerate Disk Disease, Arthritis, Chronic Back Pain Endocrine: No HEENT: Yes Cataract Hearing Impairment: Hard of Hearing Cancer: Yes (MELANOMA ON BACK--S/P SURGERY 1979) Melanoma Did You Recieve Any Treatments: Yes What Type of Treatment Did You: Surgical Intervention Psychosocial: Yes Depression Integumentary: Yes ( MELANOMA ON BACK; VENOUS STASIS DERMATITIS/BILAT LOWER LEGS) Blood Disorders: Yes (DVT POST OP) Adverse Reaction/Blood Tranf: No Family Medical History Anemia Cardiovascular disease Diabetes mellitus FH: breast cancer Hypertension Heart Disease, Hypertension SOCIAL HISTORY: -NO ALCOHOL -NO DRUGS -NO TOBACCO/NO SMOKING PAST SURGICAL HISTORY: -CERVICAL SPINE SURGERY--FUSION WITH HARDWARE -LUMBAR SPINE SURGERY X 2 -BILATERAL KNEE REPLACEMENTS -RIGHT HIP REPLACEMENT -MELANOMA REMOVED FROM BACK WITH LYMPH NODE REMOVAL FROM LEFT AXILLA IN 1979 -BILATERAL CATARACT SURGERY -CARDIAC CATH--NO INTERVENTION -BILATERAL INGUINAL HERNIA REPAIRS -CIRCUMSISION AND BIOPSY OF PENILE LESION 03/23/21 AT [facility] Physical Exam Vital Signs Vital Signs - First Documented 03/26/21 17:03 Temp 37.0 Pulse 71 Resp 20 B/P (MAP) 174/95 (121) Pulse Ox 93 O2 Delivery Room Air Capillary Refill : Height/Weight/BMI Height: 6'1.00" Weight: 255lbs. 0.0oz. 115.913343cg; 35.00 BMI Method:Stated General Appearance: WD/WN, no apparent distress, other (HARD OF HEARING) Respiratory: normal breath sounds, no respiratory distress Cardiovascular: regular rate, rhythm, no murmur Gastrointestinal: abnormal bowel sounds (RARE, HIGH-PITCHED), distended; No guarding, No rebound; tenderness (DIFFUSE LOWER ABDOMINAL TENDERNESS) Extremities: normal inspection Back: no CVA tenderness Neurologic/Psychiatric: tank maker wood II-XII nml as tested, no motor/sensory deficits, alert, normal mood/affect, oriented x 3 Skin: normal color, warm/dry Progress/Results/Core Measures Results/Orders Lab Results Laboratory Tests Test 03/26/21 18:17 03/26/21 18:27 Range/Units White Blood Count 13.9 H 4.3-11.0 10^3/uL Red Blood Count 4.45 4.30-5.52 10^6/uL Hemoglobin 14.4 13.3-17.7 g/dL Hematocrit 43 40-54 % Mean Corpuscular Volume 96 80-99 fL Mean Corpuscular Hemoglobin 32 25-34 pg Mean Corpuscular Hemoglobin Concent 34 32-36 g/dL Red Cell Distribution Width 14.3 10.0-14.5 % Platelet Count 258 130-400 10^3/uL Mean Platelet Volume 9.5 9.0-12.2 fL Immature Granulocyte % (Auto) 1 % Neutrophils (%) (Auto) 68 42-75 % Lymphocytes (%) (Auto) 15 12-44 % Monocytes (%) (Auto) 16 H 0-12 % Eosinophils (%) (Auto) 1 0-10 % Basophils (%) (Auto) 0 0-10 % Neutrophils # (Auto) 9.4 H 1.8-7.8 10^3/uL Lymphocytes # (Auto) 2.0 1.0-4.0 10^3/uL Monocytes # (Auto) 2.2 H 0.0-1.0 10^3/uL Eosinophils # (Auto) 0.1 0.0-0.3 10^3/uL Basophils # (Auto) 0.0 0.0-0.1 10^3/uL Immature Granulocyte # (Auto) 0.1 0.0-0.1 10^3/uL Sodium Level 136 135-145 MMOL/L Potassium Level 4.9 3.6-5.0 MMOL/L Chloride Level 101 98-107 MMOL/L Carbon Dioxide Level 25 21-32 MMOL/L Anion Gap 10 5-14 MMOL/L Blood Urea Nitrogen 19 H 7-18 MG/DL Creatinine 1.09 0.60-1.30 MG/DL Estimat Glomerular Filtration Rate 64 BUN/Creatinine Ratio 17 Glucose Level 107 H 70-105 MG/DL Calcium Level 10.3 H 8.5-10.1 MG/DL Corrected Calcium 10.2 H 8.5-10.1 MG/DL Total Bilirubin 0.5 0.1-1.0 MG/DL Aspartate Amino Transf (AST/SGOT) 12 5-34 U/L Alanine Aminotransferase (ALT/SGPT) 12 0-55 U/L Alkaline Phosphatase 73 40-136 U/L Total Protein 6.8 6.4-8.2 GM/DL Albumin 4.1 3.2-4.5 GM/DL Urine Color YELLOW Urine Clarity CLEAR Urine pH 7.5 5-9 Urine Specific [place] 1.010 L 1.016-1.022 Urine Protein NEGATIVE NEGATIVE Urine Glucose (UA) NEGATIVE NEGATIVE Urine Ketones NEGATIVE NEGATIVE Urine Nitrite NEGATIVE NEGATIVE Urine Bilirubin NEGATIVE NEGATIVE Urine Urobilinogen 0.2 < = 1.0 MG/DL Urine Leukocyte Esterase TRACE H NEGATIVE Urine RBC (Auto) TRACE-I H NEGATIVE Urine RBC 0-2 /HPF Urine WBC 0-2 /HPF Urine Crystals PRESENT H /LPF Urine Amorphous Sediment R[place] PHOSPHATE H /LPF Urine Bacteria TRACE /HPF Urine Casts NONE /LPF Urine Mucus NEGATIVE /LPF Urine Culture Indicated NO My Orders Orders - [facility] Live Ed Iv/Invasive Line Start (03/26/21 18:09) Cbc With Automated Diff (03/26/21 18:09) Comprehensive Metabolic Panel (03/26/21 18:09) Ua Culture If Indicated (03/26/21 18:09) Acute Abd Series (03/26/21 18:09) Ct Abdomen/Pelvis Wo (03/26/21 18:09) Ondansetron Injection (Zofran Injectio (03/26/21 18:15) Medications Given in ED Current Medications Medications Dose Ordered Sig/Vish Route Start Time Stop Time Status Last Admin Dose Admin Ondansetron HCl 4 mg ONCE ONCE IVP 03/26/21 18:15 03/26/21 18:16 DC 03/26/21 18:26 4 MG Vital Signs/I&O 03/26/21 03/26/21 03/26/21 03/26/21 17:03 17:28 17:55 18:29 Temp 37.0 Pulse 71 73 72 72 Resp 20 18 20 20 B/P (MAP) 174/95 (121) 146/85 153/81 155/77 Pulse Ox 93 94 94 95 O2 Delivery Room Air Room Air Room Air Blood Pressure Mean: 105 Progress Progress Note : Progress Note UNEVENTFUL ER STAY Diagnostic Imaging Comments ABDOMEN XRAYS AND CT ABDOMEN/PELVIS--PER RADIOLOGIST REPORT AT 1910 ABDOMEN XRAYS-- FINDINGS: Overall heart size is within normal limits. Pulmonary vascularity is at the upper limits of normal with mild increased density in the perihilar regions. Numerous surgical clips project over the left axilla with surgical plate in the lower cervical spine. There is also extensive posterior fixation from the lower thoracic spine to the sacrum. There is mild to moderate amount of stool throughout the colon. No definite transition point is seen to indicate an obstruction. Note is made of lucency about the extension screws into the iliac bones. There is also lucency surrounding right hip prosthesis. IMPRESSION: Mild increased density in the perihilar regions may reflect edema or pneumonitis. Extensive postoperative findings are present with possible loosening of prosthetic components, bilaterally, in the iliac regions as well as adjacent to the right hip prosthesis. CT ABDOMEN/PELVIS-- FINDINGS: Examination mildly limited by motion. Moderate colonic diverticulosis with short segment bowel wall thickening and adjacent inflammatory change in the proximal sigmoid colon consistent with active diverticulitis. Large amount of stool throughout the more proximal colon suggesting constipation. No significant dilation, although the more distal colon is decompressed. No free intraperitoneal air. No pneumatosis or portal venous gas. Lung bases are clear. The liver, gallbladder, pancreas, spleen, adrenals, ureters and bladder are negative. No evidence of appendicitis. Moderate atherosclerotic calcifications. Infrarenal abdominal aortic ectasia measuring up to 3.2 cm in diameter. No lymphadenopathy. Posterior instrumentation at T10 through the sacroiliac joints. Osteolysis about the right sacroiliac fixation screw consistent with loosening. Interbody fusions at L3-L5. L4-L5 laminectomy. L2 laminectomy. Right KELLI. IMPRESSION: 1. Short segment bowel wall thickening and adjacent inflammatory change in the proximal sigmoid colon where there are a few diverticula. Findings are most likely due to acute diverticulitis. However, an underlying mass cannot be excluded and endoscopy when clinically appropriate is recommended. There is a large amount of stool in the colon at this location and more proximally. The more distal colon is decompressed. No colonic dilation. An early obstruction could be considered. 2. Extensive postoperative changes in the spine. There is evidence of loosening of a right sacroiliac fixation screw. 3. Infrarenal abdominal aortic ectasia measuring up to 3.2 cm. Reviewed: Reviewed by Me Departure Communication (Admissions) 1916--CALLED [facility], NO BEDS AVAILABLE. 1917--SPOKE WITH DR. MOSS, ADVISES TO ADMIT TO HOSPITALIST AND HE WILL SEE PT IN CONSULT. ORDERS NOTED 1918--SPOKE WITH DR. MCCALLUM, ACCEPTS PT FOR ADMIT Impression Primary Impression: Acute diverticulitis Additional Impressions: Constipation Pseudo-obstruction of intestine Disposition: ADMITTED INPATIENT Condition: Stable Admissions Decision to Admit Reason: Admit from ER (General) Decision to Admit/Date: Mar 26, 2021 Time/Decision to Admit Time: 19:20 Departure-Patient Inst. Referrals: SOO FERREIRA MD (PCP/Family) Primary Care Physician KISHA BLOUNT DO Mar 26, 2021 18:16
[2021-03-26 18:24] LABS: BASOPHILS % (AUTO) 0 % (0-10); EOSINOPHILS # (AUTO) 0.1 10^3/uL (0.0-0.3); EOSINOPHILS % (AUTO) 1 % (0-10); HEMATOCRIT 43 % (40-54); HEMOGLOBIN 14.4 g/dL (13.3-17.7); LYMPHOCYTES % (AUTO) 15 % (12-44); MEAN CORPUSCULAR HEMOGLOBIN 32 pg (25-34); MEAN CORPUSCULAR HGB CONC 34 g/dL (32-36); MEAN CORPUSCULAR VOLUME 96 fL (80-99); MEAN PLATELET VOLUME 9.5 fL (9.0-12.2); MONOCYTES # (AUTO) 2.2 10^3/uL (0.0-1.0); MONOCYTES % (AUTO) 16 % (0-12); NEUTROPHILS # (AUTO) 9.4 10^3/uL (1.8-7.8); NEUTROPHILS % (AUTO) 68 % (42-75); PLATELET COUNT 258 10^3/uL (130-400); WHITE BLOOD COUNT 13.9 10^3/uL (4.3-11.0)
[2021-03-26 18:34] LABS: BILIRUBIN,URINE NEGATIVE (NEGATIVE); CLARITY,URINE CLEAR; COLOR,URINE YELLOW; GLUCOSE, URINE (UA) NEGATIVE (NEGATIVE); KETONES,URINE NEGATIVE (NEGATIVE); LEUKOCYTE ESTERASE ,URINE TRACE (NEGATIVE); NITRITE,URINE NEGATIVE (NEGATIVE); PH,URINE 7.5 (5-9); PROTEIN,URINE NEGATIVE (NEGATIVE)
[2021-03-26 18:41] LABS: AMORPHOUS SEDIMENT,UR RARE AMOR PHOSPHATE /LPF; BACTERIA,URINE TRACE /HPF; RBC,URINE 0-2 /HPF; WBC,URINE 0-2 /HPF
[2021-03-26 18:46] LABS: ALBUMIN 4.1 GM/DL (3.2-4.5); BILIRUBIN,TOTAL 0.5 MG/DL (0.1-1.0); CALCIUM 10.3 MG/DL (8.5-10.1); CREATININE SERUM 1.09 MG/DL (0.60-1.30); POTASSIUM 4.9 MMOL/L (3.6-5.0); TOTAL PROTEIN 6.8 GM/DL (6.4-8.2)
--- NOTE | 2021-03-26 18:58 | Diagnostic Imaging Report ---
PROCEDURE: CT abdomen and pelvis without contrast. TECHNIQUE: Multiple contiguous axial images were obtained through the abdomen and pelvis without the use of intravenous contrast. Auto Exposure Controls were utilized during the CT exam to meet ALARA standards for radiation dose reduction. INDICATION: Constipation. Abdominal pain. Nausea and vomiting. COMPARISON: Abdominal radiograph 09/03/2020. FINDINGS: Examination mildly limited by motion. Moderate colonic diverticulosis with short segment bowel wall thickening and adjacent inflammatory change in the proximal sigmoid colon consistent with active diverticulitis. Large amount of stool throughout the more proximal colon suggesting constipation. No significant dilation, although the more distal colon is decompressed. No free intraperitoneal air. No pneumatosis or portal venous gas. Lung bases are clear. The liver, gallbladder, pancreas, spleen, adrenals, ureters and bladder are negative. No evidence of appendicitis. Moderate atherosclerotic calcifications. Infrarenal abdominal aortic ectasia measuring up to 3.2 cm in diameter. No lymphadenopathy. Posterior instrumentation at T10 through the sacroiliac joints. Osteolysis about the right sacroiliac fixation screw consistent with loosening. Interbody fusions at L3-L5. L4-L5 laminectomy. L2 laminectomy. Right KELLI. IMPRESSION: 1. Short segment bowel wall thickening and adjacent inflammatory change in the proximal sigmoid colon where there are a few diverticula. Findings are most likely due to acute diverticulitis. However, an underlying mass cannot be excluded and endoscopy when clinically appropriate is recommended. There is a large amount of stool in the colon at this location and more proximally. The more distal colon is decompressed. No colonic dilation. An early obstruction could be considered. 2. Extensive postoperative changes in the spine. There is evidence of loosening of a right sacroiliac fixation screw. 3. Infrarenal abdominal aortic ectasia measuring up to 3.2 cm. Dictated by: Dictated on workstation # [id number]
--- NOTE | 2021-03-26 19:00 | Diagnostic Imaging Report ---
INDICATION: Abdominal pain. EXAMINATION: Supine and upright views of the abdomen were obtained with single view of the chest. COMPARISON: Study of 09/03/2020. FINDINGS: Overall heart size is within normal limits. Pulmonary vascularity is at the upper limits of normal with mild increased density in the perihilar regions. Numerous surgical clips project over the left axilla with surgical plate in the lower cervical spine. There is also extensive posterior fixation from the lower thoracic spine to the sacrum. There is mild to moderate amount of stool throughout the colon. No definite transition point is seen to indicate an obstruction. Note is made of lucency about the extension screws into the iliac bones. There is also lucency surrounding right hip prosthesis. IMPRESSION: Mild increased density in the perihilar regions may reflect edema or pneumonitis. Extensive postoperative findings are present with possible loosening of prosthetic components, bilaterally, in the iliac regions as well as adjacent to the right hip prosthesis. Dictated by: Dictated on workstation # [id number]
[2021-03-26] MEDS ORDERED: CIPROFLOXACIN IV 400MG/200ML 200 ML IV ONE (19:30)
[2021-03-26] MEDS ORDERED: metroNIDAZOLE 500MG/100ML IVPB 100 ML IV ONE (19:30)
[2021-03-26] MEDS ORDERED: fentaNYL INJ 100 MCG/2 ML AMP IVP ONE (19:30)
[2021-03-26 20:30] VITALS: BP 148/71
--- NOTE | 2021-03-26 21:39 | CONSULTATION REPORT ---
DATE OF SERVICE: ADMITTING PHYSICIAN: Dr. Margaret Zimmerman. ATTENDING PRIMARY CARE PHYSICIAN: Dr. Marin Cueto. HISTORY OF PRESENT ILLNESS: The patient is an 86-year-old male, who was brought to the Emergency Department by his spouse. They report that his last bowel movement was approximately 5 days ago. He has had some crampy abdominal pain. He states that he underwent a circumcision as well as a biopsy of a penile lesion and has been taking oxycodone for this. Since that time, it appears that he has had a significant constipation and also does have a history of constipation. A CT scan was performed, which did show a short segment of diverticulitis of the proximal sigmoid colon. There appears to be a noncomplicated diverticulitis. He states that he did have a colonoscopy before in the past; however, this was many years ago. He does not report any red blood per rectum nor any dark tarry stools. He also does not report any recent inadvertent weight loss. PAST MEDICAL HISTORY: Hypertension, gastroesophageal reflux disease, benign prostatic hypertrophy, degenerative joint disease, cardiac arrhythmia, coronary artery disease, bilateral lower extremity chronic venous insufficiency, history of myocardial infarction, history of a deep vein thrombosis, hypercholesterolemia, history of melanoma. PAST SURGICAL HISTORY: Cervical spine ORIF, lumbar ORIF x2, bilateral total knee arthroplasty, right total hip arthroplasty, wide excision melanoma from back as well as a left axillary lymph node dissection, bilateral cataract surgery, cardiac catheterization, bilateral inguinal hernia repair, recent circumcision as well as biopsy of penile lesion on 03/23/2021. ALLERGIES: STATINS and HYDROCODONE. MEDICATIONS: 1. Amlodipine 10 mg daily. 2. Citalopram 20 mg daily. 3. Colace 100 mg b.i.d. 4. Fexofenadine _100 mg daily. 5. Omeprazole 20 mg daily. 6. Oxycodone 5 mg q.4 hours p.r.n. 7. Rivaroxaban 20 mg daily. 8. Telmisartan 40 mg daily. 9. Tramadol 50 mg q.6 hours p.r.n. SOCIAL HISTORY: Negative smoke, negative alcohol. FAMILY HISTORY: Mother, breast cancer. VITAL SIGNS: Temperature 37.0, blood pressure 174/95, pulse 71, respirations 20, pulse ox 93% on room air. REVIEW OF SYSTEMS: This is a well-nourished male currently in no acute distress. He is not experiencing any shortness of breath or difficulty breathing. No chest pain, palpitations, diaphoresis. He does state that he has had nausea as well as one episode of emesis, no hematemesis, no coffee ground emesis. He states his last bowel movement was approximately 5 days ago. No fever, chills, no recent inadvertent weight loss. All other review of systems negative. PHYSICAL EXAMINATION: CHEST: Few scattered rales bilaterally. HEART: Regular, no murmurs. EXTREMITIES: +1/3 bilateral lower extremity edema with pigmentation of the ankle distribution consistent with a chronic venous insufficiency. Negative Homans sign. HEENT: No scleral icterus. NECK: No cervical lymphadenopathy. ABDOMEN: Soft, nondistended. There is mild to moderate discomfort in the left lower abdominal quadrant. No peritoneal signs. No hernias. SKIN: Warm, dry. LABORATORY DATA: WBC 13.9, hemoglobin 14.4, hematocrit 43. BUN 19, creatinine 1.09. Liver function enzymes normal. ASSESSMENT AND PLAN: An 86-year-old male with a constipation and noncomplicated diverticulitis of the proximal sigmoid colon. We will recommend conservative management for now and start laxatives by mouth and IV antibiotics. He has not had a colonoscopy in many years and at some point, he will need a followup colonoscopy to rule out the malignancy. Job ID: [id number] DocumentID: [id number] Dictated Date: 03/26/2021 21:11:23 Manufacturing Sr Engineer Date: 03/26/2021 21:38:36 Dictated By: JE MOSS MD
[2021-03-26] MEDS ORDERED: D5 1/2 NS W/KCL 20 MEQ/L 1,000 ML IV ONE (21:43)
[2021-03-26] MEDS: D5 1/2 NS W/KCL 20 MEQ/L 1,000 ML IV SCH (22:04)
[2021-03-27] VITALS: BP 145/70
[2021-03-27 03:59] VITALS: BP 147/74
[2021-03-27] MEDS: fentaNYL INJ 100 MCG/2 ML AMP IV PRN ×2 (05:38→08:33)
[2021-03-27] MEDS: D5 1/2 NS W/KCL 20 MEQ/L 1,000 ML IV SCH ×3 (05:41→21:37)
[2021-03-27 05:48] LABS: BASOPHILS % (AUTO) 0 % (0-10); EOSINOPHILS # (AUTO) 0.1 10^3/uL (0.0-0.3); EOSINOPHILS % (AUTO) 1 % (0-10); HEMATOCRIT 38 % (40-54); HEMOGLOBIN 12.9 g/dL (13.3-17.7); LYMPHOCYTES # (AUTO) 2.6 10^3/uL (1.0-4.0); LYMPHOCYTES % (AUTO) 21 % (12-44); MEAN CORPUSCULAR HEMOGLOBIN 32 pg (25-34); MEAN CORPUSCULAR HGB CONC 34 g/dL (32-36); MEAN CORPUSCULAR VOLUME 96 fL (80-99); MEAN PLATELET VOLUME 9.4 fL (9.0-12.2); MONOCYTES # (AUTO) 1.7 10^3/uL (0.0-1.0); MONOCYTES % (AUTO) 14 % (0-12); NEUTROPHILS % (AUTO) 64 % (42-75); PLATELET COUNT 215 10^3/uL (130-400); WHITE BLOOD COUNT 12.4 10^3/uL (4.3-11.0)
[2021-03-27 06:03] LABS: CALCIUM 9.5 MG/DL (8.5-10.1); CREATININE SERUM 1.01 MG/DL (0.60-1.30); POTASSIUM 4.3 MMOL/L (3.6-5.0)
[2021-03-27 08:00] VITALS: BP 165/78
[2021-03-27] MEDS: metroNIDAZOLE 500 MG/100 ML IVPB (PRE-MIX) IV SCH ×2 (08:33→21:22)
[2021-03-27] MEDS: CIPROFLOXACIN 400 MG/D5W 200 ML (PRE-MIX) IV SCH ×2 (08:33→21:38)
[2021-03-27] MEDS ORDERED: CITA10TA7 PO (10:24)
[2021-03-27] MEDS ORDERED: FURO-124 PO (10:28)
[2021-03-27] MEDS: MAGNESIUM CITRATE 300 ML BTL PO SCH ×2 (10:29→21:37)
[2021-03-27] MEDS ORDERED: FEXO180T84 PO (10:30)
[2021-03-27] MEDS ORDERED: EZET10TA49 PO (11:11)
--- NOTE | 2021-03-27 11:14 | Progress Note ---
Subjective Date Seen by a Provider: Mar 27, 2021 Time Seen by a Provider: 10:15 Subjective/Events-last exam Patient seen with Dr. Perla. Patient reports still having LLQ abdominal pain. Passing flatus. Tolerating clear liquid diet. Denies any N/V. Reports left upper arm swelling from previous axillary node dissection for melanoma. Objective Exam Vital Signs Date Time Temp Pulse Resp B/P (MAP) Pulse Ox O2 Delivery O2 Flow Rate FiO2 03/27/21 08:00 37.2 75 20 165/78 (107) 95 Nasal Cannula 2.00 03/27/21 07:00 69 03/27/21 03:59 37.6 74 19 147/74 (98) 93 Room Air 03/27/21 01:49 70 03/27/21 01:20 Room Air 03/27/21 00:00 38.0 73 18 145/70 (95) 93 Room Air 03/26/21 20:30 37.8 72 20 148/71 (96) 94 Room Air 03/26/21 20:26 73 18 168/94 94 Room Air 03/26/21 18:29 72 20 155/77 95 03/26/21 17:55 72 20 153/81 94 Room Air 03/26/21 17:28 73 18 146/85 94 Room Air 03/26/21 17:03 37.0 71 20 174/95 (121) 93 Room Air I & O 03/27/21 07:00 Intake Total 400 ml Output Total 350 ml Balance 50 ml Capillary Refill : General Appearance: No Apparent Distress, WD/WN Neck: Normal Inspection, Supple Respiratory: No Accessory Muscle Use, No Respiratory Distress Cardiovascular: Regular Rate, Rhythm, No JVD Gastrointestinal: normal bowel sounds, soft, tenderness (LLQ) Extremity: Normal Range of Motion, Other (Left upper arm edema) Neurologic/Psychiatric: Alert, Oriented x3 Skin: Normal Color, Warm/Dry Results Lab Laboratory Tests 03/26/21 18:17: White Blood Count 13.9H, Red Blood Count 4.45, Hemoglobin 14.4, Hematocrit 43, Mean Corpuscular Volume 96, Mean Corpuscular Hemoglobin 32, Mean Corpuscular Hemoglobin Concent 34, Red Cell Distribution Width 14.3, Platelet Count 258, Mean Platelet Volume 9.5, Immature Granulocyte % (Auto) 1, Neutrophils (%) (Auto) 68, Lymphocytes (%) (Auto) 15, Monocytes (%) (Auto) 16H, Eosinophils (%) (Auto) 1, Basophils (%) (Auto) 0, Neutrophils # (Auto) 9.4H, Lymphocytes # (Auto) 2.0, Monocytes # (Auto) 2.2H, Eosinophils # (Auto) 0.1, Basophils # (Auto) 0.0, Immature Granulocyte # (Auto) 0.1, Sodium Level 136, Potassium Level 4.9, Chloride Level 101, Carbon Dioxide Level 25, Anion Gap 10, Blood Urea Nitrogen 19H, Creatinine 1.09, Estimat Glomerular Filtration Rate 64, BUN/Creatinine Ratio 17, Glucose Level 107H, Calcium Level 10.3H, Corrected Calcium 10.2H, Total Bilirubin 0.5, Aspartate Amino Transf (AST/SGOT) 12, Alanine Aminotransferase (ALT/SGPT) 12, Alkaline Phosphatase 73, Total Protein 6.8, Albumin 4.1 03/26/21 18:27: Urine Color YELLOW, Urine Clarity CLEAR, Urine pH 7.5, Urine Specific [place] 1.010L, Urine Protein NEGATIVE, Urine Glucose (UA) NEGATIVE, Urine Ketones NEGATIVE, Urine Nitrite NEGATIVE, Urine Bilirubin NEGATIVE, Urine Urobilinogen 0.2, Urine Leukocyte Esterase TRACEH, Urine RBC (Auto) TRACE-IH, Urine RBC 0-2, Urine WBC 0-2, Urine Crystals PRESENTH, Urine Amorphous Sediment [place] PHOSPHATEH, Urine Bacteria TRACE, Urine Casts NONE, Urine Mucus NEGATIVE, Urine Culture Indicated NO 03/27/21 05:31: White Blood Count 12.4H, Red Blood Count 3.99L, Hemoglobin 12.9L, Hematocrit 38L , Mean Corpuscular Volume 96, Mean Corpuscular Hemoglobin 32, Mean Corpuscular Hemoglobin Concent 34, Red Cell Distribution Width 14.5, Platelet Count 215, Mean Platelet Volume 9.4, Immature Granulocyte % (Auto) 1, Neutrophils (%) (Auto) 64, Lymphocytes (%) (Auto) 21, Monocytes (%) (Auto) 14H, Eosinophils (%) (Auto) 1, Basophils (%) (Auto) 0, Neutrophils # (Auto) 8.0H, Lymphocytes # (Auto) 2.6, Monocytes # (Auto) 1.7H, Eosinophils # (Auto) 0.1, Basophils # (Auto) 0.0, Immature Granulocyte # (Auto) 0.1, Sodium Level 133L, Potassium Level 4.3, Chloride Level 103, Carbon Dioxide Level 21, Anion Gap 9, Blood Urea Nitrogen 17, Creatinine 1.01, Estimat Glomerular Filtration Rate 70, BUN/Creatinine Ratio 17, Glucose Level 118H, Calcium Level 9.5 Assessment/Plan Assessment/Plan Assess & Plan/Chief Complaint An 86-year-old male with a constipation and noncomplicated diverticulitis of the proximal sigmoid colon. VSS - Did have mildly elevated temp over night WBC 12.4 Continue with IV abx and laxatives Bowel rest with clear liquids Pain and nausea meds as needed Will need a follow up colonoscopy in 4-6 weeks LUIS ANGEL TAPIA MERCURY WASHER Mar 27, 2021 11:14
[2021-03-27] MEDS ORDERED: GABA-486 PO (11:20)
[2021-03-27 12:00] VITALS: BP 138/64
--- NOTE | 2021-03-27 12:11 | History & Physical-Hospitalist ---
History of Present Illness HPI/Chief Complaint Chief complaint: Abdominal pain History present illness: This is an 86-year-old white male known to me from inpatient rehab recovery following lumbar spine surgery status post 5 surgeries on lumbar spine who presented to the ER with left lower quadrant abdominal pain found to have acute diverticulitis. Dr. PERLA consulted. Clear liquid diet ordered. IV fluids maintained. Pain control is improved. He last had an episode of colitis when he returned from the [place] War. Source: patient Exam Limitations: no limitations Date Seen 03/27/21 Time Seen by a Provider: 12:30 Attending Physician Cleopatra Kaur DO PCP Marin Cueto MD Referring Physician Date of Admission Mar 26, 2021 at 19:20 Home Medications & Allergies Home Medications Reviewed patient Home Medication Reconciliation performed by pharmacy medication reconciliations prosthetic lab technician and/or nursing. Patients Allergies have been reviewed. Allergies Allergies Coded Allergies [id number]-[id number] Reductase Inhibitor (Verified Allergy, Unknown, 07/05/15) hydrocodone (Verified Allergy, Unknown, pt has received morphine & hydromorphone in the past, 09/02/20) Past Skckero-Hdhvao-Pcxcty Hx Patient Social History Marrital Status: Employed/Student: retired Tobacco Use?: No Smoking Status: Never a Smoker Smokeless Tobacco Frequency: Never a User Use of E-Cig and/or Vaping dev: No Use of E-Cig and/or Vaping Kirill: Never a User Substance use?: No Alcohol Use?: No Pt feels they are or have been: No Immunizations Up To Date Date of Influenza Vaccine: Mar 25, 2021 First/Initial COVID19 Vaccinat: JULY 2020 Second COVID19 Vaccination Jeremiah: AUGUST 2020 Date of Pneumonia Vaccine: Mar 08, 2012 Seasonal Allergies Seasonal Allergies: No Current Status Advance Directives: No Communicates: Verbally Primary Language: Iranian Preferred Spoken Language: Iranian Is interpretation needed?: No Sensory deficits: Hearing impairment Past Medical History Surgeries: Abdominal, Cardiac, Eye Surgery, Joint Replacement, Neurological, Orthopedic, Pacemaker Sleep Apnea Currently Using BIPAP: Yes Atrial Fibrillation, Chronic Edema/Swelling, Coronary Artery Disease, Deep Vein Thrombosis, Heart Attack, High Cholesterol, Hypertension Vertigo Benign Prostatic Hyperpl Abdominal Hernia, Diverticulosis Degenerate Disk Disease, Arthritis, Chronic Back Pain Cataract Hearing Impairment: Hard of Hearing Melanoma Did You Recieve Any Treatments: Yes What Type of Treatment Did You: Surgical Intervention Depression Blood Disorders: Yes (DVT POST OP) Adverse Reaction/Blood Tranf: No Family Medical History Anemia Cardiovascular disease Diabetes mellitus FH: breast cancer Hypertension Heart Disease, Hypertension SOCIAL HISTORY: -NO ALCOHOL -NO DRUGS -NO TOBACCO/NO SMOKING PAST SURGICAL HISTORY: -CERVICAL SPINE SURGERY--FUSION WITH HARDWARE -LUMBAR SPINE SURGERY X 2 -BILATERAL KNEE REPLACEMENTS -RIGHT HIP REPLACEMENT -MELANOMA REMOVED FROM BACK WITH LYMPH NODE REMOVAL FROM LEFT AXILLA IN 1979 -BILATERAL CATARACT SURGERY -CARDIAC CATH--NO INTERVENTION -BILATERAL INGUINAL HERNIA REPAIRS -CIRCUMSISION AND BIOPSY OF PENILE LESION 03/23/21 AT [place] Review of Systems Constitutional: malaise, weakness EENTM: no symptoms reported Respiratory: no symptoms reported Cardiovascular: no symptoms reported Gastrointestinal: abdominal pain (LLQ), loss of appetite, nausea Genitourinary: no symptoms reported Musculoskeletal: back pain Skin: no symptoms reported Psychiatric/Neurological: No Symptoms Reported All Other Systems Reviewed Negative Unless Noted: Yes Physical Exam Physical Exam Vital Signs Vital Signs - First Documented 03/26/21 17:03 Temp 37.0 Pulse 71 Resp 20 B/P (MAP) 174/95 (121) Pulse Ox 93 O2 Delivery Room Air Capillary Refill : Height, Weight, BMI Height: 6'1.00" Weight: 255lbs. 0.0oz. [id number]; 35.59 BMI Method:Stated General Appearance: No Apparent Distress, Chronically ill Eyes: Right Eye Normal Inspection, Right Eye PERRL HEENT: PERRL/EOMI, Normal ENT Inspection, Pharynx Normal, Moist Mucous Membranes Neck: Full Range of Motion, Normal Inspection, Non Tender Respiratory: Chest Non Tender, Lungs Clear, Normal Breath Sounds, No Accessory Muscle Use, No Respiratory Distress Cardiovascular: Regular Rate, Rhythm, No Edema, No Gallop, No JVD, No Murmur, Normal Peripheral Pulses Gastrointestinal: Normal Bowel Sounds, No Organomegaly, No Pulsatile Mass, Soft, Tenderness (Left lower quadrant) Back: Normal Inspection, No CVA Tenderness, Decreased Range of Motion Extremity: Normal Capillary Refill, Normal Inspection, Normal Range of Motion, Non Tender, No Calf Tenderness, No Pedal Edema Neurologic/Psychiatric: Alert, Oriented x3, No Motor/Sensory Deficits, Normal Mood/Affect Skin: Normal Color, Warm/Dry Lymphatic: No Adenopathy Results Results/Procedures Labs Laboratory Tests 03/26/21 18:17 03/27/21 05:31 03/28/21 05:25 03/28/21 06:25 Patient resulted labs reviewed. Assessment/Plan Admission Diagnosis Assessment: Acute diverticulitis h/o spine surgeries from lumbar stenosis x 5 PAF CAD PVD Depression h/o urinary retention HTN CRI Chronic pain Plan: IV abx CLD Dr Perla consult Home meds Admission Status: Inpatient Order (span 2 midnights) Reason for Inpatient Admission: acute colitis CLEOPATRA KAUR DO Mar 27, 2021 12:11
[2021-03-27] MEDS: FUROSEMIDE 40 MG (LASIX) TAB PO SCH (14:24)
[2021-03-27 15:36] VITALS: BP 117/69
[2021-03-27] MEDS: RIVAROXABAN 20 MG TABLET (XARELTO) PO SCH (17:44)
[2021-03-27] MEDS: oxyCODONE/APAP 7.5-325 MG (PERCOCET 7.5) TABLET PO PRN ×2 (17:44→18:14)
[2021-03-27 19:12] VITALS: BP 135/71
[2021-03-27] MEDS ORDERED: NON-FORMULARY MEDICATION 1 EA EA (Glucosam/Chond/Hyalu/Cf Borate (Move Free Joint Health T PO SCH (21:00)
[2021-03-27] MEDS: DOCUSATE SODIUM 100 MG (COLACE) CAP PO SCH (21:36)
[2021-03-27] MEDS: eZETimibe 10 MG (ZETIA) TABLET PO SCH (21:36)
[2021-03-27] MEDS: ACETAMINOPHEN 325 MG TABLET PO SCH (21:36)
[2021-03-28 00:19] VITALS: BP 128/63
[2021-03-28 03:50] VITALS: BP 168/92
[2021-03-28 06:36] LABS: BASOPHILS % (AUTO) 0 % (0-10); EOSINOPHILS # (AUTO) 0.1 10^3/uL (0.0-0.3); EOSINOPHILS % (AUTO) 1 % (0-10); HEMATOCRIT 42 % (40-54); HEMOGLOBIN 13.8 g/dL (13.3-17.7); LYMPHOCYTES % (AUTO) 19 % (12-44); MEAN CORPUSCULAR HEMOGLOBIN 32 pg (25-34); MEAN CORPUSCULAR HGB CONC 33 g/dL (32-36); MEAN CORPUSCULAR VOLUME 98 fL (80-99); MEAN PLATELET VOLUME 9.5 fL (9.0-12.2); MONOCYTES # (AUTO) 1.5 10^3/uL (0.0-1.0); MONOCYTES % (AUTO) 14 % (0-12); NEUTROPHILS # (AUTO) 6.9 10^3/uL (1.8-7.8); NEUTROPHILS % (AUTO) 65 % (42-75); PLATELET COUNT 213 10^3/uL (130-400); WHITE BLOOD COUNT 10.6 10^3/uL (4.3-11.0)
[2021-03-28 07:09] LABS: ALBUMIN 3.7 GM/DL (3.2-4.5); BILIRUBIN,TOTAL 0.7 MG/DL (0.1-1.0); CALCIUM 9.9 MG/DL (8.5-10.1); CREATININE SERUM 1.11 MG/DL (0.60-1.30); POTASSIUM 4.4 MMOL/L (3.6-5.0); TOTAL PROTEIN 6.4 GM/DL (6.4-8.2)
[2021-03-28] MEDS: CIPROFLOXACIN 400 MG/D5W 200 ML (PRE-MIX) IV SCH ×2 (07:49→20:43)
[2021-03-28] MEDS: fentaNYL INJ 100 MCG/2 ML AMP IV PRN ×2 (07:49→16:01)
[2021-03-28] MEDS: D5 1/2 NS W/KCL 20 MEQ/L 1,000 ML IV SCH ×3 (07:49→20:42)
[2021-03-28] MEDS: metroNIDAZOLE 500 MG/100 ML IVPB (PRE-MIX) IV SCH ×2 (07:50→20:42)
[2021-03-28] MEDS: PANTOPRAZOLE 20 MG TABLET (PROTONIX) PO SCH (07:51)
[2021-03-28] MEDS: ACETAMINOPHEN 325 MG TABLET PO SCH ×2 (07:51→20:42)
[2021-03-28] MEDS: DOCUSATE SODIUM 100 MG (COLACE) CAP PO SCH ×2 (07:52→20:42)
[2021-03-28] MEDS: ASCORBIC ACID (VIT C) 500 MG TABLET PO SCH (07:52)
[2021-03-28] MEDS: LOSARTAN 25 MG (COZAAR) TAB PO SCH (07:52)
[2021-03-28] MEDS: amLODIPine 10 MG (NORVASC) TAB PO SCH (07:52)
[2021-03-28] MEDS: LORATADINE (CLARITIN) 10 MG TAB PO SCH (07:52)
[2021-03-28] MEDS: VITAMIN D3 25 MCG (1,000 UNITS) TABLET PO SCH (07:52)
[2021-03-28 08:00] VITALS: BP 173/81
[2021-03-28] MEDS: MAGNESIUM CITRATE 300 ML BTL PO SCH ×2 (09:26→20:43)
--- NOTE | 2021-03-28 10:08 | Progress Note ---
Subjective Date Seen by a Provider: Mar 28, 2021 Time Seen by a Provider: 10:00 Subjective/Events-last exam doing ok. having crampy abd pain and has not had a BM yet. no fever/chills. Objective Exam Vital Signs Date Time Temp Pulse Resp B/P (MAP) Pulse Ox O2 Delivery O2 Flow Rate FiO2 03/28/21 08:22 Room Air 03/28/21 08:00 36.1 74 20 173/81 (111) 93 Room Air 03/28/21 07:00 60 03/28/21 03:50 36.9 67 21 168/92 (117) 94 NIV CPAP 3.00 03/28/21 01:00 80 03/28/21 00:19 36.4 69 19 128/63 (84) 96 Nasal Cannula 2.00 03/27/21 20:00 Room Air 03/27/21 19:12 36.8 78 18 135/71 (92) 93 Nasal Cannula 2.00 03/27/21 19:00 80 03/27/21 15:36 37.6 77 22 117/69 (85) 92 Room Air 03/27/21 12:46 79 03/27/21 12:00 36.5 71 22 138/64 (88) 91 Room Air I & O 03/28/21 06:59 Intake Total 2390 ml Output Total 275 ml Balance 2115 ml Capillary Refill : General Appearance: No Apparent Distress HEENT: PERRL/EOMI Neck: Full Range of Motion Respiratory: Chest Non Tender, Lungs Clear Cardiovascular: Regular Rate, Rhythm Gastrointestinal: soft, distended, tenderness Extremity: Normal Capillary Refill Neurologic/Psychiatric: Alert, Oriented x3 Skin: Normal Color Lymphatic: No Adenopathy Results Lab Laboratory Tests 03/28/21 05:25: Sodium Level 135, Potassium Level 4.4, Chloride Level 101, Carbon Dioxide Level 24, Anion Gap 10, Blood Urea Nitrogen 14, Creatinine 1.11, Estimat Glomerular Filtration Rate 63, BUN/Creatinine Ratio 13, Glucose Level 116H, Calcium Level 9.9, Corrected Calcium 10.1, Total Bilirubin 0.7, Aspartate Amino Transf (A ST/SGOT) 13, Alanine Aminotransferase (ALT/SGPT) 11, Alkaline Phosphatase 63, Total Protein 6.4, Albumin 3.7 03/28/21 06:25: White Blood Count 10.6, Red Blood Count 4.27L, Hemoglobin 13.8, Hematocrit 42, Mean Corpuscular Volume 98, Mean Corpuscular Hemoglobin 32, Mean Corpuscular Hemoglobin Concent 33, Red Cell Distribution Width 14.2, Platelet Count 213, Mean Platelet Volume 9.5, Immature Granulocyte % (Auto) 1, Neutrophils (%) (Auto) 65, Lymphocytes (%) (Auto) 19, Monocytes (%) (Auto) 14H, Eosinophils (%) (Auto) 1, Basophils (%) (Auto) 0, Neutrophils # (Auto) 6.9, Lymphocytes # (Auto) 2.0, Monocytes # (Auto) 1.5H, Eosinophils # (Auto) 0.1, Basophils # (Auto) 0.0, Immature Granulocyte # (Auto) 0.1 Assessment/Plan Assessment/Plan Assess & Plan/Chief Complaint diverticulitis. cont mg citrate. await more bowel fxn. ambulate. JE MOSS MD Mar 28, 2021 10:08
[2021-03-28 11:55] VITALS: BP 137/73
--- NOTE | 2021-03-28 12:05 | Progress Note - Hospitalist ---
Subjective HPI/CC On Admission Date Seen by Provider: Mar 28, 2021 Time Seen by Provider: 11:30 Chief complaint: Abdominal pain History present illness: This is an 86-year-old white male known to me from inpatient rehab recovery following lumbar spine surgery status post 5 surgeries on lumbar spine who presented to the ER with left lower quadrant abdominal pain found to have acute diverticulitis. Dr. MOSS consulted. Clear liquid diet ordered. IV fluids maintained. Pain control is improved. He last had an episode of colitis when he returned from the [place] War. Subjective/Events-last exam Patient doing well Having a lot of pain but that is chronic Ambulating will be ordered No other concerns Review of Systems Gastrointestinal: Abdominal Pain Musculoskeletal: back pain Objective Exam Vital Signs Vital Signs Date Time Temp Pulse Resp B/P (MAP) Pulse Ox O2 Delivery O2 Flow Rate FiO2 03/28/21 16:00 36.6 78 20 156/68 (97) 93 Room Air 03/28/21 03:50 3.00 Capillary Refill : General Appearance: No Apparent Distress, WD/WN, Chronically ill Respiratory: Lungs Clear, Normal Breath Sounds Cardiovascular: Regular Rate, Rhythm Neurologic/Psychiatric: Alert, Oriented x3 Results/Procedures Lab Laboratory Tests 03/28/21 05:25 03/28/21 06:25 Patient resulted labs reviewed. Assessment/Plan Assessment and Plan Assess & Plan/Chief Complaint Assessment: Acute diverticulitis h/o spine surgeries from lumbar stenosis x 5 PAF CAD PVD Depression h/o urinary retention HTN CRI Chronic pain Plan: IV abx CLD Dr Moss consult Home meds 03/28/2021: IV medication Pain control Ambulate PONCE KAUR DO Mar 28, 2021 12:05
[2021-03-28 16:00] VITALS: BP 156/68
[2021-03-28] MEDS: RIVAROXABAN 20 MG TABLET (XARELTO) PO SCH (18:47)
[2021-03-28 20:00] VITALS: BP 151/74
[2021-03-28] MEDS: eZETimibe 10 MG (ZETIA) TABLET PO SCH (20:42)
[2021-03-28] MEDS: ONDANSETRON 4 MG/2 ML (SDV) Z0FRAN IVP PRN (23:25)
[2021-03-29] VITALS: BP 131/72
[2021-03-29 04:14] VITALS: BP 104/59
[2021-03-29 06:25] LABS: BASOPHILS % (AUTO) 0 % (0-10); EOSINOPHILS % (AUTO) 0 % (0-10); HEMATOCRIT 39 % (40-54); HEMOGLOBIN 13.1 g/dL (13.3-17.7); LYMPHOCYTES # (AUTO) 1.5 10^3/uL (1.0-4.0); LYMPHOCYTES % (AUTO) 14 % (12-44); MEAN CORPUSCULAR HEMOGLOBIN 33 pg (25-34); MEAN CORPUSCULAR HGB CONC 34 g/dL (32-36); MEAN CORPUSCULAR VOLUME 96 fL (80-99); MEAN PLATELET VOLUME 9.5 fL (9.0-12.2); MONOCYTES # (AUTO) 1.5 10^3/uL (0.0-1.0); MONOCYTES % (AUTO) 13 % (0-12); NEUTROPHILS # (AUTO) 7.8 10^3/uL (1.8-7.8); NEUTROPHILS % (AUTO) 72 % (42-75); PLATELET COUNT 225 10^3/uL (130-400)
[2021-03-29 06:52] LABS: ALBUMIN 3.2 GM/DL (3.2-4.5); BILIRUBIN,TOTAL 0.7 MG/DL (0.1-1.0); CALCIUM 9.4 MG/DL (8.5-10.1); CREATININE SERUM 1.11 MG/DL (0.60-1.30); POTASSIUM 4.2 MMOL/L (3.6-5.0); TOTAL PROTEIN 5.8 GM/DL (6.4-8.2)
[2021-03-29 08:00] VITALS: BP 146/67
[2021-03-29] MEDS: CIPROFLOXACIN 400 MG/D5W 200 ML (PRE-MIX) IV SCH ×2 (08:22→20:43)
[2021-03-29] MEDS: VITAMIN D3 25 MCG (1,000 UNITS) TABLET PO SCH (08:22)
[2021-03-29] MEDS: metroNIDAZOLE 500 MG/100 ML IVPB (PRE-MIX) IV SCH ×2 (08:22→20:44)
[2021-03-29] MEDS: LOSARTAN 25 MG (COZAAR) TAB PO SCH (08:22)
[2021-03-29] MEDS: DOCUSATE SODIUM 100 MG (COLACE) CAP PO SCH ×2 (08:22→20:41)
[2021-03-29] MEDS: amLODIPine 10 MG (NORVASC) TAB PO SCH (08:22)
[2021-03-29] MEDS: ACETAMINOPHEN 325 MG TABLET PO SCH ×2 (08:23→20:41)
[2021-03-29] MEDS: ASCORBIC ACID (VIT C) 500 MG TABLET PO SCH (08:23)
[2021-03-29] MEDS: LORATADINE (CLARITIN) 10 MG TAB PO SCH (08:23)
[2021-03-29] MEDS: PANTOPRAZOLE 20 MG TABLET (PROTONIX) PO SCH (08:23)
[2021-03-29] MEDS: D5 1/2 NS W/KCL 20 MEQ/L 1,000 ML IV SCH ×3 (08:25→18:22)
[2021-03-29] MEDS: MAGNESIUM CITRATE 300 ML BTL PO SCH ×2 (09:24→20:43)
[2021-03-29] MEDS: ONDANSETRON 4 MG/2 ML (SDV) Z0FRAN IVP PRN (09:32)
--- NOTE | 2021-03-29 11:08 | Progress Note ---
JEOVANNY BOURGEOIS 03/29/21 1108: Subjective Date Seen by a Provider: Mar 29, 2021 Time Seen by a Provider: 07:23 Subjective/Events-last exam CC: Abdominal pain History present illness: This is an 86-year-old white male known to me from inpatient rehab recovery following lumbar spine surgery status post 5 surgeries on lumbar spine who presented to the ER with left lower quadrant abdominal pain found to have acute diverticulitis. Dr. PERLA consulted. Clear liquid diet ordered. IV fluids maintained. Pain control is improved. He last had an episode of colitis when he returned from the [place] War. Subjective/Events-last exam 03/29/2021 Patient resting in chair and reporting colicky pain from LLQ ranging from 3/10 to 8/10. He has also had multiple episodes of non-bloody emisis PT encouraged to ambulate and wait for things to start moving Review of Systems General: No Chills, No Night Sweats; Fatigue; No Appetite HEENT: No Head Aches, No Visual Changes, No Eye Pain, No Ear Pain, No Dysphasia, No Sinus Congestion Pulmonary: No Dyspnea, No Cough, No Pleuritic Chest Pain Cardiovascular: Edema; No: Chest Pain, Palpitations Gastrointestinal: Nausea, Vomiting, Abdominal Pain, Constipation; No: Diarrhea, Melena Genitourinary: No Dysuria, No Frequency, No Incontinence, No Hematuria Musculoskeletal: back pain, leg pain; No: neck pain, shoulder pain, arm pain, hand pain Neurological: No: Weakness, Numbness, Incoordination, Confusion, Seizures Objective Exam Last Set of Vital Signs Vital Signs Date Time Temp Pulse Resp B/P (MAP) Pulse Ox O2 Delivery O2 Flow Rate FiO2 03/29/21 08:00 37.1 67 20 146/67 (93) 90 Room Air 03/29/21 00:00 3.00 Capillary Refill : I&O Intake and Output 03/29/21 00:00 Intake Total 1530 ml Balance 1530 ml Intake Oral 1530 ml # Voids 10 General: Alert, Oriented X3, Cooperative HEENT: Atraumatic, PERRLA, EOMI, Mucous Memb Moist/[place] Neck: Supple, No Thyromegaly Lungs: Clear to Auscultation, Normal Air Movement Heart: Regular Rate, Normal S1, Normal S2, No Murmurs Abdomen: Normal Bowel Sounds (high pitched sounds), Other (distended abdomen with tenderness in LLQ, also 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 noted on CT) Extremities: No Clubbing, No Cyanosis, Normal Pulses, Other (LE edema, left arm lymphedema) Skin: No Rashes, No Breakdown, No Significant Lesion Neuro: Normal Speech, Normal Tone, Sensation Intact, Cranial Nerves 3-12 NL Psych/Mental Status: Mental Status NL, Mood NL Results Lab Laboratory Tests 03/29/21 06:18: White Blood Count 11.0, Red Blood Count 4.02L, Hemoglobin 13.1L, Hematocrit 39L, Mean Corpuscular Volume 96, Mean Corpuscular Hemoglobin 33, Mean Corpuscular Hemoglobin Concent 34, Red Cell Distribution Width 14.0, Platelet Count 225, Mean Platelet Volume 9.5, Immature Granulocyte % (Auto) 1, Neutrophils (%) (Auto) 72, Lymphocytes (%) (Auto) 14, Monocytes (%) (Auto) 13H, Eosinophils (%) (Auto) 0, Basophils (%) (Auto) 0, Neutrophils # (Auto) 7.8, Lymphocytes # (Auto) 1.5, Monocytes # (Auto) 1.5H, Eosinophils # (Auto) 0.0, Basophils # (Auto) 0.0, Immature Granulocyte # (Auto) 0.1, Sodium Level 134L, Potassium Level 4.2, Chloride Level 101, Carbon Dioxide Level 24, Anion Gap 9, Blood Urea Nitrogen 17, Creatinine 1.11, Estimat Glomerular Filtration Rate 63, BUN/Creatinine Ratio 15, Glucose Level 133H, Calcium Level 9.4, Corrected Calcium 10.0, Total Bilirubin 0.7, Aspartate Amino Transf (AST/SGOT) 10, Alanine Aminotransferase (ALT/SGPT) 9, Alkaline Phosphatase 52, Total Protein 5.8L, Albumin 3.2 Assessment/Plan Assessment/Plan Assess & Plan/Chief Complaint Assessment: Acute diverticulitis with Ileus h/o spine surgeries from lumbar stenosis x 5 PAF CAD PVD Depression h/o urinary retention HTN CRI Chronic pain Plan: IV abx CLD Dr Perla consult Home meds 03/28/2021: IV medication Pain control Ambulate 03/29/2021: Continue abx, pain control, anti-emetic and laxative Monitor for Bowel changes PT and OT CLEOPATRA KAUR DO 03/30/21 0517: Subjective Subjective/Events-last exam Patient has become more distended Mag citrate given but no results Minimal gas produced Ambulating PT and OT evaluating him Dr. PERLA has instructed me to place him n.p.o. 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 Ambulate PT and OT Supportive care Supervisory-Addendum Brief Verification & Attestation Participated in pt care: history, MDM, physical Personally performed: exam, history, MDM, supervision of care Care discussed with: Medical Student Procedures: n/a Results interpretation: Verified all documentation Verification and Attestation of Medical Student E/M Service A medical student performed and documented this service in my presence. I reviewed and verified all information documented by the medical student and made modifications to such information, when appropriate. I personally performed the physical exam and medical decision making. Cleopatra Kaur Mar 30, 2021,05:16 JEOVANNY BOURGEOIS Mar 29, 2021 11:08 CLEOPATRA KAUR DO Mar 30, 2021 05:17
[2021-03-29] MEDS: POTASSIUM CL 10MEQ/50ML IVPB 50 ML IV SCH ×4 (11:25→13:58)
[2021-03-29 11:50] VITALS: BP 117/59
[2021-03-29] MEDS ORDERED: GABA300C PO (12:35)
[2021-03-29] MEDS ORDERED: TRAM50TA3 PO (12:35)
[2021-03-29] MEDS ORDERED: CYAN250T3 PO (12:38)
[2021-03-29] MEDS ORDERED: METO50TA7 PO (12:38)
[2021-03-29] MEDS: FUROSEMIDE 40 MG (LASIX) TAB PO SCH (13:10)
--- NOTE | 2021-03-29 13:55 | Occupational Therapy Eval ---
OT Evaluation-General/PLF Medical Diagnosis Admission Date Mar 26, 2021 at 19:20 Medical Diagnosis: Diverticulitis Onset Date: Mar 26, 2021 Therapy Diagnosis Therapy Diagnosis: Impaired endurance, mobility, self care Height/Weight Height (Feet): 6 Height (Inches): 1.00 Weight (Pounds): 255 Weight (Ounces): 0.0 Precautions Precautions/Isolations: Fall Prevention, Standard Precautions Referral Physician: Minerva Referral Reason: Evaluation/Treatment Medical History Pertinent Medical History: Arthritis, CAD, HTN, [place] Additional Medical History multiple spinal surgeries Current History Pt presents to ER with LLQ and abdominal pain. Found to have diverticulitis. He reports living in a multilevel home with his . All needs met on main level. He uses a walker at baseline and still drives. He was modified indep with adls and completes all iadls. Reviewed History: Yes Social History Home: Multilevel Current Living Status: Spouse Entry Into Home: Stairs With Railing Steps Inside Home: 3 ADL-Prior Level of Function SCALE: Activities may be completed with or without assistive devices. 6-Pwlgozvafr-esfjgnq completes the activity by him/herself with no assistance from a helper. 5-Set-up or Clean-up Assistance-helper sets up or cleans up; patient completes activity. [place] assists only prior to or following the activity. 4-Supervision or Touching Assistance-helper provides verbal cues and/or touching/steadying and/or contact guard assistance as patient completes activity. Assistance may be provided throughout the activity or intermittently. 3-Partial/Moderate Assistance-helper does LESS THAN HALF the effort. [place] lifts, holds or supports trunk or limbs, but provides less than half the effort. 2-Substantial/Maximal Assistance-helper does MORE THAN HALF the effort. [place] lifts or holds trunk or limbs and provides more than half the effort. 2-Bhbwxbsbf-fdgcsx does ALL the effort. Patient does none of the effort to complete the activity. Or, the assistance of 2 or more helpers is required for the patient to complete the activity. If activity was not attempted, code reason: 7-Patient Refused. 9-Not Applicable-not attempted and the patient did not perform the activity before the current illness, exacerbation or injury. 10-Not Attempted due to Environmental Limitations-(lack of equipment, weather restraints, etc.). 88-Not Attempted due to Medical Conditions or Safety Concerns. Self Care: Independent Functional Cognition: Independent DME/Equipment: Bath Chair, Tub/Shower Drive Self: Yes OT Current Status Subjective Pt reports pain fluctuates and ranges from 4 to 10 throughout day. States he hasn't had a BM in over 5 days. Appearance Returned to supine in bed, all needs within reach, in room. Mental Status/Objective Patient Orientation: Person, Situation Attachments: IV, Telemetry Current Upper Extremity ROM kamar shoulder: 3/4 AROM Elbow-distally: WNL Upper Extremity Strength Strength not tested due to c/o back pain ADL-Treatment Eating (QC): 5 Supine<>Sit: SBA, extra time to achieve sitting balance at EOB. Pt reports lightheadedness upon sitting upright. When donning robe, he verbalizes feelings of nausea and reports that he is going to be sick. [place] provided. Pt independently returns to bed and declines any further OOB/EOB activities. Education OT Patient Education: Correct positioning, Modified ADL techniques, Progress toward Goal/Update tx plan, Purpose of tx/functional activities, Reviewed precautions, Rehab process, Safety issues, Transfer techniques Teaching Recipient: Patient, Family Teaching Methods: Discussion Response to Teaching: Verbalize Understanding, Unable to Return Demonstration, Reinforcement Needed OT Correction Goals Supervisor Finishing Goals Time Frame: Apr 19, 2021 Oral Hygiene (QC): 4 Toileting Hygiene (QC): 4 Upper Body Dressing (QC): 4 Lower Body Dressing (QC): 4 On/Off Footwear (QC): 4 1=Demonstrate adherence to instructed precautions during ADL tasks. 2=Patient will verbalize/demonstrate understanding of assistive devices/modifications for ADL. 3=Patient will improve strength/tolerance for activity to enable patient to perform ADL's. OT Education/Plan Problem List/Assessment Assessment: Decreased Activ Tolerance, Decreased UE Strength, Edema, Impaired Funct Balance, Impaired Self-Care Skills, Restricted Funct UE ROM Discharge Recommendations Plan/Recommendations: Continue POC Comment limited assessment due to nausea. Continue to assess Treatment Plan/Plan of Care Treatment,Training & Education: Yes Patient would benefit from OT for education, treatment and training to promote independence in ADL's, mobility, safety and/or upper extremity function for ADL 's. Plan of Care: ADL Retraining, Functional Mobility, UE Funct Exercise/Act Treatment Duration: Apr 19, 2021 Frequency: 5 times per week Estimated Hrs Per Day: .25 hour per day Agreement: Yes Time/GCodes Start Time: 13:34 Stop Time: 13:46 Total Time Billed (hr/min): 12 Billed Treatment Time 1 visit Celia Schaeffer OT Mar 29, 2021 13:55
--- NOTE | 2021-03-29 14:02 | Physical Therapy Evaluation ---
PT Evaluation-General Medical Diagnosis Admission Date Mar 26, 2021 at 19:20 Medical Diagnosis: diverticulitis Onset Date: Mar 26, 2021 Therapy Diagnosis Therapy Diagnosis: impaired mobility, strength, endurance Height/Weight Height (Feet): 6 Height (Inches): 1.00 Weight (Pounds): 255 Weight (Ounces): 0.0 Precautions Precautions/Isolations: Fall Prevention, Standard Precautions Referral Physician: Cleopatra Palma DO Reason for Referral: Evaluation/Treatment Medical History Pertinent Medical History: Arthritis, CAD, HTN, [place] Additional Medical History Past Medical History Surgeries: Abdominal, Cardiac, Eye Surgery, Joint Replacement, Neurological, Orthopedic, Pacemaker Sleep Apnea Currently Using BIPAP: Yes Atrial Fibrillation, Chronic Edema/Swelling, Coronary Artery Disease, Deep Vein Thrombosis, Heart Attack, High Cholesterol, Hypertension Vertigo Benign Prostatic Hyperpl Abdominal Hernia, Diverticulosis Degenerate Disk Disease, Arthritis, Chronic Back Pain Cataract Hearing Impairment: Hard of Hearing Melanoma Did You Recieve Any Treatments: Yes What Type of Treatment Did You: Surgical Intervention Depression Blood Disorders: Yes (DVT POST OP) Reviewed History: Yes Social History Home: Multilevel Current Living Status: Spouse Entry Into Home: Stairs With Railing PT Steps Into Home: 3 Prior Prior Level of Function SCALE: Activities may be completed with or without assistive devices. 4-Ffukyqlgbm-xyvcygl completes the activity by him/herself with no assistance from a helper. 5-Set-up or Clean-up Assistance-helper sets up or cleans up; patient completes activity. [place] assists only prior to or following the activity. 4-Supervision or Touching Assistance-helper provides verbal cues and/or touching/steadying and/or contact guard assistance as patient completes activity. Assistance may be provided throughout the activity or intermittently. 3-Partial/Moderate Assistance-helper does LESS THAN HALF the effort. [place] lifts, holds or supports trunk or limbs, but provides less than half the effort. 2-Substantial/Maximal Assistance-helper does MORE THAN HALF the effort. [place] lifts or holds trunk or limbs and provides more than half the effort. 7-Weyzspexl-rnjanq does ALL the effort. Patient does none of the effort to complete the activity. Or, the assistance of 2 or more helpers is required for the patient to complete the activity. If activity was not attempted, code reason: 7-Patient Refused. 9-Not Applicable-not attempted and the patient did not perform the activity before the current illness, exacerbation or injury. 10-Not Attempted due to Environmental Limitations-(lack of equipment, weather restraints, etc.). 88-Not Attempted due to Medical Conditions or Safety Concerns. Bed Mobility: 6 Transfers (B,C,W/C): 6 Gait: 6 Stairs: 6 Prior Devices Use: Walker PT Evaluation-Current Subjective Patient in bed pre tx, agrees to PT, has pain of varying degrees of 5-9/10 in his left lower abdomen. Pt/Family Goals "stop pain" Objective Patient Orientation: Person, Place, Situation Attachments: IV ROM/Strength ROM Lower Extremities WNL Strength Lower Extremities LLE (hip flexion 3/5, knee flexion 4/5, knee extension 4/5, dorsiflexion 4/5), RLE (hip flexion 3/5, knee flexion 4/5, knee extension 4/5, dorsiflexion 4/5) Sensory Hearing: Impaired Sensation Right Lower Extremit: Intact Sensation Left Lower Extremity: Intact Transfers Roll Left to Right (QC): 6 Sit to Lying (QC): 6 Lying to Sitting/Side of Bed(Q: 6 Patient sits on the side of the bed for a few moments, is slightly light headed. Patient suddenly feels like he is going to vomit. He grabs basin and then lays down. He says it is not from light headedness but he gets nauseated from some medication that he takes. Balance Sitting Static: Normal Sitting Dynamic: Normal Treatment BLE supine ex x20 (AP, HS) Assessment/Needs Patient in bed post tx with nurse call, phone, tray, all needs met. Patient has impaired mobility, strength, endurance. He is nauseated with movement at this time. Rehab Potential: Fair PT Assisted Goals Diesel Bus Mechanic Goals PT Assisted Goals Time Frame: Apr 05, 2021 Roll Left & Right (QC): 6 Sit to Lying (QC): 6 Lying-Sitting on Side/Bed(QC): 6 Sit to Stand (QC): 4 Chair/Rzh-jf-Afwcu Xfer(QC): 4 Walk 10 feet (QC): 4 Walk 50ft with 2 Turns (QC): 4 PT Plan Problem List Problem List: Activity Tolerance, Functional Strength, Safety, Balance, Gait, Transfer, Bed Mobility, ROM Treatment/Plan Treatment Plan: Continue Plan of Care Treatment Plan: Bed Mobility, Education, Functional Activity Lukas, Functional Strength, Gait, Safety, Therapeutic Exercise, Transfers Treatment Duration: Apr 05, 2021 Frequency: 6 times per week Estimated Hrs Per Day: .25 hour per day Patient and/or Family Agrees t: Yes Safety Risks/Education Patient Education: Correct Positioning, Safety Issues Teaching Recipient: Patient Teaching Methods: Demonstration, Discussion Response to Teaching: Reinforcement Needed Discharge Recommendations Plan Patient will perform bed mobility and transfer training, balance and endurance training, functional strengthening, stair training, gait training, and education, to improve functional mobility and independence at home. Therapy Discharge Recommendati: Scheduled Assistance, Home & Family, Post Acute PT Time/GCodes Time In: 1335 Time Out: 1346 Total Billed Treatment Time: 11 Total Billed Treatment 1 visit CASSIA DEWEY PT Mar 29, 2021 14:02
[2021-03-29 16:00] VITALS: BP 111/57
[2021-03-29] MEDS: RIVAROXABAN 20 MG TABLET (XARELTO) PO SCH (17:56)
--- NOTE | 2021-03-29 18:26 | Progress Note ---
Subjective Date Seen by a Provider: Mar 29, 2021 Time Seen by a Provider: 18:00 Subjective/Events-last exam doing much better. multiple large BM's minimal abd pain. tolerating clears. Objective Exam Vital Signs Date Time Temp Pulse Resp B/P (MAP) Pulse Ox O2 Delivery O2 Flow Rate FiO2 03/29/21 16:00 36.7 63 20 111/57 (75) 91 Room Air 03/29/21 13:00 72 03/29/21 11:50 36.9 63 20 117/59 (78) 90 Room Air 03/29/21 08:00 37.1 67 20 146/67 (93) 90 Room Air 03/29/21 08:00 Room Air 03/29/21 07:00 62 03/29/21 04:14 36.7 61 17 104/59 (74) 93 Room Air 03/29/21 01:00 65 03/29/21 00:00 36.9 65 18 131/72 (91) 93 NIV CPAP 3.00 03/28/21 20:00 37.2 83 20 151/74 (99) 92 Room Air 03/28/21 20:00 Room Air 03/28/21 19:00 92 I & O 03/29/21 07:00 Intake Total 1480 ml Balance 1480 ml Capillary Refill : General Appearance: No Apparent Distress HEENT: PERRL/EOMI Neck: Full Range of Motion Respiratory: Chest Non Tender, Lungs Clear Cardiovascular: Regular Rate, Rhythm Gastrointestinal: normal bowel sounds, soft Extremity: Normal Capillary Refill Neurologic/Psychiatric: Alert, Oriented x3 Skin: Normal Color Lymphatic: No Adenopathy Results Lab Laboratory Tests 03/29/21 06:18: White Blood Count 11.0, Red Blood Count 4.02L, Hemoglobin 13.1L, Hematocrit 39L, Mean Corpuscular Volume 96, Mean Corpuscular Hemoglobin 33, Mean Corpuscular Hemoglobin Concent 34, Red Cell Distribution Width 14.0, Platelet Count 225, Mean Platelet Volume 9.5, Immature Granulocyte % (Auto) 1, Neutrophils (%) (Aut o) 72, Lymphocytes (%) (Auto) 14, Monocytes (%) (Auto) 13H, Eosinophils (%) (Auto) 0, Basophils (%) (Auto) 0, Neutrophils # (Auto) 7.8, Lymphocytes # (Auto) 1.5, Monocytes # (Auto) 1.5H, Eosinophils # (Auto) 0.0, Basophils # (Auto) 0.0, Immature Granulocyte # (Auto) 0.1, Sodium Level 134L, Potassium Level 4.2, Chloride Level 101, Carbon Dioxide Level 24, Anion Gap 9, Blood Urea Nitrogen 17, Creatinine 1.11, Estimat Glomerular Filtration Rate 63, BUN/Creatinine Ratio 15, Glucose Level 133H, Calcium Level 9.4, Corrected Calcium 10.0, Total Bilirubin 0.7, Aspartate Amino Transf (AST/SGOT) 10, Alanine Aminotransferase (ALT/SGPT) 9, Alkaline Phosphatase 52, Total Protein 5.8L, Albumin 3.2 Assessment/Plan Assessment/Plan Assess & Plan/Chief Complaint diverticulitis. resolving with laxatives and abx. advance to regular diet. ambulate. JE MOSS MD Mar 29, 2021 18:26
[2021-03-29 19:58] VITALS: BP 137/61
[2021-03-29] MEDS: eZETimibe 10 MG (ZETIA) TABLET PO SCH (20:40)
[2021-03-30 00:12] VITALS: BP 120/57
[2021-03-30 04:31] VITALS: BP 123/69
[2021-03-30] MEDS: D5 1/2 NS W/KCL 20 MEQ/L 1,000 ML IV SCH ×2 (06:33→09:52)
[2021-03-30 07:14] LABS: BASOPHILS % (AUTO) 0 % (0-10); EOSINOPHILS # (AUTO) 0.1 10^3/uL (0.0-0.3); EOSINOPHILS % (AUTO) 1 % (0-10); HEMATOCRIT 38 % (40-54); HEMOGLOBIN 12.4 g/dL (13.3-17.7); LYMPHOCYTES # (AUTO) 1.7 10^3/uL (1.0-4.0); LYMPHOCYTES % (AUTO) 19 % (12-44); MEAN CORPUSCULAR HEMOGLOBIN 33 pg (25-34); MEAN CORPUSCULAR HGB CONC 33 g/dL (32-36); MEAN CORPUSCULAR VOLUME 98 fL (80-99); MEAN PLATELET VOLUME 9.8 fL (9.0-12.2); MONOCYTES # (AUTO) 1.5 10^3/uL (0.0-1.0); MONOCYTES % (AUTO) 17 % (0-12); NEUTROPHILS # (AUTO) 5.5 10^3/uL (1.8-7.8); NEUTROPHILS % (AUTO) 61 % (42-75); PLATELET COUNT 238 10^3/uL (130-400)
[2021-03-30 07:20] LABS: ALBUMIN 3.2 GM/DL (3.2-4.5); POTASSIUM 4.4 MMOL/L (3.6-5.0)
[2021-03-30 07:21] LABS: CALCIUM 9.1 MG/DL (8.5-10.1)
[2021-03-30 07:23] LABS: TOTAL PROTEIN 5.5 GM/DL (6.4-8.2)
[2021-03-30 07:25] LABS: BILIRUBIN,TOTAL 0.5 MG/DL (0.1-1.0)
[2021-03-30 07:26] LABS: CREATININE SERUM 1.11 MG/DL (0.60-1.30)
[2021-03-30 08:27] VITALS: BP 123/60
[2021-03-30] MEDS ORDERED: CIPROFLOXACIN 500 MG (CIPRO) TABLET PO SCH (09:00)
[2021-03-30] MEDS ORDERED: metroNIDAZOLE 500 MG (FLAGYL) TAB PO SCH (09:00)
[2021-03-30] MEDS: MAGNESIUM CITRATE 300 ML BTL PO SCH (09:50)
[2021-03-30] MEDS: amLODIPine 10 MG (NORVASC) TAB PO SCH (09:51)
[2021-03-30] MEDS: ASCORBIC ACID (VIT C) 500 MG TABLET PO SCH (09:51)
[2021-03-30] MEDS: DOCUSATE SODIUM 100 MG (COLACE) CAP PO SCH (09:51)
[2021-03-30] MEDS: LORATADINE (CLARITIN) 10 MG TAB PO SCH (09:51)
[2021-03-30] MEDS: VITAMIN D3 25 MCG (1,000 UNITS) TABLET PO SCH (09:51)
[2021-03-30] MEDS: LOSARTAN 25 MG (COZAAR) TAB PO SCH (09:52)
[2021-03-30] MEDS: PANTOPRAZOLE 20 MG TABLET (PROTONIX) PO SCH (09:52)
[2021-03-30] MEDS: ACETAMINOPHEN 325 MG TABLET PO SCH (09:52)
[2021-03-30] MEDS ORDERED: CIPR500T5 PO (10:20)
[2021-03-30] MEDS ORDERED: METR-145 PO (10:20)
[2021-03-30] MEDS ORDERED: TRAM50TA3 PO (10:20)
--- NOTE | 2021-03-30 10:21 | Discharge Summary ---
Diagnosis/Chief Complaint Date of Admission Mar 26, 2021 at 19:20 Date of Discharge Discharge Date: Mar 30, 2021 Discharge Diagnosis Assessment: Acute diverticulitis with Ileus h/o spine surgeries from lumbar stenosis x 5 PAF CAD PVD Depression h/o urinary retention HTN CRI Chronic pain Discharge Summary Discharge Physical Examination Allergies: Coded Allergies: [id number] Reductase Inhibitor (Verified Allergy, Unknown, 07/05/15) hydrocodone (Verified Allergy, Unknown, pt has received morphine & hydromorphone in the past, 09/02/20) Vitals & I&Os Vital Signs Date Time Temp Pulse Resp B/P (MAP) Pulse Ox O2 Delivery O2 Flow Rate FiO2 03/30/21 13:15 37.4 80 22 120/58 90 Room Air 3.00 General Appearance: Alert, Oriented X3, Cooperative Respiratory: Clear to Auscultation Cardiovascular: Regular Rate Neuro: Normal Gait, Normal Speech, Strength at 5/5 X4 Ext Psych/Mental Status: Mental Status NL Hospital Course Was the Problem List Reviewed?: Yes Mr. Marin is an 86-year-old white male who presented to the ER in the afternoon of 03/26/2021 with left lower quadrant abdominal pain and was later found to have acute diverticulitis with ileus. He is S/P lumbar spine surgery as well as circumcision of penile lesion in [place] on 03/23/2021, he is was taking oxycodone for pain associated with these procedures which likely contributed to his ileus. Pt reports his last BM was on 03/21/2021, and that he now feels pain and bloating from the LLQ which he associated with inability to pass stool plus nausea and vomiting. He reports taking stool softeners, milk of mag and a fleets prior to arrival with no improvement of his sx. He notes that his last episode of colitis was when he returned from [place]. Dr. MOSS provided a surgical consult on 03/27/2021 and recommended non-surgical management. Imaging indicates inflammatory changes to the proximal sigmoid with diverticula and a large amount of stool in the colon. - Incidental findings include: evidence of loosening of right SI fixation screw and 3.2cm infrarenal abdominal aortic ectasia. A clear liquid diet was ordered with IV fluids, abx, colace, mag. citrate and pain control. PT encouraged to ambulate and wait for things to start moving. On 03/29/2021 evening as well as 03/30/2021 morning, Pt had multiple large BMs with associated resolution of his abdominal discomfort and N/V. Pt is requesting to go home and will be DC this afternoon with 7day course of P/O abx. Hospital Course: Pt had a standard hospital course for five days when he was admitted for acute diverticulitis and left lower quadrant abdominal pain. He was placed on empiric antibiotics of Cipro and Flagyl and Dr. Moss was consulted. Pt overall did very well, labs remained stable and returned back to normal. Ileus from diverticulitis occurred, responded to mag citrate given by Dr. Moss. There was no evidence of any perforation or abcess and h was discharged in improved condition. Labs (last 24 hrs) Laboratory Tests 03/26/21 18:17: White Blood Count 13.9H, Red Blood Count 4.45, Hemoglobin 14.4, Hematocrit 43, Mean Corpuscular Volume 96, Mean Corpuscular Hemoglobin 32, Mean Corpuscular Hemoglobin Concent 34, Red Cell Distribution Width 14.3, Platelet Count 258, Mean Platelet Volume 9.5, Immature Granulocyte % (Auto) 1, Neutrophils (%) (Auto) 68, Lymphocytes (%) (Auto) 15, Monocytes (%) (Auto) 16H, Eosinophils (%) (Auto) 1, Basophils (%) (Auto) 0, Neutrophils # (Auto) 9.4H, Lymphocytes # (Auto) 2.0, Monocytes # (Auto) 2.2H, Eosinophils # (Auto) 0.1, Basophils # (Auto) 0.0, Immature Granulocyte # (Auto) 0.1, Sodium Level 136, Potassium Level 4.9, Chloride Level 101, Carbon Dioxide Level 25, Anion Gap 10, Blood Urea Nitrogen 19H, Creatinine 1.09, Estimat Glomerular Filtration Rate 64, BU N/Creatinine Ratio 17, Glucose Level 107H, Calcium Level 10.3H, Corrected C alcium 10.2H, Total Bilirubin 0.5, Aspartate Amino Transf (AST/SGOT) 12, Alanine Aminotransferase (ALT/SGPT) 12, Alkaline Phosphatase 73, Total Protein 6.8, Albumin 4.1 03/26/21 18:27: Urine Color YELLOW, Urine Clarity CLEAR, Urine pH 7.5, Urine Specific [place] 1.010L, Urine Protein NEGATIVE, Urine Glucose (UA) NEGATIVE, Urine Ketones NEGATIVE, Urine Nitrite NEGATIVE, Urine Bilirubin NEGATIVE, Urine Urobilinogen 0.2, Urine Leukocyte Esterase TRACEH, Urine RBC (Auto) TRACE-IH, Urine RBC 0-2, Urine WBC 0-2, Urine Crystals PRESENTH, Urine Amorphous Sediment [place] PHOSPHATEH, Urine Bacteria TRACE, Urine Casts NONE, Urine Mucus NEGATIVE, Urine Culture Indicated NO 03/27/21 05:31: White Blood Count 12.4H, Red Blood Count 3.99L, Hemoglobin 12.9L, Hematocrit 38L , Mean Corpuscular Volume 96, Mean Corpuscular Hemoglobin 32, Mean Corpuscular Hemoglobin Concent 34, Red Cell Distribution Width 14.5, Platelet Count 215, Mean Platelet Volume 9.4, Immature Granulocyte % (Auto) 1, Neutrophils (%) (Auto) 64, Lymphocytes (%) (Auto) 21, Monocytes (%) (Auto) 14H, Eosinophils (%) (Auto) 1, Basophils (%) (Auto) 0, Neutrophils # (Auto) 8.0H, Lymphocytes # (Auto) 2.6, Monocytes # (Auto) 1.7H, Eosinophils # (Auto) 0.1, Basophils # (Auto) 0.0, Immature Granulocyte # (Auto) 0.1, Sodium Level 133L, Potassium Level 4.3, Chloride Level 103, Carbon Dioxide Level 21, Anion Gap 9, Blood Urea Nitrogen 17, Creatinine 1.01, Estimat Glomerular Filtration Rate 70, BUN/Creatinine Ratio 17, Glucose Level 118H, Calcium Level 9.5 03/28/21 05:25: Sodium Level 135, Potassium Level 4.4, Chloride Level 101, Carbon Dioxide Level 24, Anion Gap 10, Blood Urea Nitrogen 14, Creatinine 1.11, Estimat Glomerular Filtration Rate 63, BUN/Creatinine Ratio 13, Glucose Level 116H, Calcium Level 9.9, Corrected Calcium 10.1, Total Bilirubin 0.7, Aspartate Amino Transf (AST/SGOT) 13, Alanine Aminotransferase (ALT/SGPT) 11, Alkaline Phosphatase 63, Total Protein 6.4, Albumin 3.7 03/28/21 06:25: White Blood Count 10.6, Red Blood Count 4.27L, Hemoglobin 13.8, Hematocrit 42, Mean Corpuscular Volume 98, Mean Corpuscular Hemoglobin 32, Mean Corpuscular Hemoglobin Concent 33, Red Cell Distribution Width 14.2, Platelet Count 213, Mean Platelet Volume 9.5, Immature Granulocyte % (Auto) 1, Neutrophils (%) (Auto) 65, Lymphocytes (%) (Auto) 19, Monocytes (%) (Auto) 14H, Eosinophils (%) (Auto) 1, Basophils (%) (Auto) 0, Neutrophils # (Auto) 6.9, Lymphocytes # (Auto) 2.0, Monocytes # (Auto) 1.5H, Eosinophils # (Auto) 0.1, Basophils # (Auto) 0.0, Immature Granulocyte # (Auto) 0.1 03/29/21 06:18: White Blood Count 11.0, Red Blood Count 4.02L, Hemoglobin 13.1L, Hematocrit 39L, Mean Corpuscular Volume 96, Mean Corpuscular Hemoglobin 33, Mean Corpuscular Hemoglobin Concent 34, Red Cell Distribution Width 14.0, Platelet Count 225, Mean Platelet Volume 9.5, Immature Granulocyte % (Auto) 1, Neutrophils (%) (Auto) 72, Lymphocytes (%) (Auto) 14, Monocytes (%) (Auto) 13H, Eosinophils (%) (Auto) 0, Basophils (%) (Auto) 0, Neutrophils # (Auto) 7.8, Lymphocytes # (Auto) 1.5, Monocytes # (Auto) 1.5H, Eosinophils # (Auto) 0.0, Basophils # (Auto) 0.0, Immature Granulocyte # (Auto) 0.1, Sodium Level 134L, Potassium Level 4.2, Chloride Level 101, Carbon Dioxide Level 24, Anion Gap 9, Blood Urea Nitrogen 17, Creatinine 1.11, Estimat Glomerular Filtration Rate 63, BUN/Creatinine Ratio 15, Glucose Level 133H, Calcium Level 9.4, Corrected Calcium 10.0, Total Bilirubin 0.7, Aspartate Amino Transf (AST/SGOT) 10, Alanine Aminotransferase (ALT/SGPT) 9, Alkaline Phosphatase 52, Total Protein 5.8L, Albumin 3.2 03/30/21 05:49: White Blood Count 9.0, Red Blood Count 3.82L, Hemoglobin 12.4L, Hematocrit 38L, Mean Corpuscular Volume 98, Mean Corpuscular Hemoglobin 33, Mean Corpuscular Hemoglobin Concent 33, Red Cell Distribution Width 14.0, Platelet Count 238, Mean Platelet Volume 9.8, Immature Granulocyte % (Auto) 1, Neutrophils (%) (Auto) 61, Lymphocytes (%) (Auto) 19, Monocytes (%) (Auto) 17H, Eosinophils (%) (Auto) 1, Basophils (%) (Auto) 0, Neutrophils # (Auto) 5.5, Lymphocytes # (Auto) 1.7, Monocytes # (Auto) 1.5H, Eosinophils # (Auto) 0.1, Basophils # (Auto) 0.0, Immature Granulocyte # (Auto) 0.1, Sodium Level 132L, Potassium Level 4.4, Chloride Level 98, Carbon Dioxide Level 24, Anion Gap 10, Blood Urea Nitrogen 18, Creatinine 1.11, Estimat Glomerular Filtration Rate 63, BUN/Creatinine Ratio 16, Glucose Level 100, Calcium Level 9.1, Corrected Calcium 9.7, Total Bilirubin 0.5, Aspartate Amino Transf (AST/SGOT) 12, Alanine Aminotransferase (ALT/SGPT) 8, Alkaline Phosphatase 51, Total Protein 5.5L, Albumin 3.2 Pending Labs Laboratory Tests 03/26/21 18:17: White Blood Count 13.9, Red Blood Count 4.45, Hemoglobin 14.4, Hematocrit 43, Mean Corpuscular Volume 96, Mean Corpuscular Hemoglobin 32, Mean Corpuscular Hemoglobin Concent 34, Red Cell Distribution Width 14.3, Platelet Count 258, Mean Platelet Volume 9.5, Immature Granulocyte % (Auto) 1, Neutrophils (%) (Auto) 68, Lymphocytes (%) (Auto) 15, Monocytes (%) (Auto) 16, Eosinophils (%) (Auto) 1, Basophils (%) (Auto) 0, Neutrophils # (Auto) 9.4, Lymphocytes # (Auto) 2.0, Monocytes # (Auto) 2.2, Eosinophils # (Auto) 0.1, Basophils # (Auto) 0.0, Immature Granulocyte # (Auto) 0.1, Sodium Level 136, Potassium Level 4.9, Chloride Level 101, Carbon Dioxide Level 25, Anion Gap 10, Blood Urea Nitrogen 19, Creatinine 1.09, Estimat Glomerular Filtration Rate 64, BUN/Creatinine Ratio 17, Glucose Level 107, Calcium Level 10.3, Corrected Calcium 10.2, Total Bilirubin 0.5, Aspartate Amino Transf (AST/SGOT) 12, Alanine Aminotransferase (ALT/SGPT) 12, Alkaline Phosphatase 73, Total Protein 6.8, Albumin 4.1 03/26/21 18:27: Urine Color YELLOW, Urine Clarity CLEAR, Urine pH 7.5, Urine Specific [place] 1.010, Urine Protein NEGATIVE, Urine Glucose (UA) NEGATIVE, Urine Ketones NEGATIVE, Urine Nitrite NEGATIVE, Urine Bilirubin NEGATIVE, Urine Urobilinogen 0.2, Urine Leukocyte Esterase TRACE, Urine RBC (Auto) TRACE-I, Urine RBC 0-2, Urine WBC 0-2, Urine Crystals PRESENT, Urine Amorphous Sediment [place] PHOSPHATE, Urine Bacteria TRACE, Urine Casts NONE, Urine Mucus NEGATIVE, Urine Culture Indicated NO 03/27/21 05:31: White Blood Count 12.4, Red Blood Count 3.99, Hemoglobin 12.9, Hematocrit 38, Mean Corpuscular Volume 96, Mean Corpuscular Hemoglobin 32, Mean Corpuscular Hemoglobin Concent 34, Red Cell Distribution Width 14.5, Platelet Count 215, Mean Platelet Volume 9.4, Immature Granulocyte % (Auto) 1, Neutrophils (%) (Auto) 64, Lymphocytes (%) (Auto) 21, Monocytes (%) (Auto) 14, Eosinophils (%) (Auto) 1, Basophils (%) (Auto) 0, Neutrophils # (Auto) 8.0, Lymphocytes # (Auto) 2.6, Monocytes # (Auto) 1.7, Eosinophils # (Auto) 0.1, Basophils # (Auto) 0.0, Immature Granulocyte # (Auto) 0.1, Sodium Level 133, Potassium Level 4.3, Chloride Level 103, Carbon Dioxide Level 21, Anion Gap 9, Blood Urea Nitrogen 17, Creatinine 1.01, Estimat Glomerular Filtration Rate 70, BUN/Creatinine Ratio 17, Glucose Level 118, Calcium Level 9.5 03/28/21 05:25: Sodium Level 135, Potassium Level 4.4, Chloride Level 101, Carbon Dioxide Level 24, Anion Gap 10, Blood Urea Nitrogen 14, Creatinine 1.11, Estimat Glomerular Filtration Rate 63, BUN/Creatinine Ratio 13, Glucose Level 116, Calcium Level 9.9, Corrected Calcium 10.1, Total Bilirubin 0.7, Aspartate Amino Transf (AST/SGOT) 13, Alanine Aminotransferase (ALT/SGPT) 11, Alkaline Phosphatase 63, Total Protein 6.4, Albumin 3.7 03/28/21 06:25: White Blood Count 10.6, Red Blood Count 4.27, Hemoglobin 13.8, Hematocrit 42, Mean Corpuscular Volume 98, Mean Corpuscular Hemoglobin 32, Mean Corpuscular Hemoglobin Concent 33, Red Cell Distribution Width 14.2, Platelet Count 213, Mean Platelet Volume 9.5, Immature Granulocyte % (Auto) 1, Neutrophils (%) (Auto) 65, Lymphocytes (%) (Auto) 19, Monocytes (%) (Auto) 14, Eosinophils (%) (Auto) 1, Basophils (%) (Auto) 0, Neutrophils # (Auto) 6.9, Lymphocytes # (Auto) 2.0, Monocytes # (Auto) 1.5, Eosinophils # (Auto) 0.1, Basophils # (Auto) 0.0, Immature Granulocyte # (Auto) 0.1 03/29/21 06:18: White Blood Count 11.0, Red Blood Count 4.02, Hemoglobin 13.1, Hematocrit 39, Mean Corpuscular Volume 96, Mean Corpuscular Hemoglobin 33, Mean Corpuscular Hemoglobin Concent 34, Red Cell Distribution Width 14.0, Platelet Count 225, Mean Platelet Volume 9.5, Immature Granulocyte % (Auto) 1, Neutrophils (%) (Auto) 72, Lymphocytes (%) (Auto) 14, Monocytes (%) (Auto) 13, Eosinophils (%) (Auto) 0, Basophils (%) (Auto) 0, Neutrophils # (Auto) 7.8, Lymphocytes # (Auto) 1.5, Monocytes # (Auto) 1.5, Eosinophils # (Auto) 0.0, Basophils # (Auto) 0.0, Immature Granulocyte # (Auto) 0.1, Sodium Level 134, Potassium Level 4.2, Chloride Level 101, Carbon Dioxide Level 24, Anion Gap 9, Blood Urea Nitrogen 17, Creatinine 1.11, Estimat Glomerular Filtration Rate 63, BUN/Creatinine Ratio 15, Glucose Level 133, Calcium Level 9.4, Corrected Calcium 10.0, Total Bilirubin 0.7, Aspartate Amino Transf (AST/SGOT) 10, Alanine Aminotransferase (ALT/SGPT) 9, Alkaline Phosphatase 52, Total Protein 5.8, Albumin 3.2 03/30/21 05:49: White Blood Count 9.0, Red Blood Count 3.82, Hemoglobin 12.4, Hematocrit 38, Mean Corpuscular Volume 98, Mean Corpuscular Hemoglobin 33, Mean Corpuscular Hemoglobin Concent 33, Red Cell Distribution Width 14.0, Platelet Count 238, Mean Platelet Volume 9.8, Immature Granulocyte % (Auto) 1, Neutrophils (%) (Auto) 61, Lymphocytes (%) (Auto) 19, Monocytes (%) (Auto) 17, Eosinophils (%) (Auto) 1, Basophils (%) (Auto) 0, Neutrophils # (Auto) 5.5, Lymphocytes # (Auto) 1.7, Monocytes # (Auto) 1.5, Eosinophils # (Auto) 0.1, Basophils # (Auto) 0.0, Immature Granulocyte # (Auto) 0.1, Sodium Level 132, Potassium Level 4.4, Chloride Level 98, Carbon Dioxide Level 24, Anion Gap 10, Blood Urea Nitrogen 18, Creatinine 1.11, Estimat Glomerular Filtration Rate 63, BUN/Creatinine Ratio 16, Glucose Level 100, Calcium Level 9.1, Corrected Calcium 9.7, Total Bilirubin 0.5, Aspartate Amino Transf (AST/SGOT) 12, Alanine Aminotransferase (ALT/SGPT) 8, Alkaline Phosphatase 51, Total Protein 5.5, Albumin 3.2 Discharge Home Medications: Active Scripts Active Metronidazole 500 Mg Tablet 500 Mg PO BID Ciprofloxacin HCl 500 Mg Tablet 500 Mg PO BID Tramadol HCl 50 Mg Tablet 50-100 Mg PO Q6H PRN Reported Vitamin B-12 (Cyanocobalamin (Vitamin B-12)) 250 Mcg Tablet 250 Mcg PO HS Metoprolol Succinate 50 Mg Tab.er.24h 50 Mg PO HS Neurontin (Gabapentin) 300 Mg Capsule 300 Mg PO Q8H PRN Ezetimibe 10 Mg Tablet 10 Mg PO HS Pam Allergy (Fexofenadine HCl) 180 Mg Tablet 180 Mg PO DAILY Citalopram HBr (Citalopram Hydrobromide) 10 Mg Tablet 10 Mg PO DAILY Xarelto (Rivaroxaban) 20 Mg Tablet 20 Mg PO 1800 LAST FILLED 08-01-2020 #90/90 DAY SUPPLY Omeprazole 20 Mg Capsule.dr 20 Mg PO DAILY Telmisartan 40 Mg Tablet 20 Mg PO DAILY TAKE OF A 40MG TAB Amlodipine Besylate 10 Mg Tablet 10 Mg PO HS Vitamin D3 (Cholecalciferol (Vitamin D3)) 25 Mcg Capsule 25 Mcg PO DAILY Vitamin C (Ascorbic Acid) 500 Mg Capsule 1,000 Mg PO DAILY Move Free Joint Health Tablet (Glucosam/Chond/Hyalu/Cf Borate) 1 Each Tablet 2 Each PO BID Colace (Docusate Sodium) 100 Mg Capsule 100 Mg PO BID Arthritis Pain (Acetaminophen) 650 Mg Tablet.er 650 Mg PO BID Instructions to patient/family Please see electronic discharge instructions given to patient. PONCE KAUR DO Mar 30, 2021 10:21
--- NOTE | 2021-03-30 10:44 | Occupational Ther Daily Note ---
OT Current Status-Daily Note Subjective Pt reports that he gets to d/c later today, requests to dress. Appearance Pt left sitting in chair, in room, all needs within reach. Mental Status/Objective Attachments: IV ADL-Treatment Therapy Code Descriptions/Definitions Functional Shelly Measure: 0=Not Assessed/NA 4=Minimal Assistance 1=Total Assistance 5=Supervision or Setup 2=Maximal Assistance 6=Modified Shelly 3=Moderate Assistance 7=Complete IndependenceSCALE: Activities may be completed with or without assistive devices. 3-Qwerdnsfji-wtwipey completes the activity by him/herself with no assistance from a helper. 5-Set-up or Clean-up Assistance-helper sets up or cleans up; patient completes activity. [place] assists only prior to or following the activity. 4-Supervision or Touching Assistance-helper provides verbal cues and/or touching/steadying and/or contact guard assistance as patient completes activity. Assistance may be provided throughout the activity or intermittently. 3-Partial/Moderate Assistance-helper does LESS THAN HALF the effort. [place] lifts, holds or supports trunk or limbs, but provides less than half the effort. 2-Substantial/Maximal Assistance-helper does MORE THAN HALF the effort. [place] lifts or holds trunk or limbs and provides more than half the effort. 2-Qhczbenxz-rvvdgu does ALL the effort. Patient does none of the effort to complete the activity. Or, the assistance of 2 or more helpers is required for the patient to complete the activity. If activity was not attempted, code reason: 7-Patient Refused. 9-Not Applicable-not attempted and the patient did not perform the activity before the current illness, exacerbation or injury. 10-Not Attempted due to Environmental Limitations-(lack of equipment, weather restraints, etc.). 88-Not Attempted due to Medical Conditions or Safety Concerns. Lower Body Dressing (QC): 3 On/Off Footwear: 4 Pt sitting in chair at OT arrival. He reports that he gets to d/c later today and requests to dress. He dons socks with extra effort and use of cross over method. SOB exhibited with exertion, reports baseline due to body habitus. He requests assistance from to don pants onto feet due to SOB. Anticipate that pt would be able to perform indep when given a lengthy rest breaks as he already demonstrated the ability to reach his feet without assistance. He stood to manage pants up to waist with SBA, extra time to come to full upright. Due to swelling in abdomen, pt unable to button pants at this time. Again, due to significant edema and tight fit, assistance needed to don shoes over heel. Several rest breaks needed due to poor endurance and SOB with dressing. Unable to don shirt at this time due to IV infusing. Education OT Patient Education: Correct positioning, Disease process, Modified ADL techniques, Progress toward Goal/Update tx plan, Purpose of tx/functional activities, Rehab process, Safety issues, Transfer techniques Teaching Recipient: Patient, Family Teaching Methods: Demonstration, Discussion Response to Teaching: Verbalize Understanding, Return Demonstration, Reinforcement Needed OT Barrelhead Inspector Goals Barrelhead Inspector Goals Time Frame: Apr 19, 2021 Oral Hygiene (QC): 4 Toileting Hygiene (QC): 4 Upper Body Dressing (QC): 4 Lower Body Dressing (QC): 4 On/Off Footwear (QC): 4 1=Demonstrate adherence to instructed precautions during ADL tasks. 2=Patient will verbalize/demonstrate understanding of assistive devices/modifi cations for ADL. 3=Patient will improve strength/tolerance for activity to enable patient to perform ADL's. 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 Plan of Care: ADL Retraining, Functional Mobility, UE Funct Exercise/Act Treatment Duration: Apr 19, 2021 Frequency: 5 times per week Estimated Hrs Per Day: .25 hour per day Agreement: Yes Rehab Potential: Fair Time/GCodes Start Time: 10:11 Stop Time: 10:25 Total Time Billed (hr/min): 14 Billed Treatment Time 1 visit ADL Celia Arrington OT Mar 30, 2021 10:44
--- NOTE | 2021-03-30 11:06 | Progress Note ---
JEOVANNY BOURGEOIS 03/30/21 1106: Progress Note Mr. Marin is an 86-year-old white male who presented to the ER in the afternoon of 03/26/2021 with left lower quadrant abdominal pain and was later found to have acute diverticulitis with ileus. He is S/P lumbar spine surgery as well as circumcision of penile lesion in [place] on 03/23/2021, he is was taking oxycodone for pain associated with these procedures which likely contributed to his ileus. Pt reports his last BM was on 03/21/2021, and that he now feels pain and bloating from the LLQ which he associated with inability to pass stool plus nausea and vomiting. He reports taking stool softeners, milk of mag and a fleets prior to arrival with no improvement of his sx. He notes that his last episode of colitis was when he returned from the [place]. Dr. MOSS provided a surgical consult on 03/27/2021 and recommended non-surgical management. Imaging indicates inflammatory changes to the proximal sigmoid with diverticula and a large amount of stool in the colon. - Incidental findings include: evidence of loosening of right SI fixation screw and 3.2cm infrarenal abdominal aortic ectasia. A clear liquid diet was ordered with IV fluids, abx, colace, mag. citrate and pain control. PT encouraged to ambulate and wait for things to start moving. On 03/29/2021 evening as well as 03/30/2021 morning, Pt had multiple large BMs with associated resolution of his abdominal discomfort and N/V. Pt is requesting to go home and will be DC this afternoon with 7day course of P/O abx. CLEOPATRA KAUR DO 04/01/21 0535: Supervisory-Addendum Brief Verification & Attestation Participated in pt care: history, MDM, physical Personally performed: exam, history, MDM, supervision of care Care discussed with: Medical Student Procedures: n/a Results interpretation: Verified all documentation Verification and Attestation of Medical Student E/M Service A medical student performed and documented this service in my presence. I reviewed and verified all information documented by the medical student and made modifications to such information, when appropriate. I personally performed the physical exam and medical decision making. Cleopatra Kaur, Apr 01, 2021,05:35 JEOVANNY BOURGEOIS Mar 30, 2021 11:06 CLEOPATRA KAUR DO Apr 01, 2021 05:35
[2021-03-30 11:32] VITALS: BP 120/58
[2021-03-30 13:15] VITALS: BP 120/58
== END 2021-03-30 13:15 | disposition home or self-care (01) | DRG 392 ==
LOC: EDUNIT# 17:01 → ER 17:02 → 4TH 19:20
PROVIDERS: ADMIT Family Medicine; ATTEND Internal Medicine
DX: K57.32 Diverticulitis of large intestine without perforation or abscess without bleeding (principal); K56.7 Ileus, unspecified; I48.0 Paroxysmal atrial fibrillation; I25.10 Atherosclerotic heart disease of native coronary artery without angina pectoris; I73.9 Peripheral vascular disease, unspecified; F32.A Depression, unspecified; I12.9 Hypertensive chronic kidney disease with stage 1 through stage 4 chronic kidney disease, or unspecified chronic kidney disease; N18.9 Chronic kidney disease, unspecified; G89.29 Other chronic pain; N40.1 Benign prostatic hyperplasia with lower urinary tract symptoms; R33.8 Other retention of urine; H91.90 Unspecified hearing loss, unspecified ear; K21.9 Gastro-esophageal reflux disease without esophagitis; R32 Unspecified urinary incontinence; E78.00 Pure hypercholesterolemia, unspecified; I25.2 Old myocardial infarction; Z98.1 Arthrodesis status; Z88.5 Allergy status to narcotic agent; Z88.8 Allergy status to other drugs, medicaments and biological substances; Z79.891 Long term (current) use of opiate analgesic; Z79.899 Other long term (current) drug therapy; Z95.0 Presence of cardiac pacemaker; Z86.718 Personal history of other venous thrombosis and embolism; Z85.820 Personal history of malignant melanoma of skin; Z96.653 Presence of artificial knee joint, bilateral; Z96.641 Presence of right artificial hip joint
CPT/HCPCS: 36415; 74022; 74176; 80048; 80053; 81000; 85025; 94760

== ENCOUNTER 2021-04-30 06:19 | Outpatient (CLI) | payer MEDICARE ==
[~2021-04-30] VITALS: Ht 182.9 cm; Wt 118.4 kg
[~2021-04-30 06:19] MED LIST changes: +CIPR500T5 PO; +CITA10TA9 PO; +CYAN250T3 PO; +EZET10TA49 PO; +FEXO180T84 PO; +FURO-124 PO; +GABA-486 PO; +GABA300C PO; +METO50TA7 PO; +METR-145 PO; +TRAM50TA3 PO
[2021-04-30] MEDS ORDERED: FURO40TA4 PO (14:44)
[2021-04-30] MEDS ORDERED: TELM40TA6 PO (14:44)
[2021-04-30] MEDS ORDERED: ASPI-999 PO (14:44)
[2021-04-30] MEDS ORDERED: OXYC5CAP18 PO (14:44)
== END 2021-04-30 15:44 | disposition home or self-care (01) ==
LOC: PREOP 06:19
PROVIDERS: ATTEND Surgery
DX: Z01.818 Encounter for other preprocedural examination (principal)

== ENCOUNTER 2021-05-07 10:49 | Day surgery (SDC) | payer MEDICARE ==
[~2021-05-07] VITALS: Ht 183 cm; Wt 118.4 kg
[2021-05-07] VITALS (7 sets, daily range): BP systolic 93–122; BP diastolic 52–75
[~2021-05-07 10:49] MED LIST changes: +ASPI-999 PO; +FURO40TA4 PO; +OXYC5CAP18 PO
[2021-05-07] MEDS ORDERED: LACTATED RINGERS 1,000 ML IV ONE (11:06)
[2021-05-07] MEDS ORDERED: LACTATED RINGERS 1,000 ML IV STA (11:15)
[2021-05-07] MEDS ORDERED: LIDOCAINE JELLY 2% 6 ML SYRINGE MM PRN (11:15)
[2021-05-07] MEDS ORDERED: ONDANSETRON 4 MG/2 ML (SDV) Z0FRAN IVP PRN (12:15)
[2021-05-07] MEDS ORDERED: ONDANSETRON 4 MG (ZOFRAN) ORAL DISSOLVE TAB PO PRN (12:15)
--- NOTE | 2021-05-07 12:15 | Progress Note-Pre Operative ---
Pre-Operative Progress Note H&P Reviewed The H&P was reviewed, patient examined and no changes noted. Date Seen by Provider: May 07, 2021 Time Seen by Provider: 12:00 Date H&P Reviewed: May 07, 2021 Time H&P Reviewed: 12:00 Pre-Operative Diagnosis: hx of diverticulitis JE MOSS MD May 07, 2021 12:15
--- NOTE | 2021-05-07 12:16 | Discharge Inst-Surgical ---
D/C Lap Instructions-AJAY Follow Up Activity as tolerated High Fiber Diet 25g or more per day Avoid Alcohol, Caffeine, Spicy [place] and Acid foods. Drink 64 fluid oz or more of fluids per day. Symptoms to Report: Fever over 101 degree F, Nausea/Vomiting If any problems/questions: Contact your physician or go to Emergency Room JE MOSS MD May 07, 2021 12:16
[2021-05-07] MEDS ORDERED: PROPOFOL INJECTION 50 ML IV ONE (12:52)
[2021-05-07] MEDS ORDERED: proPOfol 200 MG/20 ML (DIPRIVAN) VIAL IV ONE (13:25)
--- NOTE | 2021-05-07 13:29 | Progress Note-Post Operative ---
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 Procedure & Operative Findings Date of Procedure 05/07/21 Procedure Performed/Findings colonoscopy Anesthesia Type mac Estimated Blood Loss Estimated blood loss (mL): minimal Specimens/Packing Specimens Removed none JE MOSS MD May 07, 2021 13:29
--- NOTE | 2021-05-07 17:49 | OPERATIVE REPORT ---
DATE OF SERVICE: 05/07/2021 ATTENDING PRIMARY CARE PHYSICIAN: Dr. Marin Cueto. PREOPERATIVE DIAGNOSIS: History of diverticulitis requiring hospitalization and IV antibiotics. POSTOPERATIVE DIAGNOSES: Chronic stage II external and internal hemorrhoids, moderate sigmoid diverticulosis with no mucosal inflammatory changes, no polyps or any neoplasms identified. PROCEDURE: Colonoscopy. SURGEON: Je Moss MD. ANESTHESIA: Monitored anesthesia care. ESTIMATED BLOOD LOSS: Minimal. FINDINGS: Same as postoperative diagnoses. DISPOSITION: The patient tolerated the procedure well. INDICATIONS: The patient is an 86-year-old male referred over to us for followup after an episode of diverticulitis. He was admitted for approximately four days and placed on IV antibiotics. He did improve and was able to tolerate a diet and have normal bowel function. He states that he has had other episodes before requiring oral antibiotics as well. His last colonoscopy was approximately 15 years ago. DESCRIPTION OF PROCEDURE: The patient was brought to the endoscopy suite, laid in the left lateral decubitus position. After adequate IV pain and sedative medications and monitored anesthesia care, a digital rectal examination was performed. Chronic stage II external and internal hemorrhoids were identified, which were not actively edematous nor inflamed and no bleeding. Normal sphincter tone was felt and there were no palpable masses. Prostate gland was palpable and appeared normal. The endoscope was then intubated and anus and rectum gently insufflated. The endoscope was then advanced through the valves of [place] of the rectum with no polyps or any neoplasms identified. Through the sigmoid colon, a moderate sigmoid diverticulosis identified. There were no mucosal inflammatory changes to indicate any active diverticulitis. The endoscope was then advanced to the remainder of the descending, transverse and ascending colon to the cecum, which were normal. There were no polyps or any neoplasms identified throughout the colon or rectum. The patient tolerated the procedure well. We will recommend the incorporation of a high-fiber diet with a fiber supplement, which should equal or exceed 30 grams daily as well as significant amounts of water to promote soft stools on a daily basis and to prevent any further propagation of diverticulitis as well as the significant complications related to diverticulitis. Job ID: [id number] DocumentID: [id number] Dictated Date: 05/07/2021 13:26:11 Miner Helper Date: 05/07/2021 17:48:54 Dictated By: JE MOSS MD
== END 2021-05-07 14:15 | disposition home or self-care (01) ==
LOC: ENDO 10:49
PROVIDERS: ATTEND Surgery
DX: Z12.11 Encounter for screening for malignant neoplasm of colon (principal); K57.92 Diverticulitis of intestine, part unspecified, without perforation or abscess without bleeding; I10 Essential (primary) hypertension; I25.10 Atherosclerotic heart disease of native coronary artery without angina pectoris; I25.2 Old myocardial infarction; E78.00 Pure hypercholesterolemia, unspecified; I73.9 Peripheral vascular disease, unspecified; I48.91 Unspecified atrial fibrillation; K64.1 Second degree hemorrhoids; K57.30 Diverticulosis of large intestine without perforation or abscess without bleeding; Z98.890 Other specified postprocedural states; Z79.82 Long term (current) use of aspirin; Z79.01 Long term (current) use of anticoagulants; Z79.891 Long term (current) use of opiate analgesic; Z99.81 Dependence on supplemental oxygen; Z86.73 Personal history of transient ischemic attack (TIA), and cerebral infarction without residual deficits

== ENCOUNTER 2022-11-17 09:58 | Inpatient (IN) | payer MEDICARE ==
[~2022-11-17] VITALS: Ht 182.8 cm; Wt 121.7 kg
[~2022-11-17 09:58] MED LIST changes: -FEXO-46 PO; +NF-ALLE180 PO; +SENN-271 PO; -SENN1TAB76 PO
[2022-11-17] MEDS ORDERED: PREG75CA75 PO (10:50)
[2022-11-17] MEDS ORDERED: OXYC1TAB11 PO (10:50)
[2022-11-17] MEDS ORDERED: CYAN-25 PO (10:50)
[2022-11-17] MEDS ORDERED: OMEP-401 PO (10:50)
[2022-11-17] MEDS ORDERED: ACET-2840 PO (10:50)
[2022-11-17] MEDS ORDERED: ASPI-1238 PO (10:50)
[2022-11-17] MEDS ORDERED: GLUC-203 PO (10:50)
[2022-11-17] MEDS ORDERED: TOLT2TAB19 PO (10:50)
[2022-11-17 11:55] VITALS: BP 129/62
--- OUTSIDE RECORDS SUMMARY | 2022-11-17 12:05 | XMS REPORT | Clinical Summary ---
Author Author [facility] Organization [facility] Address Unknown Phone Unavailable Care Team Providers Care Herbicide Service Sales Representative Name Role Phone Marin Cueto MD PCP Source Comments Some departments are not documenting in the electronic medical record. If you d o not see the information that you expected, contact Release of Information in [facility] Information Management department at [phone] for further assistan ce in locating additional records.[facility] Allergies Comments Active Allergy Reactions Criticality Noted Date Atorvastatin MUSCLE PAIN Medium 06/18/2021 Confusion Hydrocodone UNKNOWN Medium 06/18/2021 Pravastatin MUSCLE PAIN Medium 06/18/2021 Rosuvastatin MUSCLE PAIN Medium 06/18/2021 Simvastatin MUSCLE PAIN Medium 06/18/2021 [id number]-Xsm-Flh Reductase MUSCLE PAIN Medium 05/23 Inhibitors Medications End Date Status Medication Sig Dispensed Refills Start Date Active ezetimibe (ZETIA) 10 mg Take 10 mg by 0 tablet mouth every 48 hours. Active telmisartan (MICARDIS) 40 Take by 0 mg tablet mouth. Active gabapentin (NEURONTIN) Take 300 mg 0 300 mg capsule by mouth twice daily. Active acetaminophen (TYLENOL Take 500 mg 0 EXTRA STRENGTH) 500 mg by mouth tablet every 6 hours as needed for Pain. Max of 4,000 mg of acetaminophen in 24 hours. Active rivaroxaban (XARELTO PO) Take by 0 mouth daily. Active citalopram (CELEXA) 10 mg Take 10 mg by 0 tablet mouth daily. Active omeprazole DR (PRILOSEC) Take 20 mg by 0 20 mg capsule mouth daily before breakfast. Active docusate (COLACE) 100 mg Take 100 mg 0 capsule by mouth twice daily. Active ascorbic acid (VITAMIN C Take 1,000 mg 0 PO) by mouth. Active Cholecalciferol (Vitamin Take 1,000 0 D3) 25 mcg (1,000 unit) Units by cap mouth daily. Active amLODIPine (NORVASC) 10 take 1 tablet 0 mg tablet (10 mg) by 1 oral route once daily Active aspirin EC 81 mg tablet daily. 0 Active metoprolol tartrate 25 mg daily. 0 tablet Active solifenacin (VESICARE) 5 Take 5 mg by 0 12/08 mg tablet mouth daily. 2 Active finasteride (PROSCAR) 5 daily. 0 mg tablet 8 Active fexofenadine (LIANG) Take 180 mg 0 180 mg tablet by mouth daily. Active glucosam/chond/hyalu/CF Take by 0 borate (MOVE FREE JOINT mouth. HEALTH PO) Active mecobalamin (B12 ACTIVE Take by 0 PO) mouth. Active ferrous sulfate (IRON PO) Take by 0 mouth. Active Problems Problem Noted Date Diagnosed Date S/P lumbar spinal fusion 03/02/2022 Lumbar radiculopathy 03/02/2022 Surgical History Surgery Date Site/Laterality Comments UMBILICAL ARTERIAL CATH - BEDSIDE HX FUSION PROCEDURE [place] LAPAROSCOPY SURG RPR INITIAL INGUINAL HERNIA HX JOINT REPLACEMENT HX TONSILLECTOMY 1957 KNEE SURGERY Medical History Medical History Date Comments Anxiety Joint pain Pulmonary embolism (HCC) Other malignant neoplasm without specification of site Cataract Depression Diverticulitis of colon (without mention of hemorrhage)(562.11) Heart attack (HCC) Essential hypertension Pneumonia Unspecified cerebral artery occlusion with cerebral infarction On supplemental oxygen therapy Atrial fibrillation, unspecified type (HCC) Family History Medical History Relation Name Comments Arthritis Mother Angelique Marin Heart problem Mother Angelique Marin Cancer Sister Ale Fernandez Relation Name Status Comments Mother Angelique Marin Sister Ale Fernandez Social History Date Tobacco Use Types Packs/Day Years Used Smoking Tobacco: Former Smokeless Tobacco: Never Comments Alcohol Use Standard Drinks/Week Not Currently 0 (1 standard drink = 0.6 o z pure alcohol) Date Recorded Alcohol Use Answer Alcohol Use No Male: 9+ ounces (15+ Standard Drinks) per week 0 Threshold Female: 4.8+ ounces (8+ Standard Drinks) per week No t on file Threshold Date Recorded Sex and Gender Information Value 06/15/2021 1:52 PM 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 Sex Assigned at Male 06/15/2021 1:52 PM 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 OFFICER Gender Identity Male Sexual Orientation Not on file Obstetrics History Last Filed Vital Signs Reading Time Taken Comments Vital Sign 136/61 03/10/2022 11:57 AM CDT Blood Pressure 59 03/10/2022 11:57 AM CDT Pulse 36.4 C (97.5 F) 03/10/2022 11:57 AM CDT Temperature 20 03/02/2022 9:54 AM CDT Respiratory Rate 95% 03/10/2022 11:57 AM CDT Oxygen Saturation - - Inhaled Oxygen Concentration 117.9 kg (260 lb) 03/10/2022 11:57 AM CDT Weight 181.6 cm (5' 11.5") 03/02/2022 9:54 AM CDT Height 35.76 03/02/2022 9:54 AM CDT Body Mass Index Plan of Treatment Health Maintenance Due Date Last Done Comments MEDICARE ANNUAL WELLNESS 1935 VISIT DTAP/TDAP VACCINES (1 - 1953 Tdap) PHYSICAL (COMPREHENSIVE) 1953 EXAM SHINGLES RECOMBINANT 1985 VACCINE (1 of 2) PNEUMOCOCCAL VACCINE 65+ 03/11/2017 03/11/2016 YRS (2 - PPSV23 if available, else PCV20) COVID-19 VACCINE (3 - 09/17/2020 07/23/2020, Booster for Moderna 06/24/2020 series) ADVANCED CARE PLANNING 05/22/2022 DISCUSSION AND DOCUMENTATION DEPRESSION SCREENING 05/22/2022 INFLUENZA VACCINE (Season 02/19/2023 Ended) Medical Devices Device Identifier Shelf Expiration Date Model / Serial / L ot Implanted Type Area Manufactur er 06/19/2023 [id number] / [id number] / [id number] Don Octrode Neurostimu N/A: Back DON Implanted: Qty: 1 on 12/22/2021 by [facility] Amos Hoffman MD at [facility] [facility] Results Not on filefrom Last 3 Months Insurance Type Payer Benefit Subscriber ID Effective Phone Address Plan / Dates Group Medicare MEDICARE MEDICARE [id number] 2000-P [phone] [address] [place] [address] Medicare [place] [id number] 2021-P [phone] [address] [place] [address] [phone] amily (Home) [facility] [place] [address] Care Teams Start Date End Date Herbicide Service Sales Representative Relationship Specialty 03/02/22 Marin Cueto MD PCP - General Family [place] [address] [address] [id number]
--- OUTSIDE RECORDS SUMMARY | 2022-11-17 12:06 | XMS REPORT | Summary of Care ---
Author Author [employer] Address Unknown Phone Unavailable Care Team Providers Care Wet Process Assistant Head Miller Name Role Phone Marin Cueto MD PCP Encounter Details Care Team Description Date Type Department Brain Viramontes MD [address] [place] [address] Arrived 10/27/2022 [facility] Pre Admission Encounter Testing [address] [place] [address] Allergies Comments Active Allergy Reactions Severity Noted Date Atorvastatin Muscle Pain Medium 07/13/2011 Muscle pains Ezetimibe Other (See 07/11/2022 Comments) Confusion Hydrocodone Confusion, Medium 07/13/2011 Unknown Pravastatin Muscle Pain Medium 07/13/2011 Rosuvastatin Muscle Pain Medium 07/13/2011 Simvastatin Muscle Pain Low 01/15/2021 Fkrhbjn-Uvk-Xsk Reductase Muscle Pain Medium 08/20 Inhibitors documented as of this encounter (statuses as of 10/28/2022) Medications End Date Status Medication Sig Dispensed Refills Start Date Active bipap st daily at 0 bedtime With 9 3L/nc . Active ascorbic acid, vitamin C, Take 1,000 mg 0 06/23 (VITAMIN C) 1,000 mg by mouth 0 Tablet daily. Active cholecalciferol, Vitamin Take 1,000 0 07/19 D3, (VITAMIN D3) 25 mcg Units by 0 (1,000 unit) Capsule mouth daily. Active docusate sodium (COLACE) Take 200 mg 0 05/31 100 mg capsule by mouth 2 0 times daily. Active citalopram (CeleXA) 10 mg Take 10 mg by 0 05/2 tablet mouth daily 1 at bedtime. Active aspirin (ECOTRIN EC) 81 Take 81 mg by 0 mg Tablet, Delayed mouth daily. Release (E.C.) Active acetaminophen (TYLENOL Take 650 mg 0 ARTHRITIS) 650 mg by mouth Extended Release tablet every 6 hours as needed for Pain. Active mecobalamin (vitamin B12) Take by 0 1,000 mcg chewable tablet mouth. Active uoyfigpa-zoxdv-vonzq-CF Take 1 Tablet 0 borate (Move Free Joint by mouth 2 Health) 750 mg-100 mg- times daily. 1.65 mg-108 mg Tablet Active rivaroxaban (Xarelto) 20 Take 1 Tablet 90 Tablet 3 mg TabletIndications: (20 mg) by 3 Paroxysmal atrial mouth daily fibrillation with supper. Active telmisartan (MICARDIS) 40 Take 0.5 90 Tablet 3 mg TabletIndications: Tablets (20 3 Primary hypertension mg) by mouth daily. (Discard remainder of tablet) Active amLODIPine (NORVASC) 10 Take 10 mg by 0 mg tablet mouth daily at bedtime. Active omeprazole (PriLOSEC) 20 TAKE 1 90 Capsule 3 0 mg Capsule, Delayed CAPSULE BY 3 Release(E.C.) MOUTH DAILY Additional Information Patient taking differently: 20 mg Oral DAILY, Reported on 10/27/2022 Active pregabalin (LYRICA) 75 mg Take 75 mg by 0 04/ Capsule mouth every 3 12 hours. Active tolterodine (DETROL) 2 mg Take 2 mg by 0 05/0 tablet mouth 2 times 3 daily. Active amoxicillin (AMOXIL) 500 TAKE 4 0 07/21 mg capsule CAPSULE BY 3 MOUTH 1 HOUR PRIOR TO APPT Active mupirocin (BACTROBAN) 2% Apply with 22 Gram 0 0 Ointment QTIP insides 3 both sides of the nose BID for the 7 days leading up to surgery. 10/27/2022 Discontinued rpdplboi-fpc-sckwnva Take by 0 sulfate 4.5 mg iron mouth. Powder in Packet 10/27/2022 Discontinued ascorbic acid, vitamin C, Take 1,000 mg 0 550 mg/1.1 gram (scoop) by mouth. Powder 10/27/2022 Discontinued tamsulosin 0.4 mg capsule take 1 0 capsule (0.4 mg) by oral route once daily 1/2 hour following the same meal each day Oral 1 10/27/2022 Discontinued oxyBUTYnin chloride take 1 tablet 0 (DITROPAN) 5 mg tablet by oral route daily Oral 1 10/27/2022 Discontinued dgiuqlkq-qjotpzrhb-ndfRGJ APPLY IN BOTH 0 06/22 THasone (MAXITROL) 3.5 EYES TWICE 3 mg/g-10,000 unit/g-0.1 % DAILY FOR 2 ointment WEEKS THEN DAILY 10/27/2022 Discontinued doxycycline monohydrate 0 100 mg Tablet 3 10/27/2022 Discontinued traMADoL (ULTRAM) 50 mg 0 tablet 3 10/27/2022 Discontinued solifenacin (VESICARE) 5 Take 5 mg by 0 07/16 mg Tablet mouth daily. 3 documented as of this encounter (statuses as of 10/28/2022) Active Problems Problem Noted Date Lumbar pseudoarthrosis 09/01/2020 Paroxysmal atrial fibrillation 07/19/2019 Stable angina pectoris 07/19/2019 Congestive heart failure 03/26/2019 Chest pain 03/26/2018 Bradycardia 12/14/2016 Thromboembolism 05/22/2016 Overview: hx of blood clot rt knee Statin intolerance 05/22/2016 Cellulitis 05/22/2016 ELLIS (dyspnea on exertion) 03/03/2016 Bilateral carotid artery disease 03/03/2016 RAIMUNDO treated with BiPAP 09/01/2015 Labile hypertension 08/31/2015 Chronic low back pain 08/31/2015 HTN (hypertension) 08/04/2015 Pre-op evaluation 02/03/2015 Pedal edema 08/20/2013 Vertigo 07/16/2012 Presbyacusis 07/13/2011 Dyslipidemia 07/12/2011 Old CA (myocardial infarction) 01/12/2011 Lymphedema of arm--left arm chronically 01/12/2011 DJD (degenerative joint disease) of knee--both knees 01/12/2011 CAD (coronary artery disease) Overview: CA Cancer Overview: stage 4 malignant melanoma Arthritis Dysphagia CVA (cerebral vascular accident) documented as of this encounter (statuses as of 10/28/2022) Immunizations Name Administration Dates Next Due Influenza Seasonal 03/02/2020, 03/22/2018, , 03/08/2016, Unspecified Formulation 03/22/2015 IM PREVNAR (PCV13) 03/11/2016 pneumococcal 13-valent conjugate Vaccine documented as of this encounter Social History Date Tobacco Use Types Packs/Day Years Used Smoking Tobacco: Former Cigarettes 3 Smokeless Tobacco: Never Tobacco Cessation: Counseling Given: Not Answered Comments Alcohol Use Standard Drinks/Week No 0 (1 standard drink = 0.6 o z pure alcohol) Sex Assigned at Date Recorded Not on file Date Recorded COVID-19 Exposure Response 10/17/2022 2:34 PM CDT In the last 10 days, have you been in contact with N o / Unsure someone who was confirmed or suspected to have Coronavirus/COVID-19? documented as of this encounter Last Filed Vital Signs Reading Time Taken Comments Vital Sign 110/53 10/27/2022 11:42 AM CDT Blood Pressure 56 10/27/2022 11:42 AM CDT Pulse 36.9 C (98.4 F) 10/27/2022 11:42 AM CDT Temperature 18 10/27/2022 11:42 AM CDT Respiratory Rate 92% 10/27/2022 11:42 AM CDT Oxygen Saturation - - Inhaled Oxygen Concentration 115.7 kg (255 lb) 10/27/2022 11:42 AM CDT Weight 182.9 cm (6') 10/27/2022 11:42 AM CDT Height 34.58 10/27/2022 11:42 AM CDT Body Mass Index documented in this encounter Discharge Instructions * Discharge Instructions* Kisha Archer LPN - 10/27/2022 11:32 AM CDT THINGS TO REMEMBER ABOUT YOUR SURGERY ARRIVAL INSTRUCTIONS: [x] Shameka will call with your arrival time a few days prior to surgery. [x] Enter through the Main Entrance on November 16. SKIN PREP: Do not shave your surgical site at least five days before surgery. The morning and the night before surgery take a shower using antimicrobial soap (Hibiclens), after your shower dry completely, clean your surgical site with a C hloraprep swab after the evening shower, let it air dry. The morning of surgery take a shower and dry completely, clean your surgical sit e with the second Chloraprep swab and let it air dry. Do not wash the Chloraprep solution from your skin. Take extra precautions in caring for your skin in the time leading up to your lizama rgery. Cuts, scrapes, stan[place] and broken skin near your surgical site could lead to the cancellation of your procedure. DIET/FLUID INSTRUCTIONS: [x] Nothing to eat or drink after midnight. FAILURE TO FOLLOW COULD MEAN CANCELLATION. ON THE DAY OF SURGERY: You will be asked to arrive 1.5-2 hours prior to your scheduled surgery time. You will change into a hospital gown and your belongings will be placed in a bag and locked in a locker, your cohen will be pinned on your hospital bed and stay with you until you are taken to your room. Once in Pre-Op, a nurse will start your IV and anesthesia will review your medic al history. Prior to surgery, the surgeon will be able to answer any additional questions or concerns. You may have a visitor stay overnight in your room. Bring comfortable and loose fitting clothes or pajamas so the nursing staff can easily view your surgical site, if allowed you will be able to wear your own cyndi thes and will be assisted with dressing if needed. Bring your own personal care items (toothbrush, toothpaste, etc.) DISCHARGE [x] Someone must be available on your day of discharge to take you home and be o f assistance as needed (please arrange this prior to admission) MEDICATIONS Stop all over the counter vitamins/herbal supplements and CBD products 2 weeks p rior to surgery. Stop any NSAID'S (ie: aspirin, aleve, ibuprofen, advil, diclofenac, meloxicam, e tc..) 2 weeks prior to surgery. Stop Xarelto 3 days prior to surgery as directed by your physician. Tylenol is okay to take up until the night before surgery. The morning of surgery take Pregablin Omeprazole and Tolterodine only with a sma ll sip of water. CONTINUE ALL OTHER PRESCRIPTION MEDICATIONS DIRECTED UP UNTIL THE NIGHT BEFOR E SURGERY. THE DAY OF SURGERY BRING: [x] CPAP/BiPAP [x] Walker (no handbrakes, no seat) [x] Eye Drops DO NOT BRING ANY HOME MEDICATIONS/VITAMINS OR PAIN MEDICATIONS WITH YOU ON THE D AY OF SURGERY. IF YOU HAVE QUESTIONS: Call Kisha at [phone] from 8:00 a.m. to 5:00 p.m. Mon through or email at [email or web address] documented in this encounter Plan of Treatment Care Team Description Date Type Specialty Brain Viramontes MD [address] [place] [address] Avascular necrosis 11/16/2022 Hospital Perioperative Encounter Brain Viramontes MD [address] [place] [address] HIP ARTHROPLASTY TOTAL ANTERIOR APPROACH - ARIS DEAN 11/16/2022 Surgery Perioperative DerSnehal guerrero DNP [address] [facility] [address] [place] [address] 11/29/2022 Office Visit Gastroenterology Sabrina Tom MD [address] [facility] [address] [place] [address] 04/18/2023 Office Visit Cardiology Date/Time Name Priority Associated Diagnose s 11/16/2022 9:00 AM CDT HIP ARTHROPLASTY TOTAL ANTERIOR APPROACH Avascular necrosis Health Maintenance Due Date Last Done Comments DTAP/TDAP/TD VACCINES (1 1954 - Tdap) ZOSTER VACCINE (1 of 2) 1985 PNEUMOCOCCAL VACCINE 65+ 05/06/2016 03/11/2016 YEARS (2 - PPSV23 if available, else PCV20) INFLUENZA VACCINE (#1) 2021 03/02/2020, 03/22/2018, 03/06/2017, Additional history exists documented as of this encounter Medical Devices Device Identifier Shelf Expiration Date Model / Serial / L ot Implanted Type Area Manufactur er 12/19/2021 2991 / / [id number] Hemostatic Surgiflo 8ml 2991 - Hemostatic J[employer]J- [id number] ETHICON Implanted: Qty: 1 on 08/31/2020 by INC Juliano Goodman Jr., [id number] / / Du Reline-O 5.5x 300mm Str Du NUVASIVE [id number] - [id number] Implanted: Qty: 2 on 08/31/2020 by Juliano Goodman Jr., DO [id number] / / Screw Reline-O 9.5x 90mm [id number] - Screw NU VASIVE [id number] Implanted: Qty: 2 on 08/31/2020 by Juliano Goodman Jr., DO 02/13/2025 [id number] / [id number] / Osteocel Pro Cell Med [id number] - Tissue NUVASI VE [id number] Implanted: Qty: 1 on 08/31/2020 by Julinao Goodman Jr., DO documented as of this encounter Procedures Comments Procedure Name Priority Date/Time Associated Diag nosis CBC WITH DIFFERENTIAL Routine 10/27/2022 Fatigue, unspecified type 11:12 AM CDT PTT Routine 10/27/2022 Pain of left lo wer 11:12 AM CDT extremity PROTIME-INR Routine 10/27/2022 Pain of left lo wer 11:12 AM CDT extremity TYPE AND SCREEN Routine 10/27/2022 Encounter for blood 11:12 AM CDT typing COMPREHENSIVE METABOLIC Routine 10/27/2022 Fatigu e, unspecified type PANEL 11:12 AM CDT documented in this encounter Results * (ABNORMAL) COMPREHENSIVE METABOLIC PANEL (10/27/2022 11:12 AM CDT) Pathologist Signature Component Value Ref Test Method Analysis Performed A t Range Time SODIUM 138 136 - 10/27/2022 [facility] 145 4:57 PM [facility] [place] mmol/L CDT POTASSIUM 4.8 3.5 - 10/27/2022 [facility] 5.1 4:57 PM [facility] [place] mmol/L CDT CHLORIDE 103 98 - 107 10/27/2022 [facility] mmol/L 4:57 PM [facility] [place] CDT CO2 23 22 - 29 10/27/2022 [facility] mmol/L 4:57 PM [facility] [place] CDT CALCIUM 10.1 8.8 - 10/27/2022 [facility] 10.2 4:57 PM [facility] [place] mg/dL CDT BUN 18 8 - 23 10/27/2022 [facility] mg/dL 4:57 PM [facility] [place] CDT CREATININE 1.06 0.67 - 10/27/2022 [facility] 1.17 4:57 PM [facility] [place] mg/dL CDT Comment: The GFR result is not clinically significant on patients <18 or >70 years of age. GLUCOSE 107 (H) 74 - 99 10/27/2022 [facility] mg/dL 4:57 PM [facility] [place] CDT TOTAL PROTEIN 6.3 (L) 6.4 - 10/27/2022 [facility] 8.3 g/dL 4:57 PM [facility] [place] CDT ALBUMIN 3.9 (L) 4.0 - 10/27/2022 [facility] 4.9 g/dL 4:57 PM [facility] [place] CDT BILIRUBIN TOTAL 0.2 <=1.2 10/27/2022 [facility] mg/dL 4:57 PM [facility] [place] CDT ALKALINE PHOSPHATASE 71 40 - 129 10/27/2022 [facility] U/L 4:57 PM [facility] [place] CDT AST 16 0 - 40 10/27/2022 [facility] U/L 4:57 PM [facility] [place] CDT ALT 15 0 - 41 10/27/2022 [facility] U/L 4:57 PM [facility] [place] CDT GFR >60 mL/min/1 10/27/2022 [facility] .73 sq 4:57 PM [facility] [place] meter CDT Comment: eGFR calculated with 2020 CKD-EPI equation. Vegetarian diet, extremely high or low muscle mass, and may affect results. Cystatin C with Glomerular Filtration Rate is a suitable alternative for these patients. ANION GAP 12 4 - 13 10/27/2022 [facility] mmol/L 4:57 PM [facility] [place] CDT Anatomical Location / Laterality Collection Method / Volume Amita ection Time Received Time Specimen (Source) Venipuncture / Unknown 10/27/2022 11:12 AM CDT 0 10/27/2022 11:12 AM CDT Blood Brain Leal CHEMISTRY ORDERABLES Ana M KOTHARI City/State/ZIP Code Phone Number Performing Address Organization [place] [address] [facility] CLIA # [id number] [facility] [place] [address] [facility] [place] [address] [facility] CLIA # [id number] [facility] [place] [address] [facility] [address] [employer] * (ABNORMAL) CBC WITH DIFFERENTIAL (10/27/2022 11:12 AM CDT) Pathologist Signature Component Value Ref Test Method Analysis Performed A t Range Time WBC 8.0 4.0 - 10/27/2022 [facility] 11.0 4:34 PM [facility] [place] K/uL CDT RBC 4.05 (L) 4.70 - 10/27/2022 [facility] 6.00 4:34 PM [facility] [place] M/uL CDT HEMOGLOBIN 13.4 (L) 13.5 - 10/27/2022 [facility] 18.0 4:34 PM [facility] [place] g/dL CDT HEMATOCRIT 40.2 (L) 42.0 - 10/27/2022 [facility] 52.0 % 4:34 PM [facility] [place] CDT MCV 99.3 78.0 - 10/27/2022 [facility] 100.0 fL 4:34 PM [facility] [place] CDT MCH 33.1 27.0 - 10/27/2022 [facility] 34.0 pg 4:34 PM [facility] [place] CDT MCHC 33.3 31.0 - 10/27/2022 [facility] 37.0 4:34 PM [facility] [place] g/dL CDT RDW 13.3 12.0 - 10/27/2022 [facility] 15.0 % 4:34 PM [facility] [place] CDT RDW-STDEV 47.9 37.1 - 10/27/2022 [facility] 48.7 fL 4:34 PM [facility] [place] CDT PLATELETS 275 150 - 10/27/2022 [facility] 450 K/uL 4:34 PM [facility] [place] CDT MPV 9.8 9.3 - 10/27/2022 [facility] 12.4 fL 4:34 PM [facility] [place] CDT NEUTROPHILS 52 31 - 76 10/27/2022 [facility] % 4:34 PM [facility] [place] CDT LYMPHOCYTES 33 24 - 44 10/27/2022 [facility] % 4:34 PM [facility] [place] CDT MONOCYTES 12 (H) 2 - 11 % 10/27/2022 [facility] 4:34 PM [facility] [place] CDT EOSINOPHILS 2 0 - 6 % 10/27/2022 [facility] 4:34 PM [facility] [place] CDT BASOPHILS 1 0 - 2 % 10/27/2022 [facility] 4:34 PM [facility] [place] CDT IMMATURE 0 0 - 2 % 10/27/2022 [facility] GRANULOCYTES 4:34 PM [facility] - [place] CDT NEUTROPHIL ABSOLUTE 4.11 1.80 - 10/27/2022 [facility] 7.70 4:34 PM [facility] [place] K/uL CDT LYMPHOCYTE ABSOLUTE 2.63 1.00 - 10/27/2022 [facility] 4.80 4:34 PM [facility] [place] K/uL CDT MONOCYTE ABSOLUTE 0.95 0.10 - 10/27/2022 [facility] 1.30 4:34 PM [facility] [place] K/uL CDT EOSINOPHIL ABSOLUTE 0.17 0.00 - 10/27/2022 [facility] 0.70 4:34 PM [facility] [place] K/uL CDT BASOPHILS ABSOLUTE 0.06 0.00 - 10/27/2022 [facility] 0.20 4:34 PM [facility] [place] K/uL CDT IMMATURE 0.03 0.00 - 10/27/2022 [facility] GRANULOCYTES 0.10 4:34 PM [facility] [place] IN ABSOLUTE K/uL CDT Anatomical Location / Laterality Collection Method / Volume Amita ection Time Received Time Specimen (Source) Venipuncture / Unknown 10/27/2022 11:12 AM CDT 0 10/27/2022 11:12 AM CDT Blood Brain Leal HEMATOLOGY ORDERABLES Ana M KOTHARI [facility]/ZIP Code Phone Number Performing Address Organization [place] [address] [facility] CLIA # [id number] [facility] [place] [address] [facility] [place] [address] [facility] CLIA # [id number] [facility] - [place] [address] * (ABNORMAL) PROTIME-INR (10/27/2022 11:12 AM CDT) Pathologist Signature Component Value Ref Test Method Analysis Performed A t Range Time PROTIME 16.1 (H) 11.8 - 10/27/2022 [facility] 14.6 5:05 PM [facility] [place] Seconds CDT INR 1.2 0.9 - 10/27/2022 [facility] 1.2 5:05 PM [facility] [place] CDT Anatomical Location / Laterality Collection Method / Volume Amita ection Time Received Time Specimen (Source) Venipuncture / Unknown 10/27/2022 11:12 AM CDT 0 10/27/2022 11:12 AM CDT Blood Narrative [facility] [place] - 10/27/2022 5:05 PM CDT Therapeutic range: 2.0 - 3.5 Brain Leal HEMATOLOGY ORDERABLES Ana M KOTHARI [facility]/ZIP Code Phone Number Performing Address Organization [place] [address] [facility] CLIA # [id number] [facility] [place] [address] [facility] [facility] [place] [address] [facility] CLIA # [id number] [facility] [place] [address] * (ABNORMAL) PTT (10/27/2022 11:12 AM CDT) Pathologist Signature Component Value Ref Test Method Analysis Performed A t Range Time PTT 35.6 (H) 25.0 - 10/27/2022 [facility] 35.0 5:01 PM [facility] [place] seconds CDT Anatomical Location / Laterality Collection Method / Volume Amita ection Time Received Time Specimen (Source) Venipuncture / Unknown 10/27/2022 11:12 AM CDT 0 10/27/2022 11:12 AM CDT Blood Narrative [facility] [place] - 10/27/2022 5:01 PM CDT PTT Therapeutic range 68 - 103 sec Brain Leal HEMATOLOGY ORDERABLES Ana M KOTHARI [facility]/State/ZIP Code Phone Number Performing Address Organization [place] [address] [facility] CLIA # [id number] [facility] - [place] [address] [place] [address] [employer] CLIA # [id number] [facility] - [place] [address] * TYPE AND SCREEN (10/27/2022 11:12 AM CDT) Pathologist Signature Component Value Ref Test Method Analysis Performed A t Range Time ABO GROUP O 10/27/2022 [facility] 5:38 PM [facility] [place] CDT RH (D) TYPE Positive 10/27/2022 [facility] 5:38 PM [facility] [place] CDT ANTIBODY SCREEN Negative 10/27/2022 [facility] 5:38 PM [facility] -- [place] CDT Anatomical Location / Laterality Collection Method / Volume Amita ection Time Received Time Specimen (Source) Venipuncture / Unknown 10/27/2022 11:12 AM CDT 0 10/27/2022 11:12 AM CDT Blood Brain Leal BLOOD BANK ORDERABLES Ana M KOTHARI [facility]/State/ZIP Code Phone Number Performing Address Organization [place] [address] [facility] CLIA # [id number] [facility] -- [place] [address] [place] [address] [facility] CLIA # [id number] SERVICES -- [place] [address] documented in this encounter Visit Diagnoses Diagnosis Encounter for blood typing Pain of left lower extremity Fatigue, unspecified type Avascular necrosis Aseptic necrosis of bone, site unspecif ied documented in this encounter Insurance Type Payer Benefit Subscriber ID Effective Phone Address Plan / Dates Group Medicare MEDICARE MEDICARE [id number] 2000-P [phone] PART A AND resent B Supplemental BLUE CROSS AND BLUE BCBS SUPP [id number] 2020-P [place]IELD resent documented as of this encounter Advance Directives For more information, please contact: [phone] Patient Head Of Product Explanation Type Date Recorded Advance Directive POA Advance Directive 07/19/2019 10:12 AM POA Care Teams Start Date End Date Wet Process Assistant Head Miller Relationship Specialty 06/12/10 Marin Cueto MD PCP - General [address] [place] [address] [place] [address] documented as of this encounter
--- OUTSIDE RECORDS SUMMARY | 2022-11-17 12:06 | XMS REPORT | Summary of Care ---
Author Author [employer] Address Unknown Phone Unavailable Care Team Providers Care Financial Advisor Trainee Name Role Phone Marin Cueto MD PCP Encounter Details Care Team Description Date Type Department Brain Viramontes MD [address] [place] [address] Arrived 10/27/2022 [facility] Encounter [facility] Radiology [address] [place] [address] Allergies Comments Active Allergy Reactions Severity Noted Date Atorvastatin Muscle Pain Medium 07/13/2011 Muscle pains Ezetimibe Other (See 07/11/2022 Comments) Confusion Hydrocodone Confusion, Medium 07/13/2011 Unknown Pravastatin Muscle Pain Medium 07/13/2011 Rosuvastatin Muscle Pain Medium 07/13/2011 Simvastatin Muscle Pain Low 01/15/2021 Tvxusvp-Ton-Ezr Reductase Muscle Pain Medium 08/20 Inhibitors documented [...] 0 1,000 mcg chewable tablet mouth. Active crhlwxzx-doqkh-igwpb-CF Take 1 Tablet 0 borate (Move Free [...] 75 mg Take 75 mg by 0 08/20 Capsule mouth every 3 12 hours. Active [...] the 7 days leading up to surgery. 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 01/12/2011 CAD (coronary artery disease) Overview: [place] Cancer Overview: stage 4 malignant melanoma Arthritis [...] Tobacco: Former Cigarettes 3 Smokeless Tobacco: Never Comments Alcohol Use Standard Drinks/Week No 0 [...] of this encounter Last Filed Vital Signs Not on filedocumented in this encounter Plan of Treatment Care Team Description Date Type Specialty Brain Viramontes MD [address] [place] [address] Avascular necrosis 11/16/2022 Hospital Perioperative Encounter Brain Viramontes MD [address] [facility] [address] [place] [phone] HIP ARTHROPLASTY TOTAL ANTERIOR APPROACH - [facility] 11/16/2022 Surgery Perioperative DerSnehal guerrero DNP 100 [facility] [address] [place] [address] 11/29/2022 Office Visit Gastroenterology Sabrina Tom MD 100 [facility] [address] [place] [address] [...] Area Manufactur er 12/19/2021 2991 / / [id number] Hemostatic Surgiflo 8ml 2991 - Hemostatic J&J- [id number] ETHICON Implanted: Qty: 1 on 08/31/2020 by INC Juliano Goodman Jr., DO [id number] / / Du Reline-O 5.5x 300mm Str Du NUVASIVE [id number] - [id number] INC Implanted: Qty: 2 on 08/31/2020 by Juliano Goodman Jr., DO [id number] / / Screw Reline-O 9.5x 90mm [id number] - Screw NU VASIVE [id number] INC Implanted: Qty: 2 on 08/31/2020 by Juliano Goodman Jr., DO 02/13/2025 [id number] / [id number] / Osteocel IMRIS Inc. Cell Med [id number] - Tissue NUVASI VE [id number] INC Implanted: Qty: 1 on 08/31/2020 by Juliano Goodman Jr., DO documented as of this encounter Procedures Comments Procedure Name Priority Date/Time Associated Diag nosis XR CHEST PA AND LATERAL 2 Routine 10/27/2022 Pain of left lower VW 11:02 AM CDT extremity documented in this encounter Results * XR CHEST PA AND LATERAL 2 VW (10/27/2022 11:02 AM CDT) Modality Anatomical Region Laterality Computed Radiography Chest Anatomical Location / Laterality Collection Method / Volume Amita ection Time Received Time Specimen (Source) 10/27/2022 11:03 AM CDT Impressions 10/27/2022 11:04 AM CDT IMPRESSION: Mild bilateral perihilar infiltrates. Electronically Signed By: Carlyn Serra DO, Signed On: 10/27/2022 11:04 AM, [email or web address] Narrative 10/27/2022 11:04 AM CDT CHEST X-RAY, single view CLINICAL DATA: Preoperative evaluation. FINDINGS: Mild bilateral perihilar infiltrates. The heart is normal sized. The mediastinum is unremarkable. The ting show no obvious abnormalities. No pneumothorax is seen. No consolidations or pleural effusions are detected. Procedure Note Carlyn Serra DO - 10/27/2022 CHEST X-RAY, single view CLINICAL DATA: Preoperative evaluation. FINDINGS: Mild bilateral perihilar infiltrates. The heart is normal sized. The mediastinum is unremarkable. The ting show no obvious abnormalities. No pneumothorax is seen. No consolidations or pleural effusions are detected. IMPRESSION: Mild bilateral perihilar infiltrates. Electronically Signed By: Carlyn Serra DO, Signed On: 10/27/2022 11:04 AM, [email or web address] Brain Leal DIAGNOSTIC IMAGING ORDERABL MAYE Viramontes MD documented in this encounter Visit Diagnoses Diagnosis Pain of left lower extremity Avascular necrosis Aseptic necrosis of bone, site unspecif ied documented in this encounter Insurance Type Payer Benefit Subscriber ID Effective Phone Address Plan / Dates Group Medicare MEDICARE MEDICARE [id number] 2000-P [phone] PART A AND resent B Supplemental BLUE CROSS AND BLUE BCBS SUPP [id number] 2020-P [phone] SHIELD resent documented as of this encounter Advance Directives For more information, please contact: [phone] 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
--- OUTSIDE RECORDS SUMMARY | 2022-11-17 12:06 | XMS REPORT | Summary of Care ---
Author Author [employer] [facility] Address Unknown Phone Unavailable Care Team Providers Care Cargo Station Worker Name Role Phone Marin Cueto MD PCP Reason for Visit * Auth/Cert (Routine) Diagnoses / Procedures Referred By Contact Referred To Conta ct Specialty Diagnoses Avascular necrosis Unilateral primary osteoarthritis, left hip Procedures [place] ARTHRP ACETBLR/PROX FEM PROSTC AGRFT/ALGRFT HIP ARTHROPLASTY TOTAL ANTERIOR APPROACH - [facility], Brain Vila MD [address] [place] [address] [facility] Main Operating Room [address] [address] Perioperative Referral ID Status Reason Start Date Expiration Visits Vi sits Date Requested Authorized [id number] 1 1 Encounter Details Care Team Description Date Type Department Brain Viramontes MD [address] [facility] [place] [address] Arrived 11/16/2022 Hospital [facility] Encounter [facility] Radiology [address] [address] Allergies Comments Active Allergy Reactions Severity Noted Date Atorvastatin Muscle Pain Medium 07/13/2011 Muscle pains Ezetimibe Other (See 07/11/2022 Comments) Confusion Hydrocodone Confusion, Medium 07/13/2011 Unknown Pravastatin Muscle Pain Medium 07/13/2011 Rosuvastatin Muscle Pain Medium 07/13/2011 Simvastatin Muscle Pain Low 01/15/2021 Rqcayxc-Lht-Cgg Reductase Muscle Pain Medium 08/20 Inhibitors documented as of this encounter (statuses as of 11/17/2022) Medications End Date Status Medication Sig Dispensed Refills Start Date Active oxyCODONE-acetaminophen Take 1-2 40 Tablet 0 (PERCOCET) 5-325 mg Tablets by 3 tabletIndications: S/P mouth every 4 total left hip hours as arthroplasty needed for Pain, Moderate. Max Daily Amount: [address] daily at 0 bedtime With 9 3L/nc . Suspended ascorbic acid, vitamin C, Take 1,000 mg 0 06/23 (VITAMIN C) 1,000 mg by mouth 0 Tablet daily. Suspended cholecalciferol, Vitamin Take 1,000 0 07/19 D3, (VITAMIN D3) 25 mcg Units by 0 (1,000 unit) Capsule mouth daily. Suspended docusate sodium (COLACE) Take 200 mg 0 05/31 100 mg capsule by mouth 2 0 times daily. Suspended citalopram (CeleXA) 10 mg Take 10 mg by 0 09/20 tablet mouth daily 1 at bedtime. Suspended aspirin (ECOTRIN EC) 81 Take 81 mg by 0 mg Tablet, Delayed mouth daily. Release (E.C.) Suspended acetaminophen (TYLENOL Take 650 mg 0 ARTHRITIS) 650 mg by mouth Extended Release tablet every 6 hours as needed for Pain. Suspended mecobalamin (vitamin B12) Take by 0 1,000 mcg chewable tablet mouth. Suspended fabksmwr-nekkm-wwtzq-CF Take 1 Tablet 0 borate (Move Free Joint by mouth 2 Health) 750 mg-100 mg- times daily. 1.65 mg-108 mg Tablet Suspended rivaroxaban (Xarelto) 20 Take 1 Tablet 90 Tablet 3 mg TabletIndications: (20 mg) by 3 Paroxysmal atrial mouth daily fibrillation with supper. Additional Information Suspended telmisartan (MICARDIS) 40 Take 0.5 90 Tablet 3 mg TabletIndications: Tablets (20 3 Primary hypertension mg) by mouth daily. (Discard remainder of tablet) Additional Information Suspended amLODIPine (NORVASC) 10 Take 10 mg by 0 mg tablet mouth daily at bedtime. Suspended omeprazole (PriLOSEC) 20 TAKE 1 90 Capsule 3 0 mg Capsule, Delayed CAPSULE BY 3 Release(E.C.) MOUTH DAILY Additional Information Patient taking differently: 20 mg Oral DAILY, Reported on 10/27/2022 Suspended pregabalin (LYRICA) 75 mg Take 75 mg by 0 / Capsule mouth every 3 12 hours. Suspended tolterodine (DETROL) 2 mg Take 2 mg by 0 05/0 tablet mouth 2 times 3 daily. Suspended amoxicillin (AMOXIL) 500 TAKE 4 0 07/21 mg capsule CAPSULE BY 3 MOUTH 1 HOUR PRIOR TO APPT Suspended mupirocin (BACTROBAN) 2% Apply with 22 Gram 0 0 Ointment QTIP insides 3 both sides of the nose BID for the 7 days leading up to surgery. 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 01/12/2011 CAD (coronary artery disease) Overview: [place] Cancer Overview: stage 4 malignant melanoma Arthritis Dysphagia CVA (cerebral vascular accident) documented as of this encounter (statuses as of 11/17/2022) Immunizations Name Administration Dates Next Due Influenza [...] Treatment Care Team Description Date Type Specialty Snehal Tse DNP 100 [facility] [address] [place] [address] 11/29/2022 Office Visit Gastroenterology Brain Viramontes MD [address] [place], [place] [phone] 12/02/2022 Office Visit Orthopedic Surgery Sabrina Tom MD 100 [facility] [address] [place] [address] 04/18/2023 Office Visit Cardiology Health Maintenance Due Date Last Done Comments [...] Area Manufactur er 12/19/2021 2991 / / [id number] Hemostatic Surgiflo 8ml 2991 - Hemostatic J&J- [id number] ETHICON Implanted: Qty: 1 on 08/31/2020 by INC Juliano Goodman Jr., DO [id number] 07/24/2027 6570-0-128 / / [id number] Head Fem V40 Biolox Delta Hip Left: Hip STRY KER- 6570-0-128 - [id number] ORTHOPAEDI Implanted: Qty: 1 on 11/16/2022 by Brain Hayes MD at [facility] [id number] / / Du Reline-O 5.5x 300mm Str Du NUVASIVE [id number] - [id number] INC Implanted: Qty: 2 on 08/31/2020 by Juliano Goodman Jr., DO [id number] / / Screw Reline-O 9.5x 90mm [id number] - Screw NU VASIVE [id number] INC Implanted: Qty: 2 on 08/31/2020 by Juliano Goodman Jr., DO [id number] 09/27/2027 9208-4344 / / U5HE Screw Trident 2 6.5x30mm Lprfl Hex Screw Left: Hip KENDELL- 6084-7325 - [id number] ORTHOPAEDI Implanted: Qty: 1 on 11/16/2022 by Brain Hayes MD at [facility] 02/13/2025 [id number] / [id number] / Osteocel Pro Cell Med [id number] - Tissue NUVASI VE [id number] INC Implanted: Qty: 1 on 08/31/2020 by Juliano Goodman Jr., DO [id number] 09/21/2027 1288-0067 / / [id number] [place] Insignia Hip Stem High Left: Hip STRYKE R- Offset Size 7 X 41 X 109mm ORTHOPAEDI Implanted: Qty: 1 on 11/16/2022 by Brain Hayes MD at [facility] documented as of this encounter Procedures Comments Procedure Name Priority Date/Time Associated Diag nosis XR PELVIS 1 OR 2 VW Routine 11/16/2022 Generalize d pain 3:17 PM CDT documented in this encounter Results * XR PELVIS 1 OR 2 VW (11/16/2022 3:17 PM CDT) Modality Anatomical Region Laterality Computed Radiography Pelvis Anatomical Location / Laterality Collection Method / Volume Amita ection Time Received Time Specimen (Source) 11/16/2022 3:32 PM CDT Impressions 11/16/2022 3:33 PM CDT IMPRESSION: Postoperative changes from left total hip arthroplasty without fracture or complication. Electronically Signed By: Kevyn Rizo MD, Signed On: 11/16/2022 3:33 PM, [email or web address] Narrative 11/16/2022 3:33 PM CDT EXAM: Single view pelvis INDICATIONS: Intraoperative imaging during total hip arthroplasty COMPARISON: No priors. Findings: Sequential AP views of the pelvis during left total hip arthroplasty with 7 images submitted. Hardware is appropriately positioned. No fracture or dislocation. Postsurgical soft tissue gas within the soft tissues. Chronic right total hip arthroplasty. Procedure Note Sam Rizo MD - 11/16/2022 EXAM: Single view pelvis INDICATIONS: Intraoperative imaging during total hip arthroplasty COMPARISON: No priors. Findings: Sequential AP views of the pelvis during left total hip arthroplasty with 7 images submitted. Hardware is appropriately positioned. No fracture or dislocation. Postsurgical soft tissue gas within the soft tissues. Chronic right total hip arthroplasty. IMPRESSION: Postoperative changes from left total hip arthroplasty without fracture or complication. 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
--- OUTSIDE RECORDS SUMMARY | 2022-11-17 12:06 | XMS REPORT | Summary of Care ---
Author Author [facility] Address Unknown Phone Unavailable Care Team Providers Care Record Changer Assembler Name Role Phone Marin Cueto MD PCP Reason for Visit * Auth/Cert (Routine) Diagnoses / Procedures Referred By Contact Referred To Conta ct Specialty Diagnoses Avascular necrosis Unilateral primary osteoarthritis, left hip Procedures [place] ARTHRP ACETBLR/PROX FEM PROSTC AGRFT/ALGRFT HIP ARTHROPLASTY TOTAL ANTERIOR APPROACH - [facility], Brain Vila MD [address] [place] [address] [facility] Main Operating Room [address] [address] Perioperative Referral ID Status Reason Start Date Expiration Visits Vi sits Date Requested Authorized [id number] 1 1 Encounter Details Care Team Description Date Type Department Brain Viramontes MD [address] [facility] [place] [address] Arrived 11/16/[address] [facility] Specialty Hos pital Encounter [facility] Radiology [address] [address] Allergies Comments Active Allergy Reactions Severity Noted Date Atorvastatin Muscle Pain Medium 07/13/2011 Muscle pains Ezetimibe Other (See 07/11/2022 Comments) Confusion Hydrocodone Confusion, Medium 07/13/2011 Unknown Pravastatin Muscle Pain Medium 07/13/2011 Rosuvastatin Muscle Pain Medium 07/13/2011 Simvastatin Muscle Pain Low 01/15/2021 Ozwgefr-Lca-Emt Reductase Muscle Pain Medium 08/20 Inhibitors documented [...] 0 1,000 mcg chewable tablet mouth. 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 01/12/2011 CAD (coronary artery disease) Overview: [place] Cancer Overview: stage 4 malignant melanoma Arthritis [...] Date Type Specialty Snehal Tse DNP 100 [facility] [address] [place] [address] 11/29/2022 Office Visit Gastroenterology Brain Viramontes MD [address] [place], [place] [phone] 12/02/2022 Office Visit Orthopedic Surgery Sabrina Tom MD 100 [facility] [address] [place] [...] Area Manufactur er 12/19/2021 2991 / / [id number] Hemostatic Surgiflo 8ml 2991 - Hemostatic J&J- [id number] ETHICON Implanted: Qty: 1 on 08/31/2020 by INC Juliano Goodman Jr., DO [id number] 07/24/2027 6570-0-128 / / [id number] Head Fem V40 Biolox Delta Hip Left: Hip STRY KER- 6570-0-128 - [id number] ORTHOPAEDI Implanted: Qty: 1 on 11/16/2022 by Brain Hayes MD at [facility] [id number] / / Du Reline-O 5.5x 300mm Str Du NUVASIVE [id number] - [id number] INC Implanted: Qty: 2 on 08/31/2020 by Juliano Goodman Jr., DO [id number] / / Screw Reline-O 9.5x 90mm [id number] - Screw NU VASIVE [id number] INC Implanted: Qty: 2 on 08/31/2020 by Juliano Goodman Jr., DO [id number] 09/27/2027 1377-0408 / / U5HE Screw Trident 2 6.5x30mm Lprfl Hex Screw Left: Hip KENDELL- 0841-7011 - [id number] ORTHOPAEDI Implanted: Qty: 1 on 11/16/2022 by Brain Hayes MD at [facility] 02/13/2025 [id number] / [id number] / Osteocel Pro Cell Med [id number] - Tissue NUVASI VE [id number] INC Implanted: Qty: 1 on 08/31/2020 by Juliano Goodman Jr., DO [id number] 09/21/2027 7480-1353 / / [id number] [place] Insignia Hip Stem High Left: Hip STRYKE R- Offset Size 7 X 41 X 109mm ORTHOPAEDI Implanted: Qty: 1 on 11/16/2022 by Brain Hayes MD at [facility] documented as of this encounter Procedures Comments Procedure Name Priority Date/Time Associated Diag nosis XR HIP 2 OR 3 VIEWS LT Routine 11/16/2022 General ized pain 3:17 PM CDT documented in this encounter Results * XR HIP 2 OR 3 VIEWS LT (11/16/2022 3:17 PM CDT) Modality Anatomical Region Laterality Computed Radiography Lower Extremity Anatomical Location / Laterality Collection Method / Volume Amita ection Time Received Time Specimen (Source) 11/16/2022 3:31 PM CDT Impressions 11/16/2022 3:32 PM CDT Impression: Postoperative changes from total hip arthroplasty without complication or fracture. Electronically Signed By: Kevyn Rizo MD, Signed On: 11/16/2022 3:32 PM, [email or web address] Narrative 11/16/2022 3:32 PM CDT EXAM: Two views of the left hip. INDICATIONS: Post hip arthroplasty. COMPARISON: Earlier same day FINDINGS: AP and crosstable lateral views. There are postoperative changes from total hip arthroplasty. Associated postoperative soft tissue gas. Hardware is properly positioned. No fracture or dislocation. Visualized pelvis is unremarkable. Chronic right total hip arthroplasty. Procedure Note Sam Rizo MD - 11/16/2022 EXAM: Two views of the left hip. INDICATIONS: Post hip arthroplasty. COMPARISON: Earlier same day FINDINGS: AP and crosstable lateral views. There are postoperative changes from total hip arthroplasty. Associated postoperative soft tissue gas. Hardware is properly positioned. No fracture or dislocation. Visualized pelvis is unremarkable. Chronic right total hip arthroplasty. Impression: Postoperative changes from total hip arthroplasty without complication or fracture. Electronically Signed By: Kevyn Rizo MD, Signed On: 11/16/2022 3:32 PM, [email or web address] Brain Leal DIAGNOSTIC IMAGING ORDERABL MAYE Viramontes MD documented in this encounter Visit Diagnoses Diagnosis Generalized pain documented in this encounter Insurance Type Payer Benefit Subscriber ID Effective Phone Address Plan / Dates Group Medicare MEDICARE MEDICARE [id number] 2000-P [phone] PART A AND resent B Supplemental BLUE CROSS AND BLUE BCBS SUPP [id number] 2020-P SHIELD resent [id number] [place] (Home[place] 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
--- OUTSIDE RECORDS SUMMARY | 2022-11-17 12:06 | XMS REPORT | Summary of Care ---
Author Author [facility] Address Unknown Phone Unavailable Care Team Providers Care Senior Dynamics Crm Developer Name Role Phone Marin Cueto MD PCP Reason for Referral * Home Health (Routine) - Open Diagnoses / Procedures Referred By Contact Referred To Conta ct Specialty Diagnoses Avascular necrosis of bone of left hip Brain Viramontes MD [address] [place] [address] [place] [phone] [facility] [address] [place] [address] Referral ID Status Reason Start Date Expiration Visits Vi sits Date Requested Authorized [id number] Open 11/09/2022 11/10/2023 1 1 Encounter Details Care Team Description Date Type Department Pema Morris RN Avascular necrosis of bone of left hip ( Primary Dx) 11/09/2022 Orders Only [facility] Specialty [facility] Care Management [address] [phone] Allergies Comments Active Allergy Reactions Severity Noted Date Atorvastatin Muscle Pain Medium 07/13/2011 Muscle pains Ezetimibe Other (See 07/11/2022 Comments) Confusion Hydrocodone Confusion, Medium 07/13/2011 Unknown Pravastatin Muscle Pain Medium 07/13/2011 Rosuvastatin Muscle Pain Medium 07/13/2011 Simvastatin Muscle Pain Low 01/15/2021 Dvmosjd-Sxu-Dkw Reductase Muscle Pain Medium 08/20 Inhibitors documented as of this encounter (statuses as of 11/09/2022) Medications End Date Status Medication Sig Dispensed [...] 09/20 tablet mouth daily 1 at bedtime. Active aspirin (ECOTRIN EC) 81 Take 81 mg by 0 mg Tablet, Delayed mouth daily. Release (E.C.) Active acetaminophen (TYLENOL Take 650 mg 0 ARTHRITIS) 650 mg by mouth Extended Release tablet every 6 hours as needed for Pain. Active mecobalamin (vitamin B12) Take by 0 1,000 mcg chewable tablet mouth. Active tiogeghy-goygx-bwnne-CF Take 1 Tablet 0 borate (Move Free [...] 75 mg Take 75 mg by 0 04/1 Capsule mouth every 3 12 hours. 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 01/12/2011 CAD (coronary artery disease) Overview: TN Cancer Overview: stage 4 malignant melanoma Arthritis Dysphagia CVA (cerebral vascular accident) documented as of this encounter (statuses as of 11/09/2022) Immunizations Name Administration Dates Next Due Influenza [...] Description Date Type Specialty Brain Viramontes MD [address] [place] [place] [phone] Avascular necrosis 11/16/2022 Hospital Perioperative Encounter Sophia Orona CRNA [address] [facility] [place] [phone] 11/16/2022 Anesthesia Perioperative Event Brain Viramontes MD [address] [place] [phone] HIP ARTHROPLASTY TOTAL ANTERIOR APPROACH - ARIS DEAN 11/16/2022 Surgery Perioperative Snehal Tse DNP [address] [facility] [address] [place] [phone] 11/29/2022 Office Visit Gastroenterology Brain Viramontes MD [address] [place] [phone] 12/02/2022 Office Visit Orthopedic Surgery Sabrina Tom MD [address] [facility] [address] [place] [phone] 04/18/2023 Office Visit Cardiology Date/Time Name Priority Associated Diagnose s 11/16/2022 3:00 PM CDT HIP ARTHROPLASTY TOTAL ANTERIOR APPROACH Avascular necrosis Order Schedule Name Type Priority Associated Diag noses Ordered: 11/09/2022 AMB REFERRAL TO HOME CARE Outpatient Routine Avas cular necrosis of Referral bone of left hip Health Maintenance Due Date Last Done Comments DTAP/TDAP/TD VACCINES (1 1954 - Tdap) Traditional Medicare 1954 (ACO) Annual Wellness Visit ZOSTER VACCINE (1 of 2) 1985 PNEUMOCOCCAL VACCINE 65+ 05/06/2016 03/11/2016 YEARS (2 - PPSV23 if available, else PCV20) INFLUENZA VACCINE (#1) 2021 03/02/2020, 03/22/2018, 03/06/2017, Additional history exists documented as of this encounter Medical Devices Device Identifier Shelf Expiration Date Model / Serial / L ot Implanted Type Area Manufactur er 12/19/2021 2991 / / [id number] Hemostatic Surgiflo 8ml 2991 - Hemostatic J&J- [id number] ETHICON Implanted: Qty: 1 on 08/31/2020 by INC Juliano Goodman Jr., DO [id number] / / Du Reline-O 5.5x 300mm Str Du NUVASIVE [id number] - [id number] Implanted: Qty: 2 on 08/31/2020 by Juliano Goodman Jr., DO [id number] / / Screw Reline-O 9.5x 90mm [id number] - Screw NU VASIVE [id number] Implanted: Qty: 2 on 08/31/2020 by Juliano Goodman Jr., DO 02/13/2025 [id number] / [id number] / Osteocel Pro Cell Med [id number] - Tissue NUVASI VE [id number] Implanted: Qty: 1 on 08/31/2020 by Juliano Goodman Jr., DO documented as of this encounter Results Not on filedocumented in this encounter Visit Diagnoses Diagnosis Avascular necrosis of bone of left hip - Primary Avascular necrosis Aseptic necrosis of bone, site unspecif ied documented in this encounter Insurance Type Payer Benefit Subscriber ID Effective Phone Address Plan / Dates Group Medicare MEDICARE MEDICARE [id number] 2000-P [phone] PART A AND resent B Supplemental BLUE CROSS AND BLUE BCBS SUPP [id number] 2020-P SHIELD resent RX Medicare Part D RX OPTUM RX RX MEDD [id number] 2005-P [phone] CREANDREINA Cedeno ON [employer] XMPT documented as of this encounter Advance Directives For more information, please contact: [phone] 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
[2022-11-17] MEDS ORDERED: diphenhydrAMINE 25 MG TAB (BENADRYL) PO PRN (12:15)
[2022-11-17] MEDS ORDERED: BISACODYL 10 MG SUPP (DULCOLAX) PR PRN (12:15)
[2022-11-17] MEDS ORDERED: DOCUSATE SODIUM 100 MG (COLACE) CAP PO PRN (12:15)
[2022-11-17] MEDS ORDERED: ONDANSETRON 4 MG (ZOFRAN) ORAL DISSOLVE TAB PO PRN (12:15)
[2022-11-17] MEDS ORDERED: guaiFENesin/CODEINE (ROBITUSSIN AC) 10ML UDC PO PRN (12:15)
[2022-11-17] MEDS ORDERED: FLEET ENEMA ADULT 1 EA BTL PR PRN (12:15)
[2022-11-17] MEDS ORDERED: ALPRAZolam 0.25 MG (XANAX) TAB PO PRN (12:15)
[2022-11-17] MEDS ORDERED: ACETAMINOPHEN 325 MG TABLET PO PRN (12:15)
[2022-11-17] MEDS ORDERED: CALCIUM CARBONATE 500 MG (TUMS) TAB.CHEW PO PRN (12:15)
[2022-11-17] MEDS ORDERED: LOPERAMIDE 2 MG (IMODIUM) TABLET PO PRN (12:15)
[2022-11-17] MEDS ORDERED: MELATONIN 3 MG TABLET PO PRN (12:15)
--- NOTE | 2022-11-17 12:23 | PM&R Post Admission Assessment ---
PM&R Date of Visit: Nov 17, 2022 Time of Visit: 18:00 History of Present Illness Chief complaint: Recovery from left hip replacement by Dr. Viramontes POD #1 HPI: This is an 87-year-old male known to me from prior inpatient rehab stay in 2020 who presented to the inpatient rehab unit following an uncomplicated left hip replacement at [facility]. Due to patient's advanced age and multiple comorbidities he had slow recovery and increased pain so he met criteria for short stay in inpatient rehab. Currently he has not had a BM yet so we will initiate laxative regimen and urinary retention has been an issue but that is a chronic status. His urologist is Dr. Casper. Past Diityiq-Omtvoa-Taedbo Hx Past Med/Social Hx: Reviewed Nursing Past Med/Soc Hx, Reviewed and Corrections made Patient Social History Marrital Status: Employed/Student: retired Alcohol Use: Denies Use Smoking Status: Never a Smoker 2nd Hand Smoke Exposure: No Immunizations Up To Date Date of Pneumonia Vaccine: Mar 08, 2012 Date of Influenza Vaccine: Mar 25, 2021 Seasonal Allergies Seasonal Allergies: No Past Medical History Surgeries: Abdominal, Cardiac, Eye Surgery, Joint Replacement, Neurological, Orthopedic, Pacemaker Respiratory: Sleep Apnea Currently Using BIPAP: Yes Cardiac: Atrial Fibrillation, Chronic Edema/Swelling, Coronary Artery Disease, Deep Vein Thrombosis, Heart Attack, High Cholesterol, Hypertension Neurological: Vertigo Reproductive: No Genitourinary: Benign Prostatic Hyperpl Gastrointestinal: Abdominal Hernia, Diverticulosis Musculoskeletal: Degenerate Disk Disease, Arthritis, Chronic Back Pain HEENT: Cataract Hearing Impairment: Hard of Hearing Cancer: Melanoma Did You Recieve Any Treatments: Yes What Type of Treatment Did You: Surgical Intervention Psychosocial: Depression History of Blood Disorders: Yes (DVT POST OP) Adverse Reaction to Blood [place]: No Family History Anemia Cardiovascular disease Diabetes mellitus FH: breast cancer Hypertension Heart Disease, Hypertension SOCIAL HISTORY: -NO ALCOHOL -NO DRUGS -NO TOBACCO/NO SMOKING PAST SURGICAL HISTORY: -CERVICAL SPINE SURGERY--FUSION WITH HARDWARE -LUMBAR SPINE SURGERY X 2 -BILATERAL KNEE REPLACEMENTS -RIGHT HIP REPLACEMENT -MELANOMA REMOVED FROM BACK WITH LYMPH NODE REMOVAL FROM LEFT AXILLA IN 1979 -BILATERAL CATARACT SURGERY -CARDIAC CATH--NO INTERVENTION -BILATERAL INGUINAL HERNIA REPAIRS -CIRCUMSISION AND BIOPSY OF PENILE LESION 03/23/21 AT [facility] PM&R Allergy/Meds/Data Review Allergies Coded Allergies: Hkinjdl-BJK-TpR Reductase Inhibitor (Verified Allergy, Unknown, 07/05/15) hydrocodone (Verified Allergy, Unknown, pt has received morphine & hyd romorphone in the past, 09/02/20) Home Medications Scheduled Amlodipine Besylate (Amlodipine Besylate), 10 MG PO HS, (Reported) Ascorbic Acid (Vitamin C), 1,000 MG PO DAILY, (Reported) Aspirin (Aspirin EC), 81 MG PO DAILY, (Reported) Cholecalciferol (Vitamin D3) (Vitamin D3), 25 MCG PO DAILY, (Reported) Citalopram Hydrobromide (Citalopram HBr), 10 MG PO HS, (Reported) Cyanocobalamin (Vitamin B-12) (Vitamin B-12), 1,000 MCG PO DAILY, (Reported) Docusate Sodium (Colace), 200 MG PO BID, (Reported) Glucosam/Chond/Hyalu/Cf Borate (Move Free Joint Health Tablet), 1 EACH PO BID, (Reported) Omeprazole (Omeprazole), 20 MG PO DAILY, (Reported) Pregabalin (Pregabalin), 75 MG PO Q12H, (Reported) Rivaroxaban (Xarelto), 20 MG PO 1800 W/MEAL, (Reported) Telmisartan (Telmisartan), 20 MG PO DAILY, (Reported) Tolterodine Tartrate (Tolterodine Tartrate), 2 MG PO BID, (Reported) Scheduled PRN Acetaminophen (Tylenol 8 Hour), 650 MG PO Q6H PRN for PAIN-MILD (1-4), (Reported) Oxycodone HCl/Acetaminophen (Oxycodone-Acetaminophen 5-325), 1-2 EACH PO Q4H PRN for PAIN-MODERATE (5-7), (Reported) Discontinued Medications Cyanocobalamin (Vitamin B-12) (Vitamin B-12), 250 MCG PO HS, (Reported) Discontinued Reason: No Longer Taking Fexofenadine HCl (Pam Allergy), 180 MG PO DAILY, (Reported) Discontinued Reason: No Longer Taking Furosemide (Furosemide), 40 MG PO DAILY, (Reported) Discontinued Reason: No Longer Taking Gabapentin (Neurontin), 300 MG PO Q8H PRN for PAIN-BREAKTHROUGH, (Reported) Discontinued Reason: No Longer Taking Omeprazole (Omeprazole), 20 MG PO DAILY, (Reported) Discontinued Reason: No Longer Taking Oxycodone HCl (Oxycodone HCl), 5 MG PO PRN, (Reported) Discontinued Reason: No Longer Taking Tramadol HCl (Tramadol HCl), 50-100 MG PO Q6H PRN for PAIN-MODERATE (5-7) Discontinued Reason: No Longer Taking Current Medications Current Medications Reviewed Review of Systems Constitutional: see HPI, malaise, weakness EENTM: no symptoms reported Respiratory: no symptoms reported Cardiovascular: no symptoms reported Gastrointestinal: constipation Genitourinary: no symptoms reported Musculoskeletal: joint pain Skin: no symptoms reported Psychiatric/Neurological: Depressed All Other Systems Reviewed Negative Unless Noted: Yes Physical Exam Physical Exam Vital Signs Vital Signs - First Documented 11/17/22 11:55 Temp 36.0 Pulse 70 Resp 18 B/P (MAP) 129/62 (84) Pulse Ox 93 O2 Delivery Room Air Capillary Refill : Height, Weight, BMI Height: 6'1.00" Weight: 255lbs. 0.0oz. 115.220676ls; 36.15 BMI Method:Stated General Appearance: No Apparent Distress, WD/WN, Chronically ill Eyes: Bilateral Eye Normal Inspection, Bilateral Eye PERRL HEENT: PERRL/EOMI, Normal ENT Inspection, Pharynx Normal Neck: Full Range of Motion, Normal Inspection, Non Tender, Supple, Carotid Bruit Respiratory: Chest Non Tender, Lungs Clear, Normal Breath Sounds, No Accessory Muscle Use, No Respiratory Distress Cardiovascular: Regular Rate, Rhythm, No Edema, No Gallop, No JVD, No Murmur, Normal Peripheral Pulses Gastrointestinal: Normal Bowel Sounds, No Organomegaly, No Pulsatile Mass, Non Tender, Soft Back: Normal Inspection, No CVA Tenderness, No Vertebral Tenderness Extremity: Normal Capillary Refill, Normal Inspection, Normal Range of Motion (Except left leg), Non Tender, No Calf Tenderness, No Pedal Edema Neurologic/Psychiatric: Alert, Oriented x3, No Motor/Sensory Deficits, Normal Mood/Affect, crown blocker II-XII Norm as Tested, Abnormal Gait, Motor Weakness ( left leg) Skin: Normal Color, Warm/Dry Lymphatic: No Adenopathy PM&R Medical Assessment & Plan REHAB/MEDICAL ASSESSMENT AND PLAN: REHAB IMPAIRMENT GROUP: Left hip replacement with advanced age ETIOLOGIC DIAGNOSIS: Left hip replacement with advanced age The comorbidities that impact the patients function and/or functional outcome by: advanced age, atrial fibrillation, chronic urinary retention, oral anticoagulation REHAB PLAN: The patient is being admitted to our comprehensive inpatient rehabilitation facility and can tolerate the intensity of service consisting of at least: 180 minutes of therapy a day, 5 out of 7 days a week Rehab treatment will consist of: PT and OT will focus on regaining function with use of assistive devices in order to regain stamina and increased independence in ADLs in order to return back home with spouse. The patient/family has a good understanding of our discharge process and will benefit from an interdisciplinary inpatient rehabilitation program. The patient has potential to make improvement and is in need of at least two of the following multidisciplinary therapies including but not limited to physical, occupational, speech, and prosthetics and orthotics. Additionally the patient will need services from respiratory, nutritional services, wound care, psychology, etc. (Customize this to each patient). Given the patients complex condition and risk of further medical complications, rehabilitation services cannot be safely or effectively provided at a lower level of care such as a [facility]cfp facility. BARRIERS TO DISCHARGE: Advanced age ESTIMATED LOS: 7 days DISPOSITION: home with spouse RELEVANT CHANGES SINCE PREADMISSION SCREENING: I have compared the patients medical and functional status at the time of the preadmission screening and there are: no changes PROGNOSIS: good REHABILITATION GOALS: 1. PT and OT will focus on regaining function with use of assistive devices in order to regain stamina and increased independence in ADLs in order to return back home with spouse. All the above goals were reviewed with the patient and he/she is in agreement. By signing this document, I acknowledge that I have personally performed a full physical examination on this patient within 24 hours of admission to this inpatient rehabilitation facility and have determined the patient to be able to tolerate the above course of treatment at an intensive level for a reasonable period of time. I will be completing a detailed individualized Plan of Care for this patient by day #4 of the patients stay based upon the Preadmission Screen, the Post-Admission Evaluation, and the therapy evaluations. Admission Dx/Comorbidities: (1) Status post left hip replacement ICD Codes: Z96.642 - Presence of left artificial hip joint (2) Constipation ICD Codes: K59.00 - Constipation, unspecified (3) RAIMUNDO treated with BiPAP ICD Codes: G47.33 - Obstructive sleep apnea (adult) (pediatric) (4) CAD (coronary artery disease) ICD Codes: I25.10 - Atherosclerotic heart disease of [place] coronary artery without angina pectoris (5) PAF (paroxysmal atrial fibrillation) ICD Codes: I48.0 - Paroxysmal atrial fibrillation Assessment/Plan Assessment and Plan Assess & Plan/Chief Complaint Assessment: Status post left hip replacement POD #1 paroxysmal atrial fibrillation CAD RAIMUNDO History of diverticulitis Constipation Chronic urinary retention Chronic back pain Plan: Pain control Supportive care PT and OT Home meds PONCE KAUR DO Nov 17, 2022 12:23
[2022-11-17] MEDS ORDERED: ACETAMINOPHEN ER 650 MG (TYLENOL ARTHRITIS) PO PRN (12:30)
--- NOTE | 2022-11-17 13:13 | Physical Therapy Evaluation ---
PT Evaluation-General Medical Diagnosis Admission Date Nov 17, 2022 at 11:55 Medical Diagnosis: AVN; S/P L KELLI (anterior) Onset Date: Nov 16, 2022 Therapy Diagnosis Therapy Diagnosis: Decreased strength; Decreased functional mobility Height/Weight Height (Feet): 6 Height (Inches): 1.00 Weight (Pounds): 255 Weight (Ounces): 0.0 Precautions Precautions/Isolations: Fall Prevention, Standard Precautions WBAT L LE; Anterior KELLI precautions No BP or sticks on the L UE Weight Bear Status Right Lower Extremity: Right Full Weight Bearing Left Lower Extremity: Left Weight Bearing/Tolerated Referral Physician: Minerva Reason for Referral: Evaluation/Treatment Medical History Pertinent Medical History: Arthritis, CAD, HTN, [place] Additional Medical History Arthritis, A-Fib, BPH, CAD, Cancer (1979), CVD, Depression, GERD, HTN, hyperlipidemia, L UE lymphedema, RAIMUNDO, B TKA, R KELLI, and multiple lumbar surgeries Current History S/P L KELLI on 11/16/2022; Admitted to ARU on 11/17/2022 Reviewed History: Yes Social History Home: Multilevel Current Living Status: Significant Other Entry Into Home: Stairs With Railing PT Steps Into Home: 4 Pt lives with his in a multi-level home with 4 steps to enter with R HR. Pt only has to use the first level. Tub-shower with transfer bench, GBs, and TR. Pt has 2 sons that live close and are very supportive. Prior Prior Level of Function SCALE: Activities may be completed with or without assistive devices. 1-Tkkeozqpuc-ssasemz completes the activity by him/herself with no assistance from a helper. 5-Set-up or Clean-up Assistance-helper sets up or cleans up; patient completes activity. Hammond assists only prior to or following the activity. 4-Supervision or Touching Assistance-helper provides verbal cues and/or touching/steadying and/or contact guard assistance as patient completes activity. Assistance may be provided throughout the activity or intermittently. 3-Partial/Moderate Assistance-helper does LESS THAN HALF the effort. Hammond lifts, holds or supports trunk or limbs, but provides less than half the effort. 2-Substantial/Maximal Assistance-helper does MORE THAN HALF the effort. Hammond lifts or holds trunk or limbs and provides more than half the effort. 2-Tgqsiafdi-jgzpky does ALL the effort. Patient does none of the effort to complete the activity. Or, the assistance of 2 or more helpers is required for the patient to complete the activity. If activity was not attempted, code reason: 7-Patient Refused. 9-Not Applicable-not attempted and the patient did not perform the activity before the current illness, exacerbation or injury. 10-Not Attempted due to Environmental Limitations-(lack of equipment, weather restraints, etc.). 88-Not Attempted due to Medical Conditions or Safety Concerns. Bed Mobility: 6 Transfers (B,C,W/C): 6 Gait: 6 Stairs: 6 Wheelchair Mobility: 9 Indoor Mobility (Ambulation): Independent Stairs: Independent Prior Devices Use: Walker At [facility], pt was Ind with the FWW and driving PT Evaluation-Current Subjective Pt is agreeable to PT Pain Numeric Pain Scale: 7 Location: Left Location Body Site: Hip Section J - Health Conditions 1. Rarely or not at all 2. Occasionally 3. Frequently 4. Almost constantly 8. Unable to answer Pain Effect on Sleep: 2 Pain Interference with Therapy: 3 Pain Interference w/Day-to-Day: 2 Pt/Family Goals Safely return home at [facility] Objective Patient Orientation: Person, Place, Time, Situation ROM/Strength ROM Upper Extremities WFL ROM Lower Extremities WFL Strength Upper Extremities WFL Strength Lower Extremities R LE MMT - 4/5 grossly L LE MMT - 4-/5 grossly Integumentary/Posture Integumentary See nurses note Bowel Incontinence: No Bladder Incontinence: No Sensory Vision: Wears Glasses Hearing: Hearing Aid/Aides Hand Dominance: Right Sensation Right Upper Extremit: Intact Sensation Left Upper Extremity: Intact Sensation Right Lower Extremit: Intact Sensation Left Lower Extremity: Intact Transfers Roll Left & Right (QC): 4 (SBA) Sit to Lying (QC): 4 (SBA) Lying to Sitting/Side of Bed(Q: 4 (SBA) Sit to Stand (QC): 4 (SBA) Chair/Zmj-cx-Sgqnp Xfer(QC): 4 (SBA) Toilet Transfer (QC): 4 (SBA) Car Transfer (QC): 4 (SBA) Gait Does the Patient Walk?: Yes Mode of Locomotion: Walk Anticipated Mode of Locomotion: Walk Walk 10 feet (QC): 4 (CGA ) Walk 50 ft with 2 Turns(QC): 4 (CGA ) Walk 150 ft (QC): 4 (CGA ) Walking 10ft/uneven surface-QC: 4 (CGA ) Gait Assistive Device: FWW Wheelchair Training Does the Pt Use a Wheelchair?: No Wheel 50 ft with 2 turns (QC): 9 Wheel 150 ft (QC): 9 Type of Wheelchair: N/A Stairs #of Steps: 12 1 Step (curb) (QC): 4 (CGA ) 4 Steps (QC): 4 (CGA ) 12 Steps (QC): 4 (CGA ) Walking Assistive Device: Walker Balance Sitting Static: Normal Sitting Dynamic: Good Standing Static: Good Standing Dynamic: Fair Picking up an Object (QC): 4 (SBA) Special Test Comments KU standing balance test = 3+/5 (goal = 5/5) Treatment PT eval completed. Pt is SBA for bed mobility, SBA for functional transfers, CGA for walking x 150ft with the FWW, and CGA for 12 stairs with CGA. Assessment/Needs Pt tolerated PT well Rehab Potential: Good Post Rehab Potential-Barriers: Pain; weakness Equipment Needs N/A PT Mcc Goals Nurse Advisor Goals PT Mcc Goals Time Frame: Nov 25, 2022 Roll Left to Right (QC): 6 (Mod I with funcitonal mobility ) Sit to Lying (QC): 6 (Mod I with funcitonal mobility ) Lying-Sitting on Side/Bed(QC): 6 (Mod I with funcitonal mobility ) Sit to Stand (QC): 6 (Mod I with funcitonal mobility ) Chair/Kso-vl-Txlnp Xfer(QC): 6 (Mod I with funcitonal mobility ) Toilet/Commode Transfer (QC): 6 (Mod I with funcitonal mobility ) Car Transfer (QC): 6 (Mod I with funcitonal mobility ) Does the Patient Walk: Yes Walk 10 feet (QC): 6 (Mod I with funcitonal mobility ) Walk 10ft-Uneven Surface(QC): 6 (Mod I with funcitonal mobility ) Walk 50ft with 2 Turns (QC): 6 (Mod I with funcitonal mobility ) Walk 150 ft (QC): 6 (Mod I with funcitonal mobility ) Does the Pt use WC or Scooter?: No Wheel 50 feet with 2 turns (QC: 9 Type: N/A Wheel 150 feet: 9 Type: N/A 1 Step (curb) (QC): 6 (Mod I with funcitonal mobility ) 4 Steps (QC): 6 (Mod I with funcitonal mobility ) 12 Steps (QC): 6 (Mod I with funcitonal mobility ) Picking up an Object (QC): 6 (Mod I with funcitonal mobility ) KU standing balance scale goal = 5/5 PT Plan Problem List Problem List: Activity Tolerance, Functional Strength, Safety, Balance, Gait, Transfer, Bed Mobility Treatment/Plan Treatment Plan: Continue Plan of Care Treatment Plan: Bed Mobility, Concurrent Therapy, Education, Functional Activity Lukas, Functional Strength, Group Therapy, Gait, Safety, Therapeutic Exercise, Transfers Treatment Duration: Nov 25, 2022 Frequency: At least 5 of 7 days/Wk (IRF) Estimated Hrs Per Day: 1.5 hours per day Patient and/or Family Agrees t: Yes Safety Risks/Education Patient Education: Gait Training, Transfer Techniques, Steps, Reviewed Precautions, Correct Positioning, Safety Issues Teaching Recipient: Patient, Family Teaching Methods: Demonstration, Discussion Response to Teaching: Verbalize Understanding, Return Demonstration, Reinforcement Needed Discharge Recommendations Plan Pt would benefit from skilled PT to progress towards PLOF and safe d/c home with spouse. Therapy Discharge Recommendati: Home & Family Equpiment Recommendations-D/C: None Discharge Status/Home Program Cont per POC Barriers to Progress Pain; Weakness Target Placement Home with family Time Time In: 1155 Time Out: 1230 DATE: Nov 17, 2022 Total Billed Treatment Time: 35 Total Billed Treatment 35 min total from 8680-5487 EVL (20 min from 2584-8727) GT x 1 (15 min from 1719-2567) ROBLES VALDIVIA PT Nov 17, 2022 13:13
--- NOTE | 2022-11-17 13:36 | Occupational Therapy Eval ---
OT Evaluation-General/PLF Medical Diagnosis Admission Date Nov 17, 2022 at 11:55 Medical Diagnosis: AVN; S/P L KELLI (anterior) Onset Date: Nov 16, 2022 Therapy Diagnosis Therapy Diagnosis: decreased strength and mobility Height/Weight Height (Feet): 6 Height (Inches): 1.00 Weight (Pounds): 255 Weight (Ounces): 0.0 Precautions Precautions/Isolations: Fall Prevention, Standard Precautions Comments medical drug allergy precautions Weight Bear Status Weight Bearing Restriction: Weight Bearing/Tolerated Location Restriction: L LE WBAT L LE; Anterior KELLI precautions OT has written on board, verbalized and demonstrated on evaluation No BP or sticks on the L UE d/t lympectomy Referral Referral Reason: Activity Tolerance, Self Care, Evaluation/Treatment, Strengthening/ROM Medical History Pertinent Medical History: Arthritis, CAD, HTN, [place] Additional Medical History Arthritis, A-Fib, BPH, CAD, Cancer (1979), CVD, Depression, GERD, HTN, hyperlipidemia, L UE lymphedema, RAIMUNDO, B TKA, R KELLI, and multiple lumbar surgeries Current History Transfer from outside facility Reviewed History: Yes Social History Home: Multilevel (upstairs additional bedrooms and 2nd bathroom. Does not use) Current Living Status: Spouse Entry Into Home: Stairs With Railing Steps Into Home: 4 Steps Inside Home: 13 ADL-Prior Level of Function SCALE: Activities may be completed with or without assistive devices. 9-Dxsxlygadb-myxwvks completes the activity by him/herself with no assistance from a helper. 5-Set-up or Clean-up Assistance-helper sets up or cleans up; patient completes activity. [place] assists only prior to or following the activity. 4-Supervision or Touching Assistance-helper provides verbal cues and/or touching/steadying and/or contact guard assistance as patient completes activity. Assistance may be provided throughout the activity or intermittently. 3-Partial/Moderate Assistance-helper does LESS THAN HALF the effort. [place] lifts, holds or supports trunk or limbs, but provides less than half the effort. 2-Substantial/Maximal Assistance-helper does MORE THAN HALF the effort. [place] lifts or holds trunk or limbs and provides more than half the effort. 7-Vdwfplvsr-ztstel does ALL the effort. Patient does none of the effort to complete the activity. Or, the assistance of 2 or more helpers is required for the patient to complete the activity. If activity was not attempted, code reason: 7-Patient Refused. 9-Not Applicable-not attempted and the patient did not perform the activity before the current illness, exacerbation or injury. 10-Not Attempted due to Environmental Limitations-(lack of equipment, weather restraints, etc.). 88-Not Attempted due to Medical Conditions or Safety Concerns. 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 Pain Numeric Pain Scale: 4 (at rest, 7 in standing) Location: Left Location Body Site: Hip Mental Status/Objective Patient Orientation: Person, Place ([facility]), Time (, October 2022, 2nd floor), Situation (repeats KELLI precautions) Current Glasses/Contacts: Yes (bifocal) Hearing Aids: Yes (bilateral, hardof hearing persist) Dentures/Partials: No Hand Dominance: Right Upper Extremity ROM BUE ROM WFLS, lympedema in LUE Upper Extremity Coordination INTACT FMC/GMC Upper Extremity Sensation WFLS Upper Extremity Strength LUE +4/5, RUE 5/5, seafood and service meat manager 5/5 Edema: LUE ADL-Treatment Eating (QC): 6 Oral Hygiene (QC): 4 (SBA standing FWW) Shower/Bathe Self (QC): 3 (GBs, HHSH, bench) Upper Body Dressing (QC): 3 (Primary left side) Lower Body Dressing (QC): 5 On/Off Footwear (QC): 3 Toileting Hygiene (QC): 4 Education OT Patient Education: Correct positioning, Instructions to caregiver, Modified ADL techniques, Progress toward Goal/Update tx plan, Purpose of tx/functional activities, Reviewed precautions, Rehab process, Safety issues, Transfer techniques Teaching Recipient: Patient, Family Teaching Methods: Demonstration, Discussion Response to Teaching: Verbalize Understanding, Reinforcement Needed BIMS CAM BIMS Expression of Ideas and Wants: Without Difficulty Understanding Verbal Content: Understands Brief Interview/Mental Status: No IRF BOB BIMS: IRF BOB BIMS Response (Comments) Value Repitition of Three Words Three 3 Recalls Socks Yes, No Cue Required 2 Recalls Blue Yes, No Cue Required 2 Recalls Bed Yes, No Cue Required 2 Year Correct 3 Month Accurate Within 5 Days 2 Day Correct 1 Total 15 Patient Normally Able to Recal: Current Session, Location of own room, Staff Names and faces (Daryl by memory/ Aranza name on board), That he/she in a hsp Should Staff Asses. Mental St.: No CAM Mental Status Change/Baseline: 0 Inattention: 0 Disorganized thinkin Altered level of consciousness: 0 OT Short Term Goals Short Term Goals Time Frame: Nov 23, 2022 Eatin Oral hygiene: 6 (standing w/ ADs following precautions) Upper body dressin OT Senior Loan Processor Goals Alf Goals Time Frame: Nov 25, 2022 Oral Hygiene (QC): 6 Toileting Hygiene (QC): 6 Shower/Bathe Self (QC): 6 Upper Body Dressing (QC): 6 Lower Body Dressing (QC): 6 On/Off Footwear (QC): 6 1=Demonstrate adherence to instructed precautions during ADL tasks. 2=Patient will verbalize/demonstrate understanding of assistive devices/modifications for ADL. 3=Patient will improve strength/tolerance for activity to enable patient to perform ADL's. OT Education/Plan Problem List/Assessment Assessment: Impaired Funct Balance, Impaired Self-Care Skills Discharge Recommendations Plan/Recommendations: Continue POC Treatment Plan/Plan of Care Treatment,Training & Education: Yes Patient would benefit from OT for education, treatment and training to promote independence in ADL's, mobility, safety and/or upper extremity function for ADL's. Plan of Care: ADL Retraining, Concurrent Therapy, Functional Mobility, Group Exercise/Act as Ind, UE Funct Exercise/Act Treatment Duration: Nov 25, 2022 Frequency: At least 5 of 7 days/Wk (IRF) Estimated Hrs Per Day: 1.5 hours per day Agreement: Yes Rehab Potential: Good Time Start Time: 13:05 Stop Time: 13:20 DATE: Nov 17, 2022 Total Time Billed (hr/min): 15 Billed Treatment Time EVM 15 min ARANZA HERRERA OT Nov 17, 2022 13:36
--- NOTE | 2022-11-17 13:42 | ST Cognitive Linguistic Eval ---
Speech Evaluation-General Medical Diagnosis AVN; S/P L KELLI (anterior) Onset Date: Nov 16, 2022 Therapy Diagnosis Therapy Diagnosis: WNL COGNITION Precautions Precautions: Fall Precautions/Isolations: Fall Prevention, Standard Precautions Referral Referring Physician: DR. KAUR Reason for Referral: Evaluation/Treatment Medical History Pertinent Medical History: Arthritis, CAD, HTN, [place] Arthritis, A-Fib, BPH, CAD, Cancer (1979), CVD, Depression, GERD, HTN, hyperlipidemia, L UE lymphedema, RAIMUNDO, B TKA, R KELLI, and multiple lumbar lizama rgeries Current History PT S/P L KELLI ON 11/16/[address] [facility] IN [place], [place]. PT TRANSFERRED TO [facility]U ON 11/17/22. Reviewed History: Yes Social History Current Living Status: Significant Other Speech PLF-Current Status Prior Level of Function PT PREVIOUSLY LIVING AT HOME WITH . 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 PT REPORTS HE AND HIS SPLIT FINANCE MANAGEMENT RESPONSIBILITIES. Subjective PT JUST FINISHED PT EVAL WHEN THE DOCUMENT CONTROL MANAGER WALKED IN PT. PT SITTING IN RECLINER AND STATES HE HAS NOT EATEN LUNCH. DOCUMENT CONTROL MANAGER HELPS PT ORDER LUNCH. PT'S SON AND PRESENT IN ROOM. PT STATES HE IS HARD OF HEARING AND READING LIPS HELPS. PT PLEASANT AND COOPERATIVE THROUGHOUT THE EVALUATION. Pain Numeric Pain Scale: 4 Location: Left Location Body Site: Back Language Eval: Auditory Comprehends Simple Yes/No Ques: Functional Follows 1-Step Commands: Functional Follows General Conversations: Functional Language Eval: Verbal Language Completes Spontaneous Greeting: Functional Word Finding: Functional Requests Basic Needs: Functional Expresses Complex Ideas: Functional Objective Cognitive Domain Attention: WNL Memory: Mild Problem Solving: Functional Executive Functions: WNL Visuospatial Skills: WNL Composite Severity Rating: WNL Clock Drawing Severity Rating: WNL Score: 27 Objective Formal/Standardized Tests SLUMS Results 27/30 Impression PT'S COGNITION FUNCTIONING APPEARS WNL AT THIS TIME. PT SCORES A 27/30 ON THE SLUMS. PT HAD DIFFICULTY WITH RECALLING WORDS FOLLOWING A SHORT DELAY. PT ABLE TO RECALL 2/5 WORDS INDEPENDENTLY AND 5/5 WORDS WITH MIN VERBAL CUES. PT COMPLETES MEDICATION MANAGEMENT TASK WITH 100% ACCURACY INDEPENDENTLY. PT COMPLETES CHECK WRITING TASK WITH 100% ACCURACY INDEPENDENTLY. Speech-Plan Patient/Family Goals Patient/Family Goals: PT'S GOAL IS TO RETURN HOME WITH . Treatment Plan Speech Therapy Treatment Plan: Discontinue ST Frequency: 1 time per month (1 TIME VISIT FOR EVALUATION) Estimated Hrs Per Day: Other Rehab Potential: Good Pt/Family Agrees to Plan: Yes Safety Risks/Education Teaching Recipient: Patient, Family Teaching Methods: Discussion Response to Teaching: Verbalize Understanding Education Topics Provided: PT AND FAMILY EDUCATED ON ROLE OF THE DOCUMENT CONTROL MANAGER, PURPOSE OF EVALUATION, RESULTS, AND RECOMMENDATIONS. BOTH PATIENT AND FAMILY WERE RECEPTIVE AND VERBALIZED UNDERSTANDING. Time Speech Therapy Time In: 12:30 Speech Therapy Time Out: 13:00 DATE: Nov 17, 2022 Total Billed Time: 30 Billed Treatment Time S/L Kendrick Guzman Speech Therapy Nov 17, 2022 13:42
--- NOTE | 2022-11-17 14:16 | Occupational Ther Daily Note ---
OT Current Status-Daily Note Subjective Pt alert, sitting in recliner. Pt agrees to therapy. No c/o pain at this time. Co-treat with PT([id number]), skills of 2 clinicians requires to decrease fall risk, increase safe mobility, increase B UE/LE strengthening during functional tasks and activity tolerance. PT focusing on ambulation, transfers and dynamic standing while OT focusing on ADLs, B UE placement during functional tasks and dynamic standing. Mental Status/Objective Patient Orientation: Person, Place, Time, Situation ADL-Treatment Pt agrees to shower. Pt ambulated into bathroom and transferred to toilet with CGA using FWW. Shower transfer verbal cues and min A to go from sit to stand. Min A to bath L LE while using shower bench, grabbar and hand held shower to take shower. VC for safety when standing while showering. Setup for UBD. Mod A for footwear and LBD. CGA to complete oral care standing at sink. In dependent with eating. After session, pt sitting on EOB with call light/phone in reach. All needs met in room. Family present in room. Therapy Code Descriptions/Definitions Functional [place]thren Measure: 0=Not Assessed/NA 4=Minimal Assistance 1=Total Assistance 5=Supervision or Setup 2=Maximal Assistance 6=Modified Brethren 3=Moderate Assistance 7=Complete IndependenceSCALE: Activities may be completed with or without assistive devices. 8-Ktvxaqyadk-xkzvwkr completes the activity by him/herself with no assistance from a helper. 5-Set-up or Clean-up Assistance-helper sets up or cleans up; patient completes activity. [place] assists only prior to or following the activity. 4-Supervision or Touching Assistance-helper provides verbal cues and/or touching/steadying and/or contact guard assistance as patient completes activity. Assistance may be provided throughout the activity or intermittently. 3-Partial/Moderate Assistance-helper does LESS THAN HALF the effort. [place] lifts, holds or supports trunk or limbs, but provides less than half the effort. 2-Substantial/Maximal Assistance-helper does MORE THAN HALF the effort. [place] lifts or holds trunk or limbs and provides more than half the effort. 3-Tvudqzlvq-idjeww does ALL the effort. Patient does none of the effort to com plete the activity. Or, the assistance of 2 or more helpers is required for the patient to complete the activity. If activity was not attempted, code reason: 7-Patient Refused. 9-Not Applicable-not attempted and the patient did not perform the activity before the current illness, exacerbation or injury. 10-Not Attempted due to Environmental Limitations-(lack of equipment, weather restraints, etc.). 88-Not Attempted due to Medical Conditions or Safety Concerns. OT Short Term Goals Short Term Goals Time Frame: Nov 23, 2022 Eatin Oral hygiene: 6 (standing w/ ADs following precautions) Upper body dressin OT Intermediate Goals Batch Roller Operator Goals Time Frame: Nov 25, 2022 Acute change in mental status: 0 Inattention: 0 Disorganized thinkin Altered level of consciousness: 0 Oral Hygiene (QC): 6 Toileting Hygiene (QC): 6 Shower/Bathe Self (QC): 6 Upper Body Dressing (QC): 6 Lower Body Dressing (QC): 6 On/Off Footwear (QC): 6 1=Demonstrate adherence to instructed precautions during ADL tasks. 2=Patient will verbalize/demonstrate understanding of assistive devices/modifications for ADL. 3=Patient will improve strength/tolerance for activity to enable patient to perform ADL's. OT Education/Plan Problem List/Assessment Assessment: Decreased Activ Tolerance, Decreased Safety Aware, Impaired Coordination, Impaired Funct Balance, Impaired Self-Care Skills Discharge Recommendations Plan/Recommendations: Continue POC Treatment Plan/Plan of Care Patient would benefit from OT for education, treatment and training to promote independence in ADL's, mobility, safety and/or upper extremity function for ADL's. Plan of Care: ADL Retraining, Concurrent Therapy, Functional Mobility, Group Exercise/Act as Ind, UE Funct Exercise/Act Treatment Duration: Nov 25, 2022 Frequency: At least 5 of 7 days/Wk (IRF) Estimated Hrs Per Day: 1.5 hours per day Agreement: Yes Rehab Potential: Good Time Start Time: 13:20 Stop Time: 14:10 DATE: Nov 17, 2022 Total Time Billed (hr/min): 50 Billed Treatment Time 1 visit-ADL 3 (50 min) co-treat with PT 50 min DOMINIC JACINTO Nov 17, 2022 14:16
--- NOTE | 2022-11-17 15:01 | Physical Therapy Daily Note ---
PT Daily Note-Current Subjective Pt alert, sitting in recliner. Pt agrees to therapy. No c/o pain at this time. Co-treat with PT([id number]), skills of 2 clinicians requires to decrease fall risk, increase safe mobility, increase B UE/LE strengthening during functional tasks and activity tolerance. PT focusing on ambulation, transfers and dynamic standing while OT focusing on ADLs, B UE placement during functional tasks and dynamic standing. Pain Location: No Pain Reported Section J - Health Conditions 1. Rarely or not at all 2. Occasionally 3. Frequently 4. Almost constantly 8. Unable to answer Pain Effect on Sleep: 2 Pain Interference with Therapy: 3 Pain Interference w/Day-to-Day: 2 Mental Status Patient Orientation: Person, Place, Situation Attachments: Other-See Comments (Hearing Aids & Glasses) Transfers SCALE: Activities may be completed with or without assistive devices. 6-Dzhniaxlon-qlqjnwh completes the activity by him/herself with no assistance from a helper. 5-Set-up or Clean-up Assistance-helper sets up or cleans up; patient completes activity. [employer] assists only prior to or following the activity. 4-Supervision or Touching Assistance-helper provides verbal cues and/or touching/steadying and/or contact guard assistance as patient completes activity. Assistance may be provided throughout the activity or intermittently. 3-Partial/Moderate Assistance-helper does LESS THAN HALF the effort. [employer] lifts, holds or supports trunk or limbs, but provides less than half the effort. 2-Substantial/Maximal Assistance-helper does MORE THAN HALF the effort. [employer] lifts or holds trunk or limbs and provides more than half the effort. 5-Qhzeoukul-odwzmd does ALL the effort. Patient does none of the effort to complete the activity. Or, the assistance of 2 or more helpers is required for the patient to complete the activity. If activity was not attempted, code reason: 7-Patient Refused. 9-Not Applicable-not attempted and the patient did not perform the activity before the current illness, exacerbation or injury. 10-Not Attempted due to Environmental Limitations-(lack of equipment, weather restraints, etc.). 88-Not Attempted due to Medical Conditions or Safety Concerns. Sit to Stand (QC): 3 Toilet Transfer (QC): 4 Weight Bearing Right Lower Extremity: Right Full Weight Bearing Left Lower Extremity: Left Weight Bearing/Tolerated Treatments Pt agrees to shower. Pt ambulated into bathroom and transferred to toilet with CGA using FWW. Shower transfer verbal cues and min A to go from sit to stand. Min A to bath L LE while using shower bench, grabbar and hand held shower to take shower. VC for safety when standing while showering. Pt dresses at chair in BR. See OT for dressing scores. CGA to complete oral care standing at sink. Independent with eating. After session, pt sitting on EOB with call light/phone in reach. All needs met in room. Family present in room. Assessment Current Status: Good Progress Pt needs VC for safety as pt wants to leave FWW behind as well as stand during shower despite reservation from therapists. PT Pocket And Pulley Machine Operator Goals [facility] Goals PT Pocket And Pulley Machine Operator Goals Time Frame: Nov 25, 2022 Roll Left & Right (QC): 6 (Mod I with funcitonal mobility ) Sit to Lying (QC): 6 (Mod I with funcitonal mobility ) Lying-Sitting on Side/Bed(QC): 6 (Mod I with funcitonal mobility ) Sit to Stand (QC): 6 (Mod I with funcitonal mobility ) Chair/Inh-az-Gnwfr Xfer(QC): 6 (Mod I with funcitonal mobility ) Toilet Transfer (QC): 6 (Mod I with funcitonal mobility ) Car Transfer (QC): 6 (Mod I with funcitonal mobility ) Does the Patient Walk: Yes Walk 10 feet (QC): 6 (Mod I with funcitonal mobility ) Walk 50ft with 2 Turns (QC): 6 (Mod I with funcitonal mobility ) Walk 150 ft (QC): 6 (Mod I with funcitonal mobility ) Walking 10ft on Uneven Surface: 6 (Mod I with funcitonal mobility ) 1 Step (curb) (QC): 6 (Mod I with funcitonal mobility ) 4 Steps (QC): 6 (Mod I with funcitonal mobility ) 12 Steps (QC): 6 (Mod I with funcitonal mobility ) Picking up an Object (QC): 6 (Mod I with funcitonal mobility ) Does the Pt use WC or Scooter?: No Wheel 50 feet with 2 turns (QC: 9 Type: N/A Wheel 150 feet: 9 Type: N/A PT Plan Problem List Problem List: Safety Treatment/Plan Treatment Plan: Continue Plan of Care Treatment Plan: Bed Mobility, Concurrent Therapy, Education, Functional Activity Lukas, Functional Strength, Group Therapy, Gait, Safety, Therapeutic Exercise, Transfers Treatment Duration: Nov 25, 2022 Frequency: At least 5 of 7 days/Wk (IRF) Estimated Hrs Per Day: 1.5 hours per day Patient and/or Family Agrees t: Yes Safety Risks/Education Patient Education: Transfer Techniques, Correct Positioning, Safety Issues Teaching Recipient: Patient Teaching Methods: Discussion Response to Teaching: Reinforcement Needed Time Time In: 1320 Time Out: 1410 DATE: Nov 17, 2022 Total Billed Treatment Time: 50 Total Billed Treatment 1, FA x3 (50m) REYNALDO CINTRON PTA Nov 17, 2022 15:00
[2022-11-17] MEDS: oxyCODONE/APAP 5/325MG (PERCOCET 5) TABLET PO PRN ×2 (16:58→23:10)
[2022-11-17] MEDS: polyethylene glycoL POWDER 17 GM (MIRALAX) PACK PO SCH (19:41)
[2022-11-17] MEDS: RIVAROXABAN 20 MG TABLET (XARELTO) PO SCH (19:42)
[2022-11-17] MEDS: SENNA W/DOCUSATE (SENOKOT S) TABLET PO SCH (19:42)
[2022-11-17] MEDS: PREGABALIN 75 MG (LYRICA) CAP PO SCH (19:43)
[2022-11-17] MEDS: amLODIPine 10 MG (NORVASC) TAB PO SCH (19:43)
[2022-11-17] MEDS: DOCUSATE SODIUM 100 MG (COLACE) CAP PO SCH (19:43)
[2022-11-17 19:44] VITALS: BP 117/63
[2022-11-17] MEDS ORDERED: DOCUSATE SODIUM 100 MG (COLACE) CAP PO SCH (21:00)
[2022-11-17] MEDS ORDERED: NON-FORMULARY MEDICATION 1 EA EA (Tolterodine Tartrate 2 MG) PO SCH (21:00)
[2022-11-17] MEDS ORDERED: NON-FORMULARY MEDICATION 1 EA EA (Glucosam/Chond/Hyalu/Cf Borate (Move Free Joint Health T PO SCH (21:00)
[2022-11-18] MEDS: CYANOCOBALAMIN 1,000 MCG (VITAMIN B-12) TABLET PO SCH (05:57)
[2022-11-18] MEDS: ASCORBIC ACID (VIT C) 500 MG TABLET PO SCH (05:57)
[2022-11-18 06:44] LABS: BASOPHILS % (AUTO) 0 % (0-10); EOSINOPHILS % (AUTO) 0 % (0-10); HEMATOCRIT 35 % (40-54); HEMOGLOBIN 11.8 g/dL (13.3-17.7); LYMPHOCYTES # (AUTO) 1.2 10^3/uL (1.0-4.0); LYMPHOCYTES % (AUTO) 7 % (12-44); MEAN CORPUSCULAR HEMOGLOBIN 33 pg (25-34); MEAN CORPUSCULAR HGB CONC 34 g/dL (32-36); MEAN CORPUSCULAR VOLUME 98 fL (80-99); MEAN PLATELET VOLUME 9.7 fL (9.0-12.2); MONOCYTES % (AUTO) 13 % (0-12); NEUTROPHILS # (AUTO) 12.8 10^3/uL (1.8-7.8); NEUTROPHILS % (AUTO) 79 % (42-75); PLATELET COUNT 230 10^3/uL (130-400); WHITE BLOOD COUNT 16.2 10^3/uL (4.3-11.0)
[2022-11-18 07:04] LABS: ALBUMIN 3.8 GM/DL (3.2-4.5)
[2022-11-18 07:05] LABS: POTASSIUM 4.6 MMOL/L (3.6-5.0)
[2022-11-18 07:06] LABS: CALCIUM 10.1 MG/DL (8.5-10.1)
[2022-11-18 07:07] LABS: TOTAL PROTEIN 6.2 GM/DL (6.4-8.2)
[2022-11-18 07:09] LABS: BILIRUBIN,TOTAL 0.3 MG/DL (0.1-1.0)
[2022-11-18 07:11] LABS: CREATININE SERUM 0.98 MG/DL (0.60-1.30)
[2022-11-18] MEDS: polyethylene glycoL POWDER 17 GM (MIRALAX) PACK PO SCH ×2 (07:26→20:33)
[2022-11-18 07:34] LABS: BAND NEUTROPHILS 0 %; BASOPHILS % (MANUAL) 0 %; EOSINOPHILS % (MANUAL) 0 %; LYMPHOCYTES % (MANUAL) 7 %; MONOCYTES % (MANUAL) 13 %; NEUTROPHILS % (MANUAL) 80 %; RBC MORPH NORMAL
[2022-11-18 08:00] VITALS: BP 126/60
[2022-11-18] MEDS: TOLTERODINE LA 2 MG (DETROL LA) CAP PO SCH (08:12)
[2022-11-18] MEDS: PANTOPRAZOLE 20 MG TABLET (PROTONIX) PO SCH (08:12)
[2022-11-18] MEDS: ASPIRIN E.C. 81 MG (ECOTRIN) TAB PO SCH (08:12)
[2022-11-18] MEDS: VITAMIN D3 25 MCG (1,000 UNITS) TABLET PO SCH (08:12)
[2022-11-18] MEDS: PREGABALIN 75 MG (LYRICA) CAP PO SCH ×2 (08:12→20:32)
[2022-11-18] MEDS: LOSARTAN 25 MG (COZAAR) TAB PO SCH (08:13)
[2022-11-18] MEDS: DOCUSATE SODIUM 100 MG (COLACE) CAP PO SCH ×2 (08:13→20:33)
[2022-11-18] MEDS: oxyCODONE/APAP 5/325MG (PERCOCET 5) TABLET PO PRN ×3 (08:14→23:53)
[2022-11-18] MEDS: SENNA W/DOCUSATE (SENOKOT S) TABLET PO SCH ×2 (08:15→20:33)
--- NOTE | 2022-11-18 08:50 | Physician Query Clarification ---
PQ-Intro New Diagnosis Admission/Discharge Admission Date: Nov 17, 2022 at 11:55 Discharge Date: Dr. Palma, The medical record reflects the following clinical scenario: History/Risk Factors: s/p Lt hip replacement Clinical Findings: s/p Lt hip replacement Treatment: IP rehab Question: What condition best reflects the above clinical scenario? Please document a response in the Progress Noter or Discharge Summary. 1. primary osteoarthritis Lt hip 2. Other, with explanation of the clinical findings. 3. Clinically undetermined, no explanation for the clinical findings. PHYSICIAN RESPONSE What condition reflects above: 1 In responding to this query, please exercise your independent professional judgment. The purpose of this communication is to more accurately reflect the complexity of your patients condition. The fact that a question is asked does not imply that any particular answer is desired or expected. Thank you for your timely response to this clarification. Requestors name: Han THIS PHYSICIAN QUERY FORM IS A PERMANENT PART OF THE MEDICAL RECORD HAN STARKEY Nov 18, 2022 08:50 PONCE PALMA DO Nov 18, 2022 10:04
[2022-11-18] MEDS ORDERED: TELMISARTAN 20 MG PO SCH (09:00)
[2022-11-18] MEDS ORDERED: NON-FORMULARY MEDICATION 1 EA EA (Ascorbic Acid (Vitamin C) 1,000 MG) PO SCH (09:00)
[2022-11-18] MEDS ORDERED: NON-FORMULARY MEDICATION 1 EA EA (Cyanocobalamin (Vitamin B-12) (Vitamin B-12) 1,000 MCG) PO SCH (09:00)
[2022-11-18] MEDS ORDERED: NON-FORMULARY MEDICATION 1 EA EA (Cholecalciferol (Vitamin D3) (Vitamin D3) 25 MCG) PO SCH (09:00)
--- NOTE | 2022-11-18 10:20 | Occupational Ther Daily Note ---
OT Current Status-Daily Note Subjective Pt alert, lying in bed. Pt states that he is beginning to feel dizzy, but is ready to participate in therapy. No c/o dizziness throughout session. Family present during session. Mental Status/Objective Patient Orientation: Person, Place, Time, Situation ADL-Treatment Pt requests shower. CGA for toilet transfer. SBA for shower transfer using FWW and grabbars. Pt stood 80% of the time in shower holding onto grabbars and using hand held shower to complete 80% of the body then used shower bench to cleanse lower legs and R foot (assist for L foot). Set up for UBD. Min A to thread L foot and pt able to complete rest of task with SBA for safety. Pt able to doff socks and assist to don. SBA to stand at sink to complete oral care and grooming. Therapy Code Descriptions/Definitions Functional [place] Measure: 0=Not Assessed/NA 4=Minimal Assistance 1=Total Assistance 5=Supervision or Setup 2=Maximal Assistance 6=Modified [place] 3=Moderate Assistance 7=Complete IndependenceSCALE: Activities may be completed with or without assistive devices. 5-Zhbofjnyox-zdpcmrz completes the activity by him/herself with no assistance from a helper. 5-Set-up or Clean-up Assistance-helper sets up or cleans up; patient completes activity. [place] assists only prior to or following the activity. 4-Supervision or Touching Assistance-helper provides verbal cues and/or touching/steadying and/or contact guard assistance as patient completes activity. Assistance may be provided throughout the activity or intermittently. 3-Partial/Moderate Assistance-helper does LESS THAN HALF the effort. [place] lifts, holds or supports trunk or limbs, but provides less than half the effort. 2-Substantial/Maximal Assistance-helper does MORE THAN HALF the effort. [place] lifts or holds trunk or limbs and provides more than half the effort. 4-Hcefyslxh-eeikit does ALL the effort. Patient does none of the effort to complete the activity. Or, the assistance of 2 or more helpers is required for the patient to complete the activity. If activity was not attempted, code reason: 7-Patient Refused. 9-Not Applicable-not attempted and the patient did not perform the activity before the current illness, exacerbation or injury. 10-Not Attempted due to Environmental Limitations-(lack of equipment, weather restraints, etc.). 88-Not Attempted due to Medical Conditions or Safety Concerns. Oral Hygiene (QC): 4 Shower/Bathe Self (QC): 3 (min A) Upper Body Dressing (QC): 5 Lower Body Dressing (QC): 3 (min A) On/Off Footwear: 3 (mod A) Toileting Hygiene (QC): 4 Toilet Transfer (QC): 4 Other Treatment Pt given HEP for medium to heavy resistance theraband. Skilled instruction for correct technique and modifications when necessary. Pt demonstrated understanding of 3 B UE exercises completing 15 reps, varying b/t 3 sets 5 reps and 15 reps. Pt fatigued easily and required recovery breaks during reps. After session, pt left in care of PT. All needs met. OT Short Term Goals Short Term Goals Time Frame: Nov 23, 2022 Eatin Oral hygiene: 6 (standing w/ ADs following precautions) Upper body dressin OT Solid Waste Analyst Goals Jail Goals Time Frame: Nov 25, 2022 Acute change in mental status: 0 Inattention: 0 Disorganized thinkin Altered level of consciousness: 0 Oral Hygiene (QC): 6 Toileting Hygiene (QC): 6 Shower/Bathe Self (QC): 6 Upper Body Dressing (QC): 6 Lower Body Dressing (QC): 6 On/Off Footwear (QC): 6 1=Demonstrate adherence to instructed precautions during ADL tasks. 2=Patient will verbalize/demonstrate understanding of assistive devices/modifications for ADL. 3=Patient will improve strength/tolerance for activity to enable patient to perform ADL's. OT Education/Plan Problem List/Assessment Assessment: Decreased Activ Tolerance, Decreased UE Strength, Impaired Funct Balance (1 LOB during session), Impaired Self-Care Skills Discharge Recommendations Plan/Recommendations: Continue POC Treatment Plan/Plan of Care Patient would benefit from OT for education, treatment and training to promote independence in ADL's, mobility, safety and/or upper extremity function for ADL's. Plan of Care: ADL Retraining, Concurrent Therapy, Functional Mobility, Group Exercise/Act as Ind, UE Funct Exercise/Act Treatment Duration: Nov 25, 2022 Frequency: At least 5 of 7 days/Wk (IRF) Estimated Hrs Per Day: 1.5 hours per day Agreement: Yes Rehab Potential: Good Time Start Time: 09:00 Stop Time: 10:00 DATE: Nov 18, 2022 Total Time Billed (hr/min): 60 Billed Treatment Time 1 visit-ADL 3 (45 min) EX 1 (15 min) DOMINIC JACINTO Nov 18, 2022 10:20
--- NOTE | 2022-11-18 10:48 | Individualized Plan of Care ---
Individualized Plan of Care Rehab Nursing IPOC Order Admission Date Nov 17, 2022 at 11:55 Current Orders Orders Admission Arrival Bed Request (11/17/22 11:53) Admission Order(Inpt,Obs,Sdc) (11/17/22 12:15) Vital Signs: Per Unit Policy ( 08,16,00 (11/17/22 12:15) Shane Louie 09,21 (11/17/22 12:15) Sequential Compression Device (11/17/22 12:15) [place] Waitress/Waiter-Inpt Rehab Con (11/17/22 12:15) Rehab Nursing Orders-Ipoc (11/17/22 12:15) Physical Therapy Rehab Orders (11/17/22 12:15) Occupational Therapy Rehab Ord (11/17/22 12:15) Speech Therapy Rehab Orders (11/17/22 12:15) Cbc With Automated Diff (11/18/22 06:00) Comprehensive Metabolic Panel (11/18/22 06:00) Precautions (Aru) (11/17/22 12:15) Weekly Weight WEEK (11/17/22 12:15) Rehab-Intensity Of Therapy (11/17/22 12:15) Initiate Admission Nursing Pro .admission (11/17/22 12:15) Alprazolam Tablet (Xanax Tablet) (11/17/22 12:15) Calcium Carbonate Chew Tablet (Antacid C (11/17/22 12:15) Diphenhydramine Tablet (Benadryl Tablet) (11/17/22 12:15) Docusate Sodium Capsule (Colace Capsule) (11/17/22 21:00) Docusate Sodium Capsule (Colace Capsule) (11/17/22 12:15) Bisacodyl Suppository (Dulcolax Supposit (11/17/22 12:15) Lactulose Oral Solution (Enulose Oral So (11/17/22 12:15) Na Phos/Na Biphos Enema (Fleet Enema Emil (11/17/22 12:15) Guaifenesin/Codeine Syrup (Robitussin Ac (11/17/22 12:15) Loperamide Tablet (Imodium Tablet) (11/17/22 12:15) Melatonin Tablet (Melatonin Tablet) (11/17/22 12:15) Polyethylene Glycol Powder Pkt (Miralax (11/17/22 21:00) Ondansetron Oral Dissolve Tab (Zofran (11/17/22 12:15) Senna S Tablet (Senokot S Tablet) (11/17/22 21:00) Acetaminophen Tablet/Caplet (Tylenol T (11/17/22 12:15) Initiate Admission Nursing Pro .admission (11/17/22 12:15) Acetaminophen Arthritis (Tylenol Arthrit (11/17/22 12:30) Amlodipine Tablet (Norvasc Tablet) (11/17/22 21:00) Aspirin Enteric Coated Tablet (Ecotrin T (11/18/22 09:00) Citalopram Tablet (Celexa Tablet) (11/17/22 21:00) Docusate Sodium Capsule (Colace Capsule) (11/17/22 21:00) Oxycodone/Apap 5/325mg Tablet (Percocet (11/17/22 12:30) Pregabalin Capsule (Lyrica Capsule) (11/17/22 21:00) Rivaroxaban Tablet (Xarelto Tablet) (11/17/22 18:00) (Nf) Ascorbic Acid (Vitamin C) (11/18/22 09:00) (Nf) Cholecalciferol (Vitamin D3) (Vitam (11/18/22 09:00) (Nf) Cyanocobalamin (Vitamin B-12) ([place] (11/18/22 09:00) (Nf) Glucosam/Chond/Hyalu/Cf Borate (Mov (11/17/22 21:00) (Nf) Omeprazole (11/18/22 09:00) (Nf) Telmisartan (11/18/22 09:00) (Nf) Tolterodine Tartrate (11/17/22 21:00) Ascorbic Acid Tablet (Vitamin C Tablet) (11/18/22 07:00) Cholecalciferol Capsule/Tablet (Vitamin (11/18/22 09:00) Cyanocobalamin Tablet (Vitamin B-12 Tabl (11/18/22 07:00) Pantoprazole Tablet (Protonix Tablet) (11/18/22 09:00) Losartan Tablet (Cozaar Tablet) (11/18/22 09:00) General/Regular (11/17/22 Lunch) Tolterodine La Capsule (Detrol La Capsul (11/18/22 09:00) Patient Visit (11/17/22 ) Speech Sound Lang Comp (11/17/22 ) Patient Visit (11/17/22 ) Pt Eval Low Complexity (11/17/22 ) Gait Training, Ea 15 Min (11/17/22 ) Nursing Communication (Order) (11/17/22 15:58) Occupational Therapy Rehab Ord (11/17/22 15:58) Follow-Up Appointment D/C (11/17/22 16:11) Follow-Up Appointment D/C (11/17/22 16:11) Code/Resuscitation (11/17/22 16:47) Manual Differential (11/18/22 06:30) Patient Visit (11/17/22 ) Functional Activities, Ea 15 (11/17/22 ) Tramadol Tablet (Ultram Tablet) (11/18/22 12:15) Patient Visit (11/18/22 ) Exercise Therap, Ea 15 Min (11/18/22 ) Gait Training, Ea 15 Min (11/18/22 ) Functional Activities, Ea 15 (11/18/22 ) Patient Visit (11/18/22 ) Exercise Therap, Ea 15 Min (11/18/22 ) Gait Training, Ea 15 Min (11/18/22 ) Rehab Nursing Orders: Ongoing Assess. of Cognitive Status, Ongoing Assess. of Function Status, Bladder Management, Bladder Scan, Bladder Training, Bowel Management, Bowel Training, Disease Management & Educaiton, DVT Prophylaxis, Fall Prevention, Fluid/Electrolyte/Nutrition Mgmt, Infection Prevention, Me dication Management & Education, Management of Risks & Complications, Management of Skin Intergrity, Nutrition Management, Pain Management, Patient/Family Support, Safety Management, Wound Management Intensity of Therapy to be met Patient to be seen: Min.3h per day/5 of 7d PT IPOC Problem List: Safety Treatment Plan: Continue Plan of Care Bed Mobility, Concurrent Therapy, Education, Functional Activity Luk[place], Functional Strength, Group Therapy, Gait, Safety, Therapeutic Exercise, Transfers Treatment Duration: Nov 25, 2022 Frequency: At least 5 of 7 days/Wk (IRF) Estimated Hrs Per Day: 1.5 hours per day OT IPOC Problems: Decreased Activ Tolerance, Decreased UE Strength, Impaired Funct Balance (1 LOB during session), Impaired Self-Care Skills OT Treatment, Training and Edu: Yes Plan of Care: ADL Retraining, Concurrent Therapy, Functional Mobility, Group Exercise/Act as Ind, UE Funct Exercise/Act Treatment Duration: Nov 25, 2022 Frequency: At least 5 of 7 days/Wk (IRF) Estimated Hrs Per Day: 1.[address] [facility] Speech Therapy Treatment Plan: Continue Plan of Care Treatment Duration: Nov 18, 2022 Frequency: 1 time per month (1 TIME VISIT FOR EVALUATION) Estimated Hrs Per Day: Other [place] Waitress/Waiter/Case Mgmt [place] Waitress/Waiter/Case Managemen: Discharge Planning Dietitian/Dry Mop Maker Dietitian/Dry Mop Maker to monitor nutritional status and make changes and/or recommendations as needed and work with speech pathology on dietary upgrades as the occur. Physician [facility] Medical Issues being managed closely and that require the 24 hour availability of a physician: recent hip replacement with history of paroxysmal atrial fibrillation and urinary retention now with postop constipation will require close monitoring due to advanced age in order to prevent decompensation Medical Issues: Bowel/Bladder Function, DVT Prophylaxis, Falls Precautions, Fluid/Electrolyte/Nutrition Balance, Infection Protection, Pain Management, Wound Care Brief Synthesis of Preadmission Screen, Post-Admission Evaluation, and Therapy Evaluations: PT and OT will focus on regaining function with use of assistive devices while maintaining reasonable pain level and help increasing independence in ADLs in order to return home with spouse Medical Prognosis: Good Anticipated Length of Stay: 7 days PONCE KAUR DO Nov 18, 2022 10:48
--- NOTE | 2022-11-18 10:48 | PM&R Progress Note ---
Subjective HPI/CC On Admission Date Seen by Provider: Nov 18, 2022 Time Seen by Provider: 11:00 Subjective/Events-last exam 11/18/2022: Patient doing really well Pain is pretty well controlled Labs reviewed No bowel movement yet so we will maintain regimen Review of Systems General: Fatigue, Malaise Gastrointestinal: Constipation Musculoskeletal: leg pain Objective Exam Vital Signs Vital Signs Date Time Temp Pulse Resp B/P (MAP) Pulse Ox O2 Delivery O2 Flow Rate FiO2 11/18/22 09:00 Room Air 11/18/22 08:00 35.9 67 18 126/60 (82) 93 Capillary Refill : General Appearance: No Apparent Distress, WD/WN, Chronically ill HEENT: PERRL/EOMI, Normal ENT Inspection, Pharynx Normal Neck: Full Range of Motion, Normal Inspection, Non Tender, Supple, Carotid Bruit Respiratory: Chest Non Tender, Lungs Clear, Normal Breath Sounds, No Accessory Muscle Use, No Respiratory Distress Cardiovascular: Regular Rate, Rhythm, No Edema, No Gallop, No JVD, No Murmur, Normal Peripheral Pulses Gastrointestinal: Normal Bowel Sounds, No Organomegaly, No Pulsatile Mass, Non Tender, Soft Back: Normal Inspection, No CVA Tenderness, No Vertebral Tenderness Extremity: Normal Capillary Refill, Normal Inspection, Normal Range of Motion (Except left leg), Non Tender, No Calf Tenderness, No Pedal Edema Neurologic/Psychiatric: Alert, Oriented x3, No Motor/Sensory Deficits, Normal 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 FIM Transfers Therapy Code Descriptions/Definitions Functional [place] Measure: 0=Not Assessed/NA 4=Minimal Assistance 1=Total Assistance 5=Supervision or Setup 2=Maximal Assistance 6=Modified [place] 3=Moderate Assistance 7=Complete IndependenceSCALE: Activities may be completed with or without assistive devices. 8-Vdsodgwmnw-vhsqmgc completes the activity by him/herself with no assistance from a helper. 5-Set-up or Clean-up Assistance-helper sets up or cleans up; patient completes activity. [place] assists only prior to or following the activity. 4-Supervision or Touching Assistance-helper provides verbal cues and/or touching/steadying and/or contact guard assistance as patient completes activity. Assistance may be provided throughout the activity or intermittently. 3-Partial/Moderate Assistance-helper does LESS THAN HALF the effort. [place] lifts, holds or supports trunk or limbs, but provides less than half the effort. 2-Substantial/Maximal Assistance-helper does MORE THAN HALF the effort. [place] lifts or holds trunk or limbs and provides more than half the effort. 0-Iqqpxdewf-cbcdyp does ALL the effort. Patient does none of the effort to complete the activity. Or, the assistance of 2 or more helpers is required for the patient to complete the activity. If activity was not attempted, code reason: 7-Patient Refused. 9-Not Applicable-not attempted and the patient did not perform the activity before the current illness, exacerbation or injury. 10-Not Attempted due to Environmental Limitations-(lack of equipment, weather restraints, etc.). 88-Not Attempted due to Medical Conditions or Safety Concerns. Roll Left to Right (QC): 4 (SBA) Sit to Lying (QC): 4 (SBA) Sit to Stand (QC): 3 Chair/Vvk-hc-Hdivh Xfer(QC): 4 (SBA) Car Transfer (QC): 4 (SBA) Gait Training Does the Patient Walk?: Yes Walk 10 feet (QC): 4 (CGA ) Walk 50 ft with 2 Turns(QC): 4 (CGA ) Walk 150 ft (QC): 4 (CGA ) Walking 10ft/uneven surface-QC: 4 (CGA ) Gait Assistive Device: FWW Wheelchair Training Does the Pt Use a Wheelchair?: No Wheel 50 ft with 2 turns (QC): 9 Wheel 150 ft (QC): 9 Type of Wheelchair: N/A Stair Training #of Steps: 12 1 Step (curb) (QC): 4 (CGA ) 4 Steps (QC): 4 (CGA ) 12 Steps (QC): 4 (CGA ) Balance Picking up an Object (QC): 4 (SBA) ADL-Treatment Eating (QC): 6 Oral Hygiene (QC): 4 Shower/Bathe Self (QC): 3 (min A) Upper Body Dressing (QC): 5 Lower Body Dressing (QC): 3 (min A) On/Off Footwear (QC): 3 (mod A) Toileting Hygiene (QC): 4 Toilet Transfer (QC): 4 Assessment/Plan Assessment and Plan Assess & Plan/Chief Complaint Assessment: Status post left hip replacement POD #3 Paroxysmal atrial fibrillation CAD RAIMUNDO History of diverticulitis Constipation Chronic urinary retention Chronic back pain Plan: Pain control Supportive care PT and OT Home meds 11/18/2022: Bowel regimen Supportive care (1) Status post left hip replacement (2) Constipation (3) RAIMUNDO treated with BiPAP (4) CAD (coronary artery disease) (5) PAF (paroxysmal atrial fibrillation) PONCE KAUR DO Nov 18, 2022 10:48
--- NOTE | 2022-11-18 11:58 | Physical Therapy Daily Note ---
PT Daily Note-Current Subjective Pt doing well; agreeable to PT; L hip pain is 2/10 in supine and 7/10 when standing/walking Pain Numeric Pain Scale: 7 Location: Left Location Body Site: Hip Section J - Health Conditions 1. Rarely or not at all 2. Occasionally 3. Frequently 4. Almost constantly 8. Unable to answer Pain Effect on Sleep: 2 Pain Interference with Therapy: 3 Pain Interference w/Day-to-Day: 2 Transfers SCALE: Activities may be completed with or without assistive devices. 8-Wwjnpdpmkn-fyjqosq completes the activity by him/herself with no assistance from a helper. 5-Set-up or Clean-up Assistance-helper sets up or cleans up; patient completes activity. [place] assists only prior to or following the activity. 4-Supervision or Touching Assistance-helper provides verbal cues and/or touching/steadying and/or contact guard assistance as patient completes activity. Assistance may be provided throughout the activity or intermittently. 3-Partial/Moderate Assistance-helper does LESS THAN HALF the effort. [place] lifts, holds or supports trunk or limbs, but provides less than half the effort. 2-Substantial/Maximal Assistance-helper does MORE THAN HALF the effort. [place] lifts or holds trunk or limbs and provides more than half the effort. 3-Uhjdceklv-mtkmhm does ALL the effort. Patient does none of the effort to complete the activity. Or, the assistance of 2 or more helpers is required for the patient to complete the activity. If activity was not attempted, code reason: 7-Patient Refused. 9-Not Applicable-not attempted and the patient did not perform the activity before the current illness, exacerbation or injury. 10-Not Attempted due to Environmental Limitations-(lack of equipment, weather restraints, etc.). 88-Not Attempted due to Medical Conditions or Safety Concerns. Sit to Lying (QC): 4 Lying to Sitting/Side of Bed(Q: 4 Sit to Stand (QC): 4 Weight Bearing Right Lower Extremity: Right Full Weight Bearing Left Lower Extremity: Left Weight Bearing/Tolerated Gait Training Does the Patient Walk?: Yes Walk 10 feet (QC): 4 Walk 50 ft with 2 Turns(QC): 4 Walk 150 ft (QC): 4 Gait Persons Needed: 1 Gait Assistive Device: FWW Wheelchair Training Does the Pt Use a Wheelchair?: No Treatments Pt completed bed mobility with SBA. Pt completed transfers with SBA. Pt ambulated 250ft with the FWW and SBA. Pt completed seated B LE Ther Ex x 15 reps each with the red Tband. Pt completed standing B LE Ther Ex x 10 reps each with B UE support and SBA. Pt in room with family after treatment, with call light in reach and all needs met. Assessment Current Status: Good Progress Pt tolerated PT well with good effort PT Longterm Goals Online Tutor Goals PT Longterm Goals Time Frame: Nov 25, 2022 Roll Left & Right (QC): 6 (Mod I with funcitonal mobility ) Sit to Lying (QC): 6 (Mod I with funcitonal mobility ) Lying-Sitting on Side/Bed(QC): 6 (Mod I with funcitonal mobility ) Sit to Stand (QC): 6 (Mod I with funcitonal mobility ) Chair/Nwu-yk-Skayn Xfer(QC): 6 (Mod I with funcitonal mobility ) Toilet Transfer (QC): 6 (Mod I with funcitonal mobility ) Car Transfer (QC): 6 (Mod I with funcitonal mobility ) Does the Patient Walk: Yes Walk 10 feet (QC): 6 (Mod I with funcitonal mobility ) Walk 50ft with 2 Turns (QC): 6 (Mod I with funcitonal mobility ) Walk 150 ft (QC): 6 (Mod I with funcitonal mobility ) Walking 10ft on Uneven Surface: 6 (Mod I with funcitonal mobility ) 1 Step (curb) (QC): 6 (Mod I with funcitonal mobility ) 4 Steps (QC): 6 (Mod I with funcitonal mobility ) 12 Steps (QC): 6 (Mod I with funcitonal mobility ) Picking up an Object (QC): 6 (Mod I with funcitonal mobility ) Does the Pt use WC or Scooter?: No Wheel 50 feet with 2 turns (QC: 9 Type: N/A Wheel 150 feet: 9 Type: N/A PT Plan Problem List Problem List: Activity Tolerance, Functional Strength, Safety, Balance, Gait, Transfer, Bed Mobility, ROM Treatment/Plan Treatment Plan: Continue Plan of Care Treatment Plan: Bed Mobility, Concurrent Therapy, Education, Functional Activity Lukas, Functional Strength, Group Therapy, Gait, Safety, Therapeutic Exercise, Transfers Treatment Duration: Nov 25, 2022 Frequency: At least 5 of 7 days/Wk (IRF) Estimated Hrs Per Day: 1.5 hours per day Patient and/or Family Agrees t: Yes Safety Risks/Education Patient Education: Gait Training, Transfer Techniques, Safety Issues Teaching Recipient: Patient Teaching Methods: Demonstration, Discussion Response to Teaching: Verbalize Understanding, Return Demonstration, Reinforcement Needed Discharge Recommendations Therapy Discharge Recommendati: Home & Family Discharge Status/Home Program Cont per POC Barriers to Progress Weakness Target Placement Home with family Time Time In: 1000 Time Out: 1100 DATE: Nov 18, 2022 Total Billed Treatment Time: 60 Total Billed Treatment 60 min 1 visit EX x 2 GT x 1 FA x 1 ROBLES VALDIVIA PT Nov 18, 2022 11:58
--- NOTE | 2022-11-18 12:16 | Physical Therapy Daily Note ---
PT Daily Note-Current Subjective Pt in bed upon arrival and agrees to PT. Family Present. Pain Numeric Pain Scale: 7 Location: Left Location Body Site: Hip Section J - Health Conditions 1. Rarely or not at all 2. Occasionally 3. Frequently 4. Almost constantly 8. Unable to answer Pain Effect on Sleep: 2 Pain Interference with Therapy: 3 Pain Interference w/Day-to-Day: 2 Mental Status Patient Orientation: Person, Place, Time, Situation Transfers SCALE: Activities may be completed with or without assistive devices. 3-Hchbtgcexz-czjkbxn completes the activity by him/herself with no assistance from a helper. 5-Set-up or Clean-up Assistance-helper sets up or cleans up; patient completes activity. [place] assists only prior to or following the activity. 4-Supervision or Touching Assistance-helper provides verbal cues and/or touching/steadying and/or contact guard assistance as patient completes activity. Assistance may be provided throughout the activity or intermittently. 3-Partial/Moderate Assistance-helper does LESS THAN HALF the effort. [place] lifts, holds or supports trunk or limbs, but provides less than half the effort. 2-Substantial/Maximal Assistance-helper does MORE THAN HALF the effort. [place] lifts or holds trunk or limbs and provides more than half the effort. 3-Gzmdvxxuv-bulkyi does ALL the effort. Patient does none of the effort to complete the activity. Or, the assistance of 2 or more helpers is required for the patient to complete the activity. If activity was not attempted, code reason: 7-Patient Refused. 9-Not Applicable-not attempted and the patient did not perform the activity before the current illness, exacerbation or injury. 10-Not Attempted due to Environmental Limitations-(lack of equipment, weather restraints, etc.). 88-Not Attempted due to Medical Conditions or Safety Concerns. Sit to Lying (QC): 3 Sit to Stand (QC): 4 Weight Bearing Right Lower Extremity: Right Full Weight Bearing Left Lower Extremity: Left Weight Bearing/Tolerated Gait Training Does the Patient Walk?: Yes Distance: 450' Walk 10 feet (QC): 4 Walk 50 ft with 2 Turns(QC): 4 Walk 150 ft (QC): 4 Gait Persons Needed: 1 Gait Assistive Device: FWW Exercises Seated Therapy Exercises: Ankle pumps, Long arc quads Seated Reps: 20 Standing: Hamstring curls, Heel/toe raises, 3 way Ex=Flex, Abd, Ext, Side steps Standing Reps: 20 Treatments Pt performed all standing exs at windowsill in [place] and performed seated exs at EOB before TRFs back into bed. All needs met and call light nearby as PT departs. Assessment Current Status: Good Progress Pt required min/modA to put legs back into bed to lay down. Pt required verbal cues for hand and foot placement while performing TRFs and to perform exs correctly. Pt tolerated treatment well. 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 Agribusiness Professor Goals 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 Time Frame: Nov 25, 2022 Roll Left & Right (QC): 6 (Mod I with funcitonal mobility ) Sit to Lying (QC): 6 (Mod I with funcitonal mobility ) Lying-Sitting on Side/Bed(QC): 6 (Mod I with funcitonal mobility ) Sit to Stand (QC): 6 (Mod I with funcitonal mobility ) Chair/Byk-xr-Rcjrl Xfer(QC): 6 (Mod I with funcitonal mobility ) Toilet Transfer (QC): 6 (Mod I with funcitonal mobility ) Car Transfer (QC): 6 (Mod I with funcitonal mobility ) Does the Patient Walk: Yes Walk 10 feet (QC): 6 (Mod I with funcitonal mobility ) Walk 50ft with 2 Turns (QC): 6 (Mod I with funcitonal mobility ) Walk 150 ft (QC): 6 (Mod I with funcitonal mobility ) Walking 10ft on Uneven Surface: 6 (Mod I with funcitonal mobility ) 1 Step (curb) (QC): 6 (Mod I with funcitonal mobility ) 4 Steps (QC): 6 (Mod I with funcitonal mobility ) 12 Steps (QC): 6 (Mod I with funcitonal mobility ) Picking up an Object (QC): 6 (Mod I with funcitonal mobility ) Does the Pt use WC or Scooter?: No Wheel 50 feet with 2 turns (QC: 9 Type: N/A Wheel 150 feet: 9 Type: N/A PT Plan Problem List Problem List: Activity Tolerance, Functional Strength Treatment/Plan Treatment Plan: Continue Plan of Care Treatment Plan: Bed Mobility, Concurrent Therapy, Education, Functional Activity Luk[place], Functional Strength, Group Therapy, Gait, Safety, Therapeutic Exercise, Transfers Treatment Duration: Nov 25, 2022 Frequency: At least 5 of 7 days/Wk (IRF) Estimated Hrs Per Day: 1.5 hours per day Patient and/or Family Agrees t: Yes Safety Risks/Education Patient Education: Correct Positioning Teaching Recipient: Patient Teaching Methods: Discussion Response to Teaching: Return Demonstration Time Time In: 1130 Time Out: 1200 DATE: Nov 18, 2022 Total Billed Treatment Time: 30 Total Billed Treatment 1, EX, GT HEIKE PIPER PTA Nov 18, 2022 12:15
[2022-11-18] MEDS: RIVAROXABAN 20 MG TABLET (XARELTO) PO SCH (17:23)
[2022-11-18] MEDS: amLODIPine 10 MG (NORVASC) TAB PO SCH (20:33)
[2022-11-18 21:47] VITALS: BP 122/60
[2022-11-19] MEDS: oxyCODONE/APAP 5/325MG (PERCOCET 5) TABLET PO PRN ×3 (06:28→17:07)
[2022-11-19] MEDS: ASCORBIC ACID (VIT C) 500 MG TABLET PO SCH (06:28)
[2022-11-19] MEDS: CYANOCOBALAMIN 1,000 MCG (VITAMIN B-12) TABLET PO SCH (06:28)
--- NOTE | 2022-11-19 06:49 | PM&R Progress Note ---
Subjective HPI/CC On Admission Date Seen by Provider: Nov 19, 2022 Time Seen by Provider: 12:30 Subjective/Events-last exam 11/19/2022: Patient doing pretty well Soapsuds enema may be required since his bowels still have not moved Needs to drink more fluid Son at the bedside 11/18/2022: Patient doing really well Pain is pretty well controlled Labs reviewed No bowel movement yet so we will maintain regimen Review of Systems General: Fatigue, Malaise Gastrointestinal: Constipation Musculoskeletal: leg pain Objective Exam Vital Signs Vital Signs Date Time Temp Pulse Resp B/P (MAP) Pulse Ox O2 Delivery O2 Flow Rate FiO2 11/19/22 15:17 90 Room Air 11/19/22 08:00 36.2 62 16 97/53 (68) Capillary Refill : General Appearance: No Apparent Distress, WD/WN, Chronically ill HEENT: PERRL/EOMI, Normal ENT Inspection, Pharynx Normal Neck: Full Range of Motion, Normal Inspection, Non Tender, Supple, Carotid Bruit Respiratory: Chest Non Tender, Lungs Clear, Normal Breath Sounds, No Accessory Muscle Use, No Respiratory Distress Cardiovascular: Regular Rate, Rhythm, No Edema, No Gallop, No JVD, No Murmur, Normal Peripheral Pulses Gastrointestinal: Normal Bowel Sounds, No Organomegaly, No Pulsatile Mass, Non Tender, Soft Back: Normal Inspection, No CVA Tenderness, No Vertebral Tenderness Extremity: Normal Capillary Refill, Normal Inspection, Normal Range of Motion (Except left leg), Non Tender, No Calf Tenderness, No Pedal Edema Neurologic/Psychiatric: Alert, Oriented x3, No Motor/Sensory Deficits, Normal Mood/Affect, 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 FIM Transfers Therapy Code Descriptions/Definitions Functional [place] Measure: 0=Not Assessed/NA 4=Minimal Assistance 1=Total Assistance 5=Supervision or Setup 2=Maximal Assistance 6=Modified [place] 3=Moderate Assistance 7=Complete IndependenceSCALE: Activities may be completed with or without assistive devices. 4-Jaofktomtl-mpvwmag completes the activity by him/herself with no assistance from a helper. 5-Set-up or Clean-up Assistance-helper sets up or cleans up; patient completes activity. [place] assists only prior to or following the activity. 4-Supervision or Touching Assistance-helper provides verbal cues and/or touching/steadying and/or contact guard assistance as patient completes activity. Assistance may be provided throughout the activity or intermittently. 3-Partial/Moderate Assistance-helper does LESS THAN HALF the effort. [place] lifts, holds or supports trunk or limbs, but provides less than half the effort. 2-Substantial/Maximal Assistance-helper does MORE THAN HALF the effort. [place] lifts or holds trunk or limbs and provides more than half the effort. 2-Roauejynq-uaiycd does ALL the effort. Patient does none of the effort to complete the activity. Or, the assistance of 2 or more helpers is required for the patient to complete the activity. If activity was not attempted, code reason: 7-Patient Refused. 9-Not Applicable-not attempted and the patient did not perform the activity before the current illness, exacerbation or injury. 10-Not Attempted due to Environmental Limitations-(lack of equipment, weather restraints, etc.). 88-Not Attempted due to Medical Conditions or Safety Concerns. Roll Left to Right (QC): 4 (SBA) Sit to Lying (QC): 3 Sit to Stand (QC): 4 Chair/Hui-ke-Sisag Xfer(QC): 4 (SBA) Car Transfer (QC): 4 (SBA) Gait Training Does the Patient Walk?: Yes Distance: 450' Walk 10 feet (QC): 4 Walk 50 ft with 2 Turns(QC): 4 Walk 150 ft (QC): 4 Walking 10ft/uneven surface-QC: 4 (CGA ) Gait Persons Needed: 1 Gait Assistive Device: FWW Wheelchair Training Does the Pt Use a Wheelchair?: No Wheel 50 ft with 2 turns (QC): 9 Wheel 150 ft (QC): 9 Type of Wheelchair: N/A Stair Training #of Steps: 12 1 Step (curb) (QC): 4 (CGA ) 4 Steps (QC): 4 (CGA ) 12 Steps (QC): 4 (CGA ) Balance Picking up an Object (QC): 4 (SBA) ADL-Treatment Eating (QC): 6 Oral Hygiene (QC): 4 Shower/Bathe Self (QC): 3 (min A) Upper Body Dressing (QC): 5 Lower Body Dressing (QC): 3 (min A) On/Off Footwear (QC): 3 (mod A) Toileting Hygiene (QC): 4 Toilet Transfer (QC): 4 Assessment/Plan Assessment and Plan Assess & Plan/Chief Complaint Assessment: Status post left hip replacement POD #4 Paroxysmal atrial fibrillation CAD RAIMUNDO History of diverticulitis Constipation- order soapsuds enema on 11/19/2022 Chronic urinary retention Chronic back pain Leukocytosis Plan: Pain control Supportive care PT and OT Home meds 11/18/2022: Bowel regimen Supportive care 11/19/2022: Aggressive constipation treatment (1) Status post left hip replacement (2) Constipation (3) RAIMUNDO treated with BiPAP (4) CAD (coronary artery disease) (5) PAF (paroxysmal atrial fibrillation) PONCE KAUR DO Nov 19, 2022 06:49
[2022-11-19 08:00] VITALS: BP 97/53
[2022-11-19] MEDS: ASPIRIN E.C. 81 MG (ECOTRIN) TAB PO SCH (10:08)
[2022-11-19] MEDS: TOLTERODINE LA 2 MG (DETROL LA) CAP PO SCH (10:08)
[2022-11-19] MEDS: VITAMIN D3 25 MCG (1,000 UNITS) TABLET PO SCH (10:08)
[2022-11-19] MEDS: DOCUSATE SODIUM 100 MG (COLACE) CAP PO SCH ×2 (10:08→20:17)
[2022-11-19] MEDS: PANTOPRAZOLE 20 MG TABLET (PROTONIX) PO SCH (10:08)
[2022-11-19] MEDS: PREGABALIN 75 MG (LYRICA) CAP PO SCH ×2 (10:08→20:17)
[2022-11-19] MEDS: SENNA W/DOCUSATE (SENOKOT S) TABLET PO SCH ×2 (10:08→20:17)
[2022-11-19] MEDS: LOSARTAN 25 MG (COZAAR) TAB PO SCH (10:10)
[2022-11-19] MEDS: polyethylene glycoL POWDER 17 GM (MIRALAX) PACK PO SCH ×2 (10:10→20:17)
[2022-11-19] MEDS: LACTULOSE SYRUP 10GM/15ML (ENULOSE) 30ML UDC PO PRN ×2 (12:34→20:17)
[2022-11-19] MEDS: RIVAROXABAN 20 MG TABLET (XARELTO) PO SCH (17:06)
[2022-11-19] MEDS: amLODIPine 10 MG (NORVASC) TAB PO SCH (20:17)
[2022-11-19 20:25] VITALS: BP 137/67
[2022-11-20] MEDS: oxyCODONE/APAP 5/325MG (PERCOCET 5) TABLET PO PRN ×3 (04:10→20:02)
[2022-11-20] MEDS: ASCORBIC ACID (VIT C) 500 MG TABLET PO SCH ×2 (06:04→07:50)
[2022-11-20] MEDS: CYANOCOBALAMIN 1,000 MCG (VITAMIN B-12) TABLET PO SCH ×2 (06:04→07:50)
--- NOTE | 2022-11-20 07:33 | PM&R Progress Note ---
Subjective HPI/CC On Admission Date Seen by Provider: Nov 20, 2022 Time Seen by Provider: 12:00 Subjective/Events-last exam 11/20/2022: Constipation reported Taking a lot of laxatives Bowel sounds are present but x-ray obtained to be sure this was not an ileus and it shows constipation 11/19/2022: Patient doing pretty well Soapsuds enema may be required since his bowels still have not moved Needs to drink more fluid Son at the bedside 11/18/2022: Patient doing really well Pain is pretty well controlled Labs reviewed No bowel movement yet so we will maintain regimen Review of Systems General: Fatigue, Malaise Gastrointestinal: Constipation Objective Exam Vital Signs Vital Signs Date Time Temp Pulse Resp B/P (MAP) Pulse Ox O2 Delivery O2 Flow Rate FiO2 11/20/22 08:00 36.5 85 20 116/62 (80) 94 Room Air Capillary Refill : General Appearance: No Apparent Distress, WD/WN, Chronically ill HEENT: PERRL/EOMI, Normal ENT Inspection, Pharynx Normal Neck: Full Range of Motion, Normal Inspection, Non Tender, Supple, Carotid Bruit Respiratory: Chest Non Tender, Lungs Clear, Normal Breath Sounds, No Accessory Muscle Use, No Respiratory Distress Cardiovascular: Regular Rate, Rhythm, No Edema, No Gallop, No JVD, No Murmur, Normal Peripheral Pulses Gastrointestinal: Normal Bowel Sounds, No Organomegaly, No Pulsatile Mass, Non Tender, Soft Back: Normal Inspection, No CVA Tenderness, No Vertebral Tenderness Extremity: Normal Capillary Refill, Normal Inspection, Normal Range of Motion (Except left leg), Non Tender, No Calf Tenderness, No Pedal Edema Neurologic/Psychiatric: Alert, Oriented x3, No Motor/Sensory Deficits, Normal Mood/Affect, 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 FIM Transfers Therapy Code Descriptions/Definitions Functional [place] Measure: 0=Not Assessed/NA 4=Minimal Assistance 1=Total Assistance 5=Supervision or Setup 2=Maximal Assistance 6=Modified [place] 3=Moderate Assistance 7=Complete IndependenceSCALE: Activities may be completed with or without assistive devices. 0-Fupkpyrfef-ooxsipo completes the activity by him/herself with no assistance from a helper. 5-Set-up or Clean-up Assistance-helper sets up or cleans up; patient completes activity. [place] assists only prior to or following the activity. 4-Supervision or Touching Assistance-helper provides verbal cues and/or touching/steadying and/or contact guard assistance as patient completes activity. Assistance may be provided throughout the activity or intermittently. 3-Partial/Moderate Assistance-helper does LESS THAN HALF the effort. [place] lifts, holds or supports trunk or limbs, but provides less than half the effort. 2-Substantial/Maximal Assistance-helper does MORE THAN HALF the effort. [place] lifts or holds trunk or limbs and provides more than half the effort. 7-Cwqktxalv-svzwao does ALL the effort. Patient does none of the effort to complete the activity. Or, the assistance of 2 or more helpers is required for the patient to complete the activity. If activity was not attempted, code reason: 7-Patient Refused. 9-Not Applicable-not attempted and the patient did not perform the activity before the current illness, exacerbation or injury. 10-Not Attempted due to Environmental Limitations-(lack of equipment, weather restraints, etc.). 88-Not Attempted due to Medical Conditions or Safety Concerns. Roll Left to Right (QC): 4 (SBA) Sit to Lying (QC): 3 Sit to Stand (QC): 4 Chair/Xrj-hc-Kcdjr Xfer(QC): 4 (SBA) Car Transfer (QC): 4 (SBA) Gait Training Does the Patient Walk?: Yes Distance: 450' Walk 10 feet (QC): 4 Walk 50 ft with 2 Turns(QC): 4 Walk 150 ft (QC): 4 Walking 10ft/uneven surface-QC: 4 (CGA ) Gait Persons Needed: 1 Gait Assistive Device: FWW Wheelchair Training Does the Pt Use a Wheelchair?: No Wheel 50 ft with 2 turns (QC): 9 Wheel 150 ft (QC): 9 Type of Wheelchair: N/A Stair Training #of Steps: 12 1 Step (curb) (QC): 4 (CGA ) 4 Steps (QC): 4 (CGA ) 12 Steps (QC): 4 (CGA ) Balance Picking up an Object (QC): 4 (SBA) ADL-Treatment Eating (QC): 6 Oral Hygiene (QC): 4 Shower/Bathe Self (QC): 3 (min A) Upper Body Dressing (QC): 5 Lower Body Dressing (QC): 3 (min A) On/Off Footwear (QC): 3 (mod A) Toileting Hygiene (QC): 4 Toilet Transfer (QC): 4 Assessment/Plan Assessment and Plan Assess & Plan/Chief Complaint Assessment: Status post left hip replacement POD #5 Paroxysmal atrial fibrillation CAD RAIMUNDO History of diverticulitis Constipation-Severe and refractory to laxatives x-ray shows constipation no ileus or obstruction Chronic urinary retention Chronic back pain Leukocytosis Plan: Pain control Supportive care PT and OT Home meds 11/18/2022: Bowel regimen Supportive care 11/19/2022: Aggressive constipation treatment 11/20/2022: More laxatives Ambulate (1) Status post left hip replacement (2) Constipation (3) RAIMUNDO treated with BiPAP (4) CAD (coronary artery disease) (5) PAF (paroxysmal atrial fibrillation) PONCE KAUR DO Nov 20, 2022 07:33
[2022-11-20] MEDS: DOCUSATE SODIUM 100 MG (COLACE) CAP PO SCH ×2 (07:50→20:52)
[2022-11-20] MEDS: polyethylene glycoL POWDER 17 GM (MIRALAX) PACK PO SCH ×4 (07:50→20:03)
[2022-11-20] MEDS: LOSARTAN 25 MG (COZAAR) TAB PO SCH (07:50)
[2022-11-20] MEDS: PANTOPRAZOLE 20 MG TABLET (PROTONIX) PO SCH (07:50)
[2022-11-20] MEDS: LACTULOSE SYRUP 10GM/15ML (ENULOSE) 30ML UDC PO PRN (07:50)
[2022-11-20] MEDS: TOLTERODINE LA 2 MG (DETROL LA) CAP PO SCH (07:50)
[2022-11-20] MEDS: VITAMIN D3 25 MCG (1,000 UNITS) TABLET PO SCH (07:50)
[2022-11-20] MEDS: PREGABALIN 75 MG (LYRICA) CAP PO SCH ×2 (07:50→20:52)
[2022-11-20] MEDS: ASPIRIN E.C. 81 MG (ECOTRIN) TAB PO SCH (07:51)
[2022-11-20] MEDS: SENNA W/DOCUSATE (SENOKOT S) TABLET PO SCH ×2 (07:51→20:57)
[2022-11-20 08:00] VITALS: BP 116/62
--- NOTE | 2022-11-20 14:28 | Diagnostic Imaging Report ---
INDICATION: Constipation COMPARISON: 03/26/2021 TECHNIQUE: 4 radiographs of the chest and abdomen dated 11/20/2022. FINDINGS: Surgical changes within the cervical spine. Surgical clips overlying the left axillary region are again identified. The cardiac silhouette is within normal limits in size. No significant pulmonary vascular congestion. Background senescent changes of the lungs are again identified without new focal pulmonary opacity. No pleural effusion. No pneumothorax. No acute osseous abnormality within the chest. Significant amount of stool is identified throughout the colon, including extending into the pelvis. No abnormally dilated loops of small bowel. No differential air-fluid levels. No free air. Extensive postsurgical changes noted throughout the thoracolumbar spine with fusion of the bilateral sacroiliac joints. Prominent lucency is noted about the screw involving the right sacroiliac joint. However, this lucency has not significantly changed since 2020. Bilateral total hip arthroplasties are again identified, though only partially visualized. No acute osseous abnormality. IMPRESSION: Significant amount of stool throughout the colon, felt related to constipation. No acute cardiopulmonary abnormality with senescent changes of the lungs. Extensive post surgical changes as described above. Prominent lucency about the right sacroiliac screws again noted though relatively similar to 2020. This suggests potential loosening. Dictated by: Dictated on workstation # [id number]
[2022-11-20] MEDS: RIVAROXABAN 20 MG TABLET (XARELTO) PO SCH (18:47)
[2022-11-20 20:00] VITALS: BP 114/67
[2022-11-20] MEDS: amLODIPine 10 MG (NORVASC) TAB PO SCH (20:53)
[2022-11-21] MEDS: oxyCODONE/APAP 5/325MG (PERCOCET 5) TABLET PO PRN ×3 (04:03→16:55)
[2022-11-21] MEDS: polyethylene glycoL POWDER 17 GM (MIRALAX) PACK PO SCH ×7 (04:06→20:10)
[2022-11-21 05:54] LABS: BASOPHILS # (AUTO) 0.1 10^3/uL (0.0-0.1); BASOPHILS % (AUTO) 1 % (0-10); EOSINOPHILS # (AUTO) 0.2 10^3/uL (0.0-0.3); EOSINOPHILS % (AUTO) 2 % (0-10); HEMATOCRIT 33 % (40-54); HEMOGLOBIN 11.1 g/dL (13.3-17.7); LYMPHOCYTES # (AUTO) 2.2 10^3/uL (1.0-4.0); LYMPHOCYTES % (AUTO) 25 % (12-44); MEAN CORPUSCULAR HEMOGLOBIN 33 pg (25-34); MEAN CORPUSCULAR HGB CONC 34 g/dL (32-36); MEAN CORPUSCULAR VOLUME 98 fL (80-99); MEAN PLATELET VOLUME 9.6 fL (9.0-12.2); MONOCYTES # (AUTO) 1.2 10^3/uL (0.0-1.0); MONOCYTES % (AUTO) 14 % (0-12); NEUTROPHILS # (AUTO) 4.9 10^3/uL (1.8-7.8); NEUTROPHILS % (AUTO) 55 % (42-75); PLATELET COUNT 217 10^3/uL (130-400); WHITE BLOOD COUNT 8.9 10^3/uL (4.3-11.0)
[2022-11-21 06:24] LABS: ALBUMIN 3.4 GM/DL (3.2-4.5); BILIRUBIN,TOTAL 0.5 MG/DL (0.1-1.0); CALCIUM 10.2 MG/DL (8.5-10.1); CREATININE SERUM 1.05 MG/DL (0.60-1.30); POTASSIUM 4.3 MMOL/L (3.6-5.0); TOTAL PROTEIN 5.6 GM/DL (6.4-8.2)
[2022-11-21] MEDS: CYANOCOBALAMIN 1,000 MCG (VITAMIN B-12) TABLET PO SCH (06:37)
[2022-11-21] MEDS: ASCORBIC ACID (VIT C) 500 MG TABLET PO SCH (06:37)
--- NOTE | 2022-11-21 07:13 | Occupational Ther Daily Note ---
OT Current Status-Daily Note Subjective Pt alert, sitting on BSC. Pt agrees to therapy. Nrsg states that pt c/o soreness/stiffness in hip. Mental Status/Objective Patient Orientation: Person, Place, Time, Situation ADL-Treatment Pt moving slowly and is requiring more assistance for sit to stand from higher surface. Assist to cleanse buttocks after BM then pt able to cleanse benji area and manipulate pants after toileting. Pt then ambulated to recliner to eat breakfast. Pt independent for eating. All needs met in room. Therapy Code Descriptions/Definitions Functional [place] Measure: 0=Not Assessed/NA 4=Minimal Assistance 1=Total Assistance 5=Supervision or Setup 2=Maximal Assistance 6=Modified [place] 3=Moderate Assistance 7=Complete IndependenceSCALE: Activities may be completed with or without assistive devices. 4-Aplsxqwtov-nheqsre completes the activity by him/herself with no assistance from a helper. 5-Set-up or Clean-up Assistance-helper sets up or cleans up; patient completes activity. [place] assists only prior to or following the activity. 4-Supervision or Touching Assistance-helper provides verbal cues and/or touching/steadying and/or contact guard assistance as patient completes activity. Assistance may be provided throughout the activity or intermittently. 3-Partial/Moderate Assistance-helper does LESS THAN HALF the effort. [place] lifts, holds or supports trunk or limbs, but provides less than half the effort. 2-Substantial/Maximal Assistance-helper does MORE THAN HALF the effort. [place] lifts or holds trunk or limbs and provides more than half the effort. 4-Beefaujxb-wzktub does ALL the effort. Patient does none of the effort to complete the activity. Or, the assistance of 2 or more helpers is required for the patient to complete the activity. If activity was not attempted, code reason: 7-Patient Refused. 9-Not Applicable-not attempted and the patient did not perform the activity before the current illness, exacerbation or injury. 10-Not Attempted due to Environmental Limitations-(lack of equipment, weather restraints, etc.). 88-Not Attempted due to Medical Conditions or Safety Concerns. Eating (QC): 6 Toileting Hygiene (QC): 3 Toilet Transfer (QC): 3 (mod A) OT Short Term Goals Short Term Goals Time Frame: Nov 23, 2022 Eatin Oral hygiene: 6 (standing w/ ADs following precautions) Upper body dressin OT Sketch Artist Goals Fpc Goals Time Frame: Nov 25, 2022 Acute change in mental status: 0 Inattention: 0 Disorganized thinkin Altered level of consciousness: 0 Oral Hygiene (QC): 6 Toileting Hygiene (QC): 6 Shower/Bathe Self (QC): 6 Upper Body Dressing (QC): 6 Lower Body Dressing (QC): 6 On/Off Footwear (QC): 6 1=Demonstrate adherence to instructed precautions during ADL tasks. 2=Patient will verbalize/demonstrate understanding of assistive devices/modifications for ADL. 3=Patient will improve strength/tolerance for activity to enable patient to perform ADL's. OT Education/Plan Problem List/Assessment Assessment: Decreased Activ Tolerance, Decreased UE Strength, Impaired Self- Care Skills Discharge Recommendations Plan/Recommendations: Continue POC Treatment Plan/Plan of Care Patient would benefit from OT for education, treatment and training to promote independence in ADL's, mobility, safety and/or upper extremity function for ADL's. Plan of Care: ADL Retraining, Concurrent Therapy, Functional Mobility, Group Exercise/Act as Ind, UE Funct Exercise/Act Treatment Duration: Nov 25, 2022 Frequency: At least 5 of 7 days/Wk (IRF) Estimated Hrs Per Day: 1.5 hours per day Agreement: Yes Rehab Potential: Good Time Start Time: 07:00 Stop Time: 07:15 DATE: Nov 21, 2022 Total Time Billed (hr/min): 15 Billed Treatment Time 1 visit-ADL 1 (15 min) DOMINIC JACINTO Nov 21, 2022 07:13
[2022-11-21 08:00] VITALS: BP 139/63
[2022-11-21] MEDS: SENNA W/DOCUSATE (SENOKOT S) TABLET PO SCH ×2 (08:34→20:52)
[2022-11-21] MEDS: LOSARTAN 25 MG (COZAAR) TAB PO SCH (08:34)
[2022-11-21] MEDS: TOLTERODINE LA 2 MG (DETROL LA) CAP PO SCH (08:34)
[2022-11-21] MEDS: PANTOPRAZOLE 20 MG TABLET (PROTONIX) PO SCH (08:34)
[2022-11-21] MEDS: VITAMIN D3 25 MCG (1,000 UNITS) TABLET PO SCH (08:34)
[2022-11-21] MEDS: PREGABALIN 75 MG (LYRICA) CAP PO SCH ×2 (08:34→20:53)
[2022-11-21] MEDS: ASPIRIN E.C. 81 MG (ECOTRIN) TAB PO SCH (08:34)
[2022-11-21] MEDS: DOCUSATE SODIUM 100 MG (COLACE) CAP PO SCH ×2 (08:34→20:52)
--- NOTE | 2022-11-21 11:25 | Occupational Ther Daily Note ---
OT Current Status-Daily Note Subjective Pt alert, sitting in recliner. Family present in room. Pt agrees to therapy. Mental Status/Objective Patient Orientation: Person, Place, Time, Situation ADL-Treatment Pt requests shower. CGA for toilet transfer. SBA for shower transfer using FWW and grabbars. Pt stood 80% of the time in shower holding onto grabbars and using hand held shower to complete 80% of the body then used shower bench to cleanse lower legs and R foot (assist for L foot). Set up for UBD. Min A to thread L foot and pt able to complete rest of task with SBA for safety. Pt able to doff socks and assist to don. CGA to stand at sink to complete oral care and grooming. Pt c/o increase pain in L knee and hip after dressing and ambulating to sink for oral care. After session, pt sitting EOB with call light/phone in reach. Family present in room. All needs met. Therapy Code Descriptions/Definitions Functional [place] Measure: 0=Not Assessed/NA 4=Minimal Assistance 1=Total Assistance 5=Supervision or Setup 2=Maximal Assistance 6=Modified [place] 3=Moderate Assistance 7=Complete IndependenceSCALE: Activities may be completed with or without assistive devices. 6-Drsvdupnfo-guvmoou completes the activity by him/herself with no assistance from a helper. 5-Set-up or Clean-up Assistance-helper sets up or cleans up; patient completes activity. [place] assists only prior to or following the activity. 4-Supervision or Touching Assistance-helper provides verbal cues and/or touching/steadying and/or contact guard assistance as patient completes activity. Assistance may be provided throughout the activity or intermittently. 3-Partial/Moderate Assistance-helper does LESS THAN HALF the effort. [place] lifts, holds or supports trunk or limbs, but provides less than half the effort. 2-Substantial/Maximal Assistance-helper does MORE THAN HALF the effort. [place] lifts or holds trunk or limbs and provides more than half the effort. 4-Ujyjotgip-otsltv does ALL the effort. Patient does none of the effort to complete the activity. Or, the assistance of 2 or more helpers is required for the patient to complete the activity. If activity was not attempted, code reason: 7-Patient Refused. 9-Not Applicable-not attempted and the patient did not perform the activity before the current illness, exacerbation or injury. 10-Not Attempted due to Environmental Limitations-(lack of equipment, weather restraints, etc.). 88-Not Attempted due to Medical Conditions or Safety Concerns. Oral Hygiene (QC): 4 Shower/Bathe Self (QC): 3 Upper Body Dressing (QC): 5 Lower Body Dressing (QC): 3 On/Off Footwear: 2 Toileting Hygiene (QC): 3 Toilet Transfer (QC): 3 OT Short Term Goals Short Term Goals Time Frame: Nov 23, 2022 Eatin Oral hygiene: 6 (standing w/ ADs following precautions) Upper body dressin OT Melon Packer Goals Melon Packer Goals Time Frame: Nov 25, 2022 Acute change in mental status: 0 Inattention: 0 Disorganized thinkin Altered level of consciousness: 0 Oral Hygiene (QC): 6 Toileting Hygiene (QC): 6 Shower/Bathe Self (QC): 6 Upper Body Dressing (QC): 6 Lower Body Dressing (QC): 6 On/Off Footwear (QC): 6 1=Demonstrate adherence to instructed precautions during ADL tasks. 2=Patient will verbalize/demonstrate understanding of assistive devices/modifications for ADL. 3=Patient will improve strength/tolerance for activity to enable patient to perform ADL's. OT Education/Plan Problem List/Assessment Assessment: Decreased Activ Tolerance, Decreased UE Strength, Impaired Funct Balance, Impaired Self-Care Skills Discharge Recommendations Plan/Recommendations: Continue POC Treatment Plan/Plan of Care Patient would benefit from OT for education, treatment and training to promote independence in ADL's, mobility, safety and/or upper extremity function for ADL's. Plan of Care: ADL Retraining, Concurrent Therapy, Functional Mobility, Group Exercise/Act as Ind, UE Funct Exercise/Act Treatment Duration: Nov 25, 2022 Frequency: At least 5 of 7 days/Wk (IRF) Estimated Hrs Per Day: 1.5 hours per day Agreement: Yes Rehab Potential: Good Time Start Time: 09:30 Stop Time: 10:30 DATE: Nov 21, 2022 Total Time Billed (hr/min): 60 Billed Treatment Time 1 visit-ADL 4 (60 min) DOMINIC JACINTO Nov 21, 2022 11:25
--- NOTE | 2022-11-21 11:44 | PM&R Progress Note ---
Subjective HPI/CC On Admission Date Seen by Provider: Nov 21, 2022 Time Seen by Provider: 12:00 Subjective/Events-last exam 11/21/2022: Patient doing a lot better Had 5 bowel movements yesterday Pain is getting better Family at bedside 11/20/2022: Constipation reported Taking a lot of laxatives Bowel sounds are present but x-ray obtained to be sure this was not an ileus and it shows constipation 11/19/2022: Patient doing pretty well Soapsuds enema may be required since his bowels still have not moved Needs to drink more fluid Son at the bedside 11/18/2022: Patient doing really well Pain is pretty well controlled Labs reviewed No bowel movement yet so we will maintain regimen Review of Systems General: Fatigue, Malaise Musculoskeletal: leg pain Objective Exam Vital Signs Vital Signs Date Time Temp Pulse Resp B/P (MAP) Pulse Ox O2 Delivery O2 Flow Rate FiO2 11/21/22 20:20 Room Air 11/21/22 19:28 36.6 66 20 116/56 (76 93 Capillary Refill : General Appearance: No Apparent Distress, WD/WN, Chronically ill HEENT: PERRL/EOMI, Normal ENT Inspection, Pharynx Normal Neck: Full Range of Motion, Normal Inspection, Non Tender, Supple, Carotid Bruit Respiratory: Chest Non Tender, Lungs Clear, Normal Breath Sounds, No Accessory Muscle Use, No Respiratory Distress Cardiovascular: Regular Rate, Rhythm, No Edema, No Gallop, No JVD, No Murmur, Normal Peripheral Pulses Gastrointestinal: Normal Bowel Sounds, No Organomegaly, No Pulsatile Mass, Non Tender, Soft Back: Normal Inspection, No CVA Tenderness, No Vertebral Tenderness Extremity: Normal Capillary Refill, Normal Inspection, Normal Range of Motion (Except left leg), Non Tender, No Calf Tenderness, No Pedal Edema Neurologic/Psychiatric: Alert, Oriented x3, No Motor/Sensory Deficits, Normal 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 FIM Transfers Therapy Code Descriptions/Definitions Functional [place] Measure: 0=Not Assessed/NA 4=Minimal Assistance 1=Total Assistance 5=Supervision or Setup 2=Maximal Assistance 6=Modified [place] 3=Moderate Assistance 7=Complete IndependenceSCALE: Activities may be completed with or without assistive devices. 7-Fbcdhnofhh-cryrlbs completes the activity by him/herself with no assistance from a helper. 5-Set-up or Clean-up Assistance-helper sets up or cleans up; patient completes activity. [place] assists only prior to or following the activity. 4-Supervision or Touching Assistance-helper provides verbal cues and/or touching/steadying and/or contact guard assistance as patient completes activity. Assistance may be provided throughout the activity or intermittently. 3-Partial/Moderate Assistance-helper does LESS THAN HALF the effort. [place] lifts, holds or supports trunk or limbs, but provides less than half the effort. 2-Substantial/Maximal Assistance-helper does MORE THAN HALF the effort. [place] lifts or holds trunk or limbs and provides more than half the effort. 1-Mtdqjkvie-rcfvjy does ALL the effort. Patient does none of the effort to complete the activity. Or, the assistance of 2 or more helpers is required for the patient to complete the activity. If activity was not attempted, code reason: 7-Patient Refused. 9-Not Applicable-not attempted and the patient did not perform the activity before the current illness, exacerbation or injury. 10-Not Attempted due to Environmental Limitations-(lack of equipment, weather restraints, etc.). 88-Not Attempted due to Medical Conditions or Safety Concerns. Roll Left to Right (QC): 4 (SBA) Sit to Lying (QC): 3 Sit to Stand (QC): 4 Chair/Swh-gz-Zpzft Xfer(QC): 4 (SBA) Car Transfer (QC): 4 (SBA) Gait Training Does the Patient Walk?: Yes Distance: 450' Walk 10 feet (QC): 4 Walk 50 ft with 2 Turns(QC): 4 Walk 150 ft (QC): 4 Walking 10ft/uneven surface-QC: 4 (CGA ) Gait Persons Needed: 1 Gait Assistive Device: FWW Wheelchair Training Does the Pt Use a Wheelchair?: No Wheel 50 ft with 2 turns (QC): 9 Wheel 150 ft (QC): 9 Type of Wheelchair: N/A Stair Training #of Steps: 12 1 Step (curb) (QC): 4 (CGA ) 4 Steps (QC): 4 (CGA ) 12 Steps (QC): 4 (CGA ) Balance Picking up an Object (QC): 4 (SBA) ADL-Treatment Eating (QC): 6 Oral Hygiene (QC): 4 Shower/Bathe Self (QC): 3 Upper Body Dressing (QC): 5 Lower Body Dressing (QC): 3 On/Off Footwear (QC): 2 Toileting Hygiene (QC): 3 Toilet Transfer (QC): 3 Assessment/Plan Assessment and Plan Assess & Plan/Chief Complaint Assessment: Status post left hip replacement POD #6 Paroxysmal atrial fibrillation CAD RAIMUNDO History of diverticulitis Constipation-Severe and refractory to laxatives x-ray shows constipation no ileus or obstructionresolved on 11/20/2022 Chronic urinary retention Chronic back pain Leukocytosis Plan: Pain control Supportive care PT and OT Home meds 11/18/2022: Bowel regimen Supportive care 11/19/2022: Aggressive constipation treatment 11/20/2022: More laxatives Ambulate 11/21/2022: Supportive care (1) Status post left hip replacement (2) Constipation (3) RAIMUNDO treated with BiPAP (4) CAD (coronary artery disease) (5) PAF (paroxysmal atrial fibrillation) PONCE KAUR DO Nov 21, 2022 11:44
--- NOTE | 2022-11-21 11:54 | Physical Therapy Daily Note ---
PT Daily Note-Current Subjective Pt laying Supine in bed upon arrival. Pt's Sp & son present during tx. Pt agrees to PT but reports pain limiting tx. Pain Numeric Pain Scale: 7 Location: Left Location Body Site: Hip Pain Description: Sharp Section J - Health Conditions 1. Rarely or not at all 2. Occasionally 3. Frequently 4. Almost constantly 8. Unable to answer Pain Effect on Sleep: 3 Pain Interference with Therapy: 3 Pain Interference w/Day-to-Day: 3 Mental Status Patient Orientation: Person, Place, Time, Situation Transfers SCALE: Activities may be completed with or without assistive devices. 5-Igznofhsnk-jbhugae completes the activity by him/herself with no assistance from a helper. 5-Set-up or Clean-up Assistance-helper sets up or cleans up; patient completes activity. [place] assists only prior to or following the activity. 4-Supervision or Touching Assistance-helper provides verbal cues and/or touching/steadying and/or contact guard assistance as patient completes activity. Assistance may be provided throughout the activity or intermittently. 3-Partial/Moderate Assistance-helper does LESS THAN HALF the effort. [place] lifts, holds or supports trunk or limbs, but provides less than half the effort. 2-Substantial/Maximal Assistance-helper does MORE THAN HALF the effort. [place] lifts or holds trunk or limbs and provides more than half the effort. 1-Jgttvvavl-nurlwo does ALL the effort. Patient does none of the effort to complete the activity. Or, the assistance of 2 or more helpers is required for the patient to complete the activity. If activity was not attempted, code reason: 7-Patient Refused. 9-Not Applicable-not attempted and the patient did not perform the activity before the current illness, exacerbation or injury. 10-Not Attempted due to Environmental Limitations-(lack of equipment, weather restraints, etc.). 88-Not Attempted due to Medical Conditions or Safety Concerns. Lying to Sitting/Side of Bed(Q: 4 Sit to Stand (QC): 4 Toilet Transfer (QC): 4 Weight Bearing Right Lower Extremity: Right Full Weight Bearing Left Lower Extremity: Left Weight Bearing/Tolerated Gait Training Does the Patient Walk?: Yes Distance: 85', 50', 100' Walk 10 feet (QC): 4 Walk 50 ft with 2 Turns(QC): 4 Walk 150 ft (QC): 4 Gait Persons Needed: 1 Gait Assistive Device: FWW CGA due to pain & pt walks w/flexed B knees/melting posture but refuses to sit so he doesn't have to stand again. Treatments Discusses w/pt, sp & son benefits of walking to BM as well as working stiffness out & pain management. TF from Supine to EOB to Stand and uses BR before taking pain med. Pt amb. in hallway then returns to to rest in recliner at end of tx. All needs met, call light next to pt. Assessment Current Status: Fair Progress Pt push self through pain to walk. Pt walks w/melting like posture & reports UE pain from overuse. PT Prison Goals Belt Knife Feeder Goals PT Belt Knife Feeder Goals Time Frame: Nov 25, 2022 Roll Left & Right (QC): 6 (Mod I with funcitonal mobility ) Sit to Lying (QC): 6 (Mod I with funcitonal mobility ) Lying-Sitting on Side/Bed(QC): 6 (Mod I with funcitonal mobility ) Sit to Stand (QC): 6 (Mod I with funcitonal mobility ) Chair/Atu-km-Utwcr Xfer(QC): 6 (Mod I with funcitonal mobility ) Toilet Transfer (QC): 6 (Mod I with funcitonal mobility ) Car Transfer (QC): 6 (Mod I with funcitonal mobility ) Does the Patient Walk: Yes Walk 10 feet (QC): 6 (Mod I with funcitonal mobility ) Walk 50ft with 2 Turns (QC): 6 (Mod I with funcitonal mobility ) Walk 150 ft (QC): 6 (Mod I with funcitonal mobility ) Walking 10ft on Uneven Surface: 6 (Mod I with funcitonal mobility ) 1 Step (curb) (QC): 6 (Mod I with funcitonal mobility ) 4 Steps (QC): 6 (Mod I with funcitonal mobility ) 12 Steps (QC): 6 (Mod I with funcitonal mobility ) Picking up an Object (QC): 6 (Mod I with funcitonal mobility ) Does the Pt use WC or Scooter?: No Wheel 50 feet with 2 turns (QC: 9 Type: N/A Wheel 150 feet: 9 Type: N/A PT Plan Problem List Problem List: Activity Tolerance, Functional Strength, Safety, Gait Treatment/Plan Treatment Plan: Continue Plan of Care Treatment Plan: Bed Mobility, Concurrent Therapy, Education, Functional Activity Lukas, Functional Strength, Group Therapy, Gait, Safety, Therapeutic Exercise, Transfers Treatment Duration: Nov 25, 2022 Frequency: At least 5 of 7 days/Wk (IRF) Estimated Hrs Per Day: 1.5 hours per day Patient and/or Family Agrees t: Yes Safety Risks/Education Patient Education: Gait Training, Correct Positioning, Safety Issues Teaching Recipient: Patient Teaching Methods: Discussion Response to Teaching: Verbalize Understanding Time Time In: 1040 Time Out: 1140 DATE: Nov 21, 2022 Total Billed Treatment Time: 60 Total Billed Treatment 1, FA x2 (30m) & GT x2 (30m) REYNALDO CINTRON FMD TEACHER Nov 21, 2022 11:54
--- NOTE | 2022-11-21 15:23 | Therapy Group Daily Note ---
Therapy Daily Group Note Patient Education Topic Other List Below (Memory Techniques & Strategies) Session Ratio (pt:therapist): 3:1 Goal of Session: Education on ARU Expectations, Memory Strategies Goal Met for this Session: Yes Pt Benefit of Group: Contributions to Others, F/U Use of Strategies @Home, Increased Functional Safety, Improved Cognition, Recognition of Peers, Soc ialization Other/Notes Pt ambulates to PT/OT Group using FWW at [facility]. Group consisted of Introductions (Name, Where From & Dice Rolled Question), Socialization, and Memory Techniques & Strategies. Pt actively participated in Group by giving personal examples of what pt does to aid memory. Pt is joined in Group by Spouse & Son. Pt ambulates back to room to rest at end of tx with all needs met. Start Time: 13:00 Stop Time: 14:25 Total Billed Treatment Time: 85 Total Billed Treatment 1, GRP REYNALDO CINTRON ILLUMINATING ENGINEER Nov 21, 2022 15:23
[2022-11-21] MEDS: RIVAROXABAN 20 MG TABLET (XARELTO) PO SCH (16:55)
[2022-11-21 19:28] VITALS: BP 116/56
[2022-11-21] MEDS: amLODIPine 10 MG (NORVASC) TAB PO SCH (20:53)
[2022-11-22] MEDS: oxyCODONE/APAP 5/325MG (PERCOCET 5) TABLET PO PRN ×4 (00:56→20:34)
[2022-11-22] MEDS: polyethylene glycoL POWDER 17 GM (MIRALAX) PACK PO SCH ×7 (04:04→22:17)
[2022-11-22] MEDS: ASCORBIC ACID (VIT C) 500 MG TABLET PO SCH (06:57)
[2022-11-22] MEDS: CYANOCOBALAMIN 1,000 MCG (VITAMIN B-12) TABLET PO SCH (06:57)
[2022-11-22 07:35] VITALS: BP 118/58
[2022-11-22] MEDS: ASPIRIN E.C. 81 MG (ECOTRIN) TAB PO SCH (08:52)
[2022-11-22] MEDS: PANTOPRAZOLE 20 MG TABLET (PROTONIX) PO SCH (08:52)
[2022-11-22] MEDS: TOLTERODINE LA 2 MG (DETROL LA) CAP PO SCH (08:52)
[2022-11-22] MEDS: LOSARTAN 25 MG (COZAAR) TAB PO SCH (08:52)
[2022-11-22] MEDS: VITAMIN D3 25 MCG (1,000 UNITS) TABLET PO SCH (08:52)
[2022-11-22] MEDS: PREGABALIN 75 MG (LYRICA) CAP PO SCH ×2 (08:52→20:30)
[2022-11-22] MEDS: DOCUSATE SODIUM 100 MG (COLACE) CAP PO SCH ×2 (08:52→20:38)
[2022-11-22] MEDS: SENNA W/DOCUSATE (SENOKOT S) TABLET PO SCH ×2 (08:53→20:38)
--- NOTE | 2022-11-22 09:16 | PM&R Progress Note ---
Subjective HPI/CC On Admission Date Seen by Provider: Nov 22, 2022 Time Seen by Provider: 12:00 Subjective/Events-last exam 11/22/2022: Patient depressed and worried about his left hip He sat down really hard he feels like it started hurting after that X-ray will be obtained Bowels are still moving 11/21/2022: Patient doing a lot better Had 5 bowel movements yesterday Pain is getting better Family at bedside 11/20/2022: Constipation reported Taking a lot of laxatives Bowel sounds are present but x-ray obtained to be sure this was not an ileus and it shows constipation 11/19/2022: Patient doing pretty well Soapsuds enema may be required since his bowels still have not moved Needs to drink more fluid Son at the bedside 11/18/2022: Patient doing really well Pain is pretty well controlled Labs reviewed No bowel movement yet so we will maintain regimen Review of Systems General: Fatigue, Malaise Musculoskeletal: leg pain Objective Exam Vital Signs Vital Signs Date Time Temp Pulse Resp B/P (MAP) Pulse Ox O2 Delivery O2 Flow Rate FiO2 11/22/22 09:00 Room Air 11/22/22 07:35 36.3 77 18 118/58 (78) 97 11/22/22 06:56 3.00 Capillary Refill : General Appearance: No Apparent Distress, WD/WN, Chronically ill HEENT: PERRL/EOMI, Normal ENT Inspection, Pharynx Normal Neck: Full Range of Motion, Normal Inspection, Non Tender, Supple, Carotid Bruit Respiratory: Chest Non Tender, Lungs Clear, Normal Breath Sounds, No Accessory Muscle Use, No Respiratory Distress Cardiovascular: Regular Rate, Rhythm, No Edema, No Gallop, No JVD, No Murmur, Normal Peripheral Pulses Gastrointestinal: Normal Bowel Sounds, No Organomegaly, No Pulsatile Mass, Non Tender, Soft Back: Normal Inspection, No CVA Tenderness, No Vertebral Tenderness Extremity: Normal Capillary Refill, Normal Inspection, Normal Range of Motion (Except left leg), Non Tender, No Calf Tenderness, No Pedal Edema Neurologic/Psychiatric: Alert, Oriented x3, No Motor/Sensory Deficits, Normal Mood/Affect, 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 FIM Transfers Therapy Code Descriptions/Definitions Functional [place] Measure: 0=Not Assessed/NA 4=Minimal Assistance 1=Total Assistance 5=Supervision or Setup 2=Maximal Assistance 6=Modified [place] 3=Moderate Assistance 7=Complete IndependenceSCALE: Activities may be completed with or without assistive devices. 3-Msueuxqtgz-pxfsyta completes the activity by him/herself with no assistance from a helper. 5-Set-up or Clean-up Assistance-helper sets up or cleans up; patient completes activity. [place] assists only prior to or following the activity. 4-Supervision or Touching Assistance-helper provides verbal cues and/or touching/steadying and/or contact guard assistance as patient completes activity. Assistance may be provided throughout the activity or intermittently. 3-Partial/Moderate Assistance-helper does LESS THAN HALF the effort. [place] lifts, holds or supports trunk or limbs, but provides less than half the effort. 2-Substantial/Maximal Assistance-helper does MORE THAN HALF the effort. [place] lifts or holds trunk or limbs and provides more than half the effort. 0-Rwcqqgbvk-xuireu does ALL the effort. Patient does none of the effort to complete the activity. Or, the assistance of 2 or more helpers is required for the patient to complete the activity. If activity was not attempted, code reason: 7-Patient Refused. 9-Not Applicable-not attempted and the patient did not perform the activity before the current illness, exacerbation or injury. 10-Not Attempted due to Environmental Limitations-(lack of equipment, weather restraints, etc.). 88-Not Attempted due to Medical Conditions or Safety Concerns. Roll Left to Right (QC): 4 (SBA) Sit to Lying (QC): 3 Sit to Stand (QC): 4 Chair/Cxk-pt-Eodmi Xfer(QC): 4 (SBA) Car Transfer (QC): 4 (SBA) Gait Training Does the Patient Walk?: Yes Distance: 85', 50', 100' Walk 10 feet (QC): 4 Walk 50 ft with 2 Turns(QC): 4 Walk 150 ft (QC): 4 Walking 10ft/uneven surface-QC: 4 (CGA ) Gait Persons Needed: 1 Gait Assistive Device: FWW Wheelchair Training Does the Pt Use a Wheelchair?: No Wheel 50 ft with 2 turns (QC): 9 Wheel 150 ft (QC): 9 Type of Wheelchair: N/A Stair Training #of Steps: 12 1 Step (curb) (QC): 4 (CGA ) 4 Steps (QC): 4 (CGA ) 12 Steps (QC): 4 (CGA ) Balance Picking up an Object (QC): 4 (SBA) ADL-Treatment Eating (QC): 6 Oral Hygiene (QC): 4 Shower/Bathe Self (QC): 3 Upper Body Dressing (QC): 5 Lower Body Dressing (QC): 3 On/Off Footwear (QC): 2 Toileting Hygiene (QC): 3 Toilet Transfer (QC): 3 Assessment/Plan Assessment and Plan Assess & Plan/Chief Complaint Assessment: Status post left hip replacement POD #8 Paroxysmal atrial fibrillation CAD RAIMUNDO History of diverticulitis Constipation-Severe and refractory to laxatives x-ray shows constipation no ileus or obstructionresolved on 11/20/2022 Chronic urinary retention Chronic back pain Leukocytosis Plan: Pain control Supportive care PT and OT Home meds 11/18/2022: Bowel regimen Supportive care 11/19/2022: Aggressive constipation treatment 11/20/2022: More laxatives Ambulate 11/21/2022: Supportive care 11/22/2022: Check x-ray left hip (1) Status post left hip replacement (2) Constipation (3) RAIMUNDO treated with BiPAP (4) CAD (coronary artery disease) (5) PAF (paroxysmal atrial fibrillation) PONCE KAUR DO Nov 22, 2022 09:16
--- NOTE | 2022-11-22 10:50 | Occupational Ther Daily Note ---
OT Current Status-Daily Note Subjective Pt alert, sitting on toilet. Pt agrees to therapy. Pt c/o hip to knee pain though does not rate. Mental Status/Objective Patient Orientation: Person, Place, Time, Situation ADL-Treatment Pt requests shower. Min A for toilet transfer due to increase hip pain. Min A due to pain for shower transfer using FWW and grabbars. Pt sat 80% of the time in shower holding onto grabbars and using hand held shower to complete 80% of the body, min A. Set up for UBD. LBD with CGA for safety, used supervisor of operations to thread pants over feet with education. Pt able to doff socks and education to use sock aide to don. CGA to stand at sink to complete oral care and grooming. Pt c/o increase pain in L knee and hip after dressing and ambulating to sink for oral care. After session, pt sitting EOB with call light/phone in reach. Family present in room. All needs met. Therapy Code Descriptions/Definitions Functional [place] Measure: 0=Not Assessed/NA 4=Minimal Assistance 1=Total Assistance 5=Supervision or Setup 2=Maximal Assistance 6=Modified [place] 3=Moderate Assistance 7=Complete IndependenceSCALE: Activities may be completed with or without assistive devices. 8-Etjevlxnvs-lahuxpx completes the activity by him/herself with no assistance from a helper. 5-Set-up or Clean-up Assistance-helper sets up or cleans up; patient completes activity. [place] assists only prior to or following the activity. 4-Supervision or Touching Assistance-helper provides verbal cues and/or touching/steadying and/or contact guard assistance as patient completes activi ty. Assistance may be provided throughout the activity or intermittently. 3-Partial/Moderate Assistance-helper does LESS THAN HALF the effort. [place] lifts, holds or supports trunk or limbs, but provides less than half the effort. 2-Substantial/Maximal Assistance-helper does MORE THAN HALF the effort. [place] lifts or holds trunk or limbs and provides more than half the effort. 4-Otdapohxj-imbsmp does ALL the effort. Patient does none of the effort to complete the activity. Or, the assistance of 2 or more helpers is required for the patient to complete the activity. If activity was not attempted, code reason: 7-Patient Refused. 9-Not Applicable-not attempted and the patient did not perform the activity before the current illness, exacerbation or injury. 10-Not Attempted due to Environmental Limitations-(lack of equipment, weather restraints, etc.). 88-Not Attempted due to Medical Conditions or Safety Concerns. Oral Hygiene (QC): 4 Shower/Bathe Self (QC): 3 (Assist to dry feet. Used LH sponge to cleanse feet.) Upper Body Dressing (QC): 5 Lower Body Dressing (QC): 3 On/Off Footwear: 3 (Assist when educating on use of AE) Toileting Hygiene (QC): 3 (Assist to cleanse buttocks) Toilet Transfer (QC): 3 OT Short Term Goals Short Term Goals Time Frame: Nov 23, 2022 Eatin Oral hygiene: 6 (standing w/ ADs following precautions) Upper body dressin OT Mental Health Counselor Goals Shelter Goals Time Frame: Nov 25, 2022 Acute change in mental status: 0 Inattention: 0 Disorganized thinkin Altered level of consciousness: 0 Oral Hygiene (QC): 6 Toileting Hygiene (QC): 6 Shower/Bathe Self (QC): 6 Upper Body Dressing (QC): 6 Lower Body Dressing (QC): 6 On/Off Footwear (QC): 6 1=Demonstrate adherence to instructed precautions during ADL tasks. 2=Patient will verbalize/demonstrate understanding of assistive devices/modifications for ADL. 3=Patient will improve strength/tolerance for activity to enable patient to perform ADL's. OT Education/Plan Problem List/Assessment Assessment: Decreased Activ Tolerance, Impaired Funct Balance, Impaired Self- Care Skills Discharge Recommendations Plan/Recommendations: Continue POC Treatment Plan/Plan of Care Patient would benefit from OT for education, treatment and training to promote independence in ADL's, mobility, safety and/or upper extremity function for ADL's. Plan of Care: ADL Retraining, Concurrent Therapy, Functional Mobility, Group Exercise/Act as Ind, UE Funct Exercise/Act Treatment Duration: Nov 25, 2022 Frequency: At least 5 of 7 days/Wk (IRF) Estimated Hrs Per Day: 1.5 hours per day Agreement: Yes Rehab Potential: Good Time Start Time: 10:00 Stop Time: 11:00 DATE: Nov 22, 2022 Total Time Billed (hr/min): 60 Billed Treatment Time 1 visit-ADL 4 (60 min) DOMINIC JACINTO [facility] Nov 22, 2022 10:50
--- NOTE | 2022-11-22 11:37 | Physical Therapy Daily Note ---
PT Daily Note-Current Subjective Pt found seated on edge of bed upon entry. Agreed to PT. Reports intense pain in L hip that increases /c movement. Pain Section J - Health Conditions 1. Rarely or not at all 2. Occasionally 3. Frequently 4. Almost constantly 8. Unable to answer Pain Effect on Sleep: 3 Pain Interference with Therapy: 3 Pain Interference w/Day-to-Day: 3 Mental Status Patient Orientation: Person, Place Transfers SCALE: Activities may be completed with or without assistive devices. 4-Zrkitynaxx-uhaietd completes the activity by him/herself with no assistance fr om a helper. 5-Set-up or Clean-up Assistance-helper sets up or cleans up; patient completes activity. [place] assists only prior to or following the activity. 4-Supervision or Touching Assistance-helper provides verbal cues and/or touching/steadying and/or contact guard assistance as patient completes activity. Assistance may be provided throughout the activity or intermittently. 3-Partial/Moderate Assistance-helper does LESS THAN HALF the effort. [place] lifts, holds or supports trunk or limbs, but provides less than half the effort. 2-Substantial/Maximal Assistance-helper does MORE THAN HALF the effort. [place] lifts or holds trunk or limbs and provides more than half the effort. 3-Errszefcd-zwevng does ALL the effort. Patient does none of the effort to complete the activity. Or, the assistance of 2 or more helpers is required for the patient to complete the activity. If activity was not attempted, code reason: 7-Patient Refused. 9-Not Applicable-not attempted and the patient did not perform the activity before the current illness, exacerbation or injury. 10-Not Attempted due to Environmental Limitations-(lack of equipment, weather restraints, etc.). 88-Not Attempted due to Medical Conditions or Safety Concerns. Lying to Sitting/Side of Bed(Q: 4 Sit to Stand (QC): 4 Toilet Transfer (QC): 4 All completed transfer done /c CGA for safety due to pain and balance deficits. Toilet transfer completed 2x. Sit to stand transfer completed 5x at //. Pt completes all transfers very slowly due to pain. Weight Bearing Right Lower Extremity: Right Full Weight Bearing Left Lower Extremity: Left Weight Bearing/Tolerated Gait Training Does the Patient Walk?: Yes Distance: 80, 80 Walk 10 feet (QC): 4 Walk 50 ft with 2 Turns(QC): 4 Gait Persons Needed: 1 Gait Assistive Device: FWW Pt completes gait training /c use of FWW and CGA for safety due to pain and balance deficits. Ambulates very slowly /c short step lengths and poor heel/toe pattern. Slight toe drag on L side demonstrated. Pt able to ambulated up to 80 feet before requiring a seated rest break. Treatments Seated Therapeutic Exercises (B): LAQs x 5 Marching x 5 Heel/toe raises x 15 Assessment Current Status: Poor Progress Pt completes transfer and gait training very slowly likely due to reported pain. Increased pain reported in L hip /c completion of therapeutic exercises and gait training. Pt able to ambulate up to 80 feet /c use of a FWW. Displays very slow gait pattern /c short step lengths and slight L toe drag. Verbal cues required for increased gait speed. Demonstrates slight forward trunk flexion during gait training that increases /c fatigue. Continue to progress per POC to improve strength, endurance, and decrease pain. PT Detention Goals Blueprinting And Photocopy Supervisor Goals PT Detention Goals Time Frame: Nov 25, 2022 Roll Left & Right (QC): 6 (Mod I with funcitonal mobility ) Sit to Lying (QC): 6 (Mod I with funcitonal mobility ) Lying-Sitting on Side/Bed(QC): 6 (Mod I with funcitonal mobility ) Sit to Stand (QC): 6 (Mod I with funcitonal mobility ) Chair/Idb-fe-Ypcbh Xfer(QC): 6 (Mod I with funcitonal mobility ) Toilet Transfer (QC): 6 (Mod I with funcitonal mobility ) Car Transfer (QC): 6 (Mod I with funcitonal mobility ) Does the Patient Walk: Yes Walk 10 feet (QC): 6 (Mod I with funcitonal mobility ) Walk 50ft with 2 Turns (QC): 6 (Mod I with funcitonal mobility ) Walk 150 ft (QC): 6 (Mod I with funcitonal mobility ) Walking 10ft on Uneven Surface: 6 (Mod I with funcitonal mobility ) 1 Step (curb) (QC): 6 (Mod I with funcitonal mobility ) 4 Steps (QC): 6 (Mod I with funcitonal mobility ) 12 Steps (QC): 6 (Mod I with funcitonal mobility ) Picking up an Object (QC): 6 (Mod I with funcitonal mobility ) Does the Pt use WC or Scooter?: No Wheel 50 feet with 2 turns (QC: 9 Type: N/A Wheel 150 feet: 9 Type: N/A PT Plan Treatment/Plan Treatment Plan: Continue Plan of Care Treatment Plan: Bed Mobility, Concurrent Therapy, Education, Functional Activity Lukas, Functional Strength, Group Therapy, Gait, Safety, Therapeutic Exercise, Transfers Treatment Duration: Nov 25, 2022 Frequency: At least 5 of 7 days/Wk (IRF) Estimated Hrs Per Day: 1.5 hours per day Patient and/or Family Agrees t: Yes Time Time In: 0900 Time Out: 1000 DATE: Nov 22, 2022 Total Billed Treatment Time: 60 Total Billed Treatment 1 visit FA x 1 EX x 1 GT x 2 JAEL VILLALPANDO PTA Nov 22, 2022 11:37
--- NOTE | 2022-11-22 14:07 | Therapy Group Daily Note ---
Therapy Daily Group Note Patient Education Topic Home Safety, Exercises Exercises LE Seated Exercise, UE Exercise Session Ratio (pt:therapist): 4:1 Goal of Session: Memory Strategies, UE/LE Strengthing Goal Met for this Session: Yes Pt Benefit of Group: Contributions to Others, F/U Use of Strategies @Home, Increased Functional Safety, Increased Functional Strength, Improved Cognition, Recognition of Peers, Socialization Pt was brought in to group therapy with RW and CGA. pt engaged eating lunch and socializing with other patients in the until. pt also participate in memory/trivia game giving an anser for all qurestion asked. pt exicuted sitting UE/LE exercises to engge in sitting cardio this day to promote movment at home after realse. Start Time: 12:00 Stop Time: 13:10 Total Billed Treatment Time: 70 Total Billed Treatment 1 GRP Martine Brooks OFFAL ROLLER Nov 22, 2022 14:07
--- NOTE | 2022-11-22 14:09 | Diagnostic Imaging Report ---
Technique: AP view of the pelvis and AP and crosstable view of the left hip obtained. HISTORY: Hip pain COMPARISON: CT of the abdomen and pelvis 03/26/2021. FINDINGS: Jenny-screw lucency about the right sacral screw. No screw fracture identified. Total by lateral hip prosthesis. Both prosthetics are well aligned. No periprosthetic lucency. Scattered vascular calcification. Visualized bowel gas is nondistended. IMPRESSION: Well aligned total left hip arthroplasty. Lucency around the right sacral screw. Dictated by: Dictated on workstation # [id number]
[2022-11-22] MEDS: RIVAROXABAN 20 MG TABLET (XARELTO) PO SCH (17:33)
[2022-11-22 19:29] VITALS: BP 131/68
[2022-11-22] MEDS: amLODIPine 10 MG (NORVASC) TAB PO SCH (20:31)
[2022-11-23] MEDS: polyethylene glycoL POWDER 17 GM (MIRALAX) PACK PO SCH ×6 (04:10→22:02)
--- NOTE | 2022-11-23 06:03 | PM&R Progress Note ---
Subjective HPI/CC On Admission Date Seen by Provider: Nov 23, 2022 Time Seen by Provider: 12:00 Subjective/Events-last exam 11/23/2022: Patient feels a little bit better Pain is still an issue I explained his x-ray looked really good and alignment of the hardware Bowels are still moving Tried to reassure is much as possible 11/22/2022: Patient depressed and worried about his left hip He sat down really hard he feels like it started hurting after that X-ray will be obtained Bowels are still moving 11/21/2022: Patient doing a lot better Had 5 bowel movements yesterday Pain is getting better Family at bedside 11/20/2022: Constipation reported Taking a lot of laxatives Bowel sounds are present but x-ray obtained to be sure this was not an ileus and it shows constipation 11/19/2022: Patient doing pretty well Soapsuds enema may be required since his bowels still have not moved Needs to drink more fluid Son at the bedside 11/18/2022: Patient doing really well Pain is pretty well controlled Labs reviewed No bowel movement yet so we will maintain regimen Review of Systems General: Fatigue, Malaise Musculoskeletal: leg pain Objective Exam Vital Signs Vital Signs Date Time Temp Pulse Resp B/P (MAP) Pulse Ox O2 Delivery O2 Flow Rate FiO2 11/23/22 19:39 36.5 77 20 147/70 (95) 93 Room Air 11/22/22 06:56 3.00 Capillary Refill : General Appearance: No Apparent Distress, WD/WN, Chronically ill HEENT: PERRL/EOMI, Normal ENT Inspection, Pharynx Normal Neck: Full Range of Motion, Normal Inspection, Non Tender, Supple, Carotid Bruit Respiratory: Chest Non Tender, Lungs Clear, Normal Breath Sounds, No Accessory Muscle Use, No Respiratory Distress Cardiovascular: Regular Rate, Rhythm, No Edema, No Gallop, No JVD, No Murmur, Normal Peripheral Pulses Gastrointestinal: Normal Bowel Sounds, No Organomegaly, No Pulsatile Mass, Non Tender, Soft Back: Normal Inspection, No CVA Tenderness, No Vertebral Tenderness Extremity: Normal Capillary Refill, Normal Inspection, Normal Range of Motion (Except left leg), Non Tender, No Calf Tenderness, No Pedal Edema Neurologic/Psychiatric: Alert, Oriented x3, No Motor/Sensory Deficits, Normal Mood/Affect, quick print operator II-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 FIM Transfers Therapy Code Descriptions/Definitions Functional [place] Measure: 0=Not Assessed/NA 4=Minimal Assistance 1=Total Assistance 5=Supervision or Setup 2=Maximal Assistance 6=Modified [place] 3=Moderate Assistance 7=Complete IndependenceSCALE: Activities may be completed with or without assistive devices. 4-Uikifagpjn-ztyvwzu completes the activity by him/herself with no assistance from a helper. 5-Set-up or Clean-up Assistance-helper sets up or cleans up; patient completes activity. [place] assists only prior to or following the activity. 4-Supervision or Touching Assistance-helper provides verbal cues and/or touching/steadying and/or contact guard assistance as patient completes activity. Assistance may be provided throughout the activity or intermittently. 3-Partial/Moderate Assistance-helper does LESS THAN HALF the effort. [place] lifts, holds or supports trunk or limbs, but provides less than half the effort. 2-Substantial/Maximal Assistance-helper does MORE THAN HALF the effort. [place] lifts or holds trunk or limbs and provides more than half the effort. 8-Nxnvymlla-iobnho does ALL the effort. Patient does none of the effort to complete the activity. Or, the assistance of 2 or more helpers is required for the patient to complete the activity. If activity was not attempted, code reason: 7-Patient Refused. 9-Not Applicable-not attempted and the patient did not perform the activity before the current illness, exacerbation or injury. 10-Not Attempted due to Environmental Limitations-(lack of equipment, weather restraints, etc.). 88-Not Attempted due to Medical Conditions or Safety Concerns. Roll Left to Right (QC): 4 (SBA) Sit to Lying (QC): 3 Sit to Stand (QC): 4 Chair/Jqq-cj-Edvlp Xfer(QC): 4 (SBA) Car Transfer (QC): 4 (SBA) Gait Training Does the Patient Walk?: Yes Distance: 80, 80 Walk 10 feet (QC): 4 Walk 50 ft with 2 Turns(QC): 4 Walk 150 ft (QC): 4 Walking 10ft/uneven surface-QC: 4 (CGA ) Gait Persons Needed: 1 Gait Assistive Device: FWW Wheelchair Training Does the Pt Use a Wheelchair?: No Wheel 50 ft with 2 turns (QC): 9 Wheel 150 ft (QC): 9 Type of Wheelchair: N/A Stair Training #of Steps: 12 1 Step (curb) (QC): 4 (CGA ) 4 Steps (QC): 4 (CGA ) 12 Steps (QC): 4 (CGA ) Balance Picking up an Object (QC): 4 (SBA) ADL-Treatment Eating (QC): 6 Oral Hygiene (QC): 4 Shower/Bathe Self (QC): 3 (Assist to dry feet. Used LH sponge to cleanse feet.) Upper Body Dressing (QC): 5 Lower Body Dressing (QC): 3 On/Off Footwear (QC): 3 (Assist when educating on use of AE) Toileting Hygiene (QC): 3 (Assist to cleanse buttocks) Toilet Transfer (QC): 3 Assessment/Plan Assessment and Plan Assess & Plan/Chief Complaint Assessment: Status post left hip replacement POD #8 Paroxysmal atrial fibrillation CAD RAIMUNDO History of diverticulitis Constipation-Severe and refractory to laxatives x-ray shows constipation no ileus or obstructionresolved on 11/20/2022 Chronic urinary retention Chronic back pain Leukocytosisresolved Plan: Pain control Supportive care PT and OT Home meds 11/18/2022: Bowel regimen Supportive care 11/19/2022: Aggressive constipation treatment 11/20/2022: More laxatives Ambulate 11/21/2022: Supportive care 11/22/2022: Check x-ray left hip 11/23/2022: Supportive care Reassured (1) Status post left hip replacement (2) Constipation (3) RAIMUNDO treated with BiPAP (4) CAD (coronary artery disease) (5) PAF (paroxysmal atrial fibrillation) PONCE KAUR DO Nov 23, 2022 06:03
[2022-11-23] MEDS: CYANOCOBALAMIN 1,000 MCG (VITAMIN B-12) TABLET PO SCH (06:15)
[2022-11-23] MEDS: ASCORBIC ACID (VIT C) 500 MG TABLET PO SCH (06:15)
[2022-11-23 08:00] VITALS: BP 151/70
[2022-11-23] MEDS: oxyCODONE/APAP 5/325MG (PERCOCET 5) TABLET PO PRN ×2 (08:09→21:13)
[2022-11-23] MEDS: LOSARTAN 25 MG (COZAAR) TAB PO SCH (08:09)
[2022-11-23] MEDS: PANTOPRAZOLE 20 MG TABLET (PROTONIX) PO SCH (08:09)
[2022-11-23] MEDS: ASPIRIN E.C. 81 MG (ECOTRIN) TAB PO SCH (08:09)
[2022-11-23] MEDS: VITAMIN D3 25 MCG (1,000 UNITS) TABLET PO SCH (08:09)
[2022-11-23] MEDS: PREGABALIN 75 MG (LYRICA) CAP PO SCH ×2 (08:09→21:12)
[2022-11-23] MEDS: TOLTERODINE LA 2 MG (DETROL LA) CAP PO SCH (08:09)
[2022-11-23] MEDS: DOCUSATE SODIUM 100 MG (COLACE) CAP PO SCH ×2 (08:10→21:12)
[2022-11-23] MEDS: SENNA W/DOCUSATE (SENOKOT S) TABLET PO SCH ×2 (08:10→21:12)
--- NOTE | 2022-11-23 11:57 | Occupational Ther Daily Note ---
OT Current Status-Daily Note Subjective Pt alert, sitting in recliner. Pt very anxious about L LE swelling and pain between knee/hip. ABDALLA made sure pt understood that L hip replacement was in alignment and all was good with hardware. Pt continues to by anxious. Pt agrees to therapy. C/o pain though does not rate, states that pain meds are not helping. Mental Status/Objective Patient Orientation: Person, Place, Time, Situation ADL-Treatment Pt requests shower. CGA for toilet transfer, increase hip pain. Min A due to pain for shower transfer using FWW and grabbars. Pt sat 80% of the time in shower holding onto grabbars and using hand held shower to complete 80% of the body, min A. Set up for UBD. LBD with CGA for safety, used enterostomal nurse to thread pants over feet. Pt able to doff socks and donned socks sock aide, assist to apply socks to sock aide. CGA to stand at sink to complete oral care and grooming. After session, pt sitting EOB with call light/phone in reach. Family present in room. All needs met. Therapy Code Descriptions/Definitions Functional [place] Measure: 0=Not Assessed/NA 4=Minimal Assistance 1=Total Assistance 5=Supervision or Setup 2=Maximal Assistance 6=Modified [place] 3=Moderate Assistance 7=Complete IndependenceSCALE: Activities may be completed with or without assistive devices. 3-Jcuanrgutc-aactxve completes the activity by him/herself with no assistance from a helper. 5-Set-up or Clean-up Assistance-helper sets up or cleans up; patient completes activity. [place] assists only prior to or following the activity. 4-Supervision or Touching Assistance-helper provides verbal cues and/or touching/steadying and/or contact guard assistance as patient completes acti vity. Assistance may be provided throughout the activity or intermittently. 3-Partial/Moderate Assistance-helper does LESS THAN HALF the effort. [place] lifts, holds or supports trunk or limbs, but provides less than half the effort. 2-Substantial/Maximal Assistance-helper does MORE THAN HALF the effort. [place] lifts or holds trunk or limbs and provides more than half the effort. 5-Suxbgmgnt-fwfqhh does ALL the effort. Patient does none of the effort to complete the activity. Or, the assistance of 2 or more helpers is required for the patient to complete the activity. If activity was not attempted, code reason: 7-Patient Refused. 9-Not Applicable-not attempted and the patient did not perform the activity before the current illness, exacerbation or injury. 10-Not Attempted due to Environmental Limitations-(lack of equipment, weather restraints, etc.). 88-Not Attempted due to Medical Conditions or Safety Concerns. Oral Hygiene (QC): 4 Shower/Bathe Self (QC): 3 (Drying L foot/toes) Upper Body Dressing (QC): 5 Lower Body Dressing (QC): 4 On/Off Footwear: 3 OT Short Term Goals Short Term Goals Time Frame: Nov 23, 2022 Eatin Oral hygiene: 6 (standing w/ ADs following precautions) Upper body dressin OT Cottage Cheese Maker Goals Cottage Cheese Maker Goals Time Frame: Nov 25, 2022 Acute change in mental status: 0 Inattention: 0 Disorganized thinkin Altered level of consciousness: 0 Oral Hygiene (QC): 6 Toileting Hygiene (QC): 6 Shower/Bathe Self (QC): 6 Upper Body Dressing (QC): 6 Lower Body Dressing (QC): 6 On/Off Footwear (QC): 6 1=Demonstrate adherence to instructed precautions during ADL tasks. 2=Patient will verbalize/demonstrate understanding of assistive device s/modifications for ADL. 3=Patient will improve strength/tolerance for activity to enable patient to perform ADL's. OT Education/Plan Problem List/Assessment Assessment: Decreased Activ Tolerance, Impaired Funct Balance, Impaired Self- Care Skills Discharge Recommendations Plan/Recommendations: Continue POC Treatment Plan/Plan of Care Patient would benefit from OT for education, treatment and training to promote independence in ADL's, mobility, safety and/or upper extremity function for ADL's. Plan of Care: ADL Retraining, Concurrent Therapy, Functional Mobility, Group Exercise/Act as Ind, UE Funct Exercise/Act Treatment Duration: Nov 25, 2022 Frequency: At least 5 of 7 days/Wk (IRF) Estimated Hrs Per Day: 1.5 hours per day Agreement: Yes Rehab Potential: Good Time Start Time: 09:00 Stop Time: 10:00 DATE: Nov 23, 2022 Total Time Billed (hr/min): 60 Billed Treatment Time 1 vsiit-ADL 4 (60 min) DOMINIC JACINTO Nov 23, 2022 11:57
--- NOTE | 2022-11-23 13:17 | Occupational Ther Daily Note ---
OT Current Status-Daily Note Subjective Pt alert, sitting in recliner. Pt drowsy, agrees to therapy. present in room. No c/o pain at this time. Mental Status/Objective Patient Orientation: Person, Place, Time, Situation ADL-Treatment Therapy Code Descriptions/Definitions Functional [place] Measure: 0=Not Assessed/NA 4=Minimal Assistance 1=Total Assistance 5=Supervision or Setup 2=Maximal Assistance 6=Modified [place] 3=Moderate Assistance 7=Complete IndependenceSCALE: Activities may be completed with or without assistive devices. 4-Cydptomwko-nmxbdai completes the activity by him/herself with no assistance from a helper. 5-Set-up or Clean-up Assistance-helper sets up or cleans up; patient completes activity. [place] assists only prior to or following the activity. 4-Supervision or Touching Assistance-helper provides verbal cues and/or touching/steadying and/or contact guard assistance as patient completes activity. Assistance may be provided throughout the activity or intermittently. 3-Partial/Moderate Assistance-helper does LESS THAN HALF the effort. [place] lifts, holds or supports trunk or limbs, but provides less than half the effort. 2-Substantial/Maximal Assistance-helper does MORE THAN HALF the effort. [place] lifts or holds trunk or limbs and provides more than half the effort. 0-Pwwdmueve-cwznio does ALL the effort. Patient does none of the effort to complete the activity. Or, the assistance of 2 or more helpers is required for the patient to complete the activity. If activity was not attempted, code reason: 7-Patient Refused. 9-Not Applicable-not attempted and the patient did not perform the activity before the current illness, exacerbation or injury. 10-Not Attempted due to Environmental Limitations-(lack of equipment, weather restraints, etc.). 88-Not Attempted due to Medical Conditions or Safety Concerns. Other Treatment Pt completed B UE strengthening using 3# hand wt and light resistance theraband. Pt completed 2 hand wt exercises and 2 theraband exercises, 3 sets 10 reps each to increase strength for daily functional tasks. Pt fatigues quickly with exercises stating that arthritis is acting up. CGA for sit to stand from chair then required min A for EOB to supine. After session, pt sitting in recliner with call light/phone in reach. All needs met in room. OT Short Term Goals Short Term Goals Time Frame: Nov 23, 2022 Eatin Oral hygiene: 6 (standing w/ ADs following precautions) Upper body dressin OT [employer] Goals [employer] Goals Time Frame: Nov 25, 2022 Acute change in mental status: 0 Inattention: 0 Disorganized thinkin Altered level of consciousness: 0 Oral Hygiene (QC): 6 Toileting Hygiene (QC): 6 Shower/Bathe Self (QC): 6 Upper Body Dressing (QC): 6 Lower Body Dressing (QC): 6 On/Off Footwear (QC): 6 1=Demonstrate adherence to instructed precautions during ADL tasks. 2=Patient will verbalize/demonstrate understanding of assistive devices/modifications for ADL. 3=Patient will improve strength/tolerance for activity to enable patient to perform ADL's. OT Education/Plan Problem List/Assessment Assessment: Decreased Activ Tolerance, Decreased UE Strength Discharge Recommendations Plan/Recommendations: Continue POC Treatment Plan/Plan of Care Patient would benefit from OT for education, treatment and training to promote independence in ADL's, mobility, safety and/or upper extremity function for ADL's. Plan of Care: ADL Retraining, Concurrent Therapy, Functional Mobility, Group Exercise/Act as Ind, UE Funct Exercise/Act Treatment Duration: Nov 25, 2022 Frequency: At least 5 of 7 days/Wk (IRF) Estimated Hrs Per Day: 1.5 hours per day Agreement: Yes Rehab Potential: Good Time Start Time: 12:45 Stop Time: 13:15 DATE: Nov 23, 2022 Total Time Billed (hr/min): 30 Billed Treatment Time 1 visit-EX 1 (20 min) FA 1 (10 min) DOMINIC JACINTO Nov 23, 2022 13:17
--- NOTE | 2022-11-23 14:30 | Physical Therapy Daily Note ---
PT Daily Note-Current Subjective pt was in recliner uon arrival and willing for therapy. pt reports pain in LLE with any movement. nusring is aware. pt did keep nodding off during ther-ex and O2 was monitored. pt would run 82-84 while nodding to sleep and when awake O2 sould range 91-92. nursing was notified as pt could not remain awake. nursing preformed vitals and Decided to put 3L of continuous oxygen on pt. after 5 mins pt was steady at 95-97 with continuous O2. pt was left in room with call light and all needs met after therapy session this day. Pain Section J - Health Conditions 1. Rarely or not at all 2. Occasionally 3. Frequently 4. Almost constantly 8. Unable to answer Pain Effect on Sleep: 3 Pain Interference with Therapy: 3 Pain Interference w/Day-to-Day: 3 Transfers SCALE: Activities may be completed with or without assistive devices. 3-Tmvoufurms-vxujllt completes the activity by him/herself with no assistance from a helper. 5-Set-up or Clean-up Assistance-helper sets up or cleans up; patient completes activity. [place] assists only prior to or following the activity. 4-Supervision or Touching Assistance-helper provides verbal cues and/or touching/steadying and/or contact guard assistance as patient completes activi ty. Assistance may be provided throughout the activity or intermittently. 3-Partial/Moderate Assistance-helper does LESS THAN HALF the effort. [place] lifts, holds or supports trunk or limbs, but provides less than half the effort. 2-Substantial/Maximal Assistance-helper does MORE THAN HALF the effort. [place] lifts or holds trunk or limbs and provides more than half the effort. 7-Ewbrfrona-nxhhii does ALL the effort. Patient does none of the effort to complete the activity. Or, the assistance of 2 or more helpers is required for the patient to complete the activity. If activity was not attempted, code reason: 7-Patient Refused. 9-Not Applicable-not attempted and the patient did not perform the activity before the current illness, exacerbation or injury. 10-Not Attempted due to Environmental Limitations-(lack of equipment, weather restraints, etc.). 88-Not Attempted due to Medical Conditions or Safety Concerns. Sit to Stand (QC): 4 Weight Bearing Right Lower Extremity: Right Full Weight Bearing Left Lower Extremity: Left Weight Bearing/Tolerated Treatments PT preformed seated ther-ex in all planes of motion available for 4 sets fo 15 each with rest in between each set. pt preformed sit to stand with SBA standing endurance at 4 mins. pt then preformed 2 stand pivot transfers with SBA. pt did requires multiple rest breaks secondary to fatigue and left sided LE pain. Assessment Current Status: Fair Progress PT Retirement Goals Criminal Justice Social Worker Goals PT Retirement Goals Time Frame: Nov 25, 2022 Roll Left & Right (QC): 6 (Mod I with funcitonal mobility ) Sit to Lying (QC): 6 (Mod I with funcitonal mobility ) Lying-Sitting on Side/Bed(QC): 6 (Mod I with funcitonal mobility ) Sit to Stand (QC): 6 (Mod I with funcitonal mobility ) Chair/Qro-or-Ujylz Xfer(QC): 6 (Mod I with funcitonal mobility ) Toilet Transfer (QC): 6 (Mod I with funcitonal mobility ) Car Transfer (QC): 6 (Mod I with funcitonal mobility ) Does the Patient Walk: Yes Walk 10 feet (QC): 6 (Mod I with funcitonal mobility ) Walk 50ft with 2 Turns (QC): 6 (Mod I with funcitonal mobility ) Walk 150 ft (QC): 6 (Mod I with funcitonal mobility ) Walking 10ft on Uneven Surface: 6 (Mod I with funcitonal mobility ) 1 Step (curb) (QC): 6 (Mod I with funcitonal mobility ) 4 Steps (QC): 6 (Mod I with funcitonal mobility ) 12 Steps (QC): 6 (Mod I with funcitonal mobility ) Picking up an Object (QC): 6 (Mod I with funcitonal mobility ) Does the Pt use WC or Scooter?: No Wheel 50 feet with 2 turns (QC: 9 Type: N/A Wheel 150 feet: 9 Type: N/A PT Plan Treatment/Plan Treatment Plan: Continue Plan of Care Treatment Plan: Bed Mobility, Concurrent Therapy, Education, Functional Activity [place], Functional Strength, Group Therapy, Gait, Safety, Therapeutic Exercise, Transfers Treatment Duration: Nov 25, 2022 Frequency: At least 5 of 7 days/Wk (IRF) Estimated Hrs Per Day: 1.5 hours per day Patient and/or Family Agrees t: Yes Time Time In: 1030 Time Out: 1200 DATE: Nov 23, 2022 Total Billed Treatment Time: 90 Total Billed Treatment 1 EX x 3 fa X 3 Martine Brooks EXECUTIVE ADMINISTRATIVE ASSISTANT Nov 23, 2022 14:30
[2022-11-23] MEDS: RIVAROXABAN 20 MG TABLET (XARELTO) PO SCH (17:01)
[2022-11-23 19:39] VITALS: BP 147/70
[2022-11-23] MEDS: amLODIPine 10 MG (NORVASC) TAB PO SCH (21:12)
[2022-11-24] MEDS: oxyCODONE/APAP 5/325MG (PERCOCET 5) TABLET PO PRN ×3 (03:48→21:47)
--- NOTE | 2022-11-24 05:42 | PM&R Progress Note ---
Subjective HPI/CC On Admission Date Seen by Provider: Nov 24, 2022 Time Seen by Provider: 12:00 Subjective/Events-last exam 11/24/2022: Patient seems to be doing better Improved for discharge tomorrow Pain is still present but doing better 11/23/2022: Patient feels a little bit better Pain is still an issue I explained his x-ray looked really good and alignment of the hardware Bowels are still moving Tried to reassure is much as possible 11/22/2022: Patient depressed and worried about his left hip He sat down really hard he feels like it started hurting after that X-ray will be obtained Bowels are still moving 11/21/2022: Patient doing a lot better Had 5 bowel movements yesterday Pain is getting better Family at bedside 11/20/2022: Constipation reported Taking a lot of laxatives Bowel sounds are present but x-ray obtained to be sure this was not an ileus and it shows constipation 11/19/2022: Patient doing pretty well Soapsuds enema may be required since his bowels still have not moved Needs to drink more fluid Son at the bedside 11/18/2022: Patient doing really well Pain is pretty well controlled Labs reviewed No bowel movement yet so we will maintain regimen Review of Systems General: Fatigue, Malaise Objective Exam Vital Signs Vital Signs Date Time Temp Pulse Resp B/P (MAP) Pulse Ox O2 Delivery O2 Flow Rate FiO2 11/24/22 20:38 36.4 66 16 157/68 (97) 94 Room Air 11/22/22 06:56 3.00 Capillary Refill : General Appearance: No Apparent Distress, WD/WN, Chronically ill HEENT: PERRL/EOMI, Normal ENT Inspection, Pharynx Normal Neck: Full Range of Motion, Normal Inspection, Non Tender, Supple, Carotid Bruit Respiratory: Chest Non Tender, Lungs Clear, Normal Breath Sounds, No Accessory Muscle Use, No Respiratory Distress Cardiovascular: Regular Rate, Rhythm, No Edema, No Gallop, No JVD, No Murmur, Normal Peripheral Pulses Gastrointestinal: Normal Bowel Sounds, No Organomegaly, No Pulsatile Mass, Non Tender, Soft Back: Normal Inspection, No CVA Tenderness, No Vertebral Tenderness Extremity: Normal Capillary Refill, Normal Inspection, Normal Range of Motion (Except left leg), Non Tender, No Calf Tenderness, No Pedal Edema Neurologic/Psychiatric: Alert, Oriented x3, No Motor/Sensory Deficits, Normal Mood/Affect, box office attendant II-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 FIM Transfers Therapy Code Descriptions/Definitions Functional [place] Measure: 0=Not Assessed/NA 4=Minimal Assistance 1=Total Assistance 5=Supervision or Setup 2=Maximal Assistance 6=Modified [place] 3=Moderate Assistance 7=Complete IndependenceSCALE: Activities may be completed with or without assistive devices. 6-Rblvelqpjz-ayayxjg completes the activity by him/herself with no assistance from a helper. 5-Set-up or Clean-up Assistance-helper sets up or cleans up; patient completes activity. [place] assists only prior to or following the activity. 4-Supervision or Touching Assistance-helper provides verbal cues and/or touching/steadying and/or contact guard assistance as patient completes activity. Assistance may be provided throughout the activity or intermittently. 3-Partial/Moderate Assistance-helper does LESS THAN HALF the effort. [place] lifts, holds or supports trunk or limbs, but provides less than half the effort. 2-Substantial/Maximal Assistance-helper does MORE THAN HALF the effort. [place] lifts or holds trunk or limbs and provides more than half the effort. 5-Imnkqcoww-aikpgo does ALL the effort. Patient does none of the effort to complete the activity. Or, the assistance of 2 or more helpers is required for the patient to complete the activity. If activity was not attempted, code reason: 7-Patient Refused. 9-Not Applicable-not attempted and the patient did not perform the activity before the current illness, exacerbation or injury. 10-Not Attempted due to Environmental Limitations-(lack of equipment, weather restraints, etc.). 88-Not Attempted due to Medical Conditions or Safety Concerns. Roll Left to Right (QC): 4 (SBA) Sit to Lying (QC): 3 Sit to Stand (QC): 4 Chair/Mgi-uw-Akdxu Xfer(QC): 4 (SBA) Car Transfer (QC): 4 (SBA) Gait Training Does the Patient Walk?: Yes Distance: 80, 80 Walk 10 feet (QC): 4 Walk 50 ft with 2 Turns(QC): 4 Walk 150 ft (QC): 4 Walking 10ft/uneven surface-QC: 4 (CGA ) Gait Persons Needed: 1 Gait Assistive Device: FWW Wheelchair Training Does the Pt Use a Wheelchair?: No Wheel 50 ft with 2 turns (QC): 9 Wheel 150 ft (QC): 9 Type of Wheelchair: N/A Stair Training #of Steps: 12 1 Step (curb) (QC): 4 (CGA ) 4 Steps (QC): 4 (CGA ) 12 Steps (QC): 4 (CGA ) Balance Picking up an Object (QC): 4 (SBA) ADL-Treatment Eating (QC): 6 Oral Hygiene (QC): 4 Shower/Bathe Self (QC): 3 (Drying L foot/toes) Upper Body Dressing (QC): 5 Lower Body Dressing (QC): 4 On/Off Footwear (QC): 3 Toileting Hygiene (QC): 3 (Assist to cleanse buttocks) Toilet Transfer (QC): 3 Assessment/Plan Assessment and Plan Assess & Plan/Chief Complaint Assessment: Status post left hip replacement POD #8 Paroxysmal atrial fibrillation CAD RAIMUNDO History of diverticulitis Constipation-Severe and refractory to laxatives x-ray shows constipation no ileus or obstructionresolved on 11/20/2022 Chronic urinary retention Chronic back pain Leukocytosisresolved Plan: Pain control Supportive care PT and OT Home meds 11/18/2022: Bowel regimen Supportive care 11/19/2022: Aggressive constipation treatment 11/20/2022: More laxatives Ambulate 11/21/2022: Supportive care 11/22/2022: Check x-ray left hip 11/23/2022: Supportive care Reassured 11/24/2022: Set for discharge tomorrow (1) Status post left hip replacement (2) Constipation (3) RAIMUNDO treated with BiPAP (4) CAD (coronary artery disease) (5) PAF (paroxysmal atrial fibrillation) PONCE KAUR DO Nov 24, 2022 05:42
[2022-11-24] MEDS: ASCORBIC ACID (VIT C) 500 MG TABLET PO SCH (06:40)
[2022-11-24] MEDS: CYANOCOBALAMIN 1,000 MCG (VITAMIN B-12) TABLET PO SCH (06:40)
[2022-11-24 08:00] VITALS: BP 130/62
[2022-11-24] MEDS: polyethylene glycoL POWDER 17 GM (MIRALAX) PACK PO SCH ×4 (10:16→21:48)
[2022-11-24] MEDS: PREGABALIN 75 MG (LYRICA) CAP PO SCH ×2 (10:16→21:46)
[2022-11-24] MEDS: TOLTERODINE LA 2 MG (DETROL LA) CAP PO SCH (10:16)
[2022-11-24] MEDS: VITAMIN D3 25 MCG (1,000 UNITS) TABLET PO SCH (10:16)
[2022-11-24] MEDS: PANTOPRAZOLE 20 MG TABLET (PROTONIX) PO SCH (10:17)
[2022-11-24] MEDS: LOSARTAN 25 MG (COZAAR) TAB PO SCH (10:17)
[2022-11-24] MEDS: DOCUSATE SODIUM 100 MG (COLACE) CAP PO SCH ×2 (10:17→21:53)
[2022-11-24] MEDS: SENNA W/DOCUSATE (SENOKOT S) TABLET PO SCH ×2 (10:17→21:49)
[2022-11-24] MEDS: ASPIRIN E.C. 81 MG (ECOTRIN) TAB PO SCH (10:17)
--- NOTE | 2022-11-24 12:19 | Occupational Ther Daily Note ---
OT Current Status-Daily Note Subjective Pt alert, sitting in recliner. Pt agrees to therapy. Pt is progressing well with mobility and pain today. Mental Status/Objective Patient Orientation: Person, Place, Time, Situation ADL-Treatment Pt agrees to shower. Completes shower using shower bench, grabbars, hand held shower and LH sponge, SBA only in standing for safety while pt cleanses buttocks. Set up for UBD. SBA for LBD while hiking pants over hips, using curing machine operator to don clothing over feet, doffs by self. SBA for toileting while manipulating clothing and attempting to cleanse after BM. Pt uses sock aide to don compression socks and L sock while dons R sock and doffs B socks by self. Standing at sink, pt completes oral care independently. Eating independently. educated on AE that pt uses and how pt is able to complete tasks by self and when to assist pt. Pt's stated that they have tub transfer bench at home to use. After session, pt sitting in recliner with call light/phone in reach. All needs met in room. Therapy Code Descriptions/Definitions Functional [place] Measure: 0=Not Assessed/NA 4=Minimal Assistance 1=Total Assistance 5=Supervision or Setup 2=Maximal Assistance 6=Modified [place] 3=Moderate Assistance 7=Complete IndependenceSCALE: Activities may be completed with or without assistive devices. 1-Gsoxrlkadf-fmuqlri completes the activity by him/herself with no assistance from a helper. 5-Set-up or Clean-up Assistance-helper sets up or cleans up; patient completes activity. [place] assists only prior to or following the activity. 4-Supervision or Touching Assistance-helper provides verbal cues and/or touching/steadying and/or contact guard assistance as patient completes activity. Assistance may be provided throughout the activity or intermittently. 3-Partial/Moderate Assistance-helper does LESS THAN HALF the effort. [place] lifts, holds or supports trunk or limbs, but provides less than half the effort. 2-Substantial/Maximal Assistance-helper does MORE THAN HALF the effort. [place] lifts or holds trunk or limbs and provides more than half the effort. 2-Scvtvsuni-gtpzib does ALL the effort. Patient does none of the effort to complete the activity. Or, the assistance of 2 or more helpers is required for the patient to complete the activity. If activity was not attempted, code reason: 7-Patient Refused. 9-Not Applicable-not attempted and the patient did not perform the activity before the current illness, exacerbation or injury. 10-Not Attempted due to Environmental Limitations-(lack of equipment, weather restraints, etc.). 88-Not Attempted due to Medical Conditions or Safety Concerns. Eating (QC): 6 Oral Hygiene (QC): 6 Shower/Bathe Self (QC): 4 Upper Body Dressing (QC): 5 Lower Body Dressing (QC): 4 On/Off Footwear: 5 Toileting Hygiene (QC): 4 Toilet Transfer (QC): 6 (with higher surface) BIMS CAM BIMS Expression of Ideas and Wants: Without Difficulty Understanding Verbal Content: Understands Brief Interview/Mental Status: Yes IRF BOB BIMS: IRF BOB BIMS Response (Comments) Value Repitition of Three Words Three 3 Recalls Socks Yes, No Cue Required 2 Recalls Blue Yes, No Cue Required 2 Recalls Bed Yes, No Cue Required 2 Year Correct 3 Month Accurate Within 5 Days 2 Day Correct 1 Total 15 Patient Normally Able to Recal: Current Session, Location of own room, Staff Names and faces, That he/she in a [facility] Should Staff Asses. Mental St.: No CAM Mental Status Change/Baseline: 0 Inattention: 0 Disorganized thinkin Altered level of consciousness: 0 OT Short Term Goals Short Term Goals Time Frame: Nov 23, 2022 Eatin Oral hygiene: 6 (standing w/ ADs following precautions) Upper body dressin OT Alf Goals Alf Goals Time Frame: Nov 25, 2022 Acute change in mental status: 0 Inattention: 0 Disorganized thinkin Altered level of consciousness: 0 Oral Hygiene (QC): 6 Toileting Hygiene (QC): 6 Shower/Bathe Self (QC): 6 Upper Body Dressing (QC): 6 Lower Body Dressing (QC): 6 On/Off Footwear (QC): 6 1=Demonstrate adherence to instructed precautions during ADL tasks. 2=Patient will verbalize/demonstrate understanding of assistive devices/modifications for ADL. 3=Patient will improve strength/tolerance for activity to enable patient to perform ADL's. OT Education/Plan Problem List/Assessment Assessment: Impaired Self-Care Skills Discharge Recommendations Plan/Recommendations: Continue POC Treatment Plan/Plan of Care Patient would benefit from OT for education, treatment and training to promote independence in ADL's, mobility, safety and/or upper extremity function for ADL's. Plan of Care: ADL Retraining, Concurrent Therapy, Functional Mobility, Group Exercise/Act as Ind, UE Funct Exercise/Act Treatment Duration: Nov 25, 2022 Frequency: At least 5 of 7 days/Wk (IRF) Estimated Hrs Per Day: 1.5 hours per day Agreement: Yes Rehab Potential: Good Time Start Time: 11:00 Stop Time: 12:00 DATE: Nov 24, 2022 Total Time Billed (hr/min): 60 Billed Treatment Time 1 visit-ADL 4 (60 min) DOMINIC JACINTO Nov 24, 2022 12:19
--- NOTE | 2022-11-24 15:02 | Occupational Ther Daily Note ---
OT Current Status-Daily Note Subjective Pt seen in his room, up in recliner, agreeable to OT. No pain mentioned. Appearance Alert and cooperative ADL-Treatment Therapy Code Descriptions/Definitions Functional [place] Measure: 0=Not Assessed/NA 4=Minimal Assistance 1=Total Assistance 5=Supervision or Setup 2=Maximal Assistance 6=Modified [place] 3=Moderate Assistance 7=Complete IndependenceSCALE: Activities may be completed with or without assistive devices. 6-Ufjpvcaozu-jcwrmpv completes the activity by him/herself with no assistance from a helper. 5-Set-up or Clean-up Assistance-helper sets up or cleans up; patient completes activity. [place] assists only prior to or following the activity. 4-Supervision or Touching Assistance-helper provides verbal cues and/or touching/steadying and/or contact guard assistance as patient completes activity. Assistance may be provided throughout the activity or intermittently. 3-Partial/Moderate Assistance-helper does LESS THAN HALF the effort. [place] lifts, holds or supports trunk or limbs, but provides less than half the effort. 2-Substantial/Maximal Assistance-helper does MORE THAN HALF the effort. [place] lifts or holds trunk or limbs and provides more than half the effort. 5-Daybdyeve-igpsca does ALL the effort. Patient does none of the effort to complete the activity. Or, the assistance of 2 or more helpers is required for the patient to complete the activity. If activity was not attempted, code reason: 7-Patient Refused. 9-Not Applicable-not attempted and the patient did not perform the activity before the current illness, exacerbation or injury. 10-Not Attempted due to Environmental Limitations-(lack of equipment, weather restraints, etc.). 88-Not Attempted due to Medical Conditions or Safety Concerns. Other Treatment Pt completed 2 sets of 10 repetitions of 5 different bilat UE exercises using yellow theraband, as needed to strengthen arms for assisting with transfers and ADLs. Pt followed along with written instruction sheet, needing occasional physical or verbal assistance to do each exercise correctly. When he completed the second set of 10 exercises, he needed less assistance. He was able to switch sides with the same exercise with ease and tracked reps with no problem. pt left up in recliner, all needs met. Education OT Patient Education: Exercise program, Purpose of tx/functional activities Teaching Recipient: Patient Teaching Methods: Demonstration, Discussion Response to Teaching: Verbalize Understanding, Return Demonstration, Reinforcement Needed OT Short Term Goals Short Term Goals Time Frame: Nov 23, 2022 Eatin Oral hygiene: 6 (standing w/ ADs following precautions) Upper body dressin OT Mcc Goals Mcc Goals Time Frame: Nov 25, 2022 Acute change in mental status: 0 Inattention: 0 Disorganized thinkin Altered level of consciousness: 0 Oral Hygiene (QC): 6 Toileting Hygiene (QC): 6 Shower/Bathe Self (QC): 6 Upper Body Dressing (QC): 6 Lower Body Dressing (QC): 6 On/Off Footwear (QC): 6 1=Demonstrate adherence to instructed precautions during ADL tasks. 2=Patient will verbalize/demonstrate understanding of assistive d evices/modifications for ADL. 3=Patient will improve strength/tolerance for activity to enable patient to perform ADL's. OT Education/Plan Discharge Recommendations Plan/Recommendations: Continue POC Treatment Plan/Plan of Care Patient would benefit from OT for education, treatment and training to promote independence in ADL's, mobility, safety and/or upper extremity function for ADL's. Plan of Care: ADL Retraining, Concurrent Therapy, Functional Mobility, Group Exercise/Act as Ind, UE Funct Exercise/Act Treatment Duration: Nov 25, 2022 Frequency: At least 5 of 7 days/Wk (IRF) Estimated Hrs Per Day: 1.5 hours per day Agreement: Yes Rehab Potential: Good Time Start Time: 14:00 Stop Time: 14:35 DATE: Nov 24, 2022 Total Time Billed (hr/min): 35 Billed Treatment Time visit, 35 minutes exercise JOANN CHAVEZ OT Nov 24, 2022 15:02
--- NOTE | 2022-11-24 15:11 | Physical Therapy Daily Note ---
PT Daily Note-Current Subjective Pt reports he is doing well and is agreeable to PT. Pt reported L knee pain at 4/10. Pain Numeric Pain Scale: 4 Location: Left Location Body Site: Knee Section J - Health Conditions 1. Rarely or not at all 2. Occasionally 3. Frequently 4. Almost constantly 8. Unable to answer Pain Effect on Sleep: 2 Pain Interference with Therapy: 2 Pain Interference w/Day-to-Day: 2 Transfers SCALE: Activities may be completed with or without assistive devices. 1-Jcylacdnnh-qnrrrtn completes the activity by him/herself with no assistance from a helper. 5-Set-up or Clean-up Assistance-helper sets up or cleans up; patient completes activity. Ragland assists only prior to or following the activity. 4-Supervision or Touching Assistance-helper provides verbal cues and/or touching/steadying and/or contact guard assistance as patient completes activity. Assistance may be provided throughout the activity or intermittently. 3-Partial/Moderate Assistance-helper does LESS THAN HALF the effort. Ragland lifts, holds or supports trunk or limbs, but provides less than half the effort. 2-Substantial/Maximal Assistance-helper does MORE THAN HALF the effort. Ragland lifts or holds trunk or limbs and provides more than half the effort. 9-Avzjgucwn-xqntzz does ALL the effort. Patient does none of the effort to complete the activity. Or, the assistance of 2 or more helpers is required for the patient to complete the activity. If activity was not attempted, code reason: 7-Patient Refused. 9-Not Applicable-not attempted and the patient did not perform the activity before the current illness, exacerbation or injury. 10-Not Attempted due to Environmental Limitations-(lack of equipment, weather restraints, etc.). 88-Not Attempted due to Medical Conditions or Safety Concerns. Roll Left & Right (QC): 6 Sit to Lying (QC): 6 Lying to Sitting/Side of Bed(Q: 6 Sit to Stand (QC): 6 Chair/Tep-vq-Awusn Xfer(QC): 6 Toilet Transfer (QC): 6 Car Transfer (QC): 6 Weight Bearing Right Lower Extremity: Right Full Weight Bearing Left Lower Extremity: Left Weight Bearing/Tolerated Gait Training Does the Patient Walk?: Yes Distance: 300ft Walk 10 feet (QC): 6 Walk 50 ft with 2 Turns(QC): 6 Walk 150 ft (QC): 6 Walking 10ft/uneven surface-QC: 6 Gait Assistive Device: FWW Wheelchair Training Does the Pt Use a Wheelchair?: No Wheel 50 ft with 2 turns (QC): 9 Wheel 150 ft (QC): 9 Type of Wheelchair: N/A Stair Training Stair Training: Handrails/: 2 handrails #of Steps: 12 1 Step (curb) (QC): 6 4 Steps (QC): 6 12 Steps (QC): 6 Stairs: Pattern: Step to Balance Picking up an Object (QC): 6 Special Test Comments KU standing balance scale = 5/5 Treatments QCs and family training completed on this date. Pt and spouse are agreeable and deny any questions or concerns after treatment. Pt is Mod I with all aspects of functional mobility with the FWW. Pt completed seated B LE Ther Ex x 15 reps each with the red Tband. Pt left in recliner with call light in reach, all needs met, and spouse present. Assessment Current Status: Good Progress Pt tolerated PT well and has met all set goals. D/C planned for tomorrow 11/25/2022 PT Half-Way Goals Half-Way Goals PT Half-Way Goals Time Frame: Nov 25, 2022 Roll Left & Right (QC): 6 (Mod I with funcitonal mobility ) Sit to Lying (QC): 6 (Mod I with funcitonal mobility ) Lying-Sitting on Side/Bed(QC): 6 (Mod I with funcitonal mobility ) Sit to Stand (QC): 6 (Mod I with funcitonal mobility ) Chair/Xot-xj-Ojkrs Xfer(QC): 6 (Mod I with funcitonal mobility ) Toilet Transfer (QC): 6 (Mod I with funcitonal mobility ) Car Transfer (QC): 6 (Mod I with funcitonal mobility ) Does the Patient Walk: Yes Walk 10 feet (QC): 6 (Mod I with funcitonal mobility ) Walk 50ft with 2 Turns (QC): 6 (Mod I with funcitonal mobility ) Walk 150 ft (QC): 6 (Mod I with funcitonal mobility ) Walking 10ft on Uneven Surface: 6 (Mod I with funcitonal mobility ) 1 Step (curb) (QC): 6 (Mod I with funcitonal mobility ) 4 Steps (QC): 6 (Mod I with funcitonal mobility ) 12 Steps (QC): 6 (Mod I with funcitonal mobility ) Picking up an Object (QC): 6 (Mod I with funcitonal mobility ) Does the Pt use WC or Scooter?: No Wheel 50 feet with 2 turns (QC: 9 Type: N/A Wheel 150 feet: 9 Type: N/A KU standing balance scale goal = 5/5 PT Plan Problem List Problem List: Activity Tolerance, Functional Strength, Safety, Balance, Gait, Transfer, Bed Mobility, ROM Treatment/Plan Treatment Plan: Continue Plan of Care Treatment Plan: Bed Mobility, Concurrent Therapy, Education, Functional Activity Lukas, Functional Strength, Group Therapy, Gait, Safety, Therapeutic Exercise, Transfers Treatment Duration: Nov 25, 2022 Frequency: At least 5 of 7 days/Wk (IRF) Estimated Hrs Per Day: 1.5 hours per day Patient and/or Family Agrees t: Yes Safety Risks/Education Patient Education: Gait Training, Transfer Techniques, Steps, Issued Written HEP, Reviewed Precautions, Correct Positioning, Safety Issues Teaching Recipient: Patient, Significant Other Teaching Methods: Demonstration, Discussion Response to Teaching: Verbalize Understanding, Return Demonstration Discharge Recommendations Therapy Discharge Recommendati: Home & Family Discharge Status/Home Program Cont per POC; D/C on 11/25/2022 Barriers to Progress Pain Target Placement Home with spouse and family assistance: services Time Time In: 900 Time Out: 1030 DATE: Nov 24, 2022 Total Billed Treatment Time: 90 Total Billed Treatment 90 min 1 Visit FA x 3 GT x 2 EX x 1 ROBLES VALDIVIA PT Nov 24, 2022 15:11
[2022-11-24] MEDS: RIVAROXABAN 20 MG TABLET (XARELTO) PO SCH (17:27)
[2022-11-24 20:38] VITALS: BP 157/68
[2022-11-24] MEDS: amLODIPine 10 MG (NORVASC) TAB PO SCH (21:46)
[2022-11-25] MEDS: polyethylene glycoL POWDER 17 GM (MIRALAX) PACK PO SCH ×4 (00:11→12:15)
[2022-11-25] MEDS: CYANOCOBALAMIN 1,000 MCG (VITAMIN B-12) TABLET PO SCH (05:14)
[2022-11-25] MEDS: ASCORBIC ACID (VIT C) 500 MG TABLET PO SCH (05:15)
[2022-11-25] MEDS: oxyCODONE/APAP 5/325MG (PERCOCET 5) TABLET PO PRN ×2 (05:15→09:18)
[2022-11-25] MEDS ORDERED: TRM50T PO (05:53)
[2022-11-25] MEDS ORDERED: SENN-271 PO (05:53)
[2022-11-25] MEDS ORDERED: OXYC1TAB87 PO (05:53)
[2022-11-25] MEDS ORDERED: ONDA4TAB11 PO (05:53)
--- NOTE | 2022-11-25 05:55 | Discharge Summary ---
Diagnosis/Chief Complaint Date of Admission Nov 17, 2022 at 11:55 Date of Discharge Discharge Date: Nov 25, 2022 Discharge Diagnosis Assessment: Status post left hip replacement POD #8 Paroxysmal atrial fibrillation CAD RAIMUNDO History of diverticulitis Constipation-Severe and refractory to laxatives x-ray shows constipation no ileus or obstructionresolved on 11/20/2022 Chronic urinary retention Chronic back pain Leukocytosisresolved Plan: Pain control Supportive care PT and OT Home meds 11/18/2022: Bowel regimen Supportive care 11/19/2022: Aggressive constipation treatment 11/20/2022: More laxatives Ambulate 11/21/2022: Supportive care 11/22/2022: Check x-ray left hip 11/23/2022: Supportive care Reassured 11/24/2022: Set for discharge tomorrow (1) Status post left hip replacement (2) Constipation (3) RAIMUNDO treated with BiPAP (4) CAD (coronary artery disease) (5) PAF (paroxysmal atrial fibrillation) Discharge Summary Discharge Physical Examination Allergies: Coded Allergies: Znjcfvj-FWB-AnF Reductase Inhibitor (Verified Allergy, Unknown, 07/05/15) hydrocodone (Verified Allergy, Unknown, pt has received morphine & hydromorphone in the past, 09/02/20) Vitals & I&Os Vital Signs Date Time Temp Pulse Resp B/P (MAP) Pulse Ox O2 Delivery O2 Flow Rate FiO2 11/25/22 14:08 36.2 66 18 125/60 92 Room Air 3.00 General Appearance: Alert, Oriented X3, Cooperative Respiratory: Clear to Auscultation Cardiovascular: Regular Rate Psych/Mental Status: Mental Status NL Hospital Course Was the Problem List Reviewed?: Yes Uneventful course after he was admitted from [facility] following hip replacement. Bowel function finally regained normalcy after multiple laxatives. Xray obtained due to reported he landed on chair a bit too hard and had pain but xray showed good alignment. Overall he did well and was DC in improved condition. Labs (last 24 hrs) Laboratory Tests 11/18/22 06:30: White Blood Count 16.2H, Red Blood Count 3.54L, Hemoglobin 11.8L, Hematocrit 35L , Mean Corpuscular Volume 98, Mean Corpuscular Hemoglobin 33, Mean Corpuscular Hemoglobin Concent 34, Red Cell Distribution Width 13.5, Platelet Count 230, Mean Platelet Volume 9.7, Immature Granulocyte % (Auto) 1, Neutrophils (%) (Auto) 79H, Lymphocytes (%) (Auto) 7L, Monocytes (%) (Auto) 13H, Eosinophils (%) (Auto) 0, Basophils (%) (Auto) 0, Neutrophils # (Auto) 12.8H, Lymphocytes # (Auto) 1.2, Monocytes # (Auto) 2.0H, Eosinophils # (Auto) 0.0, Basophils # (Auto) 0.0, Immature Granulocyte # (Auto) 0.1, Neutrophils % (Manual) 80, Lymphocytes % (Manual) 7, Monocytes % (Manual) 13, Eosinophils % (Manual) 0, Basophils % (Manual) 0, Band Neutrophils 0, Blood Morphology Comment NORMAL, Sodium Level 137, Potassium Level 4.6, Chloride Level 106, Carbon Dioxide Level 22, Anion Gap 9, Blood Urea Nitrogen 22H, Creatinine 0.98, Estimat Glomerular Filtration Rate 75, BUN/Creatinine Ratio 22, Glucose Level 126H, Calcium Level 10.1, Corrected Calcium 10.3H, Total Bilirubin 0.3, Aspartate Amino Transf (AST/SGOT) 13, Alanine Aminotransferase (ALT/SGPT) 8, Alkaline Phosphatase 60, Total Protein 6.2L, Albumin 3.8 11/21/22 05:34: White Blood Count 8.9, Red Blood Count 3.38L, Hemoglobin 11.1L, Hematocrit 33L, Mean Corpuscular Volume 98, Mean Corpuscular Hemoglobin 33, Mean Corpuscular Hemoglobin Concent 34, Red Cell Distribution Width 13.6, Platelet Count 217, Mean Platelet Volume 9.6, Immature Granulocyte % (Auto) 4, Neutrophils (%) (Auto) 55, Lymphocytes (%) (Auto) 25, Monocytes (%) (Auto) 14H, Eosinophils (%) (Auto) 2, Basophils (%) (Auto) 1, Neutrophils # (Auto) 4.9, Lymphocytes # (Auto) 2.2, Monocytes # (Auto) 1.2H, Eosinophils # (Auto) 0.2, Basophils # (Auto) 0.1, Immature Granulocyte # (Auto) 0.3H, Sodium Level 132L, Potassium Level 4.3, Chloride Level 102, Carbon Dioxide Level 23, Anion Gap 7, Blood Urea Nitrogen 25H, Creatinine 1.05, Estimat Glomerular Filtration Rate 69, BUN/Creatinine Ratio 24, Glucose Level 107H, Calcium Level 10.2H, Corrected Calcium 10.7H, Total Bilirubin 0.5, Aspartate Amino Transf (AST/SGOT) 16, Alanine Aminotransferase (ALT/SGPT) 14, Alkaline Phosphatase 65, Total Protein 5.6L, Albumin 3.4 Pending Labs Laboratory Tests 11/18/22 06:30: White Blood Count 16.2, Red Blood Count 3.54, Hemoglobin 11.8, Hematocrit 35, Mean Corpuscular Volume 98, Mean Corpuscular Hemoglobin 33, Mean Corpuscular Hemoglobin Concent 34, Red Cell Distribution Width 13.5, Platelet Count 230, Mean Platelet Volume 9.7, Immature Granulocyte % (Auto) 1, Neutrophils (%) (Auto) 79, Lymphocytes (%) (Auto) 7, Monocytes (%) (Auto) 13, Eosinophils (%) (Auto) 0, Basophils (%) (Auto) 0, Neutrophils # (Auto) 12.8, Lymphocytes # (Auto) 1.2, Monocytes # (Auto) 2.0, Eosinophils # (Auto) 0.0, Basophils # (Auto) 0.0, Immature Granulocyte # (Auto) 0.1, Neutrophils % (Manual) 80, Lymphocytes % (Manual) 7, Monocytes % (Manual) 13, Eosinophils % (Manual) 0, Basophils % (Manual) 0, Band Neutrophils 0, Blood Morphology Comment NORMAL, Sodium Level 137, Potassium Level 4.6, Chloride Level 106, Carbon Dioxide Level 22, Anion Gap 9, Blood Urea Nitrogen 22, Creatinine 0.98, Estimat Glomerular Filtration Rate 75, BUN/Creatinine Ratio 22, Glucose Level 126, Calcium Level 10.1, Corrected Calcium 10.3, Total Bilirubin 0.3, Aspartate Amino Transf (AST/SGOT) 13, Alanine Aminotransferase (ALT/SGPT) 8, Alkaline Phosphatase 60, Total Protein 6.2, Albumin 3.8 11/21/22 05:34: White Blood Count 8.9, Red Blood Count 3.38, Hemoglobin 11.1, Hematocrit 33, Mean Corpuscular Volume 98, Mean Corpuscular Hemoglobin 33, Mean Corpuscular Hemoglobin Concent 34, Red Cell Distribution Width 13.6, Platelet Count 217, Me an Platelet Volume 9.6, Immature Granulocyte % (Auto) 4, Neutrophils (%) (Auto) 55, Lymphocytes (%) (Auto) 25, Monocytes (%) (Auto) 14, Eosinophils (%) (Auto) 2, Basophils (%) (Auto) 1, Neutrophils # (Auto) 4.9, Lymphocytes # (Auto) 2.2, Monocytes # (Auto) 1.2, Eosinophils # (Auto) 0.2, Basophils # (Auto) 0.1, Immature Granulocyte # (Auto) 0.3, Sodium Level 132, Potassium Level 4.3, Chloride Level 102, Carbon Dioxide Level 23, Anion Gap 7, Blood Urea Nitrogen 25, Creatinine 1.05, Estimat Glomerular Filtration Rate 69, BUN/Creatinine Ratio 24, Glucose Level 107, Calcium Level 10.2, Corrected Calcium 10.7, Total Bilirubin 0.5, Aspartate Amino Transf (AST/SGOT) 16, Alanine Aminotransferase (ALT/SGPT) 14, Alkaline Phosphatase 65, Total Protein 5.6, Albumin 3.4 Discharge Home Medications: Active Scripts Active Ondansetron Odt (Ondansetron) 4 Mg Tab.rapdis 4 Mg PO Q6H PRN Stool Softener-Laxative Tablet (Sennosides/Docusate Sodium) 8.6 Mg-50 Mg Tablet 1 Ea PO BID Tramadol HCl 50 Mg Tablet 50 Mg PO Q4HR PRN Percocet 5-325 mg Tablet (Oxycodone HCl/Acetaminophen) 1 Each Tablet 1-2 Tab PO Q4H PRN Reported Tolterodine Tartrate 2 Mg Tablet 2 Mg PO BID Pregabalin 75 Mg Capsule 75 Mg PO Q12H Omeprazole 20 Mg Tab.rap.dr 20 Mg PO DAILY Move Free Joint [email or web address] Tablet (Glucosam/Chond/Hyalu/Cf Borate) 750 Mg-100 Mg-1. 65 Mg-108 Mg Tablet 1 Each PO BID Vitamin B-12 (Cyanocobalamin (Vitamin B-12)) 1,000 Mcg Lozenge 1,000 Mcg PO DAILY Tylenol 8 Hour (Acetaminophen) 650 Mg Tablet.er 650 Mg PO Q6H PRN Aspirin EC (Aspirin) 81 Mg Tablet.dr 81 Mg PO DAILY Telmisartan 40 Mg Tablet 20 Mg PO DAILY TAKES OF A 40NG TAB Citalopram HBr (Citalopram Hydrobromide) 10 Mg Tablet 10 Mg PO HS Xarelto (Rivaroxaban) 20 Mg Tablet 20 Mg PO 1800 W/MEAL Amlodipine Besylate 10 Mg Tablet 10 Mg PO HS Vitamin D3 (Cholecalciferol (Vitamin D3)) 25 Mcg Capsule 25 Mcg PO DAILY Vitamin C (Ascorbic Acid) 500 Mg Capsule 1,000 Mg PO DAILY Colace (Docusate Sodium) 100 Mg Capsule 200 Mg PO BID Instructions to patient/family Please see electronic discharge instructions given to patient. Diagnosis/Problems Diagnosis/Problems (1) Status post left hip replacement (2) Constipation (3) RAIMUNDO treated with BiPAP (4) CAD (coronary artery disease) (5) PAF (paroxysmal atrial fibrillation) PONCE KAUR DO Nov 25, 2022 05:55
--- NOTE | 2022-11-25 05:55 | D/C HH Face to Face Order ---
D/C Face to Face Orders Reconcile Patient Problems Problems Reviewed?: Yes Instructions for Patient Via [facility], Patient Instructions/FollowUp: pcp 1 week Physician to follow Patient: Maewarcal Discharge Diet for Home: No Restrictions Patient Problems: Joint replacement Patient Data-Allergies,Ht & Wt Patient Allergies: Coded Allergies: Eahoupq-MWN-TrM Reductase Inhibitor (Verified Allergy, Unknown, 07/05/15) hydrocodone (Verified Allergy, Unknown, pt has received morphine & hydromorphone in the past, 09/02/20) Height (Feet): 6 Height (Inches): 1.00 Weight (Pounds): 255 Weight (Ounces): 0.0 Home Health Need/Face to Face Date of Face to Face: Nov 25, 2022 Clinical Findings: Generalized weakness and fatigue, Instability, Muscle weakness, Unsteady gait I have seen Pt hpbn-fq-ippu: Yes Discharged To: Home Diagnosis/Conditions: Debility Patient is Homebound due to: Jose fall risk due to instabilty, Muscle weakness, Pain w/ambulation Homebound Status Due to the above stated illness, injury or surgical procedure (medical condition or diagnosis) and associated clinical findings, the patient is homebound because of his/her inability to leave home except with aid of a supportive device and/or person AND leaving the home requires a considerable and taxing effort or is medically contraindicated. Pt req the following assistanc: Walker Home Health Nursing Orders Home Health Services Order: Nursing Services, Outpatient Dietitian-Evaluate & Treat, Physical Therapy-Evaluate & Treat Certify Stmt I certify that this patient is under my care and that I, a nurse practitioner or a physician; a temporary administrative assistant working with me, had a face to face encounter that - meets the physician face to face encounter requirements with this patient as dated. PONCE KAUR DO Nov 25, 2022 05:55
[2022-11-25 08:00] VITALS: BP 125/60
[2022-11-25 08:11] VITALS: BP 125/60
[2022-11-25] MEDS: TOLTERODINE LA 2 MG (DETROL LA) CAP PO SCH (09:17)
[2022-11-25] MEDS: VITAMIN D3 25 MCG (1,000 UNITS) TABLET PO SCH (09:17)
[2022-11-25] MEDS: DOCUSATE SODIUM 100 MG (COLACE) CAP PO SCH (09:17)
[2022-11-25] MEDS: PREGABALIN 75 MG (LYRICA) CAP PO SCH (09:18)
[2022-11-25] MEDS: PANTOPRAZOLE 20 MG TABLET (PROTONIX) PO SCH (09:18)
[2022-11-25] MEDS: ASPIRIN E.C. 81 MG (ECOTRIN) TAB PO SCH (09:18)
[2022-11-25] MEDS: SENNA W/DOCUSATE (SENOKOT S) TABLET PO SCH (09:18)
[2022-11-25] MEDS: LOSARTAN 25 MG (COZAAR) TAB PO SCH (09:18)
[2022-11-25 14:08] VITALS: BP 125/60
--- NOTE | 2022-11-28 12:58 | Therapy Team Discharge Summary ---
Therapy Discharge Summary Discharge Recommendations Date of Discharge Nov 25, 2022 at 13:15 Physical Therapy Pt is S/P L KELLI on 11/16/2022; Admitted to ARU on 11/17/2022. At [facility], pt was Ind with the FWW and driving. Upon PT eval, pt was CGA/SBA for all aspects of functional mobility. Pt focused on LE strength, functional mobility, walking, balance, endurance, safety, and Ind. Pt progressed well and met all set goals. Pt d/c from ARU to home with family and HH on 11/25/22. D/C from PT at that time. Roll Left to Right (QC): 6 Sit to Lying (QC): 6 Lying to Sitting/Side of Bed(Q: 6 Sit to Stand (QC): 6 Chair/Pfd-he-Jywtw Xfer(QC): 6 Toilet Transfer (QC): 6 Car Transfer (QC): 6 Does the Patient Walk: Yes Mode of Locomotion: Walk Anticipated Mode of Locomotion: Walk Walk 10 feet (QC): 6 Walk 50 ft with 2 Turns(QC): 6 Walk 150 ft (QC): 6 Walking 10ft on uneven surface: 6 Gait Assistive Device: FWW Does the Pt Use a Wheelchair: No Wheel 50 ft with 2 turns (QC): 9 Wheel 150 ft (QC): 9 Type of Wheelchair: N/A #of Steps: 12 1 Step (curb) (QC): 6 4 Steps (QC): 6 12 Steps (QC): 6 Walking Assistive Device: Walker Balance Sitting Static: Normal Balance Sitting Dynamic: Good Balance-Standing Static: Good Picking up an Object (QC): 6 Occupational Therapy Impaired Self-Care Skills Eating (QC): 6 Oral Hygiene (QC): 6 Shower/Bathe Self (QC): 4 Upper Body Dressing (QC): 5 Lower Body Dressing (QC): 4 On/Off Footwear (QC): 5 Toileting Hygiene (QC): 4 PT Nursing Home Goals Nursing Home Goals PT Scientific Informatics Analyst Goals Time Frame: Nov 25, 2022 Roll Left to Right (QC): 6 (Mod I with funcitonal mobility ) Sit to Lying (QC): 6 (Mod I with funcitonal mobility ) Lying-Sitting on Side/Bed(QC): 6 (Mod I with funcitonal mobility ) Sit to Stand (QC): 6 (Mod I with funcitonal mobility ) Chair/Mef-vr-Bhlps Xfer(QC): 6 (Mod I with funcitonal mobility ) Toilet/Commode Transfer (QC): 6 (Mod I with funcitonal mobility ) Car Transfer (QC): 6 (Mod I with funcitonal mobility ) Does the Patient Walk: Yes Walk 10 feet (QC): 6 (Mod I with funcitonal mobility ) Walk 10ft-Uneven Surface(QC): 6 (Mod I with funcitonal mobility ) Walk 50ft with 2 Turns (QC): 6 (Mod I with funcitonal mobility ) Walk 150 ft (QC): 6 (Mod I with funcitonal mobility ) Does the Pt use WC or Scooter?: No Wheel 50 feet with 2 turns (QC: 9 Type: N/A Wheel 150 feet: 9 Type: N/A 1 Step (curb) (QC): 6 (Mod I with funcitonal mobility ) 4 Steps (QC): 6 (Mod I with funcitonal mobility ) 12 Steps (QC): 6 (Mod I with funcitonal mobility ) Picking up an Object (QC): 6 (Mod I with funcitonal mobility ) OT Nursing Home Goals Nursing Home Goals Time Frame: Nov 25, 2022 Acute change in mental status: 0 Inattention: 0 Disorganized thinkin Altered level of consciousness: 0 Oral Hygiene (QC): 6 Toileting Hygiene (QC): 6 Shower/Bathe Self (QC): 6 Upper Body Dressing (QC): 6 Lower Body Dressing (QC): 6 On/Off Footwear (QC): 6 1=Demonstrate adherence to instructed precautions during ADL tasks. 2=Patient will verbalize/demonstrate understanding of assistive devices/modifications for ADL. 3=Patient will improve strength/tolerance for activity to enable patient to perform ADL's. ROBLES VALDIVIA PT Nov 28, 2022 12:58
--- NOTE | 2022-11-28 15:02 | Therapy Team Discharge Summary ---
Therapy Discharge Summary Discharge Recommendations Date of Discharge Nov 25, 2022 at 13:15 Physical Therapy Roll Left to Right (QC): 6 Sit to Lying (QC): 6 Lying to Sitting/Side of Bed(Q: 6 Sit to Stand (QC): 6 Chair/Pce-rf-Uzxhe Xfer(QC): 6 Toilet Transfer (QC): 6 Car Transfer (QC): 6 Does the Patient Walk: Yes Mode of Locomotion: Walk Anticipated Mode of Locomotion: Walk Walk 10 feet (QC): 6 Walk 50 ft with 2 Turns(QC): 6 Walk 150 ft (QC): 6 Walking 10ft on uneven surface: 6 Gait Assistive Device: FWW Does the Pt Use a Wheelchair: No Wheel 50 ft with 2 turns (QC): 9 Wheel 150 ft (QC): 9 Type of Wheelchair: N/A #of Steps: 12 1 Step (curb) (QC): 6 4 Steps (QC): 6 12 Steps (QC): 6 Walking Assistive Device: Walker Balance Sitting Static: Normal Balance Sitting Dynamic: Good Balance-Standing Static: Good Picking up an Object (QC): 6 Occupational Therapy Pt is S/P L KELLI on 11/16/2022; Admitted to ARU on 11/17/2022. At [facility], pt was Ind with the FWW and driving. Upon OT eval, pt was CGA/SBA for all aspects of functional mobility, min assist for ADLS. Pt focused on UE strength, functional mobilit, balance, endurance, safety w/ ADLs following precautions. Pt progressed well and partially met goals w/ continued assistance for complexity sequences.. Pt d/c from ARU to home with family and HH on 11/25/22. D/C from OT. Impaired Coordination, Impaired Self-Care Skills Eating (QC): 6 Oral Hygiene (QC): 6 Shower/Bathe Self (QC): 4 Upper Body Dressing (QC): 5 Lower Body Dressing (QC): 4 On/Off Footwear (QC): 5 Toileting Hygiene (QC): 4 PT Custodial Goals Child And Adolescent Psychologist Goals PT Child And Adolescent Psychologist Goals Time Frame: Nov 25, 2022 Roll Left to Right (QC): 6 (Mod I with funcitonal mobility ) Sit to Lying (QC): 6 (Mod I with funcitonal mobility ) Lying-Sitting on Side/Bed(QC): 6 (Mod I with funcitonal mobility ) Sit to Stand (QC): 6 (Mod I with funcitonal mobility ) Chair/Kbd-zl-Utcvh Xfer(QC): 6 (Mod I with funcitonal mobility ) Toilet/Commode Transfer (QC): 6 (Mod I with funcitonal mobility ) Car Transfer (QC): 6 (Mod I with funcitonal mobility ) Does the Patient Walk: Yes Walk 10 feet (QC): 6 (Mod I with funcitonal mobility ) Walk 10ft-Uneven Surface(QC): 6 (Mod I with funcitonal mobility ) Walk 50ft with 2 Turns (QC): 6 (Mod I with funcitonal mobility ) Walk 150 ft (QC): 6 (Mod I with funcitonal mobility ) Does the Pt use WC or Scooter?: No Wheel 50 feet with 2 turns (QC: 9 Type: N/A Wheel 150 feet: 9 Type: N/A 1 Step (curb) (QC): 6 (Mod I with funcitonal mobility ) 4 Steps (QC): 6 (Mod I with funcitonal mobility ) 12 Steps (QC): 6 (Mod I with funcitonal mobility ) Picking up an Object (QC): 6 (Mod I with funcitonal mobility ) OT Custodial Goals Child And Adolescent Psychologist Goals Time Frame: Nov 25, 2022 Acute change in mental status: 0 Inattention: 0 Disorganized thinkin Altered level of consciousness: 0 Oral Hygiene (QC): 6 Toileting Hygiene (QC): 6 Shower/Bathe Self (QC): 6 Upper Body Dressing (QC): 6 Lower Body Dressing (QC): 6 On/Off Footwear (QC): 6 1=Demonstrate adherence to instructed precautions during ADL tasks. 2=Patient will verbalize/demonstrate understanding of assistive devices/modif ications for ADL. 3=Patient will improve strength/tolerance for activity to enable patient to perform ADL's. CONSTANTIN HERRERA OT Nov 28, 2022 15:02
== END 2022-11-25 13:15 | disposition home health service (06) | DRG 561 ==
PROVIDERS: ADMIT Internal Medicine; ATTEND Internal Medicine
DX: Z47.1 Aftercare following joint replacement surgery (principal); N40.1 Benign prostatic hyperplasia with lower urinary tract symptoms; R33.8 Other retention of urine; K59.00 Constipation, unspecified; G47.33 Obstructive sleep apnea (adult) (pediatric); I48.0 Paroxysmal atrial fibrillation; I25.10 Atherosclerotic heart disease of native coronary artery without angina pectoris; E78.00 Pure hypercholesterolemia, unspecified; I10 Essential (primary) hypertension; M54.9 Dorsalgia, unspecified; D72.829 Elevated white blood cell count, unspecified; H91.90 Unspecified hearing loss, unspecified ear; I25.2 Old myocardial infarction; Z95.0 Presence of cardiac pacemaker; Z86.718 Personal history of other venous thrombosis and embolism; Z79.01 Long term (current) use of anticoagulants; Z85.820 Personal history of malignant melanoma of skin; Z96.653 Presence of artificial knee joint, bilateral; Z96.643 Presence of artificial hip joint, bilateral; Z88.5 Allergy status to narcotic agent; Z88.8 Allergy status to other drugs, medicaments and biological substances; Z79.899 Other long term (current) drug therapy; Z79.82 Long term (current) use of aspirin
CPT/HCPCS: 36415; 74022; 80053; 85007; 85025; 85027; 94760

== ENCOUNTER → 2023-02-27 | Outpatient (CLI) | payer MEDICARE ==
[~2023-02-27] MED LIST changes: +ACET-2840 PO; +CYAN-25 PO; -MECL-149 PO; +MECL-291 PO; +NALO4SPR NSEACH; +OMEP-401 PO; +ONDA4TAB11 PO; +OXYC1TAB11 PO; +OXYC1TAB87 PO; +PREG75CA76 PO; +TOLT2TAB19 PO
== END ==
LOC: WOUNDCARE 08:58
PROVIDERS: ATTEND Family Medicine
DX: L97.222 Non-pressure chronic ulcer of left calf with fat layer exposed (principal); I70.242 Atherosclerosis of native arteries of left leg with ulceration of calf; I89.0 Lymphedema, not elsewhere classified; E66.01 Morbid (severe) obesity due to excess calories; Z68.33 Body mass index [BMI] 33.0-33.9, adult; L03.116 Cellulitis of left lower limb
CPT/HCPCS: 11042; A6197; A6212; G0463

== ENCOUNTER → 2023-03-06 | Outpatient (CLI) | payer MEDICARE | LOC: WOUNDCARE 08:17 | PROVIDERS: ATTEND Family Medicine | DX: L97.922 Non-pressure chronic ulcer of unspecified part of left lower leg with fat layer exposed (principal); I70.242 Atherosclerosis of native arteries of left leg with ulceration of calf; I89.0 Lymphedema, not elsewhere classified; E66.01 Morbid (severe) obesity due to excess calories; Z68.33 Body mass index [BMI] 33.0-33.9, adult; L03.116 Cellulitis of left lower limb; I96 Gangrene, not elsewhere classified | CPT/HCPCS: 11042; A6253; G0463 ==

== ENCOUNTER → 2023-03-09 | Outpatient (CLI) | payer MEDICARE | LOC: WOUNDCARE 08:15 | PROVIDERS: ATTEND Family Medicine | DX: I96 Gangrene, not elsewhere classified (principal); L97.222 Non-pressure chronic ulcer of left calf with fat layer exposed; I89.0 Lymphedema, not elsewhere classified | CPT/HCPCS: 29581; A6253; G0463 ==

== ENCOUNTER → 2023-03-13 | Outpatient (CLI) | payer MEDICARE | LOC: WOUNDCARE 08:15 | PROVIDERS: ATTEND Family Medicine | DX: I70.242 Atherosclerosis of native arteries of left leg with ulceration of calf (principal); L97.222 Non-pressure chronic ulcer of left calf with fat layer exposed; I89.0 Lymphedema, not elsewhere classified; E66.01 Morbid (severe) obesity due to excess calories; Z68.33 Body mass index [BMI] 33.0-33.9, adult | CPT/HCPCS: 29581; G0463 ==

== ENCOUNTER → 2023-03-20 | Outpatient (CLI) | payer MEDICARE | LOC: WOUNDCARE 08:08 | PROVIDERS: ATTEND Family Medicine | DX: L97.222 Non-pressure chronic ulcer of left calf with fat layer exposed (principal); I70.242 Atherosclerosis of native arteries of left leg with ulceration of calf; I89.0 Lymphedema, not elsewhere classified; E66.01 Morbid (severe) obesity due to excess calories; Z68.33 Body mass index [BMI] 33.0-33.9, adult | CPT/HCPCS: 29581; G0463 ==